=== PATIENT | female | born 1975 | race Caucasian/White ===

== ENCOUNTER 2023-06-24 10:07 | Outpatient (REF) | payer OTHER, SELFPAY ==
[2023-06-24 11:33] LABS: SARS-CoV-2 Ag POSITIVE (NEGATIVE)
== END 2023-06-24 10:08 | disposition home or self-care (01) ==
LOC: LAB 10:07
PROVIDERS: PCP Family Medicine; Visit Provider Internal Medicine
DX: Z20.822 Contact with and (suspected) exposure to COVID-19 (principal)
CPT/HCPCS: 87811

== ENCOUNTER 2024-02-26 20:00 | Outpatient (OUT) | payer OTHER, SELFPAY | END 2024-02-26 20:01 | disposition home or self-care (01) | LOC: SLEEP 02-27 07:33 | PROVIDERS: PCP Family Medicine; Visit Provider Family Medicine | DX: G47.33 Obstructive sleep apnea (adult) (pediatric) (principal) | CPT/HCPCS: 95810 ==

== ENCOUNTER 2024-03-01 09:23 | Outpatient (OUT) | payer OTHER, SELFPAY ==
--- NOTE | 2024-03-01 09:26 | MM_ITS ---
Patient Name: YOLANDA ALCARAZ MR#: [id number] : 1975 Exam Date: 03/01/2024 Ordering Doctor: DR Allison Schuler M.D. RADIOLOGY REPORT PROCEDURE: MM TOMOSYNTHESIS SCREENING BI COMPARISON: MAMMO POST BIOPSY RIGHT, 05/03/2022. MG MAMM RT DIAG FU, 04/23/2022. MG MAMM SCREEN 3D AYUSH CAD, 04/14/2022. INDICATIONS: Screening Calculator Name NCI Breast Cancer Risk Assessment Tool 5 Year Breast Cancer Risk Not Reported. Lifetime Breast Cancer Risk Not Reported. Personal Breast Cancer No Personal Ovarian Cancer No Treatments None Family Cancers None LOCATION: [facility] BREAST COMPOSITION: The breasts are heterogeneously dense,which may obscure small masses. FINDINGS: DIAGNOSTIC CATEGORY 2--BENIGN FINDING: RIGHT BREAST: No significant suspicious finding. No appreciable change of the 2.1 cm mass within the posterior upper-outer quadrant (benign on prior biopsy). No significant change has occurred. LEFT BREAST: No significant suspicious finding. No significant change has occurred. RECOMMENDATIONS: ROUTINE MAMMOGRAM AND CLINICAL EVALUATION IN 12 MONTHS. PLEASE NOTE: A NORMAL MAMMOGRAM DOES NOT EXCLUDE THE POSSIBILITY OF BREAST CANCER. A CLINICALLY SUSPICIOUS PALPABLE LUMP SHOULD BE BIOPSIED. Dictated by: West Wooten M.D. on 03/01/2024 at 15:34 Approved by: West Wooten M.D. on 03/01/2024 at 15:39
--- OUTSIDE RECORDS SUMMARY | 2024-03-01 09:29 | XMS_ITS | CCD ---
Author Organization [facility] Care Team Providers Care Security Business Analyst Name Role Phone MD Raymundo DAILEY Attending Unavailable SHARP, DR ALLISON Gaitan Primary Care Unavailable KARASIK ., DR MATSON Admitting Unavailabl e KARASIK ., DR MATSON Consulting Unavailabl e KARASIK ., DR MATSON Attending Unavailabl e AGUBOSIM, DARIA Consulting Unavailable LEONARD, TRI Consulting Unavailable SHARP, DR ALLISON Gaitan Primary Care Unavailable KARASIK ., DR MATSON Admitting Unavailabl e KARASIK ., DR MATSON Consulting Unavailabl e KARASIK ., DR MATSON Attending Unavailabl e SHARP, DR ALLISON Gaitan Primary Care Unavailable KARASIK ., DR MATSON Admitting Unavailabl e KARASIK ., DR MATSON Consulting Unavailabl e KARASIK ., DR MATSON Attending Unavailabl e REQUEST, DR ALMANZAR LISTED Consulting Unavaila ble REQUEST, DR ALMANZAR LISTED Attending Unavaila ble REQUEST, DR ALMANZAR LISTED Admitting Unavaila ble SHARP, DR ALLISON Gaitan Primary Care Unavailable SHARP, DR ALLISON Gaitan Primary Care Unavailable KARASIK ., DR MATSON Attending Unavailabl e KARASIK ., DR MATSON Admitting Unavailabl e KARASIK ., DR MATSON Consulting Unavailabl e SHARP, DR ALLISON Gaitan Primary Care Unavailable KARASIK ., DR MATSON Admitting Unavailabl e KARASIK ., DR MATSON Attending Unavailabl e SHARP, DR ALLISON Gaitan Primary Care Unavailable SHARP, DR ALLISON Gaitan Consulting Unavailable SHARP, DR ALLISON Gaitan Attending Unavailable SHARP, DR ALLISON Gaitan Admitting Unavailable SHARP, DR ALLISON Gaitan Primary Care Unavailable SHARP, DR ALLISON Gaitan Admitting Unavailable SHARP, DR ALLISON Gaitan Consulting Unavailable SHARP, DR ALLISON Gaitan Attending Unavailable SHARP, DR ALLISON Gaitan Primary Care Unavailable SHARP, DR ALLISON Gaitan Admitting Unavailable WEST, DR RANJEET Pitts Consulting Unavailable SHARP, DR ALLISON Gaitan Attending Unavailable SHARP, DR ALLISON Gaitan Consulting Unavailable SHARP, DR ALLISON Gaitan Primary Care Unavailable KARASIK ., DR MATSON Attending Unavailabl e KARASIK ., DR MATSON Admitting Unavailabl e KARASIK ., DR MATSON Consulting Unavailabl e SHARP, DR ALLISON Gaitan Primary Care Unavailable KARASIK ., DR MATSON Attending Unavailabl e KARASIK ., DR MATSON Admitting Unavailabl e KARASIK ., DR MATSON Consulting Unavailabl e ZIEBER, DR WEST Hubbard Consulting Unavailable SHARP, DR ALLISON Gaitan Primary Care Unavailable ZIEBER, DR WEST Hubbard Consulting Unavailable SHARP, DR ALLISON Gaitan Admitting Unavailable SHARP, DR ALLISON Gaitan Attending Unavailable SHARP, DR ALLISON Gaitan Consulting Unavailable SHARP, DR ALLISON Gaitan Primary Care Unavailable KARASIK ., DR MATSON Attending Unavailabl e DAILEY ., DR GRACE Consulting Unavailable KARASIK ., DR MATSON Admitting Unavailabl e KARASIK ., DR MATSON Consulting Unavailabl e KARASIK ., DR MATSON Procedure Practitioner Smiley vailable TRI LEONARD Consulting Unavailable JUNGERMANNYANELY Consulting Unavailable DAILEY ., DR GRACE Procedure Practitioner Unav ailable MORCHICHI DARIA Consulting Unavailable SHARP, DR ALLISON Gaitan Primary Care Unavailable KARASIK ., DR MATSON Attending Unavailabl e KARASIK ., DR MATSON Admitting Unavailabl e SHARP, DR ALLISON Gaitan Primary Care Unavailable KARASIK ., DR MATSON Consulting Unavailabl e KARASIK ., DR MATSON Attending Unavailabl e KARASIK ., DR MATSON Admitting Unavailabl e KARASIK ., DR MATSON Primary Care Unavailabl e ZIEBER, DR WEST Hubbard Consulting Unavailable SHARP, DR ALLISON Gaitan Admitting Unavailable SHARP, DR ALLISON Gaitan Attending Unavailable SHARP, DR ALLISON Gaitan Consulting Unavailable Sharp, Allsion Unavailable Arley Hand Unavailable Allergies Allergy Classification Reported Allergen(s) Allergy Type Date of Onset Reaction(s) Facility (1 source) almotriptan Drug Allergy [facility] (1 source) Perazine Drug Allergy [facility] (1 source) almotriptan Drug Allergy Unknown [facility] Other (1 source) Naproxen / Pseudoephedrine Drug Allergy 08-06-20 Unknown [facility] Other (2 sources) rizatriptan Drug Allergy 02-17-20 Unknown, [facility] (1 source) Allergies Reconciled Propensity to adverse reactions Unknown [facility] Other (1 source) patient allergy list reviewed by nurse or physicia Propensity to adverse reactions 04-06-20 Comment:Done [facility] Other (1 source) almotriptan Drug Allergy 02-15-20 [facility] (1 source) Sudafed Sinus 12HR Press+Pain Allergy to substance 02-15-20 [facility] Medications Current Medications Medication Drug Class(es) Dates Sig (Normalized) Sig (Original) losartan potassium 25 mg oral tablet (1 source) Angiotensin 2 Receptor Gil Start: 02-15-2024 take 1 tablet by mouth once daily Losartan Active 25 MG PO Daily February 15, 2024 12:00am [facility]: TAKE 1 TABLET DAILY; Note: Source Status: Start; Refills: 3; Qty: 90 Tablet; Provider: Ganga Cooper ( ) metFORMIN hydrochloride 500 mg oral tablet (1 source) Biguanide Start: 02-17-2024 take 500 mg by mouth once daily Metformin Active 500 MG PO Daily February 17, 2024 12:00am methylPREDNISolone 4 mg oral tablet (2 sources) Corticosteroid Start: 06-23-2020 Medrol (Josue) 4 MG half of daily dose in the morning with food and the rest at night with food Orally Jun, Active sulfamethoxazole 800 mg / trimethoprim 160 mg oral tablet (2 sources) Dihydrofolate Reductase Inhibitor Antibacterial, Sulfonamide Antimicrobial Start: 04-27-2023 take 1 tablet by mouth every twelve hours Bactrim DS 800-160 MG 1 tablet Orally Twice a day for 10 day(s) Apr, Active {20 (nirmatrelvir 150 MG Oral Tablet) / 10 (ritonavir 100 MG Oral Tablet) } Pack [Paxlovid 5-Day] (1 source) Start: 06-24-2023 take 3 tablets by mouth every twelve hours Paxlovid (300/100) 20 x 150 MG & 10 x 100MG 3 tablets Orally Twice a day for 5 days Jun, Active Completed/Discontinued Medications Medication Drug Class(es) Dates Sig (Normalized) Sig (Original) amoxicillin 500 mg oral capsule (2 sources) Penicillin-class Antibacterial Amoxicillin 500 MG (Prior Auth#:[id number] ) Oral for 10 Not-Taking Nirmatrelvir-Riton avir (Paxlovid) 300 mg (150 mg x 2)-100 mg tablets,dose pack (1 source) Start: 02-15-2024 End: 02-17-2024 take 3 tablets by mouth twice daily Nirmatrelvir-Riton avir (Paxlovid) 300 mg (150 mg x 2)-100 mg tablets,dose pack Discontinued 3 TAB PO Twice daily February 15, 2024 12:00am February 17, 2024 9:42am [facility] tablets Orally Twice a day; Note: Source Status: Start; Refills: 0; Provider: Yazan Gaitan predniSONE 20 mg oral tablet (2 sources) predniSONE 20 MG (Prior Auth#:[id number] ) Oral for 5 Not-Taking Problems Active Problems Problem Classification Problem Date Documented Date Episodic/Chronic Allergic reactions (1 source) Allergic contact dermatitis; Translations: [Allergic contact dermatitis, unspecified cause] Episodic Chronic obstructive pulmonary disease and bronchiectasis (1 source) Bronchitis, not specified as acute or chronic Episodic Deficiency and other anemia (1 source) Nutritional anemia; Translations: [Nutritional anemia, unspecified] Episodic Deficiency and other anemia (1 source) Iron deficiency anemia; Translations: [Iron deficiency anemia, unspecified] Episodic Endometriosis (1 source) Endometriosis, unspecified; Translations: [ENDOMETRIOSIS UNSPECIFIED] Onset: 08-23-2022 Chronic Esophageal disorders (2 sources) Gastro-esophageal reflux disease without esophagitis; Translations: [Gastroesophageal reflux disease without esophagitis] Onset: 08-23-2022 Chronic Essential hypertension (1 source) Essential hypertension; Translations: [Essential (primary) hypertension] Chronic Menstrual disorders (8 sources) Excessive and frequent menstruation with regular cycle; Translations: [Irregular menstruation, unspecified] Onset: 05-03-2022 Resolved: 06-22-2022 Chronic Mycoses (1 source) Tinea corporis; Translations: [Tinea corporis] Episodic Nonmalignant breast conditions (1 source) Diffuse cystic mastopathy of right breast; Translations: [DIFFUSE CYSTIC MASTOPATHY RT BREAST] Onset: 07-21-2022 Chronic Open wounds of head; neck; and trunk (1 source) Open wound of lateral abdominal wall without complication; Translations: [Unspecified open wound of abdominal wall, unspecified quadrant without penetration into peritoneal cavity, initial encounter] Episodic Other acquired deformities (1 source) 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; Translations: [Contracture, right ankle] Chronic Other aftercare (1 source) History and physical examination, follow-up; Translations: [Encounter for follow-up examination after completed treatment for conditions other than malignant neoplasm] Episodic Other circulatory disease (1 source) Elevated blood-pressure reading without diagnosis of hypertension; Translations: [Elevated blood-pressure reading, without diagnosis of hypertension] Episodic Other connective tissue disease (1 source) Plantar fascial fibromatosis; Translations: [Plantar fascial fibromatosis] Episodic Other connective tissue disease (1 source) Achilles bursitis; Translations: [Achilles tendinitis, right leg] Episodic Other connective tissue disease (1 source) Pain in right foot; Translations: [Pain in right foot] Episodic Other injuries and conditions due to external causes (1 source) History of fall; Translations: [History of falling] Episodic Other nutritional; endocrine; and metabolic disorders (1 source) Morbid (severe) obesity due to excess calories; Translations: [MORBID SEVERE OBES D/T EXCESS KELLY] Onset: 08-23-2022 Chronic Other nutritional; endocrine; and metabolic disorders (1 source) Body mass index (BMI) 40.0-44.9, adult; Translations: [BODY MASS INDEX BMI 40.0-44.9 ADULT] Onset: 08-23-2022 Chronic Other nutritional; endocrine; and metabolic disorders (1 source) Body mass index 40+ - severely obese; Translations: [Body mass index (BMI) 40.0-44.9, adult] Chronic Other nutritional; endocrine; and metabolic disorders (1 source) Morbid obesity; Translations: [Morbid (severe) obesity due to excess calories] Chronic Other screening for suspected conditions (not mental disorders or infectious disease) (2 sources) Abnormal findings on diagnostic imaging of other specified body structures; Translations: [Imaging result abnormal] Onset: 06-16-2022 Chronic Other screening for suspected conditions (not mental disorders or infectious disease) (15 sources) Encounter for screening for malignant neoplasm of cervix; Translations: [Other abnormal and inconclusive findings on diagnostic imaging of breast] Onset: 04-14-2022 Resolved: 07-26-2022 Episodic Other upper respiratory infections (2 sources) Chronic sinusitis, unspecified; Translations: [Chronic sinusitis] Onset: 10-13-2022 Chronic Pleurisy; pneumothorax; pulmonary collapse (1 source) Pleurisy; Translations: [Pleurisy] Episodic Residual codes; unclassified (1 source) Postprocedural state finding; Translations: [Other specified postprocedural states] Episodic Residual codes; unclassified (1 source) Immunization refused ; Translations: [Immunization not carried out because of patient refusal] Episodic Spondylosis; intervertebral disc disorders; other back problems (1 source) Low back pain; Translations: [Low back pain, unspecified] Episodic Unclassified (4 sources) CONTACT W/AND (SUSP) EXPOS COVID-19; Translations: [CONTACT W/AND (SUSP) EXPOS COVID-19] Onset: 07-17-2022 Urinary tract infections (1 source) Acute cystitis without hematuria Episodic Past or Other Problems Problem Classification Problem Date Documented Date Episodic/Chronic Abdominal pain (9 sources) Pelvic and perineal pain; Translations: [Left upper quadrant pain] Onset: 06-14-2013 Resolved: 06-22-2022 Episodic Benign neoplasm of uterus (3 sources) Leiomyoma of uterus, unspecified; Translations: [LEIOMYOMA OF UTERUS UNSPECIFIED] Onset: 07-19-2022 Episodic Deficiency and other anemia (4 sources) Iron deficiency anemia, unspecified; Translations: [IRON DEFICIENCY ANEMIA UNSPECIFIED] Onset: 07-14-2022 Episodic Deficiency and other anemia (1 source) Nutritional anemia, unspecified; Translations: [NUTRITIONAL ANEMIA UNSPECIFIED] Onset: 06-16-2022 Episodic Genitourinary symptoms and ill-defined conditions (1 source) Female genital organ symptoms; Translations: [Unspecified symptom associated with female genital organs] Onset: 07-16-2010 Resolved: 04-29-2022 Episodic Headache; including migraine (1 source) Migraine without aura, not refractory ; Translations: [Migraine, unspecified, not intractable, without status migrainosus] Resolved: 04-29-2022 Chronic Immunizations and screening for infectious disease (1 source) Encounter for screening for human papillomavirus (HPV); Translations: [ENC SCREENING HUMAN PAPILLOMAVIRUS] Onset: 05-03-2022 Episodic Inflammatory diseases of female pelvic organs (1 source) Female pelvic peritoneal adhesions (postinfective); Translations: [FE PELV PERITON ADHES POSTINFECTIVE] Onset: 08-23-2022 Episodic Nonmalignant breast conditions (4 sources) Unspecified lump in the right breast, upper outer quadrant; Translations: [UNS LUMP IN RT BREAST UP OUTR QUAD] Onset: 04-16-2022 Episodic Nonspecific chest pain (1 source) Chest pain; Translations: [Chest pain, Other] Onset: 12-06-2013 Resolved: 04-29-2022 Episodic Other aftercare (1 source) Other [employer] (current) drug therapy; Translations: [OTH HALF-WAY CURRENT DRUG THERAPY] Onset: 08-23-2022 Episodic Other female genital disorders (1 source) Abnormal vaginal bleeding; Translations: [Other disorder of menstruation and other abnormal bleeding from female genital tract] Onset: 07-08-2015 Resolved: 04-29-2022 Chronic Other female genital disorders (1 source) Hypertrophy of uterus; Translations: [HYPERTROPHY OF UTERUS] Onset: 07-06-2022 Episodic Other female genital disorders (1 source) Hypertrophy of uterus; Translations: [Hypertrophy of uterus] Resolved: 07-29-2022 Episodic Other nutritional; endocrine; and metabolic disorders (1 source) Obese class II; Translations: [Body mass index 39.0-39.9, adult] Onset: 01-27-2017 Resolved: 04-29-2022 Chronic Other upper respiratory infections (1 source) Acute maxillary sinusitis; Translations: [Acute recurrent maxillary sinusitis] Onset: 04-06-2019 Resolved: 04-29-2022 Episodic Ovarian cyst (2 sources) Unspecified ovarian cyst, left side; Translations: [Corpus luteum cyst] Onset: 07-16-2010 Resolved: 04-29-2022 Episodic Unclassified (1 source) CONTACT W/AND (SUSP) EXPOS COVID-19; Translations: [CONTACT W/AND (SUSP) EXPOS COVID-19] Onset: 10-05-2022 Viral infection (1 source) COVID-19 Results Test Name Value Interpretation Reference Range Facility Urinalysis - DIPSTICKon 04-16 Appearance (U) cloudy [facility] Other Bilirubin Ql (U) Negative [facility] Other Color (U) yellow [facility] Other Glucose Ql (U) Negative [facility] Other Hemoglobin Ql (U) trace [facility] Other Ketones Ql (U) Negative [facility] Other Leukocyte esterase Test strip Ql (U) moderate [facility] Other Nitrite Ql (U) Positive [facility] Other pH (U) 5 [pH] [facility] Other Protein Ql (U) 30+ [facility] Other Specific gravity (U) [Rel density] 1.005 [facility] Other Urobilinogen (U) [Mass/Vol] normal [facility] Other Urinalysis - DIPSTICK [facility] Other CBC AUTO DIFFon 02-16-2023 BASO # 0.0 103/ul Normal 0.0-0.1 [facility] Comment on above: Performed By: #### B UN, CREA #### [facility] [address] [place] [address] Dr. Luis A Solorio Basophils/100 WBC (Bld) 0.4 % Normal 0.2-2.0 [facility] Comment on above: Performed By: #### B UN, CREA #### [facility] [address] [place] [address] Dr. Luis A Solorio EO # 0.1 103/ul Normal 0.0-0.7 [facility] Comment on above: Performed By: #### B UN, CREA #### [facility] [address] [place] [address] Dr. Luis A Solorio Eosinophils/100 WBC (Bld) 1.6 % Normal 0.9-7.0 [facility] Comment on above: Performed By: #### B UN, CREA #### [facility] [address] [place] [address] Dr. Luis A Solorio Erythrocyte distribution width (RBC) [Ratio] 14.2 % Normal 11.0-15.0 [facility] Comment on above: Performed By: #### B UN, CREA #### [facility] [address] [place] [address] Dr. Luis A Solorio Hematocrit (Bld) [Volume fraction] 35.3 % Critically low 36.0-48.0 [facility] Comment on above: Performed By: #### B UN, CREA #### [facility] [address] [place] [address] Dr. Luis A Solorio Hemoglobin (Bld) [Mass/Vol] 11.2 g/dL Critically low 12.0-16.0 [facility] Comment on above: Performed By: #### B UN, CREA #### [facility] [address] [place] [address] Dr. Luis A Solorio IG # 0.01 10e3/ul Normal 0.00-0.03 [facility] Comment on above: Performed By: #### B UN, CREA #### [facility] [address] [place] [address] Dr. Luis A Solorio IG % 0.2 % Normal 0.0-0.5 [facility] Comment on above: Performed By: #### B UN, CREA #### [facility] [address] [place] [address] Dr. Luis A Solorio LYMPH # 1.8 103/ul Normal 1.2-3.8 [facility] Comment on above: Performed By: #### B UN, CREA #### [facility] [address] [place] [address] Dr. Luis A Solorio Lymphocytes/100 WBC (Bld) 37.9 % Normal 20.5-60.0 [facility] Comment on above: Performed By: #### B UN, CREA #### [facility] [address] [place] [address] Dr. Luis A Solorio MCH (RBC) [Entitic mass] 26.0 pg Critically low 26.7-34.0 [facility] Comment on above: Performed By: #### B UN, CREA #### [facility] [address] [place] [address] Dr. Luis A Solorio MCHC (RBC) [Mass/Vol] 31.7 g/dL Normal 29.9-35.2 [facility] Comment on above: Performed By: #### B UN, CREA #### [facility] [address] [place] [address] Dr. Luis A Solorio MCV (RBC) [Entitic vol] 81.9 fL Normal 81.0-99.0 [facility] Comment on above: Performed By: #### B UN, CREA #### [facility] [address] [place] [address] Dr. Luis A Solorio MONO # 0.4 103/ul Normal 0.3-0.8 [facility] Comment on above: Performed By: #### B UN, CREA #### [facility] [address] [place] [address] Dr. Luis A Solorio Monocytes/100 WBC (Bld) 8.5 % Normal 1.7-12.0 [facility] Comment on above: Performed By: #### B UN, CREA #### [facility] [address] [place] [address] Dr. Luis A Solorio NEUT # 2.5 103/ul Normal 1.4-6.5 [facility] Comment on above: Performed By: #### B UN, CREA #### [facility] [address] [place] [address] Dr. Luis A Solorio Neutrophils/100 WBC (Bld) 51.4 % Normal 43.0-75.0 [facility] Comment on above: Performed By: #### B UN, CREA #### [facility] [address] [place] [address] Dr. Luis A Solorio Platelet mean volume (Bld) [Entitic vol] 11.5 fL Normal 9.5-13.5 [facility] Comment on above: Performed By: #### B UN, CREA #### [facility] [address] [place] [address] Dr. Luis A Solorio PLT 228 103/ul Normal 150-450 [facility] Comment on above: Performed By: #### B ROLANDO, CREA #### [facility] [address] [place] [address] Dr. Luis A Solorio RBC 4.31 106/ul Normal 4.20-5.40 [facility] Comment on above: Performed By: #### B ROLANDO, CREA #### [facility] [address] [place] [address] Dr. Luis A Solorio WBC 4.9 103/ul Normal 4.0-11.0 [facility] Comment on above: Performed By: #### B ROLANDO, CREA #### [facility] [address] [place] [address] Dr. Luis A Solorio MEDHAT - TSHon 02-16-2023 TSH 1.783 uIU/mL Normal 0.358-3.740 [facility] Comment on above: Performed By: #### D ATBMP, DATTS #### [facility] [address] [place] [address] Dr. Luis A Solorio TSH RANGE SEE BELOW Normal [facility] Comment on above: Result Comment: <0.3 4 UIU/ml HYPERTHYROID 0.34-5.60 UIU/ml EUTHYROID >5.60 UIU/ml HYPOTHYROID Performed By: #### D ATBMP, DATTSH #### [facility] [address] [place] [address] Dr. Luis A Solorio MEDHAT- BMP WITH LIPIDon 2022 Anion gap [Moles/Vol] 13.5 mmol/L Normal [facility] Comment on above: Performed By: #### D ATBMP, DATTSH #### [facility] [address] [place] [address] Dr. Luis A Solorio Calcium [Mass/Vol] 8.9 mg/dL Normal 8.5-10.1 [facility] Comment on above: Performed By: #### D ATBMP, DATTSH #### [facility] [address] [place] [address] Dr. Luis A Solorio Chloride [Moles/Vol] 103 mmol/L Normal 98-107 [facility] Comment on above: Performed By: #### D ATBMP, DATTSH #### [facility] [address] [address] [address] Luis A Solorio Cholesterol [Mass/Vol] 227 mg/dL Critically high <=200 [facility] Comment on above: Performed By: #### D ATBMP, DATTSH #### [facility] [address] [address] [address] Luis A Solorio Cholesterol in HDL [Mass/Vol] 56 mg/dL Normal 40-60 [facility] Comment on above: Performed By: #### D ATP, DATTSH #### [facility] [address] [place] [address] Dr. Luis A Solorio Cholesterol in LDL [Mass/Vol] 141.2 mg/dL Normal [facility] Comment on above: Performed By: #### D ATP, DATTSH #### [facility] [address] [place] [address] Dr. Luis A Solorio CO2 [Moles/Vol] 24.5 mmol/L Normal 21.0-32.0 [facility] Comment on above: Performed By: #### D ATP, DATTSH #### [facility] [address] [place] [address] Dr. Luis A Solorio Creatinine [Mass/Vol] 0.74 mg/dL Normal 0.55-1.02 [facility] Comment on above: Performed By: #### D ATP, DATTSH #### [facility] [address] [place] [address] Dr. Luis A Solorio EGFR-AF BAHRAINI >60 Normal >=60 [facility] Comment on above: Performed By: #### D ATBMP, DATTSH #### [facility] [address] [place] [address] Dr. Luis A Solorio EGFR-NON AF BAHRAINI >60 Normal >=60 [facility] Comment on above: Performed By: #### D ATBMP, DATTSH #### [facility] [address] [address] [address] Luis A Solorio Glucose [Mass/Vol] 94 mg/dL Normal 74-106 [facility] Comment on above: Performed By: #### D ATBMP, DATTS #### [facility] [address] [address] [address] Luis A Solorio HDL NORMAL > or = 60 mg/dl - LOW CARDIOVASCULAR RISK <40 mg/dl - HIGH CARDIOVASCULAR RISK Normal [facility] Comment on above: Performed By: #### D ATP, DATTSH #### [facility] [address] [address] [address] Luis A Solorio LDL CALC NORMAL SEE BELOW Normal [facility] Comment on above: Result Comment: <100 mg/dl OPTIMAL 100 - 129 mg/dl NEAR OR ABOVE OPTIMAL 130 - 159 mg/dl BORDERLINE HIGH 160 - 189 mg/dl HIGH >190 mg/dl VERY HIGH Performed By: #### D ATBMP, DATTS #### [facility] [address] [address] [address] Luis A Solorio Potassium [Moles/Vol] 4.0 mmol/L Normal 3.5-5.1 [facility] Comment on above: Performed By: #### D ATP, DATTSH #### [facility] [address] [address] [address] Luis A Solorio Sodium [Moles/Vol] 137 mmol/L Normal 136-145 [facility] Comment on above: Performed By: #### D ATBMP, DATTS #### [facility] [address] [address] [address] Luis A Solorio Triglyceride [Mass/Vol] 149 mg/dL Normal <=150 [facility] Comment on above: Performed By: #### D ATBMP, DATTSH #### [facility] [address] [address] [address] Luis A Solorio Urea nitrogen [Mass/Vol] 13.0 mg/dL Normal 7.0-18.0 [facility] Comment on above: Performed By: #### D ATBMP, DATTSH #### [facility] [address] [address] [address] Luis A Solorio Urea nitrogen/Creatinine [Mass ratio] 17.6 mg/mg Normal [facility] Comment on above: Performed By: #### D ATBMP, DATTSH #### [facility] [address] [address] [address] Luis A Solorio VLDL CALC 29.8 mg/dL Normal [facility] Comment on above: Performed By: #### D ATBMP, DATTSH #### [facility] [address] [address] [address] Luis A Solorio GLYCOHEMOGLOBIN A1Con 2022 ADA RECOMMENDATION SEE BELOW Normal [facility] Comment on above: Result Comment: ADA RECOMMENDED LIMIT 4.0 - 6.0 ADA THERAPEUTIC TARGET < 7.0 ACTION SUGGESTED > 7.0 Performed By: #### P REGU #### [facility] [address] [address] [address] Luis A Solorio Glucose [Mass/Vol] 114 mg/dL Normal [facility] Comment on above: Performed By: #### P REGU #### [facility] [address] [address] [address] Luis A Solorio HbA1c (Bld) [Mass fraction] 5.6 % Normal 4.5-6.2 [facility] Comment on above: Performed By: #### P REGU #### [facility] [address] [address] [address] Luis A Solorio Covid-19 PCR ([facility])on 09-17 SARS-CoV-2 (COVID-19) RNA ARABELLA+probe Ql (Unsp spec) Not detected Normal NOT DETECTED [facility] Comment on above: Result Comment: When diagnostic testing is negative, the possibility of a false negative should be considered in the context of a patient's recent exposures and the presence of clinical signs and symptoms consistent with SARS-CoV-2. This test is not yet approved or cleared by the [place] FDA. When there are no FDA-approved or cleared tests available, and other criteria are met, FDA can make tests available under an emergency access mechanism called an Emergency Use Authorization (EUA). The EUA for this test is supported by the [place] of Health and Human Service's declaration that circumstances exist to justify the emergency use of in vitro diagnostics for the detection and/or diagnosis of the virus that causes COVID-19. This EUA will remain in effect for the duration of the COVID-19 declaration justifying emergency of IVDs, unless it is terminated or revoked by the FDA (after which the test may no longer be used). Performed By: #### P REGU #### [facility] [address] [place] [address] Dr. Luis A Solorio Operative Reporton 2 Operative Report [id number] #1.00CD:127 Normal [facility] BUNon 07-20-2022 Urea nitrogen [Mass/Vol] 14.0 mg/dL Normal 7.0-18.0 [facility] Comment on above: Performed By: #### B ROHIT MARSHALL #### [facility] [address] [place] [address] Dr. Luis A Solorio CBC AUTO DIFFon 07-20-2022 BASO # 0.0 103/ul Normal 0.0-0.1 [facility] Comment on above: Performed By: #### P REGU #### [facility] [address] [place] [address] Dr. Luis A Solorio Basophils/100 WBC (Bld) 0.1 % Critically low 0.2-2.0 [facility] Comment on above: Performed By: #### P REGU #### [facility] [address] [place] [address] Dr. Luis A Solorio EO # 0.0 103/ul Normal 0.0-0.7 [facility] Comment on above: Performed By: #### P REGU #### [facility] [address] [place] [address] Dr. Luis A Solorio Eosinophils/100 WBC (Bld) 0.0 % Critically low 0.9-7.0 [facility] Comment on above: Performed By: #### P REGU #### [facility] [address] [place] [address] Dr. Luis A Solorio Erythrocyte distribution width (RBC) [Ratio] 17.0 % Critically high 11.0-15.0 [facility] Comment on above: Performed By: #### P REGU #### [facility] [address] [place] [address] Dr. Luis A Solorio Hematocrit (Bld) [Volume fraction] 32.6 % Critically low 36.0-48.0 [facility] Comment on above: Performed By: #### P REGU #### [facility] [address] [place] [address] Dr. Luis A Solorio Hemoglobin (Bld) [Mass/Vol] 10.1 g/dL Critically low 12.0-16.0 [facility] Comment on above: Performed By: #### P REGU #### [facility] [address] [place] [address] Dr. Luis A Solorio IG # 0.05 10e3/ul Critically high 0.00-0.03 [facility] Comment on above: Performed By: #### P REGU #### [facility] [address] [place] [address] Dr. Luis A Solorio IG % 0.5 % Normal 0.0-0.5 [facility] Comment on above: Performed By: #### P REGU #### [facility] [address] [place] [address] Dr. Luis A Solorio LYMPH # 1.3 103/ul Normal 1.2-3.8 [facility] Comment on above: Performed By: #### P REGU #### [facility] [address] [place] [address] Dr. Luis A Solorio Lymphocytes/100 WBC (Bld) 12.4 % Critically low 20.5-60.0 [facility] Comment on above: Performed By: #### P REGU #### [facility] [address] [place] [address] Dr. Luis A Solorio MANUAL DIFF REQ NO Normal [facility] Comment on above: Performed By: #### P REGU #### [facility] [address] [place] [address] Dr. Luis A Solorio MCH (RBC) [Entitic mass] 25.1 pg Critically low 26.7-34.0 [facility] Comment on above: Performed By: #### P REGU #### [facility] [address] [place] [address] Dr. Luis A Solorio MCHC (RBC) [Mass/Vol] 31.0 g/dL Normal 29.9-35.2 [facility] Comment on above: Performed By: #### P REGU #### [facility] [address] [place] [address] Dr. Luis A Solorio MCV (RBC) [Entitic vol] 80.9 fL Critically low 81.0-99.0 [facility] Comment on above: Performed By: #### P REGU #### [facility] [address] [place] [address] Dr. Luis A Solorio MONO # 0.8 103/ul Normal 0.3-0.8 [facility] Comment on above: Performed By: #### P REGU #### [facility] [address] [place] [address] Dr. Luis A Solorio Monocytes/100 WBC (Bld) 7.6 % Normal 1.7-12.0 [facility] Comment on above: Performed By: #### P REGU #### [facility] [address] [place] [address] Dr. Luis A Solorio NEUT # 8.5 103/ul Critically high 1.4-6.5 [facility] Comment on above: Performed By: #### P REGU #### [facility] [address] [place] [address] Dr. Luis A Solorio Neutrophils/100 WBC (Bld) 79.4 % Critically high 43.0-75.0 [facility] Comment on above: Performed By: #### P REGU #### [facility] [address] [place] [address] Dr. Luis A Solorio Platelet mean volume (Bld) [Entitic vol] 10.7 fL Normal 9.5-13.5 [facility] Comment on above: Performed By: #### P REGU #### [facility] [address] [address] [address] Luis A Solorio PLT 237 103/ul Normal 150-450 [facility] Comment on above: Performed By: #### P REGU #### [facility] [address] [place] [address] Dr. Luis A Solorio RBC 4.03 106/ul Critically low 4.20-5.40 [facility] Comment on above: Performed By: #### P REGU #### [facility] [address] [place] [address] Dr. Luis A Solorio WBC 10.7 103/ul Normal 4.0-11.0 [facility] Comment on above: Performed By: #### P REGU #### [facility] [address] [place] [address] Dr. Luis A Solorio CREATININEon 07-20-2022 Creatinine [Mass/Vol] 0.99 mg/dL Normal 0.55-1.02 [facility] Comment on above: Performed By: #### B UN, CREA #### [facility] [address] [place] [address] Dr. Luis A Solorio EGFR-AF BAHRAINI >60 Normal >=60 [facility] Comment on above: Performed By: #### B UN, CREA #### [facility] [address] [place] [address] Dr. Luis A Solorio EGFR-NON AF BAHRAINI >60 Normal >=60 [facility] Comment on above: Performed By: #### B UN, CREA #### [facility] [address] [place] [address] Dr. Luis A Solorio CBC AUTO DIFFon 07-19-2022 BASO # 0.0 103/ul Normal 0.0-0.1 [facility] Comment on above: Performed By: #### C BC #### [facility] [address] [place] [address] Dr. Luis A Solorio Basophils/100 WBC (Bld) 0.4 % Normal 0.2-2.0 [facility] Comment on above: Performed By: #### C BC #### [facility] [address] [place] [address] Dr. Luis A Solorio EO # 0.1 103/ul Normal 0.0-0.7 [facility] Comment on above: Performed By: #### C BC #### [facility] [address] [place] [address] Dr. Luis A Solorio Eosinophils/100 WBC (Bld) 2.4 % Normal 0.9-7.0 [facility] Comment on above: Performed By: #### C BC #### [facility] [address] [place] [address] Dr. Luis A Solorio Erythrocyte distribution width (RBC) [Ratio] 16.4 % Critically high 11.0-15.0 [facility] Comment on above: Performed By: #### C BC #### [facility] [address] [place] [address] Dr. Luis A Solorio Hematocrit (Bld) [Volume fraction] 36.9 % Normal 36.0-48.0 [facility] Comment on above: Performed By: #### C BC #### [facility] [address] [place] [address] Dr. Luis A Solorio Hemoglobin (Bld) [Mass/Vol] 11.5 g/dL Critically low 12.0-16.0 [facility] Comment on above: Performed By: #### C BC #### [facility] [address] [place] [address] Dr. Luis A Solorio IG # 0.01 10e3/ul Normal 0.00-0.03 [facility] Comment on above: Performed By: #### C BC #### [facility] [address] [place] [address] Dr. Luis A Solorio IG % 0.2 % Normal 0.0-0.5 [facility] Comment on above: Performed By: #### C BC #### [facility] [address] [place] [address] Dr. Luis A Solorio LYMPH # 2.3 103/ul Normal 1.2-3.8 [facility] Comment on above: Performed By: #### C BC #### [facility] [address] [place] [address] Dr. Luis A Solorio Lymphocytes/100 WBC (Bld) 46.0 % Normal 20.5-60.0 [facility] Comment on above: Performed By: #### C BC #### [facility] [address] [place] [address] Dr. Lius A Solorio MANUAL DIFF REQ NO Normal [facility] Comment on above: Performed By: #### C BC #### [facility] [address] [place] [address] Dr. Luis A Solorio MCH (RBC) [Entitic mass] 25.3 pg Critically low 26.7-34.0 [facility] Comment on above: Performed By: #### C BC #### [facility] [address] [place] [address] Dr. Luis A Solorio MCHC (RBC) [Mass/Vol] 31.2 g/dL Normal 29.9-35.2 [facility] Comment on above: Performed By: #### C BC #### [facility] [address] [place] [address] Dr. Luis A Solorio MCV (RBC) [Entitic vol] 81.1 fL Normal 81.0-99.0 [facility] Comment on above: Performed By: #### C BC #### [facility] [address] [place] [address] Dr. Luis A Solorio MONO # 0.5 103/ul Normal 0.3-0.8 [facility] Comment on above: Performed By: #### C BC #### [facility] [address] [place] [address] Dr. Luis A Solorio Monocytes/100 WBC (Bld) 10.5 % Normal 1.7-12.0 [facility] Comment on above: Performed By: #### C BC #### [facility] [address] [place] [address] Dr. Luis A Solorio NEUT # 2.0 103/ul Normal 1.4-6.5 [facility] Comment on above: Performed By: #### C BC #### [facility] [address] [place] [address] Dr. Luis A Solorio Neutrophils/100 WBC (Bld) 40.5 % Critically low 43.0-75.0 [facility] Comment on above: Performed By: #### C BC #### [facility] [address] [place] [address] Dr. Luis A Solorio Platelet mean volume (Bld) [Entitic vol] 10.4 fL Normal 9.5-13.5 [facility] Comment on above: Performed By: #### C BC #### [facility] [address] [place] [address] Dr. Luis A Solorio PLT 236 103/ul Normal 150-450 [facility] Comment on above: Performed By: #### C BC #### [facility] [address] [place] [address] Dr. Luis A Solorio RBC 4.55 106/ul Normal 4.20-5.40 [facility] Comment on above: Performed By: #### C BC #### [facility] [address] [place] [address] Dr. Luis A Solorio WBC 4.9 103/ul Normal 4.0-11.0 [facility] Comment on above: Performed By: #### C BC #### [facility] [address] [place] [address] Dr. Luis A Solorio PREG HCG QUALon 07-19-2022 , QUAL Negative Normal NEGATIVE [facility] Comment on above: Performed By: #### P REG #### [facility] [address] [place] [address] Dr. Luis A Solorio Covid-19 PCR (CVDTB)on 06-18 SARS-CoV-2 (COVID-19) RNA ARABELLA+probe Ql (Unsp spec) Not detected Normal NOT DETECTED [facility] Comment on above: Result Comment: This test is not yet approved or cleared by the [place] FDA. When there are no FDA-approved or cleared tests available, and other criteria are met, FDA can make tests available under an emergency access mechanism called an Emergency Use Authorization (EUA). The EUA for this test is supported by the [place] of Health and Human Service's (HHS's) declaration that circumstances exist to justify the emergency use of in vitro diagnostics for the detection and/or diagnosis of the virus that causes COVID-19. This EUA will remain in effect (meaning this test can be used) for the duration of the COVID-19 declaration justifying emergency of IVDs, unless it is terminated or revoked by FDA (after which the test may no longer be used). When diagnostic testing is negative, the possibility of a false negative should be considered in the context of a patient's recent exposures and the presence of clinical signs and symptoms consistent with SARS-CoV-2. Performed By: #### P REGU #### [facility] [address] [place] [address] Dr. Luis A Solorio Pre-Certification Formon Pre-Certification Form [id number] 7#1.00CD:127 Normal [facility] TYPE AND SCREENon 07-15-2022 TYPE AND SCREEN Negative Normal [facility] Comment on above: Performed By: #### P REGU #### [facility] [address] [place] [address] Dr. Luis A Solorio Physician Referralon 022 Physician Referral [id number] #1.00CD:127 Normal [facility] URon 06-11-2022 , QUAL Negative Normal NEGATIVE [facility] Comment on above: Performed By: #### P REGU #### [facility] [address] [place] [address] Dr. Luis A Solorio Covid-19 PCR (CVDTB)on 05-17 SARS-CoV-2 (COVID-19) RNA ARABELLA+probe Ql (Unsp spec) Not detected Normal NOT DETECTED [facility] Comment on above: Result Comment: This test is not yet approved or cleared by the [place] FDA. When there are no FDA-approved or cleared tests available, and other criteria are met, FDA can make tests available under an emergency access mechanism called an Emergency Use Authorization (EUA). The EUA for this test is supported by the [place] of Health and Human Service's (HHS's) declaration that circumstances exist to justify the emergency use of in vitro diagnostics for the detection and/or diagnosis of the virus that causes COVID-19. This EUA will remain in effect (meaning this test can be used) for the duration of the COVID-19 declaration justifying emergency of IVDs, unless it is terminated or revoked by FDA (after which the test may no longer be used). When diagnostic testing is negative, the possibility of a false negative should be considered in the context of a patient's recent exposures and the presence of clinical signs and symptoms consistent with SARS-CoV-2. Performed By: #### P REGU #### [facility] [address] [place] [address] Dr. Luis A Solorio CBC AUTO DIFFon 05-28-2022 BASO # 0.0 103/ul Normal 0.0-0.1 [facility] Comment on above: Performed By: #### B UN, CREA #### [facility] [address] [place] [address] Dr. Luis A Solorio Basophils/100 WBC (Bld) 0.4 % Normal 0.2-2.0 [facility] Comment on above: Performed By: #### B UN, CREA #### [facility] [address] [place] [address] Dr. Luis A Solorio EO # 0.1 103/ul Normal 0.0-0.7 [facility] Comment on above: Performed By: #### B UN, CREA #### [facility] [address] [place] [address] Dr. Luis A Solorio Eosinophils/100 WBC (Bld) 2.0 % Normal 0.9-7.0 [facility] Comment on above: Performed By: #### B UN, CREA #### [facility] [address] [place] [address] Dr. Luis A Solorio Erythrocyte distribution width (RBC) [Ratio] 19.9 % Critically high 11.0-15.0 [facility] Comment on above: Performed By: #### B UN, CREA #### [facility] [address] [place] [address] Dr. Luis A Solorio Hematocrit (Bld) [Volume fraction] 35.0 % Critically low 36.0-48.0 [facility] Comment on above: Performed By: #### B UN, CREA #### [facility] [address] [place] [address] Dr. Luis A Solorio Hemoglobin (Bld) [Mass/Vol] 10.6 g/dL Critically low 12.0-16.0 [facility] Comment on above: Performed By: #### B UN, CREA #### [facility] [address] [place] [address] Dr. Luis A Solorio IG # 0.01 10e3/ul Normal 0.00-0.03 [facility] Comment on above: Performed By: #### B UN, CREA #### [facility] [address] [place] [address] Dr. Luis A Solorio IG % 0.2 % Normal 0.0-0.5 [facility] Comment on above: Performed By: #### B UN, CREA #### [facility] [address] [place] [address] Dr. Luis A Solorio LYMPH # 1.8 103/ul Normal 1.2-3.8 [facility] Comment on above: Performed By: #### B UN, CREA #### [facility] [address] [place] [address] Dr. Lius A Solorio Lymphocytes/100 WBC (Bld) 35.7 % Normal 20.5-60.0 [facility] Comment on above: Performed By: #### B UN, CREA #### [facility] [address] [place] [address] Dr. Luis A Solorio MANUAL DIFF REQ NO Normal [facility] Comment on above: Performed By: #### B UN, CREA #### [facility] [address] [place] [address] Dr. Luis A Solorio MCH (RBC) [Entitic mass] 23.5 pg Critically low 26.7-34.0 [facility] Comment on above: Performed By: #### B UN, CREA #### [facility] [address] [place] [address] Dr. Luis A Solorio MCHC (RBC) [Mass/Vol] 30.3 g/dL Normal 29.9-35.2 [facility] Comment on above: Performed By: #### B UN, CREA #### [facility] [address] [place] [address] Dr. Luis A Solorio MCV (RBC) [Entitic vol] 77.6 fL Critically low 81.0-99.0 [facility] Comment on above: Performed By: #### B UN, CREA #### [facility] [address] [place] [address] Dr. Luis A Solorio MONO # 0.5 103/ul Normal 0.3-0.8 [facility] Comment on above: Performed By: #### B UN, CREA #### [facility] [address] [place] [address] Dr. Luis A Solorio Monocytes/100 WBC (Bld) 9.7 % Normal 1.7-12.0 [facility] Comment on above: Performed By: #### B UN, CREA #### [facility] [address] [place] [address] Dr. Luis A Solorio NEUT # 2.6 103/ul Normal 1.4-6.5 [facility] Comment on above: Performed By: #### B UN, CREA #### [facility] [address] [place] [address] Dr. Luis A Solorio Neutrophils/100 WBC (Bld) 52.0 % Normal 43.0-75.0 [facility] Comment on above: Performed By: #### B UN, CREA #### [facility] [address] [place] [address] Dr. Luis A Solorio Platelet mean volume (Bld) [Entitic vol] 10.3 fL Normal 9.5-13.5 [facility] Comment on above: Performed By: #### B UN, CREA #### [facility] [address] [place] [address] Dr. Luis A Solorio PLT 236 103/ul Normal 150-450 [facility] Comment on above: Performed By: #### B UN, CREA #### [facility] [address] [place], [place] [address] Dr. Luis A Solorio RBC 4.51 106/ul Normal 4.20-5.40 [facility] Comment on above: Performed By: #### B ROLANDO, CREA #### [facility] [address] [place], [place] [address] Dr. Luis A Solorio WBC 4.9 103/ul Normal 4.0-11.0 [facility] Comment on above: Performed By: #### B ROLANDO, CREA #### [facility] [address] [place], [place] [address] Dr. Luis A Solorio US VAC ASST BX BREAST RT W C LIPon 05-07-2022 US VAC ASST BX BREAST RT W CLIP Begin Addendum #1 DATE/TIME COLLECTED: 05/03/2022, 09:17 EDT Final Diagnosis Report for [facility] [place], [place] RIGHT BREAST 11 O'CLOCK MASS; BIOPSY: - BENIGN PARENCHYMA WITH FOCAL FIBROCYSTIC CHANGES AND DENSE STROMA 05/05/[address] Kandice Sharp. Verified with Marsha that report was present in the office. Original Report EXAM: US VAC ASST BX BREAST RT W CLIP HISTORY: Lump in right breast COMPARISON: Ultrasound breast right Limited 04/23/2022 TECHNIQUE: After obtaining informed consent, a vacuum-assisted ultrasound-guided biopsy was performed in the usual sterile manner. The location of the biopsy was then marked as indicated below. FINDINGS: Specimen number, location: 5 core samples, right breast 11:00 near chest wall. Biopsy needle: 13-gauge vacuum core biopsy needle. Marker placed: A single metallic marker was placed adjacent to the target dislocation. Medication: Buffered 1% lidocaine with epinephrine administered locally. Complications: None. Pathology lab: Pending. IMPRESSION: 1. Uneventful ultrasound guided breast biopsy. 2. Pathology results are pending. An addendum to this report will be provided after pathology results are available. Normal [facility] US PELVIS AND TRANSVAGon US PELVIS AND TRANSVAG EXAMINATION: US PELVIS AND TRANSVAG HISTORY: Irregular periods COMPARISON: No relevant comparison available. TECHNIQUE: Transabdominal and transvaginal sonographic examination. FINDINGS: UTERUS: Normal size and appearance. Uterus size: 10.6 x 6.1 x 6.4 cm ENDOMETRIUM: Slightly thickened, but homogeneous. Endometrial thickness: 15 mm RIGHT OVARY: Normal size and appearance. Duplex Doppler demonstrates normal waveform and flow; resistive index 0.7. Ovary size: 4.1 x 2.1 x 2.4 cm LEFT OVARY: Contains 2 benign-appearing cysts, largest is 2.7 cm. Duplex Doppler demonstrates normal waveform and flow; resistive index 0.7. Ovary size: 5.2 x 4.0 x 3.4 cm CUL-DE-SAC: Unremarkable. No significant free fluid. BLADDER: Unremarkable. OTHER: None. IMPRESSION: 1. Slightly thickened endometrium, just exceeds upper limits of normal; correlate for patient's stage in menstrual cycle. 2. Left ovary contains 2 benign-appearing cysts of doubtful clinical significance. Electronically authenticated by: WEST WOOTEN Date: 2022-05-04 22:08 Normal [facility] PAP ACOG PANEL 2: 30 to 65on 05-04-2022 . . Normal [facility] Comment on above: Result Comment: Perf ormed at: WB Performed By: #### B UN, CREA #### [facility] [address] [address] [address] Luis A Solorio Age Gdln ACOG Testing 30-65 Normal [facility] Comment on above: Performed By: #### B UN, CREA #### [facility] [address] [address] [address] Luis A Solorio DIAGNOSIS: Comment Normal [facility] Comment on above: Result Comment: NEGA TIVE FOR INTRAEPITHELIAL LESION OR MALIGNANCY. Performed at: WB Performed By: #### B UN, CREA #### [facility] [address] [address] [address] Luis A Solorio HPV Aptima Negative Normal Negative [facility] Comment on above: Result Comment: This nucleic acid amplification test detects fourteen high-risk HPV types (16,18,31,33,35,39,45,51,52,56,58,59,66,68) without differentiation. Performed at: =G Performed By: #### B UN, CREA #### [facility] [address] [address] [address] Luis A Solorio Methodology: Comment Normal [facility] Comment on above: Result Comment: This liquid based ThinPrep(R) pap test was screened with the use of an image guided system. Performed at: WB Performed By: #### B UN, CREA #### [facility] [address] [place] [address] Dr. Luis A Solorio Note: Comment Normal [facility] Comment on above: Result Comment: The Pap smear is a screening test designed to aid in the detection of premalignant and malignant conditions of the uterine cervix. It is not a diagnostic procedure and should not be used as the sole means of detecting cervical cancer. Both false-positive and false-negative reports do occur. . Performed at: WB Performed By: #### B UN, CREA #### [facility] [address] [place] [address] Dr. Luis A Solorio Performed by: Comment Normal [facility] Comment on above: Result Comment: Lisbet Springer, Internal Audit Director (ASCP) Performed at: WB Performed By: #### B UN, CREA #### [facility] [address] [place] [address] Dr. Luis A Solorio Specimen adequacy: Comment Normal [facility] Comment on above: Result Comment: Sati sfactory for evaluation. Endocervical and/or squamous metaplastic cells (endocervical component) are present. Performed at: WB Performed By: #### B UN, CREA #### [facility] [address] [place] [address] Dr. Luis A Solorio MAMMO POST BIOPSY RIGHTon MAMMO POST BIOPSY RIGHT Patient: YOLANDA MARQUEZ Exam Date: 05/03/2022 : 1975 Gender:F Ordering : DR ALLISON SHARP M.D. Admission #: [id number] Family : Order #: [id number] CLICK HERE TO VIEW EXAM RADIOLOGY REPORT PROCEDURE: MAMMOGRAM POST BIOPSY IMAGES COMPARISON: MG MAMM RT DIAG FU, 04/23/2022. US BREAST RIGHT LIMITED, 04/23/2022. INDICATIONS: Lump in right breast BREAST COMPOSITION: FINDINGS: BIOPSY MARKER: A metallic marker has been placed in the targeted location within the upper-outer quadrant of the left breast. BREAST FINDINGS: Expected post biopsy findings. RECOMMENDATIONS: Dictated by: West Wooten M.D. on 05/03/2022 at 09:38 Approved by: West Wooten M.D. on 05/03/2022 at 09:50 Normal [facility] MG MAMM RT DIAG FUon 022 MG MAMM RT DIAG FU Patient: YOLANDA MARQUEZ Exam Date: 04/23/2022 : 1975 Gender:F Ordering : DR ALLISON SHARP M.D. Admission #: [id number] Family : Order #: [id number] CLICK HERE TO VIEW EXAM RADIOLOGY REPORT PROCEDURE: MAMMOGRAM RIGHT DIAGNOSTIC DIGITAL FOLLOW UP, 04/23/2022, 08:20 ULTRASOUND BREAST RIGHT LIMITED, 04/23/2022, 08:41 COMPARISON: MG MAMM SCREEN 3D AYUSH CAD, 04/14/2022. INDICATIONS: Abnormal findings on diagnostic imaging of breast Calculator Name NCI Breast Cancer Risk Assessment Tool 5 Year Breast Cancer Risk Not Reported. Lifetime Breast Cancer Risk Not Reported. Personal Breast Cancer No Personal Ovarian Cancer No Treatments None Family Cancers None LOCATION: [facility] BREAST COMPOSITION: Heterogeneously dense,which may obscure small masses. FINDINGS: DIAGNOSTIC CATEGORY 4--SUSPICIOUS FOR MALIGNANCY. FINDING DOES NOT EXHIBIT CLASSIC FINDINGS OF BREAST CANCER: RIGHT BREAST: Spot magnification views demonstrate persistence of a 2.0 x 1.4 x 1.5 cm mass within the posterior upper-outer quadrant. Ultrasound evaluation demonstrates a 1.3 x 1.3 x 1.0 cm hypoechoic mass at the 11 o'clock position felt to correspond to the mammographic findings. Ultrasound-guided tissue sampling is recommended. Our radiology department nurse will contact the patient to assistance with scheduling of biopsy. RECOMMENDATIONS: ULTRASOUND-GUIDED CORE BIOPSY: RIGHT BREAST PLEASE NOTE: A NORMAL MAMMOGRAM DOES NOT EXCLUDE THE POSSIBILITY OF BREAST CANCER. A CLINICALLY SUSPICIOUS PALPABLE LUMP SHOULD BE BIOPSIED. Dictated by: West Wooten M.D. on 04/23/2022 at 09:08 Approved by: West Wooten M.D. on 04/23/2022 at 09:37 Normal [facility] US BREAST RIGHT LIMITEDon US BREAST RIGHT LIMITED Patient: YOLANDA MARQUEZ Exam Date: 04/23/2022 : 1975 Gender:F Ordering : DR ALLISON SHARP M.D. Admission #: [id number] Family : Order #: [id number] CLICK HERE TO VIEW EXAM RADIOLOGY REPORT PROCEDURE: MAMMOGRAM RIGHT DIAGNOSTIC DIGITAL FOLLOW UP, 04/23/2022, 08:20 ULTRASOUND BREAST RIGHT LIMITED, 04/23/2022, 08:41 COMPARISON: MG MAMM SCREEN 3D AYUSH CAD, 04/14/2022. INDICATIONS: Abnormal findings on diagnostic imaging of breast Calculator Name NCI Breast Cancer Risk Assessment Tool 5 Year Breast Cancer Risk Not Reported. Lifetime Breast Cancer Risk Not Reported. Personal Breast Cancer No Personal Ovarian Cancer No Treatments None Family Cancers None LOCATION: [facility] BREAST COMPOSITION: Heterogeneously dense,which may obscure small masses. FINDINGS: DIAGNOSTIC CATEGORY 4--SUSPICIOUS FOR MALIGNANCY. FINDING DOES NOT EXHIBIT CLASSIC FINDINGS OF BREAST CANCER: RIGHT BREAST: Spot magnification views demonstrate persistence of a 2.0 x 1.4 x 1.5 cm mass within the posterior upper-outer quadrant. Ultrasound evaluation demonstrates a 1.3 x 1.3 x 1.0 cm hypoechoic mass at the 11 o'clock position felt to correspond to the mammographic findings. Ultrasound-guided tissue sampling is recommended. Our radiology department nurse will contact the patient to assistance with scheduling of biopsy. RECOMMENDATIONS: ULTRASOUND-GUIDED CORE BIOPSY: RIGHT BREAST PLEASE NOTE: A NORMAL MAMMOGRAM DOES NOT EXCLUDE THE POSSIBILITY OF BREAST CANCER. A CLINICALLY SUSPICIOUS PALPABLE LUMP SHOULD BE BIOPSIED. Dictated by: West Wooten M.D. on 04/23/2022 at 09:08 Approved by: West Wooten M.D. on 04/23/2022 at 09:37 Normal [facility] MG MAMM SCREEN 3D AYUSH CADon 04-14-2022 MG MAMM SCREEN 3D AYUSH CAD Patient: YOLANDA MARQUEZ. Exam Date: 04/14/2022 : 1975 Gender:F Ordering : DR ALLISON SHARP M.D. Admission #: [id number] Family : Order #: [id number] CLICK HERE TO VIEW EXAM RADIOLOGY REPORT PROCEDURE: MAMMOGRAM SCREENING 3D BILATERAL CAD COMPARISON: None. INDICATIONS: Screening mammography Calculator Name NCI Breast Cancer Risk Assessment Tool 5 Year Breast Cancer Risk Not Reported. Lifetime Breast Cancer Risk Not Reported. Personal Breast Cancer No Personal Ovarian Cancer No Treatments None Family Cancers None LOCATION: [facility] BREAST COMPOSITION: Heterogeneously dense,which may obscure small masses. FINDINGS: DIAGNOSTIC CATEGORY 0--INCOMPLETE: NEED ADDITIONAL IMAGING EVALUATION. Scattered benign-appearing calcifications are present. Scattered benign-appearing lymph nodes are present. RIGHT BREAST: 2.1 x 1.4 x 1.6 cm partially circumscribed mass 11 o'clock position, upper outer quadrant, mid to posterior breast. Spot compression and ultrasound follow-up is required. LEFT BREAST: No significant suspicious finding. RECOMMENDATIONS: ADDITIONAL MAMMOGRAPHIC VIEWS REQUIRED: RIGHT BREAST - spot compression ULTRASOUND: RIGHT BREAST PLEASE NOTE: A NORMAL MAMMOGRAM DOES NOT EXCLUDE THE POSSIBILITY OF BREAST CANCER. A CLINICALLY SUSPICIOUS PALPABLE LUMP SHOULD BE BIOPSIED. Dictated by: Ranjeet Schwab MD on 04/14/2022 at 10:00 Approved by: Ranjeet Schwab MD on 04/14/2022 at 10:03 Normal [facility] CBC AUTO DIFFon 04-02-2022 BASO # 0.0 103/ul Normal 0.0-0.1 [facility] Comment on above: Performed By: #### C BC #### [facility] [address] [address] [address] Luis A Solorio Basophils/100 WBC (Bld) 0.4 % Normal 0.2-2.0 [facility] Comment on above: Performed By: #### C BC #### [facility] [address] [address] [address] Luis A Solorio EO # 0.1 103/ul Normal 0.0-0.7 [facility] Comment on above: Performed By: #### C BC #### [facility] [address] [address] [address] Luis A Solorio Eosinophils/100 WBC (Bld) 2.6 % Normal 0.9-7.0 [facility] Comment on above: Performed By: #### C BC #### [facility] [address] [place] [address] Dr. Luis A Solorio Erythrocyte distribution width (RBC) [Ratio] 16.0 % Critically high 11.0-15.0 [facility] Comment on above: Performed By: #### C BC #### [facility] [address] [place] [address] Dr. Luis A Solorio Hematocrit (Bld) [Volume fraction] 30.2 % Critically low 36.0-48.0 [facility] Comment on above: Performed By: #### C BC #### [facility] [address] [place] [address] Dr. Luis A Solorio Hemoglobin (Bld) [Mass/Vol] 8.8 g/dL Critically low 12.0-16.0 [facility] Comment on above: Performed By: #### C BC #### [facility] [address] [place] [address] Dr. Luis A Solorio IG # 0.02 10e3/ul Normal 0.00-0.03 [facility] Comment on above: Performed By: #### C BC #### [facility] [address] [place] [address] Dr. Luis A Solorio IG % 0.4 % Normal 0.0-0.5 [facility] Comment on above: Performed By: #### C BC #### [facility] [address] [place] [address] Dr. Luis A Solorio LYMPH # 1.7 103/ul Normal 1.2-3.8 [facility] Comment on above: Performed By: #### C BC #### [facility] [address] [place] [address] Dr. Luis A Solorio Lymphocytes/100 WBC (Bld) 36.6 % Normal 20.5-60.0 [facility] Comment on above: Performed By: #### C BC #### [facility] [address] [place] [address] Dr. Luis A Solorio MANUAL DIFF REQ NO Normal [facility] Comment on above: Performed By: #### C BC #### [facility] [address] [place] [address] Dr. Luis A Solorio MCH (RBC) [Entitic mass] 21.9 pg Critically low 26.7-34.0 [facility] Comment on above: Performed By: #### C BC #### [facility] [address] [address] [address] Luis A Solorio MCHC (RBC) [Mass/Vol] 29.1 g/dL Critically low 29.9-35.2 [facility] Comment on above: Performed By: #### C BC #### [facility] [address] [address] [address] Luis A Solorio MCV (RBC) [Entitic vol] 75.1 fL Critically low 81.0-99.0 [facility] Comment on above: Performed By: #### C BC #### [facility] [address] [address] [address] Luis A Solorio MONO # 0.5 103/ul Normal 0.3-0.8 [facility] Comment on above: Performed By: #### C BC #### [facility] [address] [place] [address] Dr. Luis A Soloiro Monocytes/100 WBC (Bld) 10.8 % Normal 1.7-12.0 [facility] Comment on above: Performed By: #### C BC #### [facility] [address] [place] [address] Dr. Luis A Solorio NEUT # 2.3 103/ul Normal 1.4-6.5 [facility] Comment on above: Performed By: #### C BC #### [facility] [address] [place] [address] Dr. Luis A Solorio Neutrophils/100 WBC (Bld) 49.2 % Normal 43.0-75.0 [facility] Comment on above: Performed By: #### C BC #### [facility] [address] [place] [address] Dr. Luis A Solorio Platelet mean volume (Bld) [Entitic vol] 10.0 fL Normal 9.5-13.5 [facility] Comment on above: Performed By: #### C BC #### [facility] [address] [place] [address] Dr. Luis A Solorio PLT 280 103/ul Normal 150-450 [facility] Comment on above: Performed By: #### C BC #### [facility] [address] [place] [address] Dr. Luis A Solorio RBC 4.02 106/ul Critically low 4.20-5.40 [facility] Comment on above: Performed By: #### C BC #### [facility] [address] [place] [address] Dr. Luis A Solorio WBC 4.6 103/ul Normal 4.0-11.0 [facility] Comment on above: Performed By: #### C BC #### [facility] [address] [place] [address] Dr. Luis A Solorio GLYCOHEMOGLOBIN A1Con 2021 ADA RECOMMENDATION SEE BELOW Normal [facility] Comment on above: Result Comment: ADA RECOMMENDED LIMIT 4.0 - 6.0 ADA THERAPEUTIC TARGET < 7.0 ACTION SUGGESTED > 7.0 Performed By: #### B UN, CREA #### [facility] [address] [place] [address] Dr. Luis A Solorio Glucose [Mass/Vol] 131 mg/dL Normal [facility] Comment on above: Performed By: #### B UN, CREA #### [facility] [address] [place] [address] Dr. Luis A Solorio HbA1c (Bld) [Mass fraction] 6.2 % Normal 4.5-6.2 [facility] Comment on above: Performed By: #### B UN, CREA #### [facility] [address] [place] [address] Dr. Luis A Solorio LIPID PROFILEon 04-02-2022 CHOL-HDL RATIO NORM SEE BELOW Normal [facility] Comment on above: Result Comment: 3.3 - 4.4 LOW RISK 4.4 - 7.1 AVERAGE RISK 7.1 - 11.0 MODERATE RISK >11.0 HIGH RISK Performed By: #### T SH, LIPID, CMP #### [facility] [address] [place] [address] Dr. Luis A Solorio Cholesterol [Mass/Vol] 215 mg/dL Critically high <=200 [facility] Comment on above: Performed By: #### T SH, LIPID, CMP #### [facility] [address] [address] [address] Luis A Solorio Cholesterol in HDL [Mass/Vol] 46 mg/dL Normal 40-60 [facility] Comment on above: Performed By: #### T SH, LIPID, CMP #### [facility] [address] [address] [address] Luis A Solorio Cholesterol in LDL [Mass/Vol] 138.2 mg/dL Normal [facility] Comment on above: Performed By: #### T SH, LIPID, CMP #### [facility] [address] [address] [address] Luis A Solorio Cholesterol.total/Ch olesterol in HDL [Mass ratio] 4.7 {ratio} Normal [facility] Comment on above: Performed By: #### T SH, LIPID, CMP #### [facility] [address] [address] [address] Luis A Solorio HDL NORMAL > or = 60 mg/dl - LOW CARDIOVASCULAR RISK <40 mg/dl - HIGH CARDIOVASCULAR RISK Normal [facility] Comment on above: Performed By: #### T SH, LIPID, CMP #### [facility] [address] [address] [address] Luis A Solorio LDL CALC NORMAL SEE BELOW Normal [facility] Comment on above: Result Comment: <100 mg/dl OPTIMAL 100 - 129 mg/dl NEAR OR ABOVE OPTIMAL 130 - 159 mg/dl BORDERLINE HIGH 160 - 189 mg/dl HIGH >190 mg/dl VERY HIGH Performed By: #### T SH, LIPID, CMP #### [facility] [address] [address] [address] Luis A Solorio Triglyceride [Mass/Vol] 154 mg/dL Critically high <=150 [facility] Comment on above: Performed By: #### T SH, LIPID, CMP #### [facility] [address] [address] [address] Luis A Solorio VLDL CALC 30.8 mg/dL Normal [facility] Comment on above: Performed By: #### T SH, LIPID, CMP #### [facility] [address] [address] [address] Luis A Solorio PROF 14(COMP METB)on 022 Albumin [Mass/Vol] 3.2 g/dL Critically low 3.4-5.0 Th [facility] Comment on above: Performed By: #### P REGU #### [facility] [address] [place] [address] Dr. Luis A Solorio Albumin/Globulin [Mass ratio] 0.8 {ratio} Normal [facility] Comment on above: Performed By: #### P REGU #### [facility] [address] [place] [address] Dr. Luis A Solorio ALP [Catalytic activity/Vol] 83 U/L Normal 46-116 [facility] Comment on above: Performed By: #### P REGU #### [facility] [address] [place] [address] Dr. Luis A Solorio ALT [Catalytic activity/Vol] 34 U/L Normal 14-59 [facility] Comment on above: Performed By: #### P REGU #### [facility] [address] [place] [address] Dr. Luis A Solorio Anion gap [Moles/Vol] 13.5 mmol/L Normal [facility] Comment on above: Performed By: #### P REGU #### [facility] [address] [place] [address] Dr. Luis A Solorio AST [Catalytic activity/Vol] 24 U/L Normal 15-37 [facility] Comment on above: Performed By: #### P REGU #### [facility] [address] [place] [address] Dr. Luis A Solorio Bilirubin [Mass/Vol] 0.3 mg/dL Normal 0.2-1.0 [facility] Comment on above: Performed By: #### P REGU #### [facility] [address] [place] [address] Dr. Luis A Solorio Calcium [Mass/Vol] 8.5 mg/dL Normal 8.5-10.1 [facility] Comment on above: Performed By: #### P REGU #### [facility] [address] [place] [address] Dr. Luis A Solorio Chloride [Moles/Vol] 105 mmol/L Normal 98-107 [facility] Comment on above: Performed By: #### P REGU #### [facility] [address] [address] [address] Luis A Solorio CO2 [Moles/Vol] 23.7 mmol/L Normal 21.0-32.0 [facility] Comment on above: Performed By: #### P REGU #### [facility] [address] [address] [address] Luis A Solorio Creatinine [Mass/Vol] 0.74 mg/dL Normal 0.55-1.02 [facility] Comment on above: Performed By: #### P REGU #### [facility] [address] [place] [address] Dr. Luis A Solorio EGFR-AF BAHRAINI >60 Normal >=60 [facility] Comment on above: Performed By: #### P REGU #### [facility] [address] [place] [address] Dr. Luis A Solorio EGFR-NON AF BAHRAINI >60 Normal >=60 [facility] Comment on above: Performed By: #### P REGU #### [facility] [address] [place] [address] Dr. Luis A Solorio Globulin (S) [Mass/Vol] 3.8 g/dL Normal [facility] Comment on above: Performed By: #### P REGU #### [facility] [address] [place] [address] Dr. Luis A Solorio Glucose [Mass/Vol] 122 mg/dL Critically high 74-106 [facility] Comment on above: Performed By: #### P REGU #### [facility] [address] [place] [address] Dr. Luis A Solorio Potassium [Moles/Vol] 4.2 mmol/L Normal 3.5-5.1 [facility] Comment on above: Performed By: #### P REGU #### [facility] [address] [place] [address] Dr. Luis A Solorio Protein [Mass/Vol] 7.0 g/dL Normal 6.4-8.2 [facility] Comment on above: Performed By: #### P REGU #### [facility] [address] [place] [address] Dr. Luis A Solorio Sodium [Moles/Vol] 138 mmol/L Normal 136-145 [facility] Comment on above: Performed By: #### P REGU #### [facility] [address] [place] [address] Dr. Luis A Solorio Urea nitrogen [Mass/Vol] 15.0 mg/dL Normal 7.0-18.0 [facility] Comment on above: Performed By: #### P REGU #### [facility] [address] [place] [address] Dr. Luis A Solorio Urea nitrogen/Creatinine [Mass ratio] 20.3 mg/mg Normal [facility] Comment on above: Performed By: #### P REGU #### [facility] [address] [place] [address] Dr. Luis A Solorio TSHon 04-02-2022 TSH 1.449 uIU/mL Normal 0.358-3.740 [facility] Comment on above: Performed By: #### T SH, LIPID, CMP #### [facility] [address] [place] [address] Dr. Luis A Solorio Vital Signs Date Time Vital Sign Value Performing Clinician Faci lity 02-17-2024 09:36-0400 Body height 170.18 cm [facility] 02-17-2024 09:36-0400 Body mass index (BMI) [Ratio] 43.4 kg/m2 [facility] 02-17-2024 09:36-0400 Body weight 125.64 kg [facility] 02-17-2024 09:36-0400 Diastolic blood pressure 86 mm[Hg] [facility] 02-17-2024 09:36-0400 Heart rate 61 /min [facility] 02-17-2024 09:36-0400 Systolic blood pressure 149 mm[Hg] [facility] Encounters Encounter Date Encounter Type Care Provider Facility Start: 02-17-2024 Patient encounter status [facility] Start: 02-17-2024 End: 02-17-2024 ambulatory [facility] Work Phone: Start: 02-17-2024 End: 02-17-2024 Encounter for general adult medical examination without abnormal findings [facility] Start: 02-17-2024 End: 02-17-2024 Patient encounter procedure [facility] Work Phone: Start: 06-24-2023 End: 06-24-2023 ambulatory Arley Hand Other [employer] Other Start: 06-24-2023 Office outpatient vi sit 15 minutes Arley Hand [facility] Start: 04-27-2023 End: 04-27-2023 ambulatory Allison Sharp Other [employer] Other Start: 04-27-2023 Nursing evaluation o f patient and report Allison Sharp [facility] Start: 02-16-2023 End: 02-17-2023 ambulatory NONE LISTED REQUEST Facility:[facility] Start: 10-06-2022 Adult health examination Ronak dustin Hand Other [employer] Other Start: 10-06-2022 Gynecological examin ation normal Arley Hand Other [employer] Other Start: 10-06-2022 Pre-procedure evalua tion check Arley Hand Other [employer] Other Start: 10-05-2022 End: 10-05-[address] ALLISON SHARP Facility:[facility] Start: 07-19-2022 End: 07-20-2022 ambulatory MD Raymundo DAILEY Facility:CD:[id number] Start: 07-19-2022 End: 07-21-2022 Evaluation and management of inpatient DR ALLISON SHARP Facility:[facility] Start: 07-17-2022 Encounter for preprocedural laboratory examination DR HUYEN GILL . [facility] Start: 07-17-[address] ALLISON SHARP Facil ity:[facility] Start: 07-15-2022 End: 07-16-[address] ALLISON SHARP Facility:[facility] Start: 07-15-2022 End: 07-16-2022 Encounter for preprocedural laboratory examination DR ALLISON SHARP Facility:[facility] Start: 07-14-2022 End: 07-14-[address] ALLISON SHARP Facility:[facility] Start: 07-06-2022 Encounter for other preprocedural examination DR HUYEN GILL . [facility] Start: 07-05-2022 End: 07-06-[address] ALLISON SHARP Facility:[facility] Start: 07-05-2022 End: 07-06-2022 Encounter for other preprocedural examination DR ALLISON SHARP Facility:[facility] Start: 06-25-2022 ambulatory MD Raymundo DAILEY Facil ity:[facility] Start: 06-11-2022 End: 06-11-[address] ALLISON SHARP Facility:[facility] Start: 06-04-2022 End: 06-05-[address] ALLISON SHARP Facility:[facility] Start: 05-31-2022 Encounter for preprocedural cardiovascular examination DR HUYEN GILL . [facility] Start: 05-28-2022 End: 05-29-[address] ALLISON SHARP Facility:[facility] Start: 05-03-2022 End: 05-04-[address] ALLISON SHARP Facility:[facility] Start: 04-30-2022 End: 04-30-[address] ALLISON SHARP Facility:[facility] Start: 04-23-2022 End: 04-24-[address] ALLISON SHARP Facility:[facility] Start: 04-14-2022 End: 04-15-[address] ALLISON SHARP Facility:[facility] Start: 04-06-2022 Encounter for genera l adult medical examination without abnormal findings DR ALLISON SHARP [facility] Start: 04-02-2022 End: 04-03-[address] ALLISON SHARP Facility:[facility] Start: 04-02-2022 End: 04-03-2022 Encounter for general adult medical examination without abnormal findings DR ALLISON SHARP Facility:[facility] Procedures Date Procedure Procedure Detail Performing Clinician Start: 07-19-2022 Resection of Bilater al Fallopian Tubes, Open Approach DR ALLISON SHARP Start: 07-19-2022 Resection of Left Ov krystal, Open Approach DR ALLISON SHARP Start: 07-19-2022 Resection of Uterus, Open Approach DR ALLISON SHARP Start: 07-19-2022 Insertion of Other D evice into Genitourinary Tract, Via Natural or Artificial Opening Endoscopic DR ALLISON SHARP Hysterectomy Arley Hand Other Ligation of fallopian tube B travon Hand Other End: 05-10-2022 Screening for malignant neoplasm of breast Arley Hand Other Plan of Treatment Date Care Activity Detail Author MG Breast - bilateral Screening [facility] Payers Date Payer Category Payer Private Health Insurance [id number] 1975 Unknown [id number] 2.16.8 [id number] 1977 Unknown [id number] 2.16.84 0.1.348939.3.579.2.593 1977 Unknown [id number] 2.16.84 0.1.738998.3.579.2.593 1977 Unknown [id number] 2.16.84 0.1.374830.3.579.2.593 1977 Unknown [id number] 2.16.84 0.1.630959.3.579.2.593 1977 Unknown [id number] 2.16.84 0.1.789507.3.579.2.593 1977 Unknown [id number] 2.16.84 0.1.947983.3.579.2.593 1977 Unknown [id number] 2.16.84 0.1.522568.3.579.2.593 1977 Unknown [id number] 2.16.84 0.1.073721.3.579.2.593 1977 Unknown [id number] 2.16.84 0.1.690394.3.579.2.593 1977 Unknown [id number] 2.16.84 0.1.998705.3.579.2.593 1977 Unknown [id number] 2.16.84 0.1.415440.3.579.2.593 1977 Unknown [id number] 2.16.84 0.1.501844.3.579.2.593 1977 Unknown [id number] 2.16.84 0.1.257105.3.579.2.593 1977 Unknown [id number] 2.16.84 0.1.699474.3.579.2.593 1977 Unknown [id number] 2.16.84 0.1.142711.3.579.2.593 1959 Private Health Insurance [id number] 1959 Private Health Insurance [id number] 1957 Self-pay Unknown [id number] 2.16.84 0.1.506579.3.579.2.593 Social History Date Type Detail Facility Unknown if ever smoked [employer] Other Sex Assigned At Sex Assigned At Bir th [employer] Other Start: 1975 Sex Assigned At Female F [facility] Evaluation note 06-24-2023 Note Date & Type Note Facility 06-24-2023 Evaluation note Encounter Date Diagnosis Assessment Notes Jun, COVID-19 (ICD-10 - U07.1) Begin Paxlovid. Self isolate at home. - Cannot work - avoid contact with others - avoid pets - wipe counters, door knobs if touched - if can't avoid leaving home, must wear mask to protect others - need to stay isolated for 10 days from onset of symptoms - to discontinue isolation must be 5 days AND must be without fever for 24 hours AND symptoms must be improving. Always wear a mask in public places for complete 10 days Jun, Bronchitis, not specified as acute or chronic (ICD-10 - J40) Instructed to use Robitussin or Mucinex for cough, saline or Flonase NS for congestion, Tylenol for pain and fever. [employer] Other Evaluation note 04-27-2023 Note Date & Type Note Facility 04-27-2023 Evaluation note Encounter Date Diagnosis Assessment Notes Apr, Acute cystitis without hematuria (ICD-10 - N30.00) [employer] Other Evaluation note Note Date & Type Note Facility Evaluation note Diagnosis Onset Date Screening mammogram for breast cancer acute Wellness examination [facility] Work Phone: History general Narrative - Reported Note Date & Type Note Facility History general Narrative - Reported Type Surgical History TUBAL Surgical History colonoscopy Surgical History laparoscopy Surgical History cholecystectomy Hospitalization History See Above [employer] Other History general Narrative - Reported Note Date & Type Note Facility History general Narrative - Reported Type Medical History Problem Title : Acut e bronchitis due to other specified organisms, Problem Description : Acute bronchitis due to other specified organisms, Problem Comment : Acute bronchitis due to other specified organisms, Problem Status : Inactive,, Medical History Problem Title : Acut e bronchitis due to other specified organisms [], Problem Description : Acute bronchitis due to other specified organisms [], Problem Comment : Acute bronchitis due to other specified organisms, Problem Status : Resolved,, Medical History Problem Title : Adul t BMI between 22 kg/m2 and 30 kg/m2, Problem Description : Adult BMI between 22 kg/m2 and 30 kg/m2, Problem Comment : 0~0~0, Problem Status : Active,, Medical History Problem Title : Adul t BMI greater than or equal to 30 kg/m2, Problem Description : Adult BMI greater than or equal to 30 kg/m2, Problem Comment : 0~1~0, Problem Status : Active,, Medical History Problem Title : Adul t BMI less than 22 kg/m2, Problem Description : Adult BMI less than 22 kg/m2, Problem Comment : 0~0~0, Problem Status : Active,, Medical History Problem Title : ches t wall assessment, physical exam, Problem Description : chest wall assessment, physical exam, Problem Comment : unilateral L sided swelling , Problem Status : Active,, Medical History Problem Title : Chil d BMI less than 18.5 kg/m2, Problem Description : Child BMI less than 18.5 kg/m2, Problem Comment : 0~1~0, Problem Status : Active,, Medical History Problem Title : comp liance with medical treatment, Problem Description : compliance with medical treatment, Problem Comment : Done, Problem Status : Active,, Medical History Problem Title : MEDI KELLY: Headaches, Problem Status : Resolved,, Medical History Problem Title : MEDI KELLY: Migraine headaches, Problem Status : Resolved,, Medical History Problem Title : Migr shirley, Problem Comment : [employer] 08/21/2021, Problem Status : Active,, Medical History Problem Title : no k nown problems, Problem Description : no known problems, Problem Comment : F, Problem Status : Active,, Medical History Problem Title : Non- Contributory Other Past History History, Problem Status : Active,, Medical History Problem Title : past medical history E&M, Problem Description : past medical history E&M, Problem Comment : Ovarian Cysts Migraine Headaches, Problem Status : Active,, Medical History Problem Title : past medical history reviewed, Problem Description : past medical history reviewed, Problem Comment : reviewed - no changes required, Problem Status : Resolved,, Medical History Problem Title : Prob lems Reconciled, Problem Status : Active,, Medical History Problem Title : CRAMER SFUSION HISTORY: No history of receiving blood or blood product transfusion(s), Problem Status : Active,, Medical History Problem Title : very low density lipoproteins, Problem Description : very low density lipoproteins, 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, Problem Status : Active,, Surgical History TUBAL Surgical History colonoscopy Surgical History laparoscopy Surgical History cholecystectomy Hospitalization History See Above [employer] Other Summary Purpose Family History Relationship Condition Age at Onset Recorded Date/T tomi father Family history of lung cancer Unknown Malignant neoplasm Unknown Unknown Not Specified Hypertension Unknown Advance Directives Advance Directive Response Recorded Date/ Time Advance Directives No February 17, 2024 9:30am Chief Complaint and Reason for Visit Chief Complaint Wellness Reason for Visit Screening mammogram for breast cancer Wellness examination Additional Source Comments INFORMATION SOURCE (unrecogn ized section and content) DATE CREATED AUTHOR 07/28/2022 [facility] DATE CREATED AUTHOR AUTHOR'S ORGANIZ ATION 02/17/2023 [facility] REASON FOR VISIT (unrecogniz ed section and content) Fever, Frequency, Tingling, CloudyCOVID Positive- [phone] Care Teams (unrecognized sec tion and content) Team Status: Active Member Role Status Dates Allison Sharp MD Primary Care Provider Active Team Status: Inactive Member Role Status Dates Allison Sharp MD Primary Care Provide r, Attending Provider Active Start: February 17, 2024 End: February 17, 2024 Goals (unrecognized section and content) Goals may be documented in a n alternate section FOR RECORDS PERTAINING TO PATIENTS WHO ARE OR HAVE BEEN ENROLLED IN A CHEMICAL DEPENDENCY/SUBSTANCEABUSE PROGRAM, SOME INFORMATION MAY BE OMITTED. This clinical summary was aggregated from multiple sources. Caution should be exercised in using it in the provision of clinical care. This summary normalizes information from multiple sources, and as a consequence, information in this document may materially change the coding, format and clinical context of patient data. In addition, data may be omitted in some cases. CLINICAL DECISIONS SHOULD BE BASED ON THE PRIMARY CLINICAL RECORDS. [facility] [employer] provides no warranty or guarantee of the accuracy or completeness of information in this document.
== END 2024-03-01 09:24 | disposition home or self-care (01) ==
LOC: MAMMO 09:23
PROVIDERS: PCP Family Medicine; Visit Provider Family Medicine
DX: Z12.31 Encounter for screening mammogram for malignant neoplasm of breast (principal)
CPT/HCPCS: 77063; 77067

== ENCOUNTER 2024-03-27 20:52 | Outpatient (OUT) | payer OTHER, SELFPAY ==
--- OUTSIDE RECORDS SUMMARY | 2024-03-27 20:56 | XMS_ITS | CCD ---
Author Organization [facility] Care Team Providers Care Electronic Page Makeup System Operator Name Role Phone MD Raymundo DAILEY Attending Unavailable SHARP, DR ALLISON Gaitan Primary Care Unavailable KARASIK ., DR MATSON Admitting Unavailabl e KARASIK ., DR MATSON Consulting Unavailabl e KARASIK ., DR MATSON Attending Unavailabl e AGUBOSIDARIA Sweeney Consulting Unavailable LEONARDTRI Consulting Unavailable SHARP, DR ALLISON Gaitan Primary Care Unavailable KARASIK ., DR MATSON Admitting Unavailabl e KARASIK ., DR MATSON Consulting Unavailabl e KARASIK ., DR MATSON Attending Unavailabl e SHARP, DR LALISON Gaitan Primary Care Unavailable KARASIK ., DR [...] Practitioner Smiley vailable TRI LEONARD Consulting Unavailable JUNGYANELY DEAN Consulting Unavailable DAILEY ., DR GRACE Procedure [...] Unavailable SHARP, DR ALLISON Gaitan Consulting Unavailable Ganga, Allison Unavailable Arley Hand Unavailable Allergies Allergy Classification Reported Allergen(s) Allergy Type Date of Onset Reaction(s) Facility (1 source) almotriptan Drug Allergy [facility] (1 source) Perazine Drug Allergy [facility] (1 source) almotriptan Drug Allergy Unknown [facility] Other (1 source) Naproxen / Pseudoephedrine Drug Allergy 08-06-20 Unknown [facility] Other (2 sources) rizatriptan Drug Allergy 02-17-20 24 Unknown, [facility] (1 source) Allergies Reconciled Propensity to adverse reactions Unknown [facility] Other (1 source) patient allergy list reviewed by nurse or physicia Propensity to adverse reactions 04-06-20 Comment:Done [facility] Other (1 source) almotriptan Drug Allergy 02-15-20 [facility] (1 source) Sudafed Sinus 12HR Press+Pain Allergy to substance 02-15-20 [facility] Medications Current Medications Medication Drug Class(es) [...] sources) Penicillin-class Antibacterial Amoxicillin 500 MG (Prior Auth#:[id number] ) Oral for 10 Not-Taking Nirmatrelvir-Riton avir [...] tablet (2 sources) predniSONE 20 MG (Prior Auth#:[id number] ) Oral for 5 Not-Taking Problems Active [...] 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 Other Bilirubin Ql (U) Negative [employer] Other Color (U) yellow [facility] Other Glucose Ql (U) Negative [employer] Other Hemoglobin Ql (U) trace [employer] Other Ketones Ql (U) Negative [employer] Other Leukocyte esterase Test strip Ql (U) moderate [facility] Other Nitrite Ql (U) Positive [employer] Other pH (U) 5 [pH] [facility] Other Protein Ql (U) 30+ [employer] Other Specific gravity (U) [Rel density] 1.005 [employer] Other Urobilinogen (U) [Mass/Vol] normal [facility] Other Urinalysis - DIPSTICK [facility] Other CBC AUTO DIFFon 02-16-2023 BASO # 0.0 103/ul Normal 0.0-0.1 [facility] Comment on above: Performed By: #### B UN, CREA #### [facility] [address] [place] [address] Dr. Luis A Solorio Basophils/100 WBC (Bld) 0.4 % Normal 0.2-2.0 [facility] Comment on above: Performed By: #### B UN, CREA #### [facility] [address] [place] [address] Dr. Luis A Solorio EO # 0.1 103/ul Normal 0.0-0.7 [facility] Comment on above: Performed By: #### B UN, CREA #### [facility] [address] [place] [address] Dr. Luis A Solorio Eosinophils/100 WBC (Bld) 1.6 % Normal 0.9-7.0 [facility] Comment on above: Performed By: #### B UN, CREA #### [facility] [address] [place] [address] Dr. Luis A Solorio Erythrocyte distribution width (RBC) [Ratio] 14.2 % Normal 11.0-15.0 [facility] Comment on above: Performed By: #### B UN, CREA #### [facility] [address] [place] [address] Dr. Luis A Solorio Hematocrit (Bld) [Volume fraction] 35.3 % Critically low 36.0-48.0 [facility] Comment on above: Performed By: #### B UN, CREA #### [facility] [address] [place] [address] Dr. Luis A Solorio Hemoglobin (Bld) [Mass/Vol] 11.2 g/dL Critically low 12.0-16.0 [facility] Comment on above: Performed By: #### B UN, CREA #### [facility] [address] [place] [address] Dr. Luis A Solorio IG # 0.01 10e3/ul Normal 0.00-0.03 [facility] Comment on above: Performed By: #### B UN, CREA #### [facility] [address] [place] [address] Dr. Luis A Solorio IG % 0.2 % Normal 0.0-0.5 [facility] Comment on above: Performed By: #### B UN, CREA #### [facility] [address] [place] [address] Dr. Luis A Solorio LYMPH # 1.8 103/ul Normal 1.2-3.8 [facility] Comment on above: Performed By: #### B UN, CREA #### [facility] [address] [place] [address] Dr. Luis A Solorio Lymphocytes/100 WBC (Bld) 37.9 % Normal 20.5-60.0 [facility] Comment on above: Performed By: #### B UN, CREA #### [facility] [address] [place] [address] Dr. Luis A Solorio MCH (RBC) [Entitic mass] 26.0 pg Critically low 26.7-34.0 [facility] Comment on above: Performed By: #### B UN, CREA #### [facility] [address] [place] [address] Dr. Luis A Solorio MCHC (RBC) [Mass/Vol] 31.7 g/dL Normal 29.9-35.2 [facility] Comment on above: Performed By: #### B UN, CREA #### [facility] [address] [place] [address] Dr. Luis A Solorio MCV (RBC) [Entitic vol] 81.9 fL Normal 81.0-99.0 [facility] Comment on above: Performed By: #### B UN, CREA #### [facility] [address] [place] [address] Dr. Luis A Solorio MONO # 0.4 103/ul Normal 0.3-0.8 [facility] Comment on above: Performed By: #### B UN, CREA #### [facility] [address] [place] [address] Dr. Luis A Solorio Monocytes/100 WBC (Bld) 8.5 % Normal 1.7-12.0 [facility] Comment on above: Performed By: #### B UN, CREA #### [facility] [address] [place] [address] Dr. Luis A Solorio NEUT # 2.5 103/ul Normal 1.4-6.5 [facility] Comment on above: Performed By: #### B UN, CREA #### [facility] [address] [place] [address] Dr. Luis A Solorio Neutrophils/100 WBC (Bld) 51.4 % Normal 43.0-75.0 [facility] Comment on above: Performed By: #### B UN, CREA #### [facility] [address] [place] [address] Dr. Luis A Solorio Platelet mean volume (Bld) [Entitic vol] 11.5 fL Normal 9.5-13.5 [facility] Comment on above: Performed By: #### B UN, CREA #### [facility] [address] [place] [address] Dr. Luis A Solorio PLT 228 103/ul Normal 150-450 [facility] Comment on above: Performed By: #### B ROLANDO, CREA #### [facility] [address] [place] [address] Dr. Luis A Solorio RBC 4.31 106/ul Normal 4.20-5.40 [facility] Comment on above: Performed By: #### B ROLANDO, CREA #### [facility] [address] [place] [address] Dr. Luis A Solorio WBC 4.9 103/ul Normal 4.0-11.0 [facility] Comment on above: Performed By: #### B ROLANDO, CREA #### [facility] [address] [place] [address] Dr. Luis A Solorio MEDHAT - TSHon 02-16-2023 TSH 1.783 uIU/mL Normal 0.358-3.740 [facility] Comment on above: Performed By: #### D ATBMP, DATTS #### [facility] [address] [place] [address] Dr. Luis A Solorio TSH RANGE SEE BELOW Normal [facility] Comment on above: Result Comment: <0.3 4 UIU/ml HYPERTHYROID 0.34-5.60 UIU/ml EUTHYROID >5.60 UIU/ml HYPOTHYROID Performed By: #### D ATBMP, DATTSH #### [facility] [address] [place] [address] Dr. Luis A Solorio MEDHAT- BMP WITH LIPIDon 2022 Anion gap [Moles/Vol] 13.5 mmol/L Normal [facility] Comment on above: Performed By: #### D ATBMP, DATTSH #### [facility] [address] [place] [address] Dr. Luis A Solorio Calcium [Mass/Vol] 8.9 mg/dL Normal 8.5-10.1 [facility] Comment on above: Performed By: #### D ATBMP, DATTSH #### [facility] [address] [place] [address] Dr. Luis A Solorio Chloride [Moles/Vol] 103 mmol/L Normal 98-107 [facility] Comment on above: Performed By: #### D ATBMP, DATTSH #### [facility] [address] [address] [address] Luis A Solorio Cholesterol [Mass/Vol] 227 mg/dL Critically high <=200 [facility] Comment on above: Performed By: #### D ATBMP, DATTSH #### [facility] [address] [address] [address] Luis A Solorio Cholesterol in HDL [Mass/Vol] 56 mg/dL Normal 40-60 [facility] Comment on above: Performed By: #### D ATP, DATTSH #### [facility] [address] [place] [address] Dr. Luis A Solorio Cholesterol in LDL [Mass/Vol] 141.2 mg/dL Normal [facility] Comment on above: Performed By: #### D ATP, DATTSH #### [facility] [address] [address] [address] Luis A Solorio CO2 [Moles/Vol] 24.5 mmol/L Normal 21.0-32.0 [facility] Comment on above: Performed By: #### D ATP, DATTSH #### [facility] [address] [address] [address] LuisA Solorio Creatinine [Mass/Vol] 0.74 mg/dL Normal 0.55-1.02 [facility] Comment on above: Performed By: #### D ATP, DATTSH #### [facility] [address] [address] [address] Luis A Solorio EGFR-AF TAIWANESE >60 Normal >=60 [facility] Comment on above: Performed By: #### D ATBMP, DATTSH #### [facility] [address] [address] [address] Luis A Solorio EGFR-NON AF TAIWANESE >60 Normal >=60 [facility] Comment on above: Performed By: #### D ATBMP, DATTSH #### [facility] [address] [address] [address] Luis A Solorio Glucose [Mass/Vol] 94 mg/dL Normal 74-106 [facility] Comment on above: Performed By: #### D ATP, DATTSH #### [facility] [address] [address] [address] Luis A Solorio HDL NORMAL > or = 60 mg/dl - LOW CARDIOVASCULAR RISK <40 mg/dl - HIGH CARDIOVASCULAR RISK Normal [facility] Comment on above: Performed By: #### [facility] #### [facility] [address] [address] [address] Luis A Solorio LDL CALC NORMAL SEE BELOW Normal [facility] Comment on above: Result Comment: <100 mg/dl OPTIMAL 100 - 129 mg/dl NEAR OR ABOVE OPTIMAL 130 - 159 mg/dl BORDERLINE HIGH 160 - 189 mg/dl HIGH >190 mg/dl VERY HIGH Performed By: #### D ATP, DATTS #### [facility] [address] [address] [address] Luis A Solorio Potassium [Moles/Vol] 4.0 mmol/L Normal 3.5-5.1 [facility] Comment on above: Performed By: #### [facility] DATTS #### [facility] [address] [address] [address] Luis A Solorio Sodium [Moles/Vol] 137 mmol/L Normal 136-145 [facility] Comment on above: Performed By: #### D ATP, DATTS #### [facility] [address] [address] [address] Luis A Solorio Triglyceride [Mass/Vol] 149 mg/dL Normal <=150 [facility] Comment on above: Performed By: #### D ATP, DATTSH #### [facility] [address] [address] [address] Luis A Solorio Urea nitrogen [Mass/Vol] 13.0 mg/dL Normal 7.0-18.0 [facility] Comment on above: Performed By: #### D ATBMP, DATTSH #### [facility] [address] [address] [address] Luis A Solorio Urea nitrogen/Creatinine [Mass ratio] 17.6 mg/mg Normal [facility] Comment on above: Performed By: #### D ATBMP, DATTSH #### [facility] [address] [address] [address] Luis A Solorio VLDL CALC 29.8 mg/dL Normal [facility] Comment on above: Performed By: #### D ATBMP, DATTSH #### [facility] [address] [address] [address] Luis A Solorio GLYCOHEMOGLOBIN A1Con 2022 ADA RECOMMENDATION SEE BELOW Normal [facility] Comment on above: Result Comment: ADA RECOMMENDED LIMIT 4.0 - 6.0 ADA THERAPEUTIC TARGET < 7.0 ACTION SUGGESTED > 7.0 Performed By: #### P REGU #### [facility] [address] [place] [address] Dr. Luis A Solorio Glucose [Mass/Vol] 114 mg/dL Normal [facility] Comment on above: Performed By: #### P REGU #### [facility] [address] [place] [address] Dr. Luis A Solorio HbA1c (Bld) [Mass fraction] 5.6 % Normal 4.5-6.2 [facility] Comment on above: Performed By: #### P REGU #### [facility] [address] [place] [address] Dr. Luis A Solorio Covid-19 PCR ([facility])on 09-17 SARS-CoV-2 (COVID-19) RNA ARABELLA+probe Ql (Unsp spec) Not detected Normal NOT DETECTED [facility] Comment on above: Result Comment: When [...] for this test is supported by the [employer] Operator of Health and Human Service's declaration that [...] used). Performed By: #### P REGU #### [facility] [address] [place] [address] Dr. Luis A Solorio Operative Reporton 2 Operative Report [id number] #[id number]:[id number] Normal [facility] BUNon 07-20-2022 Urea nitrogen [Mass/Vol] 14.0 mg/dL Normal 7.0-18.0 [facility] Comment on above: Performed By: #### B ROLANDO, CREA #### [facility] [address] [place] [address] Dr. Luis A Solorio CBC AUTO DIFFon 07-20-2022 BASO # 0.0 103/ul Normal 0.0-0.1 [facility] Comment on above: Performed By: #### P REGU #### [facility] [address] [place] [address] Dr. Luis A Solorio Basophils/100 WBC (Bld) 0.1 % Critically low 0.2-2.0 [facility] Comment on above: Performed By: #### P REGU #### [facility] [address] [place] [address] Dr. Luis A Solorio EO # 0.0 103/ul Normal 0.0-0.7 [facility] Comment on above: Performed By: #### P REGU #### [facility] [address] [place] [address] Dr. Luis A Solorio Eosinophils/100 WBC (Bld) 0.0 % Critically low 0.9-7.0 [facility] Comment on above: Performed By: #### P REGU #### [facility] [address] [place] [address] Dr. Luis A Solorio Erythrocyte distribution width (RBC) [Ratio] 17.0 % Critically high 11.0-15.0 [facility] Comment on above: Performed By: #### P REGU #### [facility] [address] [place] [address] Dr. Luis A Solorio Hematocrit (Bld) [Volume fraction] 32.6 % Critically low 36.0-48.0 [facility] Comment on above: Performed By: #### P REGU #### [facility] [address] [place] [address] Dr. Luis A Solorio Hemoglobin (Bld) [Mass/Vol] 10.1 g/dL Critically low 12.0-16.0 [facility] Comment on above: Performed By: #### P REGU #### [facility] [address] [place] [address] Dr. Luis A Solorio IG # 0.05 10e3/ul Critically high 0.00-0.03 [facility] Comment on above: Performed By: #### P REGU #### [facility] [address] [place] [address] Dr. Luis A Solorio IG % 0.5 % Normal 0.0-0.5 [facility] Comment on above: Performed By: #### P REGU #### [facility] [address] [place] [address] Dr. Luis A Solorio LYMPH # 1.3 103/ul Normal 1.2-3.8 [facility] Comment on above: Performed By: #### P REGU #### [facility] [address] [place] [address] Dr. Luis A Solorio Lymphocytes/100 WBC (Bld) 12.4 % Critically low 20.5-60.0 [facility] Comment on above: Performed By: #### P REGU #### [facility] [address] [place] [address] Dr. Luis A Solorio MANUAL DIFF REQ NO Normal [facility] Comment on above: Performed By: #### P REGU #### [facility] [address] [address] [address] Luis A Solorio MCH (RBC) [Entitic mass] 25.1 pg Critically low 26.7-34.0 [facility] Comment on above: Performed By: #### P REGU #### [facility] [address] [place] [address] Dr. Luis A Solorio MCHC (RBC) [Mass/Vol] 31.0 g/dL Normal 29.9-35.2 [facility] Comment on above: Performed By: #### P REGU #### [facility] [address] [place] [address] Dr. Luis A Solorio MCV (RBC) [Entitic vol] 80.9 fL Critically low 81.0-99.0 [facility] Comment on above: Performed By: #### P REGU #### [facility] [address] [place] [address] Dr. Luis A Solorio MONO # 0.8 103/ul Normal 0.3-0.8 [facility] Comment on above: Performed By: #### P REGU #### [facility] [address] [place] [address] Dr. Luis A Solorio Monocytes/100 WBC (Bld) 7.6 % Normal 1.7-12.0 [facility] Comment on above: Performed By: #### P REGU #### [facility] [address] [place] [address] Dr. Luis A Solorio NEUT # 8.5 103/ul Critically high 1.4-6.5 [facility] Comment on above: Performed By: #### P REGU #### [facility] [address] [place] [address] Dr. Luis A Solorio Neutrophils/100 WBC (Bld) 79.4 % Critically high 43.0-75.0 [facility] Comment on above: Performed By: #### P REGU #### [facility] [address] [place] [address] Dr. Luis A Solorio Platelet mean volume (Bld) [Entitic vol] 10.7 fL Normal 9.5-13.5 [facility] Comment on above: Performed By: #### P REGU #### [facility] [address] [place] [address] Dr. Luis A Solorio PLT 237 103/ul Normal 150-450 [facility] Comment on above: Performed By: #### P REGU #### [facility] [address] [place] [address] Dr. Luis A Solorio RBC 4.03 106/ul Critically low 4.20-5.40 [facility] Comment on above: Performed By: #### P REGU #### [facility] [address] [place] [address] Dr. Luis A Solorio WBC 10.7 103/ul Normal 4.0-11.0 [facility] Comment on above: Performed By: #### P REGU #### [facility] [address] [place] [address] Dr. Luis A Solorio CREATININEon 07-20-2022 Creatinine [Mass/Vol] 0.99 mg/dL Normal 0.55-1.02 [facility] Comment on above: Performed By: #### B UN, CREA #### [facility] [address] [place] [address] Dr. Luis A Solorio EGFR-AF TAIWANESE >60 Normal >=60 [facility] Comment on above: Performed By: #### B UN, CREA #### [facility] [address] [place] [address] Dr. Luis A Solorio EGFR-NON AF TAIWANESE >60 Normal >=60 [facility] Comment on above: Performed By: #### B UN, CREA #### [facility] [address] [place] [address] Dr. Luis A Solorio CBC AUTO DIFFon 07-19-2022 BASO # 0.0 103/ul Normal 0.0-0.1 [facility] Comment on above: Performed By: #### C BC #### [facility] [address] [place] [address] Dr. Luis A Solorio Basophils/100 WBC (Bld) 0.4 % Normal 0.2-2.0 [facility] Comment on above: Performed By: #### C BC #### [facility] [address] [place] [address] Dr. Luis A Solorio EO # 0.1 103/ul Normal 0.0-0.7 [facility] Comment on above: Performed By: #### C BC #### [facility] [address] [place] [address] Dr. Luis A Solorio Eosinophils/100 WBC (Bld) 2.4 % Normal 0.9-7.0 [facility] Comment on above: Performed By: #### C BC #### [facility] [address] [place] [address] Dr. Luis A Solorio Erythrocyte distribution width (RBC) [Ratio] 16.4 % Critically high 11.0-15.0 [facility] Comment on above: Performed By: #### C BC #### [facility] [address] [place] [address] Dr. Luis A Solorio Hematocrit (Bld) [Volume fraction] 36.9 % Normal 36.0-48.0 [facility] Comment on above: Performed By: #### C BC #### [facility] [address] [place] [address] Dr. Luis A Solorio Hemoglobin (Bld) [Mass/Vol] 11.5 g/dL Critically low 12.0-16.0 [facility] Comment on above: Performed By: #### C BC #### [facility] [address] [place] [address] Dr. Luis A Solorio IG # 0.01 10e3/ul Normal 0.00-0.03 [facility] Comment on above: Performed By: #### C BC #### [facility] [address] [place] [address] Dr. Luis A Solorio IG % 0.2 % Normal 0.0-0.5 [facility] Comment on above: Performed By: #### C BC #### [facility] [address] [place] [address] Dr. Luis A Solorio LYMPH # 2.3 103/ul Normal 1.2-3.8 [facility] Comment on above: Performed By: #### C BC #### [facility] [address] [address] [address] Luis A Solorio Lymphocytes/100 WBC (Bld) 46.0 % Normal 20.5-60.0 [facility] Comment on above: Performed By: #### C BC #### [facility] [address] [place] [address] Dr. Luis A Solorio MANUAL DIFF REQ NO Normal [facility] Comment on above: Performed By: #### C BC #### [facility] [address] [place] [address] Dr. Luis A Solorio MCH (RBC) [Entitic mass] 25.3 pg Critically low 26.7-34.0 [facility] Comment on above: Performed By: #### C BC #### [facility] [address] [place] [address] Dr. Luis A Solorio MCHC (RBC) [Mass/Vol] 31.2 g/dL Normal 29.9-35.2 [facility] Comment on above: Performed By: #### C BC #### [facility] [address] [place] [address] Dr. Luis A Solorio MCV (RBC) [Entitic vol] 81.1 fL Normal 81.0-99.0 [facility] Comment on above: Performed By: #### C BC #### [facility] [address] [place] [address] Dr. Luis A Solorio MONO # 0.5 103/ul Normal 0.3-0.8 [facility] Comment on above: Performed By: #### C BC #### [facility] [address] [place] [address] Dr. Luis A Solorio Monocytes/100 WBC (Bld) 10.5 % Normal 1.7-12.0 [facility] Comment on above: Performed By: #### C BC #### [facility] [address] [place] [address] Dr. Luis A Solorio NEUT # 2.0 103/ul Normal 1.4-6.5 [facility] Comment on above: Performed By: #### C BC #### [facility] [address] [place] [address] Dr. Luis A Solorio Neutrophils/100 WBC (Bld) 40.5 % Critically low 43.0-75.0 [facility] Comment on above: Performed By: #### C BC #### [facility] [address] [place] [address] Dr. Luis A Solorio Platelet mean volume (Bld) [Entitic vol] 10.4 fL Normal 9.5-13.5 [facility] Comment on above: Performed By: #### C BC #### [facility] [address] [place] [address] Dr. Luis A Solorio PLT 236 103/ul Normal 150-450 [facility] Comment on above: Performed By: #### C BC #### [facility] [address] [place] [address] Dr. Luis A Solorio RBC 4.55 106/ul Normal 4.20-5.40 [facility] Comment on above: Performed By: #### C BC #### [facility] [address] [place] [address] Dr. Luis A Solorio WBC 4.9 103/ul Normal 4.0-11.0 [facility] Comment on above: Performed By: #### C BC #### [facility] [address] [place] [address] Dr. Luis A Solorio PREG HCG QUALon 07-19-2022 , QUAL Negative Normal NEGATIVE [facility] Comment on above: Performed By: #### P REG #### [facility] [address] [place] [address] Dr. Luis A Solorio Covid-19 PCR (CVDTB)on 06-18 SARS-CoV-2 (COVID-19) RNA ARABELLA+probe Ql (Unsp spec) Not detected Normal NOT DETECTED [facility] Comment on above: Result Comment: This test is not yet approved or cleared by the [place] FDA. When there are no FDA-approved or cleared tests available, and other criteria are met, FDA can make tests available under an emergency access mechanism called an Emergency Use Authorization (EUA). The EUA for this test is supported by the [employer] P[employer] Operator of Health and Human Service's (HHS's) declaration [...] SARS-CoV-2. Performed By: #### P REGU #### [facility] [address] [place] [address] Dr. Luis A Solorio Pre-Certification Formon Pre-Certification Form [id number] 7#1.00CD:127 Normal [facility] TYPE AND SCREENon 07-15-2022 TYPE AND SCREEN Negative Normal [facility] Comment on above: Performed By: #### P REGU #### [facility] [address] [place] [address] Dr. Luis A Solorio Physician Referralon 022 Physician Referral [id number] #1.00CD:127 Normal [facility] URon 06-11-2022 , QUAL Negative Normal NEGATIVE [facility] Comment on above: Performed By: #### P REGU #### [facility] [address] [place] [address] Dr. Luis A Soloiro Covid-19 PCR (CVDTB)on 05-17 SARS-CoV-2 (COVID-19) RNA ARABELLA+probe Ql (Unsp spec) Not detected Normal NOT DETECTED [facility] Comment on above: Result Comment: This test is not yet approved or cleared by the [place] FDA. When there are no FDA-approved or cleared tests available, and other criteria are met, FDA can make tests available under an emergency access mechanism called an Emergency Use Authorization (EUA). The EUA for this test is supported by the [employer] P[employer] Hammer Operator of Health and Human Service's (HHS's) declaration [...] SARS-CoV-2. Performed By: #### P REGU #### [facility] [address] [place] [address] Dr. Luis A Solorio CBC AUTO DIFFon 05-28-2022 BASO # 0.0 103/ul Normal 0.0-0.1 [facility] Comment on above: Performed By: #### B UN, CREA #### [facility] [address] [place] [address] Dr. Luis A Solorio Basophils/100 WBC (Bld) 0.4 % Normal 0.2-2.0 [facility] Comment on above: Performed By: #### B UN, CREA #### [facility] [address] [place] [address] Dr. LuisA Solorio EO # 0.1 103/ul Normal 0.0-0.7 [facility] Comment on above: Performed By: #### B UN, CREA #### [facility] [address] [place] [address] Dr. Luis A Solorio Eosinophils/100 WBC (Bld) 2.0 % Normal 0.9-7.0 [facility] Comment on above: Performed By: #### B UN, CREA #### [facility] [address] [place] [address] Dr. Luis A Solorio Erythrocyte distribution width (RBC) [Ratio] 19.9 % Critically high 11.0-15.0 [facility] Comment on above: Performed By: #### B UN, CREA #### [facility] [address] [place] [address] Dr. Luis A Solorio Hematocrit (Bld) [Volume fraction] 35.0 % Critically low 36.0-48.0 [facility] Comment on above: Performed By: #### B UN, CREA #### [facility] [address] [place] [address] Dr. Luis A Solorio Hemoglobin (Bld) [Mass/Vol] 10.6 g/dL Critically low 12.0-16.0 [facility] Comment on above: Performed By: #### B UN, CREA #### [facility] [address] [place] [address] Dr. Luis A Solorio IG # 0.01 10e3/ul Normal 0.00-0.03 [facility] Comment on above: Performed By: #### B UN, CREA #### [facility] [address] [place] [address] Dr. Luis A Solorio IG % 0.2 % Normal 0.0-0.5 [facility] Comment on above: Performed By: #### B UN, CREA #### [facility] [address] [place] [address] Dr. Luis A Solorio LYMPH # 1.8 103/ul Normal 1.2-3.8 [facility] Comment on above: Performed By: #### B UN, CREA #### [facility] [address] [place] [address] Dr. Luis A Solorio Lymphocytes/100 WBC (Bld) 35.7 % Normal 20.5-60.0 [facility] Comment on above: Performed By: #### B UN, CREA #### [facility] [address] [place] [address] Dr. Luis A Solorio MANUAL DIFF REQ NO Normal [facility] Comment on above: Performed By: #### B UN, CREA #### [facility] [address] [place] [address] Dr. Luis A Solorio MCH (RBC) [Entitic mass] 23.5 pg Critically low 26.7-34.0 [facility] Comment on above: Performed By: #### B UN, CREA #### [facility] [address] [place] [address] Dr. Luis A Solorio MCHC (RBC) [Mass/Vol] 30.3 g/dL Normal 29.9-35.2 [facility] Comment on above: Performed By: #### B UN, CREA #### [facility] [address] [place] [address] Dr. Luis A Solorio MCV (RBC) [Entitic vol] 77.6 fL Critically low 81.0-99.0 [facility] Comment on above: Performed By: #### B UN, CREA #### [facility] [address] [place] [address] Dr. Luis A Solorio MONO # 0.5 103/ul Normal 0.3-0.8 [facility] Comment on above: Performed By: #### B UN, CREA #### [facility] [address] [place] [address] Dr. Luis A Solorio Monocytes/100 WBC (Bld) 9.7 % Normal 1.7-12.0 [facility] Comment on above: Performed By: #### B UN, CREA #### [facility] [address] [place] [address] Dr. Luis A Solorio NEUT # 2.6 103/ul Normal 1.4-6.5 [facility] Comment on above: Performed By: #### B UN, CREA #### [facility] [address] [place] [address] Dr. Luis A Solorio Neutrophils/100 WBC (Bld) 52.0 % Normal 43.0-75.0 [facility] Comment on above: Performed By: #### B UN, CREA #### [facility] [address] [place] [address] Dr. Luis A Solorio Platelet mean volume (Bld) [Entitic vol] 10.3 fL Normal 9.5-13.5 [facility] Comment on above: Performed By: #### B UN, CREA #### [facility] [address] [place] [address] Dr. Luis A Solorio PLT 236 103/ul Normal 150-450 [facility] Comment on above: Performed By: #### B UN, CREA #### [facility] [address] [place], [place] [address] Dr. Luis A Solorio RBC 4.51 106/ul Normal 4.20-5.40 [facility] Comment on above: Performed By: #### B UN, CREA #### [facility] [address] [place], [place] [address] Dr. Luis A Solorio WBC 4.9 103/ul Normal 4.0-11.0 [facility] Comment on above: Performed By: #### B UN, CREA #### [facility] [address] [place], [place] [address] Dr. Luis A Solorio US VAC ASST BX BREAST RT W C LIPon 05-07-2022 US VAC ASST BX BREAST RT W CLIP Begin Addendum #1 DATE/TIME COLLECTED: 05/03/2022, 09:17 EDT Final Diagnosis Report for [facility] [place] RIGHT BREAST 11 O'CLOCK MASS; BIOPSY: [...] after pathology results are available. Normal [facility] US PELVIS AND TRANSVAGon US PELVIS AND [...] by: [place] Date: 2022-05-04 22:08 Normal [facility] PAP ACOG PANEL 2: 30 to 65on 05-04-2022 . . Normal [facility] Comment on above: Result Comment: Perf ormed at: WB Performed By: #### B UN, CREA #### [facility] [address] [place] [address] [address] Luis A Solorio Age Gdln ACOG Testing 30-65 Normal [facility] Comment on above: Performed By: #### B UN, CREA #### [facility] [address] [place] [address] [address] Luis A Solorio DIAGNOSIS: Comment Normal [facility] Comment on above: Result Comment: NEGA TIVE FOR INTRAEPITHELIAL LESION OR MALIGNANCY. Performed at: WB Performed By: #### B UN, CREA #### [facility] [address] [place] [address] [address] Luis A Solorio HPV Aptima Negative Normal Negative [facility] Comment on above: Result Comment: This nucleic acid amplification test detects fourteen high-risk HPV types (16,18,31,33,35,39,45,51,52,56,58,59,66,68) without differentiation. Performed at: =G Performed By: #### B UN, CREA #### [facility] [address] [place] [address] Dr. Luis A Solorio Methodology: Comment Normal [facility] Comment on above: Result Comment: This liquid based ThinPrep(R) pap test was screened with the use of an image guided system. Performed at: WB Performed By: #### B UN, CREA #### [facility] [address] [place] [address] Dr. Luis A Solorio Note: Comment Normal [facility] Comment on above: Result Comment: The [...] Performed By: #### B UN, CREA #### [facility] [address] [place] [address] Dr. Luis A Solorio Performed by: Comment Normal [facility] Comment on above: Result Comment: Lisbet Springer, Gravity Meter Operator (ASCP) Performed at: WB Performed By: #### B UN, CREA #### [facility] [address] [place] [address] Dr. Luis A Solorio Specimen adequacy: Comment Normal [facility] Comment on above: Result Comment: Sati sfactory for evaluation. Endocervical and/or squamous metaplastic cells (endocervical component) are present. Performed at: WB Performed By: #### B UN, CREA #### [facility] [address] [place] [address] Dr. Luis A Solorio MAMMO POST BIOPSY RIGHTon MAMMO POST BIOPSY RIGHT Patient: YOLANDA MARQUEZ Exam Date: 05/03/2022 : 1975 Gender:F Ordering : DR ALLISON SHARP M.D. Admission #: [id number] Family : Order #: [id number] CLICK HERE TO VIEW EXAM RADIOLOGY REPORT [...] Wooten M.D. on 05/03/2022 at 09:50 Normal [facility] MG MAMM RT DIAG FUon 022 MG MAMM RT DIAG FU Patient: YOLANDA MARQUEZ Exam Date: 04/23/2022 : 1975 Gender:F Ordering : DR ALLISON SHARP M.D. Admission #: [id number] Family : Order #: [id number] CLICK HERE TO VIEW EXAM RADIOLOGY REPORT [...] Treatments None Family Cancers None LOCATION: [facility] BREAST COMPOSITION: Heterogeneously dense,which may obscure small [...] M.D. on 04/23/2022 at 09:37 Normal [facility] US BREAST RIGHT LIMITEDon US BREAST RIGHT LIMITED Patient: YOLANDA MARQUEZ. Exam Date: 04/23/2022 : 1975 Gender:F Ordering : DR ALLISON SHARP M.D. Admission #: [id number] Family : Order #: [id number] CLICK HERE TO VIEW EXAM RADIOLOGY REPORT [...] Treatments None Family Cancers None LOCATION: [facility] BREAST COMPOSITION: Heterogeneously dense,which may obscure small [...] M.D. on 04/23/2022 at 09:37 Normal [facility] MG MAMM SCREEN 3D AYUSH CADon 04-14-2022 MG MAMM SCREEN 3D AYUSH CAD Patient: YOLANDA MARQUEZ. Exam Date: 04/14/2022 : 1975 Gender:F Ordering : DR ALLISON SHARP M.D. Admission #: [id number] Family : Order #: [id number] CLICK HERE TO VIEW EXAM RADIOLOGY REPORT PROCEDURE: MAMMOGRAM SCREENING 3D BILATERAL CAD COMPARISON: None. INDICATIONS: Screening mammography Calculator Name NCI Breast Cancer Risk Assessment Tool 5 Year Breast Cancer Risk Not Reported. Lifetime Breast Cancer Risk Not Reported. Personal Breast Cancer No Personal Ovarian Cancer No Treatments None Family Cancers None LOCATION: [facility] BREAST COMPOSITION: Heterogeneously dense,which may obscure small [...] Schwab MD on 04/14/2022 at 10:03 Normal [facility] CBC AUTO DIFFon 04-02-2022 BASO # 0.0 103/ul Normal 0.0-0.1 [facility] Comment on above: Performed By: #### C BC #### [facility] [address] [place] [address] Dr. Luis A Solorio Basophils/100 WBC (Bld) 0.4 % Normal 0.2-2.0 [facility] Comment on above: Performed By: #### C BC #### [facility] [address] [place] [address] Dr. Luis A Solorio EO # 0.1 103/ul Normal 0.0-0.7 [facility] Comment on above: Performed By: #### C BC #### [facility] [address] [place] [address] Dr. Luis A Solorio Eosinophils/100 WBC (Bld) 2.6 % Normal 0.9-7.0 [facility] Comment on above: Performed By: #### C BC #### [facility] [address] [place] [address] Dr. Luis A Solorio Erythrocyte distribution width (RBC) [Ratio] 16.0 % Critically high 11.0-15.0 [facility] Comment on above: Performed By: #### C BC #### [facility] [address] [place] [address] Dr. Luis A Solorio Hematocrit (Bld) [Volume fraction] 30.2 % Critically low 36.0-48.0 [facility] Comment on above: Performed By: #### C BC #### [facility] [address] [place] [address] Dr. Luis A Solorio Hemoglobin (Bld) [Mass/Vol] 8.8 g/dL Critically low 12.0-16.0 [facility] Comment on above: Performed By: #### C BC #### [facility] [address] [place] [address] Dr. Luis A Solorio IG # 0.02 10e3/ul Normal 0.00-0.03 [facility] Comment on above: Performed By: #### C BC #### [facility] [address] [place] [address] Dr. Luis A Solorio IG % 0.4 % Normal 0.0-0.5 [facility] Comment on above: Performed By: #### C BC #### [facility] [address] [place] [address] Dr. Luis A Solorio LYMPH # 1.7 103/ul Normal 1.2-3.8 [facility] Comment on above: Performed By: #### C BC #### [facility] [address] [place] [address] Dr. Luis A Solorio Lymphocytes/100 WBC (Bld) 36.6 % Normal 20.5-60.0 [facility] Comment on above: Performed By: #### C BC #### [facility] [address] [place] [address] Dr. Luis A Solorio MANUAL DIFF REQ NO Normal [facility] Comment on above: Performed By: #### C BC #### [facility] [address] [place] [address] Dr. Luis A Solorio MCH (RBC) [Entitic mass] 21.9 pg Critically low 26.7-34.0 [facility] Comment on above: Performed By: #### C BC #### [facility] [address] [place] [address] [address] Luis A Solorio MCHC (RBC) [Mass/Vol] 29.1 g/dL Critically low 29.9-35.2 [facility] Comment on above: Performed By: #### C BC #### [facility] [address] [place] [address] [address] Luis A Solorio MCV (RBC) [Entitic vol] 75.1 fL Critically low 81.0-99.0 [facility] Comment on above: Performed By: #### C BC #### [facility] [address] [place] [address] Dr. Luis A Solorio MONO # 0.5 103/ul Normal 0.3-0.8 [facility] Comment on above: Performed By: #### C BC #### [facility] [address] [place] [address] Dr. Luis A Solorio Monocytes/100 WBC (Bld) 10.8 % Normal 1.7-12.0 [facility] Comment on above: Performed By: #### C BC #### [facility] [address] [place] [address] Dr. Luis A Solorio NEUT # 2.3 103/ul Normal 1.4-6.5 [facility] Comment on above: Performed By: #### C BC #### [facility] [address] [place] [address] Dr. Luis A Solorio Neutrophils/100 WBC (Bld) 49.2 % Normal 43.0-75.0 [facility] Comment on above: Performed By: #### C BC #### [facility] [address] [place] [address] Dr. Luis A Solorio Platelet mean volume (Bld) [Entitic vol] 10.0 fL Normal 9.5-13.5 [facility] Comment on above: Performed By: #### C BC #### [facility] [address] [place] [address] Dr. Luis A Solorio PLT 280 103/ul Normal 150-450 [facility] Comment on above: Performed By: #### C BC #### [facility] [address] [place] [address] [address] Luis A Solorio RBC 4.02 106/ul Critically low 4.20-5.40 [facility] Comment on above: Performed By: #### C BC #### [facility] [address] [place] [address] [address] Luis A Solorio WBC 4.6 103/ul Normal 4.0-11.0 [facility] Comment on above: Performed By: #### C BC #### [facility] [address] [place] [address] Dr. Luis A Solorio GLYCOHEMOGLOBIN A1Con 2021 ADA RECOMMENDATION SEE BELOW Normal [facility] Comment on above: Result Comment: ADA RECOMMENDED LIMIT 4.0 - 6.0 ADA THERAPEUTIC TARGET < 7.0 ACTION SUGGESTED > 7.0 Performed By: #### B UN, CREA #### [facility] [address] [place] [address] Dr. Luis A Solorio Glucose [Mass/Vol] 131 mg/dL Normal [facility] Comment on above: Performed By: #### B UN, CREA #### [facility] [address] [place] [address] Dr. Luis A Solorio HbA1c (Bld) [Mass fraction] 6.2 % Normal 4.5-6.2 [facility] Comment on above: Performed By: #### B UN, CREA #### [facility] [address] [place] [address] Dr. Luis A Solorio LIPID PROFILEon 04-02-2022 CHOL-HDL RATIO NORM SEE BELOW Normal [facility] Comment on above: Result Comment: 3.3 - 4.4 LOW RISK 4.4 - 7.1 AVERAGE RISK 7.1 - 11.0 MODERATE RISK >11.0 HIGH RISK Performed By: #### T SH, LIPID, CMP #### [facility] [address] [place] [address] Dr. Luis A Solorio Cholesterol [Mass/Vol] 215 mg/dL Critically high <=200 [facility] Comment on above: Performed By: #### T SH, LIPID, CMP #### [facility] [address] [place] [address] [address] Luis A Solorio Cholesterol in HDL [Mass/Vol] 46 mg/dL Normal 40-60 [facility] Comment on above: Performed By: #### T SH, LIPID, CMP #### [facility] [address] [place] [address] [address] Luis A Solorio Cholesterol in LDL [Mass/Vol] 138.2 mg/dL Normal [facility] Comment on above: Performed By: #### T SH, LIPID, CMP #### [facility] [address] [place] [address] [address] Luis A Solorio Cholesterol.total/Ch olesterol in HDL [Mass ratio] 4.7 {ratio} Normal [facility] Comment on above: Performed By: #### T SH, LIPID, CMP #### [facility] [address] [place] [address] [address] Luis A Solorio HDL NORMAL > or = 60 mg/dl - LOW CARDIOVASCULAR RISK <40 mg/dl - HIGH CARDIOVASCULAR RISK Normal [facility] Comment on above: Performed By: #### T SH, LIPID, CMP #### [facility] [address] [place] [address] Dr. Luis A Solorio LDL CALC NORMAL SEE BELOW Normal [facility] Comment on above: Result Comment: <100 mg/dl OPTIMAL 100 - 129 mg/dl NEAR OR ABOVE OPTIMAL 130 - 159 mg/dl BORDERLINE HIGH 160 - 189 mg/dl HIGH >190 mg/dl VERY HIGH Performed By: #### T SH, LIPID, CMP #### [facility] [address] [place] [address] Dr. Luis A Solorio Triglyceride [Mass/Vol] 154 mg/dL Critically high <=150 [facility] Comment on above: Performed By: #### T SH, LIPID, CMP #### [facility] [address] [place] [address] Dr. Luis A Solorio VLDL CALC 30.8 mg/dL Normal [facility] Comment on above: Performed By: #### T SH, LIPID, CMP #### [facility] [address] [place] [address] [address] Luis A Solorio PROF 14(COMP METB)on 022 Albumin [Mass/Vol] 3.2 g/dL Critically low 3.4-5.0 [facility] Comment on above: Performed By: #### P REGU #### [facility] [address] [place] [address] Dr. Luis A Solorio Albumin/Globulin [Mass ratio] 0.8 {ratio} Normal [facility] Comment on above: Performed By: #### P REGU #### [facility] [address] [place] [address] Dr. Luis A Solorio ALP [Catalytic activity/Vol] 83 U/L Normal 46-116 [facility] Comment on above: Performed By: #### P REGU #### [facility] [address] [place] [address] Dr. Luis A Solorio ALT [Catalytic activity/Vol] 34 U/L Normal 14-59 [facility] Comment on above: Performed By: #### P REGU #### [facility] [address] [place] [address] Dr. Luis A Solorio Anion gap [Moles/Vol] 13.5 mmol/L Normal [facility] Comment on above: Performed By: #### P REGU #### [facility] [address] [place] [address] Dr. Luis A Solorio AST [Catalytic activity/Vol] 24 U/L Normal 15-37 [facility] Comment on above: Performed By: #### P REGU #### [facility] [address] [place] [address] Dr. Luis A Solorio Bilirubin [Mass/Vol] 0.3 mg/dL Normal 0.2-1.0 [facility] Comment on above: Performed By: #### P REGU #### [facility] [address] [place] [address] Dr. Luis A Solorio Calcium [Mass/Vol] 8.5 mg/dL Normal 8.5-10.1 [facility] Comment on above: Performed By: #### P REGU #### [facility] [address] [place] [address] [address] Luis A Solorio Chloride [Moles/Vol] 105 mmol/L Normal 98-107 [facility] Comment on above: Performed By: #### P REGU #### [facility] [address] [place] [address] Dr. Luis A Solorio CO2 [Moles/Vol] 23.7 mmol/L Normal 21.0-32.0 [facility] Comment on above: Performed By: #### P REGU #### [facility] [address] [place] [address] Dr. Luis A Solorio Creatinine [Mass/Vol] 0.74 mg/dL Normal 0.55-1.02 [facility] Comment on above: Performed By: #### P REGU #### [facility] [address] [place] [address] Dr. Luis A Solorio EGFR-AF TAIWANESE >60 Normal >=60 [facility] Comment on above: Performed By: #### P REGU #### [facility] [address] [place] [address] Dr. Luis A Solorio EGFR-NON AF TAIWANESE >60 Normal >=60 [facility] Comment on above: Performed By: #### P REGU #### [facility] [address] [place] [address] Dr. Luis A Solorio Globulin (S) [Mass/Vol] 3.8 g/dL Normal [facility] Comment on above: Performed By: #### P REGU #### [facility] [address] [place] [address] Dr. Luis A oSlorio Glucose [Mass/Vol] 122 mg/dL Critically high 74-106 [facility] Comment on above: Performed By: #### P REGU #### [facility] [address] [place] [address] Dr. Luis A Solorio Potassium [Moles/Vol] 4.2 mmol/L Normal 3.5-5.1 [facility] Comment on above: Performed By: #### P REGU #### [facility] [address] [place] [address] Dr. Luis A Solorio Protein [Mass/Vol] 7.0 g/dL Normal 6.4-8.2 [facility] Comment on above: Performed By: #### P REGU #### [facility] [address] [place] [address] [address] Luis A Solorio Sodium [Moles/Vol] 138 mmol/L Normal 136-145 [facility] Comment on above: Performed By: #### P REGU #### [facility] [address] [place] [address] [address] Luis A Solorio Urea nitrogen [Mass/Vol] 15.0 mg/dL Normal 7.0-18.0 [facility] Comment on above: Performed By: #### P REGU #### [facility] [address] [place] [address] Dr. Luis A Solorio Urea nitrogen/Creatinine [Mass ratio] 20.3 mg/mg Normal [facility] Comment on above: Performed By: #### P REGU #### [facility] [address] [address] [address] Luis A Solorio TSHon 04-02-2022 TSH 1.449 uIU/mL Normal 0.358-3.740 [facility] Comment on above: Performed By: #### T SH, LIPID, CMP #### [facility] [address] [place] [address] Dr. Luis A Solorio Vital Signs Date Time Vital Sign Value Performing Clinician Faci lity 02-17-2024 09:36-0400 Body height 170.18 cm [facility] 02-17-2024 09:36-0400 Body mass index (BMI) [Ratio] 43.4 kg/m2 [facility] 02-17-2024 [id number] Body weight 125.64 kg [facility] 02-17-2024 09:36-0400 Diastolic blood pressure 86 mm[Hg] [facility] 02-17-2024 09:36-0400 Heart rate 61 /min [facility] 02-17-2024 09:36-0400 Systolic blood pressure 149 mm[Hg] [facility] Encounters Encounter Date Encounter Type Care Provider Facility Start: 02-17-2024 Patient encounter status [facility] Start: 02-17-2024 End: 02-17-[address] [facility] Work Phone: Start: 02-17-2024 End: 02-17-2024 Encounter for general adult medical examination without abnormal findings [facility] Start: 02-17-2024 End: 02-17-2024 Patient encounter procedure [facility] Work Phone: Start: 06-24-2023 End: 06-24-2023 ambulatory Arley Hand Other [facility] Other Start: 06-24-2023 Office outpatient vi sit 15 minutes Arley Hand [facility] Start: 04-27-2023 End: 04-27-2023 ambulatory Allison Sharp Other [facility] Other Start: 04-27-2023 Nursing evaluation o f patient and report Allison Sharp [facility] Start: 02-16-2023 End: 02-17-2023 ambulatory NONE LISTED REQUEST Facility:[facility] Start: 10-06-2022 Adult health examination Ronak dustin Hand Other [facility] Other Start: 10-06-2022 Gynecological examin ation normal Arley Hand Other [facility] Other Start: 10-06-2022 Pre-procedure evalua tion check Arley Hand Other [facility] Other Start: 10-05-2022 End: 10-05-[address] ALLISON SHARP Facility:[facility] Start: 07-19-2022 End: 07-20-2022 ambulatory MD Raymundo DAILEY Facility:CD:[id number] Start: 07-19-2022 End: 07-21-2022 Evaluation and management of inpatient DR ALLISON SHARP Facility:[facility] Start: 07-17-2022 Encounter for preprocedural laboratory examination DR HUYEN GILL . [facility] Start: 07-17-[address] ALLISON SHARP Facil ity:[facility]1 Start: 07-15-2022 End: 07-16-[address] ALLISON SHARP Facility:[facility] Start: 07-15-2022 End: 07-16-2022 Encounter for preprocedural laboratory examination DR ALLISON SHARP Facility:[facility] Start: 07-14-2022 End: 07-14-[address] ALLISON SHARP Facility:[facility] Start: 07-06-2022 Encounter for other preprocedural examination DR HUYEN IGLL . [facility] Start: 07-05-2022 End: 07-06-[address] ALLISON SHARP Facility:[facility] Start: 07-05-2022 End: 07-06-2022 Encounter for other preprocedural examination DR ALLISON SHARP Facility:[facility] Start: 06-25-2022 ambulatory MD Raymundo Grace ity:[facility] Start: 06-11-2022 End: 06-11-[address] ALLISON SHARP Facility:[facility] Start: 06-04-2022 End: 06-05-[address] ALLISON SHARP Facility:[facility] Start: 05-31-2022 Encounter for preprocedural cardiovascular examination DR HUYEN GILL . [facility] Start: 05-28-2022 End: 05-29-[address] ALLISON SHARP Facility:[facility] Start: 05-03-2022 End: 05-04-[address] ALLISON SHARP Facility:[facility] Start: 04-30-2022 End: 04-30-[address] ALLISON SHARP Facility:[facility] Start: 04-23-2022 End: 04-24-[address] ALLISON SHARP Facility:[facility] Start: 04-14-2022 End: 04-15-[address] ALLISON SHARP Facility:[facility] Start: 04-06-2022 Encounter for genera l adult medical examination without abnormal findings DR ALLISON SHARP [facility] Start: 04-02-2022 End: 04-03-[address] ALLISON [...] Detail Author MG Breast - bilateral Screening [facility] Payers Date Payer Category Payer Private Health Insurance [id number] 1975 Unknown [id number] 2.16.8 [id number] 1975 Unknown [id number] 2.16.84 [id number] 1975 Unknown [id number] 2.16.84 0.1.259961.3.579.2.593 1975 Unknown [id number] 2.16.84 0.1.266703.3.579.2.593 1977 Unknown [id number] 2.16.84 0.1.597575.3.579.2.593 1977 Unknown [id number] 2.16.84 0.1.084740.3.579.2.593 1977 Unknown [id number] 2.16.84 0.1.560462.3.579.2.593 1977 Unknown [id number] 2.16.84 0.1.293278.3.579.2.593 1977 Unknown [id number] 2.16.84 0.1.899811.3.579.2.593 1977 Unknown [id number] 2.16.84 0.1.777967.3.579.2.593 1977 Unknown [id number] 2.16.84 0.1.399860.3.579.2.593 1977 Unknown [id number] 2.16.84 0.1.302236.3.579.2.593 1977 Unknown [id number] 2.16.84 0.1.221227.3.579.2.593 1977 Unknown [id number] 2.16.84 0.1.872650.3.579.2.593 1977 Unknown [id number] 2.16.84 0.1.008271.3.579.2.593 1977 Unknown [id number] 2.16.84 0.1.199936.3.579.2.593 1957 Private Health Insurance [id number] Private Health Insurance [id number] 1957 Self-pay Unknown [id number] 2.16.84 0.1.534463.3.579.2.593 Social History Date Type Detail Facility Unknown if ever smoked [facility] Other Sex Assigned At Sex Assigned At Bir th [facility] Other Start: 1975 Sex Assigned At Female [facility] Evaluation note 06-24-2023 Note Date & Type [...] for congestion, Tylenol for pain and fever. [facility] Other Evaluation note 04-27-2023 Note Date & Type Note Facility 04-27-2023 Evaluation note Encounter Date Diagnosis Assessment Notes Apr, Acute cystitis without hematuria (ICD-10 - N30.00) [facility] Other Evaluation note Note Date & Type Note Facility Evaluation note Diagnosis Onset Date Screening mammogram for breast cancer acute Wellness examination [facility] Work Phone: History general Narrative - Reported Note Date & Type Note Facility History general Narrative - Reported Type Surgical History TUBAL Surgical History colonoscopy Surgical History laparoscopy Surgical History cholecystectomy Hospitalization History See Above [facility] Other History general Narrative - Reported Note [...] Surgical History cholecystectomy Hospitalization History See Above [facility] Other Summary Purpose Family History Relationship Condition [...] and content) DATE CREATED AUTHOR 07/28/2022 [facility] DATE CREATED AUTHOR AUTHOR'S ORGANIZ ATION 02/17/2023 [facility] REASON FOR VISIT (unrecogniz ed section and content) Fever, Frequency, Tingling, CloudyCOVID Positive- [phone] Care Teams (unrecognized sec tion and content) [...] BE BASED ON THE PRIMARY CLINICAL RECORDS. [employer] [facility]. provides no warranty or guarantee of the accuracy or completeness of information in this document.
== END 2024-03-27 20:53 | disposition home or self-care (01) ==
LOC: SLEEP 20:52
PROVIDERS: PCP Family Medicine; Visit Provider Family Medicine
DX: G47.33 Obstructive sleep apnea (adult) (pediatric) (principal)
CPT/HCPCS: 95811

== ENCOUNTER 2024-06-25 11:18 | Emergency (ER) | payer OTHER, SELFPAY ==
[2024-06-25 11:22] VITALS: BP 177/100; PULSE 89; TEMP 37.1; O2SAT 96; BMI 42.3
--- NOTE | 2024-06-25 11:28 | ED_ITS ---
HPI - Extremity Problem General Chief complaint: Extremity Problem, Nontraumatic Stated complaint: SHOULDER PAIN Time Seen by Provider: 06/25/24 11:22 History of Present Illness HPI Narrative: 49-year-old female presents for right shoulder pain. She has had it for a few days and there is no specific injury. She has had problems with this right shoulder in the past and she is right-handed. It goes down towards her elbow. She does not complain of numbness in her hand and she does not complain to me of any neck pain. She thinks she may have slept on it wrong. Related Data Home Medications ?Medication ?Instructions ?Recorded ?Confirmed losartan 25 mg tablet 25 mg PO DAILY 06/25/24 06/25/24 Previous Rx's ?Medication ?Instructions ?Recorded cyclobenzaprine 10 mg tablet 10 mg PO TID PRN muscle spasm #20 06/25/24 tabs etodolac 400 mg tablet 400 mg PO Q8H PRN pain #20 tabs 06/25/24 Allergies Allergy/AdvReac Type Severity Reaction Status Date / Time No Known Drug Allergies Allergy Verified 06/25/24 11:21 Review of Systems ROS Narrative A ten point review of systems is negative except as noted above. PFSH PFSH Social History Little interest or pleasure in doing things: not at all Feeling down, depressed, or hopeless: not at all Exam Narrative Exam Narrative: Nurses note and vital signs reviewed and patient is not hypoxic. General: The patient appears uncomfortable and is tearful. Skin: Warm, dry, no pallor noted. There is no rash noted. Head: Normocephalic, atraumatic Eye: Normal conjunctiva, no drainage Ears, Nose, Mouth, and Throat: oral mucosa is moist. Nares patent. Cardiovascular: Regular Rate and Rhythm Respiratory: Patient is in no distress, no accessory muscle use, lungs are clear to auscultation, no wheezing, rales or rhonchi Back: non-tender GI: Soft and nontender Musculoskeletal: The right shoulder has no rash or bruises and she is reluctant to have full range of motion. No obvious deformity. Radial pulse 2+. Neurological: Awake and alert. Fingers have full range of motion. Psychiatric: Cooperative Constitutional Vital Signs, click to edit/add: Last Vital Signs Temp 98.7 F 06/25/24 11:22 Pulse 70 06/25/24 12:44 Resp 16 06/25/24 12:44 BP 134/72 06/25/24 12:44 Pulse Ox 95 06/25/24 12:44 O2 Del Method Room Air 06/25/24 12:44 Course Vital Signs Vital signs: Vital Signs Temperature 98.7 F 06/25/24 11:22 Pulse Rate 89 06/25/24 11:22 Respiratory Rate 20 06/25/24 11:22 Blood Pressure 177/100 H 06/25/24 11:22 Pulse Oximetry 96 06/25/24 11:22 Oxygen Delivery Method Room Air 06/25/24 11:22 Temperature 98.7 F 06/25/24 11:22 Pulse Rate 70 06/25/24 12:44 Respiratory Rate 16 06/25/24 12:44 Blood Pressure 134/72 06/25/24 12:44 Pulse Oximetry 95 06/25/24 12:44 Oxygen Delivery Method Room Air 06/25/24 12:44 MDM - Extremity (Nontraumatic) MDM Narrative Medical decision making narrative: X-ray per radiologist shows no acute findings. She is referred to Dr. Abraham and appointment made for her a week from today at 12 noon. Treatment diagnosis and follow-up were discussed with the patient. Differential Diagnosis Differential diagnosis: Likely other (Shoulder pain, shoulder arthritis, shoulder strain) Imaging Data Shoulder x-ray: Radiologist's impression: Procedure: XR shoulder RT min 2V EXAM: XR shoulder RT min 2V HISTORY: Atraumatic pain COMPARISON: None. FINDINGS/IMPRESSION: 1. No acute fracture or dislocation. 2. Mild degeneration of the acromioclavicular joint. 3. Normal alignment of the right shoulder joint. 4. No focal lung consolidation of the right lung. Electronically authenticated by: KAMRON BLANKENSHIP Date: 06/25/2024 13:16 Discharge Plan Discharge Chief Complaint: Extremity Problem, Nontraumatic Clinical Impression: Acute pain of right shoulder Patient Disposition: Home, Self-Care Time of Disposition Decision: 13:24 Condition: Good Mode of Transportation: Private Vehicle Prescriptions / Home Meds: New etodolac 400 mg tablet 400 mg PO Q8H PRN (Reason: pain) Qty: 20 0RF cyclobenzaprine 10 mg tablet 10 mg PO TID PRN (Reason: muscle spasm) Qty: 20 0RF No Action losartan 25 mg tablet 25 mg PO DAILY Print Language: [place] Timorese Instructions: Shoulder Pain (ED) Referrals: Allison Schuler MD [Primary Care Provider] - 1 week [place] Abraham MD [Physician] - 07/02/24 12:00 pm
[2024-06-25] MEDS: KETOROLAC TROMETHAMINE 60 MG/2 ML VIAL IM (11:36)
--- NOTE | 2024-06-25 12:18 | XR_ITS ---
[address] [address] Patient Name: YOLANDA ALCARAZ MRN: [id number] date: 1975 Sex: F Assigned Patient Location: ER Current Patient Location: ER Accession/Order Number: [id number] Exam Date: 06/25/2024 12:10 Report Date: 06/25/2024 13:16 At the request of: ILENE PENG Procedure: XR shoulder RT min 2V EXAM: XR shoulder RT min 2V HISTORY: Atraumatic pain COMPARISON: None. FINDINGS/IMPRESSION: 1. No acute fracture or dislocation. 2. Mild degeneration of the acromioclavicular joint. 3. Normal alignment of the right shoulder joint. 4. No focal lung consolidation of the right lung. Electronically authenticated by: KAMRON BLANKENSHIP Date: 06/25/2024 13:16
[2024-06-25 12:44] VITALS: BP 134/72; PULSE 70; O2SAT 95
[2024-06-25 13:31] VITALS: BP 142/68; PULSE 79; O2SAT 98
== END 2024-06-25 13:33 | disposition home or self-care (01) ==
PROVIDERS: Emergency Provider Emergency Medicine; PCP Family Medicine
DX: M25.511 Pain in right shoulder (principal)
CPT/HCPCS: 73030; 96372; 99284; J1885

== ENCOUNTER 2024-07-02 13:07 | Outpatient (OUT) | payer OTHER, SELFPAY ==
--- NOTE | 2024-07-02 | XR_ITS ---
The [address] [address] Patient Name: YOLANDA ALCARAZ MRN: [id number] date: 1975 Sex: F Assigned Patient Location: Current Patient Location: MRI Accession/Order Number: [id number] Exam Date: 07/02/2024 13:10 Report Date: 07/04/2024 07:36 At the request of: LEAH GARCÍA Procedure: XR cervical spine w flex/ext EXAMINATION: XR cervical spine w flex/ext HISTORY: CERVICAL SPINE PAIN COMPARISON: No relevant comparison available. FINDINGS: BONES: Reversal of normal cervical lordosis. No acute fracture or spondylolisthesis. Mild to moderate spondylosis and facet osteoarthropathy C5-C6 DISC SPACES: Moderate narrowing C5-C6 PARASPINOUS: Negative. No paraspinous abnormality is seen. OTHER: No transient spondylolisthesis with flexion extension XR/XR cervical spine w flex/ext IMPRESSION: Mild to moderate degenerative changes C5-C6 with no dynamic instability Electronically authenticated by: RANJEET BAIG Date: 07/04/2024 07:36
== END 2024-07-02 13:08 | disposition home or self-care (01) ==
LOC: EC 13:08
PROVIDERS: PCP Family Medicine; Visit Provider Orthopaedic Surgery
DX: M54.2 Cervicalgia (principal)
CPT/HCPCS: 72052

== ENCOUNTER 2024-07-06 05:47 | Outpatient (OUT) | payer OTHER, SELFPAY ==
--- NOTE | 2024-07-06 | MR_ITS ---
[address] [address] Patient Name: YOLANDA ALCARAZ MRN: [id number] date: 1975 Sex: F Assigned Patient Location: MRI Current Patient Location: Accession/Order Number: [id number] Exam Date: 07/06/2024 06:00 Report Date: 07/06/2024 14:11 At the request of: DANYA FUNEZ Procedure: MR cervical spine wo con EXAMINATION: MR cervical spine wo con HISTORY: M54.12 Cervical Radiculopathy COMPARISON: No relevant comparison available. TECHNIQUE: A variety of imaging planes and parameters were utilized for visualization of suspected pathology. FINDINGS: CRANIOCERVICAL AREA: Normal foramen magnum with no Chiari malformation. PARASPINAL AREA: Normal with no visible mass. BONES: Normal alignment with no acute fracture or spondylolisthesis. No bone edema. CORD: Normal caliber, contour, and signal intensity. CERVICAL DISC LEVELS: C2-C3: No significant disc/facet abnormality, spinal stenosis, or foraminal stenosis. C3-C4: Early degenerative disc disease is present without focal protrusion or neural impingement. C4-C5: Early degenerative disc disease is present without focal protrusion or neural impingement. C5-C6: Moderate disc space narrowing and disc desiccation. Disc/osteophyte complex with right foraminal stenosis. No central canal or left foraminal stenosis C6-C7: Moderate disc space narrowing and disc desiccation. Posterior disc/osteophyte complex. Moderate narrowing of the right neural foramen. No central canal or left foraminal stenosis C7-T1:. No significant disc/facet abnormality, spinal stenosis, or foraminal stenosis. MR/MR cervical spine wo con IMPRESSION: Degenerative changes resulting in moderate right C5-C6 and C6-C7 foraminal stenosis Electronically authenticated by: RANJEET BAIG Date: 07/06/2024 14:11
--- OUTSIDE RECORDS SUMMARY | 2024-07-06 05:50 | XMS_ITS | CCD ---
Author Organization [facility] Care Team Providers Care Inspector [employer] Name Role Phone MD Raymundo DAILEY Attending Unavailable SHARP, DR ALLISON Gaitan Primary Care Unavailable KARASIK ., DR MATSON Admitting Unavailabl e KARASIK ., DR MATSON Consulting Unavailabl e KARASIK ., DR MATSON Attending Unavailabl e AGUBOSIMDARIA Consulting Unavailable LEONARD, TRI Consulting Unavailable SHARP, [...] Unavailable SHARP, DR ALLISON Gaitan Admitting Unavailable SAUSALITO, DR RANJEET Pitts Consulting Unavailable SHARP, DR [...] Unavailable SHARP, DR ALLISON Gaitan Consulting Unavailable Allison Sharp Unavailable Arley Hand Unavailable JOHNY OSUNA Attending Unavailable Allergies Allergy Classification Reported Allergen(s) Allergy Type Date of Onset Reaction(s) Facility (1 source) almotriptan Drug Allergy [facility] (1 source) Perazine Drug Allergy [facility] (1 source) almotriptan Drug Allergy Unknown [facility] Other (1 source) Naproxen / Pseudoephedrine Drug Allergy 08-06-20 Unknown [facility] Other (2 sources) rizatriptan Drug Allergy 02-17-20 24 Unknown, [facility] (1 source) Allergies Reconciled Propensity to adverse reactions Unknown [facility] [employer] Other (1 source) patient allergy list reviewed by nurse or physicia Propensity to adverse reactions 04-06-20 19 Comment:Done [employer] Other (1 source) almotriptan Drug Allergy 02-15-20 24 [facility] (1 source) Sudafed Sinus 12HR Press+Pain Allergy to substance 02-15-20 [facility] Medications Current Medications Medication Drug Class(es) Dates [...] sources) Penicillin-class Antibacterial Amoxicillin 500 MG (Prior Auth#:[id number] ) Oral for 10 Not-Taking Nirmatrelvir-Riton avir [...] tablet (2 sources) predniSONE 20 MG (Prior Auth#:[id number] ) Oral for 5 Not-Taking Problems Active [...] 04-29-2022 [facility] Other aftercare (1 source) [facility] [place] (current[facility] drug therapy; Translations: [OTH [employer] CURRENT DRUG THERAPY] Onset: 08-23-2022 Episodic Other [...] Urinalysis - DIPSTICKon 04-16 Appearance (U) cloudy [employer] Other Bilirubin Ql (U) Negative [employer] Other Color (U) yellow [employer] Other Glucose Ql (U) Negative [employer] Other Hemoglobin Ql (U) trace [employer] Other Ketones Ql (U) Negative [employer] Other Leukocyte esterase Test strip Ql (U) moderate [employer] Other Nitrite Ql (U) Positive [employer] Other pH (U) 5 [pH] [employer] Other Protein Ql (U) 30+ [employer] Other Specific gravity (U) [Rel density] 1.005 [employer] Other Urobilinogen (U) [Mass/Vol] normal [facility] [employer] Other Urinalysis - DIPSTICK [employer] Other CBC AUTO DIFFon 02-16-2023 BASO # 0.0 103/ul Normal 0.0-0.1 [facility] Comment on above: Performed By: #### B UN, CREA #### [facility] [address] [place] [address] Dr. Luis A Solorio Basophils/100 WBC (Bld) 0.4 % Normal 0.2-2.[address] [facility] Comment on above: Performed By: #### B UN, CREA #### [facility] [address] [address] [address] Luis A Solorio EO # 0.1 103/ul Normal 0.0-0.7 [facility] Comment on above: Performed By: #### B UN, CREA #### [facility] [address] [address] [address] Luis A Solorio Eosinophils/100 WBC (Bld) 1.6 % Normal 0.9-7.[address] [facility] Comment on above: Performed By: #### B UN, CREA #### [facility] [address] [place] [address] Dr. Luis A Solorio Erythrocyte distribution width (RBC) [Ratio] 14.2 % Normal 11.0-15.0 [facility] Comment on above: Performed By: #### B UN, CREA #### [facility] [address] [place] [address] Dr. Luis A Solorio Hematocrit (Bld) [Volume fraction] 35.3 % Critically low 36.0-48.0 [facility] Comment on above: Performed By: #### B UN, CREA #### [facility] [address] [place] [address] Dr. Luis A Solorio Hemoglobin (Bld) [Mass/Vol] 11.2 g/dL Critically low 12.0-16.0 [facility] Comment on above: Performed By: #### B UN, CREA #### [facility] [address] [place] [address] Dr. Luis A Solorio IG # 0.01 10e3/ul Normal 0.00-0.03 [facility] Comment on above: Performed By: #### B UN, CREA #### [facility] [address] [place] [address] Dr. Luis A Solorio IG % 0.2 % Normal 0.0-0.5 [facility] Comment on above: Performed By: #### B UN, CREA #### [facility] [address] [place] [address] Dr. Luis A Solorio LYMPH # 1.8 103/ul Normal 1.2-3.[address] [facility] Comment on above: Performed By: #### B UN, CREA #### [facility] [address] [place] [address] Dr. Luis A Solorio Lymphocytes/100 WBC (Bld) 37.9 % Normal 20.5-60.[address] [facility] Comment on above: Performed By: #### B UN, CREA #### [facility] [address] [place] [address] Dr. Luis A Solorio MCH (RBC) [Entitic mass] 26.0 pg Critically low 26.7-34.[address] [facility] Comment on above: Performed By: #### B UN, CREA #### [facility] [address] [place] [address] Dr. Luis A Solorio MCHC (RBC) [Mass/Vol] 31.7 g/dL Normal 29.9-35.[address] [facility] Comment on above: Performed By: #### B UN, CREA #### [facility] [address] [place] [address] Dr. Luis A Solorio MCV (RBC) [Entitic vol] 81.9 fL Normal 81.0-99.[address] [facility] Comment on above: Performed By: #### B UN, CREA #### [facility] [address] [place] [address] Dr. Luis A Solorio MONO # 0.4 103/ul Normal 0.3-0.[address] [facility] Comment on above: Performed By: #### B UN, CREA #### [facility] [address] [place] [address] Dr. Luis A Solorio Monocytes/100 WBC (Bld) 8.5 % Normal 1.7-12.[address] [facility] Comment on above: Performed By: #### B UN, CREA #### [facility] [address] [place] [address] Dr. Luis A Solorio NEUT # 2.5 103/ul Normal 1.4-6.[address] [facility] Comment on above: Performed By: #### B UN, CREA #### [facility] [address] [place] [address] Dr. Luis A Solorio Neutrophils/100 WBC (Bld) 51.4 % Normal 43.0-75.[address] [facility] Comment on above: Performed By: #### B UN, CREA #### [facility] [address] [place] [address] Dr. Luis A Solorio Platelet mean volume (Bld) [Entitic vol] 11.5 fL Normal 9.5-13.[address] [facility] Comment on above: Performed By: #### B UN, CREA #### [facility] [address] [place] [address] Dr. Luis A Solorio PLT 228 103/ul Normal 150-450 [facility] Comment on above: Performed By: #### B UN, CREA #### [facility] [address] [place] [address] Dr. Luis A Solorio RBC 4.31 106/ul Normal 4.20-5.[address] [facility] Comment on above: Performed By: #### B UN, CREA #### [facility] [address] [place] [address] Dr. Luis A Solorio WBC 4.9 103/ul Normal 4.0-11.0 [facility] Comment on above: Performed By: #### B ROLANDO, CREA #### [facility] [address] [place] [address] Dr. Luis A Solorio MEDHAT - TSHon 02-16-2023 TSH 1.783 uIU/mL Normal 0.358-3.740 [facility] Comment on above: Performed By: #### D ATBMP, DATTSH #### [facility] [address] [place] [address] Dr. Luis A Solorio TSH RANGE SEE BELOW Normal [facility] Comment on above: Result Comment: <0.3 4 UIU/ml HYPERTHYROID 0.34-5.60 UIU/ml EUTHYROID >5.60 UIU/ml HYPOTHYROID Performed By: #### D ATBMP, DATTSH #### [facility] [address] [place] [address] Dr. Luis A Solorio MEDHAT- BMP WITH LIPIDon 2022 Anion gap [Moles/Vol] 13.5 mmol/L Normal [facility] Comment on above: Performed By: #### D ATBMP, DATTSH #### [facility] [address] [place] [address] Dr. Luis A Solorio Calcium [Mass/Vol] 8.9 mg/dL Normal 8.5-10.1 [facility] Comment on above: Performed By: #### D ATBMP, DATTSH #### [facility] [address] [address] [address] Luis A Solorio Chloride [Moles/Vol] 103 mmol/L Normal 98-[address] [facility] Comment on above: Performed By: #### D ATBMP, DATTSH #### [facility] [address] [address] [address] Luis A Solorio Cholesterol [Mass/Vol] 227 mg/dL Critically high <=[address] [facility] Comment on above: Performed By: #### D ATBMP, DATTSH #### [facility] [address] [address] [address] Luis A Solorio Cholesterol in HDL [Mass/Vol] 56 mg/dL Normal 40-60 [facility] Comment on above: Performed By: #### D ATBMP, DATTSH #### [facility] [address] [place] [address] Dr. Luis A Solorio Cholesterol in LDL [Mass/Vol] 141.2 mg/dL Normal [facility] Comment on above: Performed By: #### D ATP, DATTSH #### [facility] [address] [address] [address] Luis A Solorio CO2 [Moles/Vol] 24.5 mmol/L Normal 21.0-32.0 [facility] Comment on above: Performed By: #### D ATBMP, DATTSH #### [facility] [address] [address] [address] Luis A Solorio Creatinine [Mass/Vol] 0.74 mg/dL Normal 0.55-1.[address] [facility] Comment on above: Performed By: #### D ATBMP, DATTSH #### [facility] [address] [address] [address] Luis A Solorio EGFR-AF ARGENTINE >60 Normal >=60 [facility] Comment on above: Performed By: #### D ATBMP, DATTSH #### [facility] [address] [address] [address] Luis A Solorio EGFR-NON AF ARGENTINE >60 Normal >=60 [facility] Comment on above: Performed By: #### D ATP, DATTSH #### [facility] [address] [address] [address] Luis A Solorio Glucose [Mass/Vol] 94 mg/dL Normal 74-106 [facility] Comment on above: Performed By: #### D ATBMP, DATTSH #### [facility] [address] [address] [address] Luis A Solorio HDL NORMAL > or = 60 mg/dl - LOW CARDIOVASCULAR RISK <40 mg/dl - HIGH CARDIOVASCULAR RISK Normal [facility] Comment on above: Performed By: #### [facility] #### [facility] [address] [address] [address] Luis A Solorio LDL CALC NORMAL SEE BELOW Normal [facility] Comment on above: Result Comment: <100 mg/dl OPTIMAL 100 - 129 mg/dl NEAR OR ABOVE OPTIMAL 130 - 159 mg/dl BORDERLINE HIGH 160 - 189 mg/dl HIGH >190 mg/dl VERY HIGH Performed By: #### [facility] #### [facility] [address] [address] [address] Luis A Solorio Potassium [Moles/Vol] 4.0 mmol/L Normal 3.5-5.1 [facility] Comment on above: Performed By: #### [facility] #### [facility] [address] [address] [address] Luis A Solorio Sodium [Moles/Vol] 137 mmol/L Normal 136-145 [facility] Comment on above: Performed By: #### [facility] #### [facility] [address] [address] [address] Luis A Solorio Triglyceride [Mass/Vol] 149 mg/dL Normal <=150 [facility] Comment on above: Performed By: #### D ATBMP, DATTSH #### [facility] [address] [address] [address] Luis A Solorio Urea nitrogen [Mass/Vol] 13.0 mg/dL Normal 7.0-18.0 [facility] Comment on above: Performed By: #### D ATBMP, DATTSH #### [facility] [address] [address] [address] Luis A Solorio Urea nitrogen/Creatinine [Mass ratio] 17.6 mg/mg Normal [facility] Comment on above: Performed By: #### D ATBMP, DATTSH #### [facility] [address] [address] [address] Luis A Solorio VLDL CALC 29.8 mg/dL Normal [facility] Comment on above: Performed By: #### D ATBMP, DATTSH #### [facility] [address] [address] [address] Luis A Solorio GLYCOHEMOGLOBIN A1Con 2022 ADA RECOMMENDATION SEE BELOW Normal [facility] Comment on above: Result Comment: ADA RECOMMENDED LIMIT 4.0 - 6.0 ADA THERAPEUTIC TARGET < 7.0 ACTION SUGGESTED > 7.0 Performed By: #### P REGU #### [facility] [address] [place] [address] Dr. Luis A Solorio Glucose [Mass/Vol] 114 mg/dL Normal [facility] Comment on above: Performed By: #### P REGU #### [facility] [address] [place] [address] Dr. Luis A Solorio HbA1c (Bld) [Mass fraction] 5.6 % Normal 4.5-6.2 [facility] Comment on above: Performed By: #### P REGU #### [facility] [address] [place] [address] Dr. Luis A Solorio Covid-19 PCR ([facility])on 09-17 SARS-CoV-2 (COVID-19) RNA ARABELLA+probe Ql (Unsp spec) Not detected Normal NOT DETECTED [facility] Comment on above: Result Comment: When [...] for this test is supported by the [place] of Health and Human Service's declaration that [...] used). Performed By: #### P REGU #### [facility] [address] [place] [address] Dr. Luis A Solorio Operative Reporton 2 Operative Report [id number] #[id number]:127 Normal [facility] BUNon 07-20-2022 Urea nitrogen [Mass/Vol] 14.0 mg/dL Normal 7.0-18.0 [facility] Comment on above: Performed By: #### B UN, CREA #### [facility] [address] [place] [address] Dr. Luis A Solorio CBC AUTO DIFFon 07-20-2022 BASO # 0.0 103/ul Normal 0.0-0.1 [facility] Comment on above: Performed By: #### P REGU #### [facility] [address] [place] [address] Dr. Luis A Solorio Basophils/100 WBC (Bld) 0.1 % Critically low 0.2-2.[address] [facility] Comment on above: Performed By: #### P REGU #### [facility] [address] [place] [address] Dr. Luis A Solorio EO # 0.0 103/ul Normal 0.0-0.[address] [facility] Comment on above: Performed By: #### P REGU #### [facility] [address] [place] [address] Dr. Luis A Solorio Eosinophils/100 WBC (Bld) 0.0 % Critically low 0.9-7.0 [facility] Comment on above: Performed By: #### P REGU #### [facility] [address] [place] [address] Dr. Luis A Solorio Erythrocyte distribution width (RBC) [Ratio] 17.0 % Critically high 11.0-15.0 [facility] Comment on above: Performed By: #### P REGU #### [facility] [address] [place] [address] Dr. Luis A Solorio Hematocrit (Bld) [Volume fraction] 32.6 % Critically low 36.0-48.0 [facility] Comment on above: Performed By: #### P REGU #### [facility] [address] [place] [address] Dr. Luis A Solorio Hemoglobin (Bld) [Mass/Vol] 10.1 g/dL Critically low 12.0-16.0 [facility] Comment on above: Performed By: #### P REGU #### [facility] [address] [place] [address] Dr. Luis A Solorio IG # 0.05 10e3/ul Critically high 0.00-0.03 [facility] Comment on above: Performed By: #### P REGU #### [facility] [address] [place] [address] Dr. Luis A Solorio IG % 0.5 % Normal 0.0-0.5 [facility] Comment on above: Performed By: #### P REGU #### [facility] [address] [place] [address] Dr. Luis A Solorio LYMPH # 1.3 103/ul Normal 1.2-3.8 [facility] Comment on above: Performed By: #### P REGU #### [facility] [address] [place] [address] Dr. Luis A Solorio Lymphocytes/100 WBC (Bld) 12.4 % Critically low 20.5-60.0 [facility] Comment on above: Performed By: #### P REGU #### [facility] [address] [place] [address] Dr. Luis A Solorio MANUAL DIFF REQ NO Normal [facility] Comment on above: Performed By: #### P REGU #### [facility] [address] [address] [address] Luis A Solorio MCH (RBC) [Entitic mass] 25.1 pg Critically low 26.7-34.0 [facility] Comment on above: Performed By: #### P REGU #### [facility] [address] [address] [address] Luis A Solorio MCHC (RBC) [Mass/Vol] 31.0 g/dL Normal 29.9-35.2 [facility] Comment on above: Performed By: #### P REGU #### [facility] [address] [address] [address] Luis A Solorio MCV (RBC) [Entitic vol] 80.9 fL Critically low 81.0-99.0 [facility] Comment on above: Performed By: #### P REGU #### [facility] [address] [place] [address] Dr. Luis A Solorio MONO # 0.8 103/ul Normal 0.3-0.8 [facility] Comment on above: Performed By: #### P REGU #### [facility] [address] [address] [address] Luis A Solorio Monocytes/100 WBC (Bld) 7.6 % Normal 1.7-12.0 [facility] Comment on above: Performed By: #### P REGU #### [facility] [address] [address] [address] Luis A Solorio NEUT # 8.5 103/ul Critically high 1.4-6.5 [facility] Comment on above: Performed By: #### P REGU #### [facility] [address] [address] [address] Luis A Solorio Neutrophils/100 WBC (Bld) 79.4 % Critically high 43.0-75.0 [facility] Comment on above: Performed By: #### P REGU #### [facility] [address] [address] [address] Luis A Solorio Platelet mean volume (Bld) [Entitic vol] 10.7 fL Normal 9.5-13.5 [facility] Comment on above: Performed By: #### P REGU #### [facility] [address] [place] [address] Dr. Luis A Solorio PLT 237 103/ul Normal 150-[address] [facility] Comment on above: Performed By: #### P REGU #### [facility] [address] [place] [address] Dr. Luis A Solorio RBC 4.03 106/ul Critically low 4.20-5.40 [facility] Comment on above: Performed By: #### P REGU #### [facility] [address] [place] [address] Dr. Luis A Solorio WBC 10.7 103/ul Normal 4.0-11.0 [facility] Comment on above: Performed By: #### P REGU #### [facility] [address] [place] [address] Dr. Luis A Solorio CREATININEon 07-20-2022 Creatinine [Mass/Vol] 0.99 mg/dL Normal 0.55-1.02 [facility] Comment on above: Performed By: #### B UN, CREA #### [facility] [address] [place] [address] Dr. Luis A Solorio EGFR-AF ARGENTINE >60 Normal >=60 [facility] Comment on above: Performed By: #### B UN, CREA #### [facility] [address] [place] [address] Dr. Luis A Solorio EGFR-NON AF ARGENTINE >60 Normal >=[address] [facility] Comment on above: Performed By: #### B UN, CREA #### [facility] [address] [place] [address] Dr. Luis A Solorio CBC AUTO DIFFon 07-19-2022 BASO # 0.0 103/ul Normal 0.0-0.1 [facility] Comment on above: Performed By: #### C BC #### [facility] [address] [place] [address] Dr. Luis A Solorio Basophils/100 WBC (Bld) 0.4 % Normal 0.2-2.0 [facility] Comment on above: Performed By: #### C BC #### [facility] [address] [place] [address] Dr. Luis A Solorio EO # 0.1 103/ul Normal 0.0-0.7 [facility] Comment on above: Performed By: #### C BC #### [facility] [address] [place] [address] Dr. Luis A Solorio Eosinophils/100 WBC (Bld) 2.4 % Normal 0.9-7.0 [facility] Comment on above: Performed By: #### C BC #### [facility] [address] [place] [address] Dr. Luis A Solorio Erythrocyte distribution width (RBC) [Ratio] 16.4 % Critically high 11.0-15.0 [facility] Comment on above: Performed By: #### C BC #### [facility] [address] [place] [address] Dr. Luis A Solorio Hematocrit (Bld) [Volume fraction] 36.9 % Normal 36.0-48.0 [facility] Comment on above: Performed By: #### C BC #### [facility] [address] [place] [address] Dr. Luis A Solorio Hemoglobin (Bld) [Mass/Vol] 11.5 g/dL Critically low 12.0-16.0 [facility] Comment on above: Performed By: #### C BC #### [facility] [address] [place] [address] Dr. Luis A Solorio IG # 0.01 10e3/ul Normal 0.00-0.03 [facility] Comment on above: Performed By: #### C BC #### [facility] [address] [place] [address] Dr. Luis A Solorio IG % 0.2 % Normal 0.0-0.5 [facility] Comment on above: Performed By: #### C BC #### [facility] [address] [place] [address] Dr. Luis A Solorio LYMPH # 2.3 103/ul Normal 1.2-3.8 [facility] Comment on above: Performed By: #### C BC #### [facility] [address] [place] [address] Dr. Luis A Solorio Lymphocytes/100 WBC (Bld) 46.0 % Normal 20.5-60.0 [facility] Comment on above: Performed By: #### C BC #### [facility] [address] [place] [address] Dr. Luis A Solorio MANUAL DIFF REQ NO Normal [facility] Comment on above: Performed By: #### C BC #### [facility] [address] [place] [address] Dr. Luis A Solorio MCH (RBC) [Entitic mass] 25.3 pg Critically low 26.7-34.0 [facility] Comment on above: Performed By: #### C BC #### [facility] [address] [place] [address] Dr. Luis A Solorio MCHC (RBC) [Mass/Vol] 31.2 g/dL Normal 29.9-35.2 [facility] Comment on above: Performed By: #### C BC #### [facility] [address] [place] [address] Dr. Luis A Solorio MCV (RBC) [Entitic vol] 81.1 fL Normal 81.0-99.0 [facility] Comment on above: Performed By: #### C BC #### [facility] [address] [place] [address] Dr. Luis A Solorio MONO # 0.5 103/ul Normal 0.3-0.8 [facility] Comment on above: Performed By: #### C BC #### [facility] [address] [place] [address] Dr. Luis A Solorio Monocytes/100 WBC (Bld) 10.5 % Normal 1.7-12.[address] [facility] Comment on above: Performed By: #### C BC #### [facility] [address] [place] [address] Dr. Luis A Solorio NEUT # 2.0 103/ul Normal 1.4-6.[address] [facility] Comment on above: Performed By: #### C BC #### [facility] [address] [place] [address] Dr. Luis A Solorio Neutrophils/100 WBC (Bld) 40.5 % Critically low 43.0-75.0 [facility] Comment on above: Performed By: #### C BC #### [facility] [address] [place] [address] Dr. Luis A Solorio Platelet mean volume (Bld) [Entitic vol] 10.4 fL Normal 9.5-13.5 [facility] Comment on above: Performed By: #### C BC #### [facility] [address] [place] [address] Dr. Luis A Solorio PLT 236 103/ul Normal 150-[address] [facility] Comment on above: Performed By: #### C BC #### [facility] [address] [place] [address] Dr. Luis A Solorio RBC 4.55 106/ul Normal 4.20-5.[address] [facility] Comment on above: Performed By: #### C BC #### [facility] [address] [place] [address] Dr. Luis A Solorio WBC 4.9 103/ul Normal 4.0-11.[address] [facility] Comment on above: Performed By: #### C BC #### [facility] [address] [place] [address] Dr. Luis A Solorio PREG HCG QUALon 07-19-2022 , QUAL Negative Normal NEGATIVE [facility] Comment on above: Performed By: #### P REG #### [facility] [address] [place] [address] Dr. Luis A Solorio Covid-19 PCR (CVDTB)on 06-18 SARS-CoV-2 (COVID-19) RNA ARABELLA+probe Ql (Unsp spec) Not detected Normal NOT DETECTED [facility] Comment on above: Result Comment: This test is not yet approved or cleared by the [place] FDA. When there are no FDA-approved or cleared tests available, and other criteria are met, FDA can make tests available under an emergency access mechanism called an Emergency Use Authorization (EUA). The EUA for this test is supported by the [place] of Health and Human Service's (HHS's) declaration [...] SARS-CoV-2. Performed By: #### P REGU #### [facility] [address] [place] [address] Dr. Luis A Solorio Pre-Certification Formon Pre-Certification Form [id number] 7#1.00CD:127 Normal [facility] TYPE AND SCREENon 07-15-2022 TYPE AND SCREEN Negative Normal [facility] Comment on above: Performed By: #### P REGU #### [facility] [address] [place] [address] Dr. Luis A Solorio Physician Referralon 022 Physician Referral [id number] #1.00CD:127 Normal [facility] URon 06-11-2022 , QUAL Negative Normal NEGATIVE [facility] Comment on above: Performed By: #### P REGU #### [facility] [address] [place] [address] Dr. Luis A Solorio Covid-19 PCR (CVDTB)on 05-17 SARS-CoV-2 (COVID-19) RNA ARABELLA+probe Ql (Unsp spec) Not detected Normal NOT DETECTED [facility] Comment on above: Result Comment: This test is not yet approved or cleared by the [place] FDA. When there are no FDA-approved or cleared tests available, and other criteria are met, FDA can make tests available under an emergency access mechanism called an Emergency Use Authorization (EUA). The EUA for this test is supported by the [place] of Health and Human Service's (HHS's) declaration [...] SARS-CoV-2. Performed By: #### P REGU #### [facility] [address] [place] [address] Dr. Luis A Solorio CBC AUTO DIFFon 05-28-2022 BASO # 0.0 103/ul Normal 0.0-0.1 [facility] Comment on above: Performed By: #### B UN, CREA #### [facility] [address] [place] [address] Dr. Luis A Solorio Basophils/100 WBC (Bld) 0.4 % Normal 0.2-2.[address] [facility] Comment on above: Performed By: #### B UN, CREA #### [facility] [address] [place] [address] Dr. Luis A Solorio EO # 0.1 103/ul Normal 0.0-0.[address] [facility] Comment on above: Performed By: #### B UN, CREA #### [facility] [address] [place] [address] Dr. Luis A Solorio Eosinophils/100 WBC (Bld) 2.0 % Normal 0.9-7.[address] [facility] Comment on above: Performed By: #### B UN, CREA #### [facility] [address] [place] [address] Dr. Luis A Solorio Erythrocyte distribution width (RBC) [Ratio] 19.9 % Critically high 11.0-15.0 [facility] Comment on above: Performed By: #### B UN, CREA #### [facility] [address] [place] [address] Dr. Luis A Solorio Hematocrit (Bld) [Volume fraction] 35.0 % Critically low 36.0-48.0 [facility] Comment on above: Performed By: #### B UN, CREA #### [facility] [address] [place] [address] Dr. Luis A Solorio Hemoglobin (Bld) [Mass/Vol] 10.6 g/dL Critically low 12.0-16.[address] [facility] Comment on above: Performed By: #### B UN, CREA #### [facility] [address] [place] [address] Dr. Luis A Solorio IG # 0.01 10e3/ul Normal 0.00-0.03 [facility] Comment on above: Performed By: #### B UN, CREA #### [facility] [address] [place] [address] Dr. Luis A Solorio IG % 0.2 % Normal 0.0-0.5 [facility] Comment on above: Performed By: #### B UN, CREA #### [facility] [address] [place] [address] Dr. Luis A Solorio LYMPH # 1.8 103/ul Normal 1.2-3.[address] [facility] Comment on above: Performed By: #### B UN, CREA #### [facility] [address] [place] [address] Dr. Luis A Solorio Lymphocytes/100 WBC (Bld) 35.7 % Normal 20.5-60.[address] [facility] Comment on above: Performed By: #### B UN, CREA #### [facility] [address] [place] [address] Dr. Luis A Solorio MANUAL DIFF REQ NO Normal [facility] Comment on above: Performed By: #### B UN, CREA #### [facility] [address] [place] [address] Dr. Luis A Solorio MCH (RBC) [Entitic mass] 23.5 pg Critically low 26.7-34.0 [facility] Comment on above: Performed By: #### B UN, CREA #### [facility] [address] [place] [address] Dr. Luis A Solorio MCHC (RBC) [Mass/Vol] 30.3 g/dL Normal 29.9-35.[address] [facility] Comment on above: Performed By: #### B UN, CREA #### [facility] [address] [place] [address] Dr. Luis A Solorio MCV (RBC) [Entitic vol] 77.6 fL Critically low 81.0-99.[address] [facility] Comment on above: Performed By: #### B UN, CREA #### [facility] [address] [place] [address] Dr. Luis A Solorio MONO # 0.5 103/ul Normal 0.3-0.[address] [facility] Comment on above: Performed By: #### B UN, CREA #### [facility] [address] [place] [address] Dr. Luis A Solorio Monocytes/100 WBC (Bld) 9.7 % Normal 1.7-12.0 [facility] Comment on above: Performed By: #### B UN, CREA #### [facility] [address] [place] [address] Dr. Luis A Solorio NEUT # 2.6 103/ul Normal 1.4-6.[address] [facility] Comment on above: Performed By: #### B UN, CREA #### [facility] [address] [place] [address] Dr. Luis A Solorio Neutrophils/100 WBC (Bld) 52.0 % Normal 43.0-75.[address] [facility] Comment on above: Performed By: #### B UN, CREA #### [facility] [address] [place] [address] Dr. Luis A Solorio Platelet mean volume (Bld) [Entitic vol] 10.3 fL Normal 9.5-13.[address] [facility] Comment on above: Performed By: #### B UN, CREA #### [facility] [address] [place] [address] Dr. Luis A Solorio PLT 236 103/ul Normal 150-[address] [facility] Comment on above: Performed By: #### B UN, CREA #### [facility] [address] [place], [place] [address] Dr. Luis A Solorio RBC 4.51 106/ul Normal 4.20-5.40 [facility] Comment on above: Performed By: #### B UN, CREA #### [facility] [address] [place], [place] [address] Dr. Luis A Solorio WBC 4.9 103/ul Normal 4.0-11.0 [facility] Comment on above: Performed By: #### B UN, CREA #### [facility] [address] [place], [place] [address] Dr. Luis A Solorio US VAC ASST BX BREAST RT W C LIPon 05-07-2022 US VAC ASST BX BREAST RT W CLIP Begin Addendum #1 DATE/TIME COLLECTED: 05/03/2022, 09:17 EDT Final Diagnosis Report for [facility] [place], [place] RIGHT BREAST 11 O'CLOCK MASS; BIOPSY: [...] after pathology results are available. Normal [facility] US PELVIS AND TRANSVAGon US PELVIS [...] 30 to 65on 05-04-2022 . . Normal [facility] Comment on above: Result Comment: Perf ormed at: WB Performed By: #### B UN, CREA #### [facility] [address] [place] [address] Dr. Luis A Solorio Age Gdln ACOG Testing 30-65 Normal [facility] Comment on above: Performed By: #### B UN, CREA #### [facility] [address] [place] [address] [address] Luis A Solorio DIAGNOSIS: Comment Normal [facility] Comment on above: Result Comment: NEGA TIVE FOR INTRAEPITHELIAL LESION OR MALIGNANCY. Performed at: WB Performed By: #### B UN, CREA #### [facility] [address] [place] [address] [address] Luis A Solorio HPV Aptima Negative Normal Negative [facility] Comment on above: Result Comment: This nucleic acid amplification test detects fourteen high-risk HPV types (16,18,31,33,35,39,45,51,52,56,58,59,66,68) without differentiation. Performed at: =G Performed By: #### B UN, CREA #### [facility] [address] [place] [address] Dr. Luis A Solorio Methodology: Comment Normal [facility] Comment on above: Result Comment: This liquid based ThinPrep(R) pap test was screened with the use of an image guided system. Performed at: WB Performed By: #### B UN, CREA #### [facility] [address] [place] [address] Dr. Luis A Solorio Note: Comment Normal [...] Performed By: #### B UN, CREA #### [facility] [address] [place] [address] Dr. Luis A Solorio Performed by: Comment Normal [facility] Comment on above: Result Comment: Lisbet Springer, Extension Service Specialist In Charge (ASCP) Performed at: WB Performed By: #### B UN, CREA #### [facility] [address] [place] [address] Dr. Luis A Solorio Specimen adequacy: Comment Normal [facility] Comment on above: Result Comment: Sati sfactory for evaluation. Endocervical and/or squamous metaplastic cells (endocervical component) are present. Performed at: WB Performed By: #### B UN, CREA #### [facility] [address] [place] [address] Dr. Luis A Solorio MAMMO POST BIOPSY RIGHTon MAMMO POST BIOPSY RIGHT Patient: YOLANDA ALCARAZ Exam Date: 05/03/2022 : 1975 Gender:F Ordering : DR ALLISON SHARP M.D. Admission #: [id number] Family : Order #: [id number] CLICK HERE TO VIEW EXAM RADIOLOGY REPORT PROCEDURE: MAMMOGRAM POST BIOPSY IMAGES COMPARISON: MG MAMM RT DIAG FU, 04/23/2022. US BREAST RIGHT LIMITED, 04/23/2022. INDICATIONS: Lump in right breast BREAST COMPOSITION: FINDINGS: BIOPSY MARKER: A metallic marker has been placed in the targeted location within the upper-outer quadrant of the left breast. BREAST FINDINGS: Expected post biopsy findings. RECOMMENDATIONS: Dictated by: Wets Wooten M.D. on 05/03/2022 at 09:38 Approved by: West Wooten M.D. on 05/03/2022 at 09:[address] [facility] MG MAMM RT DIAG FUon 022 MG MAMM RT DIAG FU Patient: YOLANDA ALCARAZ Exam Date: 04/23/2022 : 1975 Gender:F Ordering : DR ALLISON SHARP M.D. Admission #: [id number] Family : Order #: [id number] CLICK HERE TO VIEW EXAM RADIOLOGY REPORT [...] Treatments None Family Cancers None LOCATION: [facility] BREAST COMPOSITION: Heterogeneously dense,which may obscure [...] M.D. on 04/23/2022 at 09:[address] [facility] US BREAST RIGHT LIMITEDon US BREAST RIGHT LIMITED Patient: YOLANDA ALCARAZ Exam Date: 04/23/2022 : 1975 Gender:F Ordering : DR ALLISON SHARP M.D. Admission #: [id number] Family : Order #: [id number] CLICK HERE TO VIEW EXAM RADIOLOGY REPORT [...] Treatments None Family Cancers None LOCATION: [facility] BREAST COMPOSITION: Heterogeneously dense,which may obscure [...] M.D. on 04/23/2022 at 09:[address] [facility] MG MAMM SCREEN 3D AYUSH CADon 04-14-2022 MG MAMM SCREEN 3D AYUSH CAD Patient: YOLANDA ALCARAZ Exam Date: 04/14/2022 : 1975 Gender:F Ordering : DR ALLISON SHARP M.D. Admission #: [id number] Family : Order #: [id number] CLICK HERE TO VIEW EXAM RADIOLOGY REPORT PROCEDURE: MAMMOGRAM SCREENING 3D BILATERAL CAD COMPARISON: None. INDICATIONS: Screening mammography Calculator Name NCI Breast Cancer Risk Assessment Tool 5 Year Breast Cancer Risk Not Reported. Lifetime Breast Cancer Risk Not Reported. Personal Breast Cancer No Personal Ovarian Cancer No Treatments None Family Cancers None LOCATION: [facility] BREAST COMPOSITION: Heterogeneously dense,which may obscure [...] above: Performed By: #### C BC #### [facility] [address] [place] [address] Dr. Luis A Solorio Basophils/100 WBC (Bld) 0.4 % Normal 0.2-2.0 [facility] Comment on above: Performed By: #### C BC #### [facility] [address] [place] [address] Dr. Luis A Solorio EO # 0.1 103/ul Normal 0.0-0.7 [facility] Comment on above: Performed By: #### C BC #### [facility] [address] [place] [address] Dr. Luis A Solorio Eosinophils/100 WBC (Bld) 2.6 % Normal 0.9-7.0 [facility] Comment on above: Performed By: #### C BC #### [facility] [address] [place] [address] Dr. Luis A Solorio Erythrocyte distribution width (RBC) [Ratio] 16.0 % Critically high 11.0-15.0 [facility] Comment on above: Performed By: #### C BC #### [facility] [address] [place] [address] Dr. Luis A Solorio Hematocrit (Bld) [Volume fraction] 30.2 % Critically low 36.0-48.0 [facility] Comment on above: Performed By: #### C BC #### [facility] [address] [place] [address] Dr. Luis A Solorio Hemoglobin (Bld) [Mass/Vol] 8.8 g/dL Critically low 12.0-16.0 [facility] Comment on above: Performed By: #### C BC #### [facility] [address] [place] [address] Dr. Luis A Solorio IG # 0.02 10e3/ul Normal 0.00-0.03 [facility] Comment on above: Performed By: #### C BC #### [facility] [address] [place] [address] Dr. Luis A Solorio IG % 0.4 % Normal 0.0-0.5 [facility] Comment on above: Performed By: #### C BC #### [facility] [address] [place] [address] Dr. Luis A Solorio LYMPH # 1.7 103/ul Normal 1.2-3.8 [facility] Comment on above: Performed By: #### C BC #### [facility] [address] [place] [address] Dr. Luis A Solorio Lymphocytes/100 WBC (Bld) 36.6 % Normal 20.5-60.0 [facility] Comment on above: Performed By: #### C BC #### [facility] [address] [place] [address] Dr. Luis A Solorio MANUAL DIFF REQ NO Normal [facility] Comment on above: Performed By: #### C BC #### [facility] [address] [place] [address] Dr. Luis A Solorio MCH (RBC) [Entitic mass] 21.9 pg Critically low 26.7-34.0 [facility] Comment on above: Performed By: #### C BC #### [facility] [address] [place] [address] Dr. Luis A Solorio MCHC (RBC) [Mass/Vol] 29.1 g/dL Critically low 29.9-35.2 [facility] Comment on above: Performed By: #### C BC #### [facility] [address] [place] [address] Dr. Luis A Solorio MCV (RBC) [Entitic vol] 75.1 fL Critically low 81.0-99.0 [facility] Comment on above: Performed By: #### C BC #### [facility] [address] [place] [address] Dr. Luis A Solorio MONO # 0.5 103/ul Normal 0.3-0.8 [facility] Comment on above: Performed By: #### C BC #### [facility] [address] [place] [address] Dr. Luis A Solorio Monocytes/100 WBC (Bld) 10.8 % Normal 1.7-12.0 [facility] Comment on above: Performed By: #### C BC #### [facility] [address] [place] [address] Dr. Luis A Solorio NEUT # 2.3 103/ul Normal 1.4-6.5 [facility] Comment on above: Performed By: #### C BC #### [facility] [address] [place] [address] Dr. Luis A Solorio Neutrophils/100 WBC (Bld) 49.2 % Normal 43.0-75.0 [facility] Comment on above: Performed By: #### C BC #### [facility] [address] [place] [address] Dr. Luis A Solorio Platelet mean volume (Bld) [Entitic vol] 10.0 fL Normal 9.5-13.5 [facility] Comment on above: Performed By: #### C BC #### [facility] [address] [place] [address] Dr. Luis A Solorio PLT 280 103/ul Normal 150-[address] [facility] Comment on above: Performed By: #### C BC #### [facility] [address] [place] [address] Dr. Luis A Solorio RBC 4.02 106/ul Critically low 4.20-5.40 [facility] Comment on above: Performed By: #### C BC #### [facility] [address] [place] [address] [address] Luis A Solorio WBC 4.6 103/ul Normal 4.0-11.0 [facility] Comment on above: Performed By: #### C BC #### [facility] [address] [place] [address] Dr. Luis A Solorio GLYCOHEMOGLOBIN A1Con 2021 ADA RECOMMENDATION SEE BELOW Normal [facility] Comment on above: Result Comment: ADA RECOMMENDED LIMIT 4.0 - 6.0 ADA THERAPEUTIC TARGET < 7.0 ACTION SUGGESTED > 7.0 Performed By: #### B UN, CREA #### [facility] [address] [place] [address] Dr. Luis A Solorio Glucose [Mass/Vol] 131 mg/dL Normal [facility] Comment on above: Performed By: #### B UN, CREA #### [facility] [address] [place] [address] Dr. Luis A Solorio HbA1c (Bld) [Mass fraction] 6.2 % Normal 4.5-6.2 [facility] Comment on above: Performed By: #### B UN, CREA #### [facility] [address] [place] [address] Dr. Luis A Solorio LIPID PROFILEon 04-02-2022 CHOL-HDL RATIO NORM SEE BELOW Normal [facility] Comment on above: Result Comment: 3.3 - 4.4 LOW RISK 4.4 - 7.1 AVERAGE RISK 7.1 - 11.0 MODERATE RISK >11.0 HIGH RISK Performed By: #### T SH, LIPID, CMP #### [facility] [address] [place] [address] Dr. Luis A Solorio Cholesterol [Mass/Vol] 215 mg/dL Critically high <=200 [facility] Comment on above: Performed By: #### T SH, LIPID, CMP #### [facility] [address] [place] [address] [address] Luis A Solorio Cholesterol in HDL [Mass/Vol] 46 mg/dL Normal 40-60 [facility] Comment on above: Performed By: #### T SH, LIPID, CMP #### [facility] [address] [place] [address] [address] Luis A Solorio Cholesterol in LDL [Mass/Vol] 138.2 mg/dL Normal [facility] Comment on above: Performed By: #### T SH, LIPID, CMP #### [facility] [address] [place] [address] [address] Luis A Solorio Cholesterol.total/Ch olesterol in HDL [Mass ratio] 4.7 {ratio} Normal [facility] Comment on above: Performed By: #### T SH, LIPID, CMP #### [facility] [address] [place] [address] [address] Luis A Solorio HDL NORMAL > or = 60 mg/dl - LOW CARDIOVASCULAR RISK <40 mg/dl - HIGH CARDIOVASCULAR RISK Normal [facility] Comment on above: Performed By: #### T SH, LIPID, CMP #### [facility] [address] [place] [address] [address] Luis A Solorio LDL CALC NORMAL SEE BELOW Normal [facility] Comment on above: Result Comment: <100 mg/dl OPTIMAL 100 - 129 mg/dl NEAR OR ABOVE OPTIMAL 130 - 159 mg/dl BORDERLINE HIGH 160 - 189 mg/dl HIGH >190 mg/dl VERY HIGH Performed By: #### T SH, LIPID, CMP #### [facility] [address] [place] [address] [address] Luis A Solorio Triglyceride [Mass/Vol] 154 mg/dL Critically high <=[address] [facility] Comment on above: Performed By: #### T SH, LIPID, CMP #### [facility] [address] [place] [address] [address] Luis A Solorio VLDL CALC 30.8 mg/dL Normal [facility] Comment on above: Performed By: #### T SH, LIPID, CMP #### [facility] [address] [place] [address] [address] Luis A Solorio PROF 14(COMP METB)on 022 Albumin [Mass/Vol] 3.2 g/dL Critically low 3.4-5.[address] [facility] Comment on above: Performed By: #### P REGU #### [facility] [address] [place] [address] [address] Luis A Solorio Albumin/Globulin [Mass ratio] 0.8 {ratio} Normal [facility] Comment on above: Performed By: #### P REGU #### [facility] [address] [place] [address] [address] Luis A Solorio ALP [Catalytic activity/Vol] 83 U/L Normal 46-116 [facility] Comment on above: Performed By: #### P REGU #### [facility] [address] [place] [address] Dr. Luis A Solorio ALT [Catalytic activity/Vol] 34 U/L Normal 14-59 [facility] Comment on above: Performed By: #### P REGU #### [facility] [address] [place] [address] Dr. Luis A Solorio Anion gap [Moles/Vol] 13.5 mmol/L Normal [facility] Comment on above: Performed By: #### P REGU #### [facility] [address] [place] [address] Dr. Luis A Solorio AST [Catalytic activity/Vol] 24 U/L Normal 15-37 [facility] Comment on above: Performed By: #### P REGU #### [facility] [address] [place] [address] [address] Luis A Solorio Bilirubin [Mass/Vol] 0.3 mg/dL Normal 0.2-1.0 [facility] Comment on above: Performed By: #### P REGU #### [facility] [address] [place] [address] [address] Luis A Solorio Calcium [Mass/Vol] 8.5 mg/dL Normal 8.5-10.1 [facility] Comment on above: Performed By: #### P REGU #### [facility] [address] [place] [address] [address] Luis A Solorio Chloride [Moles/Vol] 105 mmol/L Normal 98-107 [facility] Comment on above: Performed By: #### P REGU #### [facility] [address] [place] [address] [address] Luis A Solorio CO2 [Moles/Vol] 23.7 mmol/L Normal 21.0-32.0 [facility] Comment on above: Performed By: #### P REGU #### [facility] [address] [place] [address] [address] Luis A Solorio Creatinine [Mass/Vol] 0.74 mg/dL Normal 0.55-1.02 [facility] Comment on above: Performed By: #### P REGU #### [facility] [address] [place] [address] Dr. Luis A Solorio EGFR-AF ARGENTINE >60 Normal >=60 [facility] Comment on above: Performed By: #### P REGU #### [facility] [address] [place] [address] [address] Luis A Solorio EGFR-NON AF ARGENTINE >60 Normal >=60 [facility] Comment on above: Performed By: #### P REGU #### [facility] [address] [place] [address] Dr. Luis A Solorio Globulin (S) [Mass/Vol] 3.8 g/dL Normal [facility] Comment on above: Performed By: #### P REGU #### [facility] [address] [place] [address] [address] Luis A Solorio Glucose [Mass/Vol] 122 mg/dL Critically high 74-106 [facility] Comment on above: Performed By: #### P REGU #### [facility] [address] [place] [address] [address] Luis A Solorio Potassium [Moles/Vol] 4.2 mmol/L Normal 3.5-5.1 [facility] Comment on above: Performed By: #### P REGU #### [facility] [address] [place] [address] [address] Luis A Solorio Protein [Mass/Vol] 7.0 g/dL Normal 6.4-8.2 [facility] Comment on above: Performed By: #### P REGU #### [facility] [address] [place] [address] [address] Luis A Solorio Sodium [Moles/Vol] 138 mmol/L Normal 136-145 [facility] Comment on above: Performed By: #### P REGU #### [facility] [address] [place] [address] [address] Luis A Solorio Urea nitrogen [Mass/Vol] 15.0 mg/dL Normal 7.0-18.0 [facility] Comment on above: Performed By: #### P REGU #### [facility] [address] [place] [address] Dr. Luis A Solorio Urea nitrogen/Creatinine [Mass ratio] 20.3 mg/mg Normal [facility] Comment on above: Performed By: #### P REGU #### [facility] [address] [place] [address] Dr. Luis A Solorio TSHon 04-02-2022 TSH 1.449 uIU/mL Normal 0.358-3.740 [facility] Comment on above: Performed By: #### T SH, LIPID, CMP #### [facility] [address] [place] [address] Dr. Luis A Solorio Vital Signs Date Time Vital Sign Value Performing Clinician Andreeai lity 02-17-2024 09:36-0400 Body height 170.18 cm [facility] 02-17-2024 09:36-0400 Body mass index (BMI) [Ratio] 43.4 kg/m2 [facility] 02-17-2024 09:36040 Body weight 125.64 kg [facility] 02-17-2024 09:36-0400 Diastolic blood pressure 86 mm[Hg] [facility] 02-17-2024 09:36-0400 Heart rate 61 /min [facility] 02-17-2024 09:36-0400 Systolic blood pressure 149 mm[Hg] [facility] Encounters Encounter Date Encounter Type Care Provider Facility Start: 06-20-2024 End: 06-20-2024 ambulatory JOHNY OSUNA Not Available Start: 02-17-2024 Patient encounter status [facility] Start: 02-17-2024 End: 02-17-2024 ambulatory [facility] Work Phone: Start: 02-17-2024 End: 02-17-2024 Encounter for general adult medical examination without abnormal findings [facility] Start: 02-17-2024 End: 02-17-2024 Patient encounter procedure [facility] Work Phone: Start: 06-24-2023 End: 06-24-2023 ambulatory Arley Hand [facility] Start: 06-24-2023 Office outpatient vi sit 15 minutes Arley Hand [facility] Start: 04-27-2023 End: 04-27-2023 ambulatory Allison Sharp [facility] [employer] Other Start: 04-27-2023 Nursing evaluation o f patient and report Allison Sharp [facility] Start: 02-16-2023 End: 02-17-[address] ALMANZAR LISTED REQUEST Facility:[facility] Start: 10-06-2022 Adult health examination Ronak Hand [facility] Other Start: 10-06-2022 Gynecological examin ation normal Arley Hand [facility] [employer] Other Start: 10-06-2022 Pre-procedure evalua tion check Arley Hand [facility] [employer] Other Start: 10-05-2022 End: 10-05-[address] ALLISON SHARP Facility: Start: 07-19-2022 End: 07-20-2022 ambulatory MD Raymundo DAILEY Facility:CD:[id number] Start: 07-19-2022 End: 07-21-2022 Evaluation and management of inpatient DR ALLISON SHARP Facility:[facility] Start: 07-17-2022 Encounter for preprocedural laboratory examination DR HUYEN GILL . [facility] Start: 07-17-[address] ALLISON SHARP Facil ity:[facility] Start: 07-15-2022 End: 07-16-[address] ALLISON SHARP Facility:[facility] Start: 07-15-2022 End: 07-16-2022 Encounter for preprocedural laboratory examination DR ALLISON SHARP Facility:[facility] Start: 07-14-2022 End: 07-14-[address] ALLISON SHARP Facility:[facility] Start: 07-06-2022 Encounter for other preprocedural examination DR HUYEN GILL . [facility] Start: 07-05-2022 End: 07-06-[address] ALLISON SHARP Facility:[facility] Start: 07-05-2022 End: 07-06-2022 Encounter for other preprocedural examination DR ALLISON SHARP Facility:[facility] Start: 06-25-2022 ambulatory MD Raymundo DAILEY Facil ity:[facility] Start: 06-11-2022 End: 06-11-[address] ALLISON SHARP Facility:[facility] Start: 06-04-2022 End: 06-05-[address] ALLISON SHARP Facility:[facility] Start: 05-31-2022 Encounter for preprocedural cardiovascular examination DR HUYEN GILL . [facility] Start: 05-28-2022 End: 05-29-[address] ALLISON SHARP Facility:[facility] Start: 05-03-2022 End: 05-04-[address] ALLISON SHARP Facility:[facility] Start: 04-30-2022 End: 04-30-[address] ALLISON SHARP Facility:[facility] Start: 04-23-2022 End: 04-24-[address] ALLISON SHARP Facility:[facility] Start: 04-14-2022 End: 04-15-[address] ALLISON SHARP Facility:[facility] Start: 04-06-2022 Encounter for genera l adult medical examination without abnormal findings DR ALLISON SHARP [facility] Start: 04-02-2022 End: 04-03-[address] [...] Detail Author MG Breast - bilateral Screening [facility] Payers Date Payer Category Payer Private Health Insurance [id number] 1975 Unknown [id number] 2.16.8 [id number] 1975 Unknown [id number] 2.16.84 0.1.962478.3.579.2.593 1975 Unknown [id number] 2.16.84 0.1.492447.3.579.2.593 1975 Unknown [id number] 2.16.84 0.1.077062.3.579.2.593 1975 Unknown [id number] 2.16.84 0.1.285006.3.579.2.593 1975 Unknown [id number] 2.16.84 0.1.553021.3.579.2.593 1977 Unknown [id number] 2.16.84 0.1.570901.3.579.2.593 1977 Unknown [id number] 2.16.84 0.1.411271.3.579.2.593 1977 Unknown [id number] 2.16.84 0.1.398327.3.579.2.593 1977 Unknown [id number] 2.16.84 0.1.206289.3.579.2.593 1977 Unknown [id number] 2.16.84 0.1.475154.3.579.2.593 1977 Unknown [id number] 2.16.84 0.1.140502.3.579.2.593 1977 Unknown [id number] 2.16.84 0.1.620436.3.579.2.593 1977 Unknown [id number] 2.16.84 0.1.370935.3.579.2.593 1977 Unknown [id number] 2.16.84 0.1.302852.3.579.2.593 1977 Unknown [id number] 2.16.84 0.1.497566.3.579.2.593 1977 Unknown [id number] 2.16.84 0.1.945670.3.579.2.1259 1957 Private Health Insurance [id number] 1957 Private Health Insurance [id number] 1957 Self-pay Unknown [id number] 2.16.84 0.1.512616.3.579.2.593 Social History Date Type Detail Facility Unknown if ever smoked [employer] Other Sex Assigned At Sex Assigned At Bir th [employer] Other Start: 1975 Sex Assigned At Female F [facility] Evaluation note 06-24-2023 Note Date & Type [...] for congestion, Tylenol for pain and fever. [employer] [employer] Other Evaluation note 04-27-2023 Note Date & Type Note Facility 04-27-2023 Evaluation note Encounter Date Diagnosis Assessment Notes Apr, Acute cystitis without hematuria (ICD-10 - N30.00) [facility] [employer] Other Evaluation note Note Date & Type Note Facility Evaluation note Diagnosis Onset Date Screening mammogram for breast cancer acute Wellness examination [facility] Work Phone: History general Narrative - Reported Note Date & Type Note Facility History general Narrative - Reported Type Surgical History TUBAL Surgical History colonoscopy Surgical History laparoscopy Surgical History cholecystectomy Hospitalization History See Above [facility] [employer] Other History general Narrative - Reported Note [...] Surgical History cholecystectomy Hospitalization History See Above [employer] Other Summary Purpose Family History No Family History Records Found Relationship Condition Age at Onset Recorded Date/T tomi father Family history of lung cancer Unknown Malignant neoplasm Unknown Unknown Not Specified Hypertension Unknown Advance Directives No Advanced Directives Records Found Advance Directive Response Recorded Date/ Time Advance Directives No February 17, 2024 9:30am Chief Complaint and Reason for Visit Chief Complaint Wellness Reason for Visit Screening mammogram for breast cancer Wellness examination Additional Source Comments INFORMATION SOURCE (unrecogn ized section and content) DATE CREATED AUTHOR 07/28/2022 Fernandez Thorpe [facility] DATE CREATED AUTHOR AUTHOR'S ORGANIZ ATION 02/17/2023 [facility] DATE CREATED AUTHOR AUTHOR'S ORGANIZ ATION 06/22/2024 [facility] EPIC REASON FOR VISIT (unrecogniz ed section and content) Fever, Frequency, Tingling, CloudyCOVID Positive- [phone] Care Teams (unrecognized sec tion and content) [...] BE BASED ON THE PRIMARY CLINICAL RECORDS. [employer] provides no warranty or guarantee of the accuracy or completeness of information in this document.
== END 2024-07-06 05:48 | disposition home or self-care (01) ==
LOC: MRI 05:48
PROVIDERS: PCP Family Medicine; Visit Provider Physician Assistant
DX: M54.12 Radiculopathy, cervical region (principal); M48.02 Spinal stenosis, cervical region
CPT/HCPCS: 72141

== ENCOUNTER 2024-07-17 14:00 | Outpatient (RCR) | payer OTHER, SELFPAY | END 2024-08-17 13:00 | disposition home or self-care (01) | LOC: PT 14:00 | PROVIDERS: PCP Family Medicine; Visit Provider Orthopaedic Surgery | DX: M54.12 Radiculopathy, cervical region (principal) | CPT/HCPCS: 97012; 97110; 97140; 97161 ==

== ENCOUNTER 2024-09-21 08:48 | Outpatient (OUT) | payer OTHER, SELFPAY ==
--- NOTE | 2024-09-21 | XR_ITS ---
The [address] [address] Patient Name: YOLANDA ALCARAZ MRN: [id number] date: 1975 Sex: F Assigned Patient Location: Current Patient Location: Accession/Order Number: [id number] Exam Date: 09/21/2024 08:49 Report Date: 09/22/2024 06:55 At the request of: KATE RUBIO Procedure: XR lumbar spine min 4V EXAMINATION: XR lumbar spine min 4V HISTORY: LUMBAR SPINE PAIN COMPARISON: No relevant comparison available. FINDINGS: BONES: No significant spondylosis, scoliosis, fracture, or visible bony lesion. No change in alignment during flexion and extension. DISC SPACES: Moderate narrowing L4-L5, L5-S1. PARASPINOUS: Negative. No paraspinous abnormality is seen. OTHER: Negative. XR/XR lumbar spine min 4V IMPRESSION: 1. Moderate degenerative disc disease L4-L5 and L5-S1. Consider MRI for further evaluation. Electronically authenticated by: LEAH ORELLANA Date: 09/22/2024 06:55
== END 2024-09-21 08:49 | disposition home or self-care (01) ==
LOC: EC 08:49
PROVIDERS: PCP Family Medicine; Visit Provider Orthopaedic Surgery Orthopaedic Surgery of the Spine
DX: M54.50 Low back pain, unspecified (principal); M51.369 Other intervertebral disc degeneration, lumbar region without mention of lumbar back pain or lower extremity pain
CPT/HCPCS: 72110

== ENCOUNTER 2024-10-15 08:52 | Outpatient (OUT) | payer OTHER, SELFPAY ==
--- NOTE | 2024-10-15 08:54 | ECG_ITS ---
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
--- OUTSIDE RECORDS SUMMARY | 2024-10-15 09:15 | XMS_ITS | CCD ---
Author Organization [facility] CliniSyct Care Team Providers Care Cutter Machine Tender Name Role Phone MD Raymundo DAILEY Attending Unavailable SHARP, DR ALLISON Gaitan Primary Care Unavailable KARASIK ., DR MATSON Admitting Unavailabl e KARASIK ., DR MATSON Consulting Unavailabl e KARASIK ., DR MATSON Attending Unavailabl e AGUBOSIMDARIA Consulting Unavailable LEONARDTRI Consulting Unavailable SHARP, DR [...] ., DR GRACE Procedure Practitioner Unav ailable MORGOKen DARIA Consulting Unavailable SHARP, DR ALLISON Gaitan [...] Arley Hand Unavailable JOHNY OSUNA Attending Unavailable Allison Sharp MD Primary Care Provider Allergies Allergy Classification Reported Allergen(s) Allergy Type Date of Onset Reaction(s) Facility (1 source) almotriptan Drug Allergy [facility] Repository (1 source) Perazine Drug Allergy [facility] Rep[facility] (1 source) almotriptan Drug Allergy Unknown [facility] Other (1 source) Naproxen / Pseudoephedrine Drug Allergy 08-06-20 21 Unknown [facility] Other (2 sources) rizatriptan Drug Allergy 02-17-20 24 Unknown, [facility] (1 source) Allergies Reconciled Propensity to adverse reactions Unknown [facility] Other (1 source) patient allergy list reviewed by nurse or physicia Propensity to adverse reactions 04-06-20 Comment:Done [facility] Other (1 source) almotriptan Drug Allergy 02-15-20 24 [facility] (1 source) Sudafed Sinus 12HR Press+Pain Allergy to substance 02-15-20 [facility] Medications Current Medications Medication Drug Class(es) Dates Sig (Normalized) Sig (Original) losartan potassium 25 mg oral tablet (3 sources) Angiotensin 2 Receptor Gil Start: 02-15-2024 losartan (Cozaar) 25 MG tablet Daily 02/15/2024 Active metFORMIN hydrochloride 500 mg oral tablet (1 [...] sources) Penicillin-class Antibacterial Amoxicillin 500 MG (Prior Auth#:[id number] ) Oral for 10 Not-Taking Nirmatrelvir-Riton avir [...] tablet (2 sources) predniSONE 20 MG (Prior Auth#:[id number] ) Oral for 5 Not-Taking Problems Active [...] Pleurisy; Translations: [Pleurisy] Episodic Residual codes; unclassified (2 sources) Obstructive sleep apnea syndrome; Translations: [Obstructive sleep apnea (adult) (pediatric)] 06-20-2024 Chronic Residual codes; unclassified (2 sources) Hypersomnia; Translations: [Hypersomnia, unspecified] 06-20-2024 Chronic Residual codes; unclassified (1 source) Postprocedural state [...] 04-29-2022 Episodic Other aftercare (1 source) Other detention (current) drug therapy; Translations: [OTH GROUP HOME CURRENT DRUG THERAPY] Onset: 08-23-2022 Episodic Other [...] [Hypertrophy of uterus] Resolved: 07-29-2022 Episodic Other lower respiratory disease (2 sources) Hypoxia; Translations: [Hypoxemia] 06-20-2024 Episodic Other nutritional; endocrine; and metabolic disorders (1 source) Obese class II; Translations: [Body mass index 39.0-39.9, adult] Onset: 01-27-2017 Resolved: 04-29-2022 Chronic Other upper respiratory infections (1 source) Acute maxillary sinusitis; Translations: [Acute recurrent maxillary sinusitis] Onset: 04-06-2019 Resolved: 04-29-2022 Episodic Ovarian cyst (2 sources) Unspecified ovarian cyst, left side; Translations: [Corpus luteum cyst] Onset: 07-16-2010 Resolved: 04-29-2022 Episodic Residual codes; unclassified (2 sources) Sleep deprivation; Translations: [Sleep deprivation] 06-20-2024 Episodic Residual codes; unclassified (2 sources) Inadequate sleep hygiene; Translations: [Inadequate sleep hygiene] 06-20-2024 Episodic Unclassified (1 source) CONTACT W/AND (SUSP) EXPOS COVID-19; Translations: [CONTACT W/AND (SUSP) EXPOS COVID-19] Onset: 10-05-2022 Viral infection (1 source) COVID-19 Results Test Name Value Interpretation Reference Range Facility Urinalysis - DIPSTICKon 04-16 Appearance (U) cloudy [facility] Other Bilirubin Ql (U) Negative [facility] Other Color (U) yellow [facility] Other Glucose Ql (U) Negative [facility] Other Hemoglobin Ql (U) trace [employer] [facility] Other Ketones Ql (U) Negative [facility] Other Leukocyte esterase Test strip Ql (U) moderate [facility] Other Nitrite Ql (U) Positive [facility] Other pH (U) 5 [pH] [facility] Other Protein Ql (U) 30+ [facility] Other Specific gravity (U) [Rel density] 1.005 [facility] Other Urobilinogen (U) [Mass/Vol] normal [facility] Other Urinalysis - DIPSTICK [facility] Other CBC AUTO DIFFon 02-16-2023 BASO # 0.0 103/ul Normal 0.0-0.1 [facility] Comment on above: Performed By: #### B ROLANDO CREA #### [facility] [address] [address] [address] Luis A Solorio Basophils/100 WBC (Bld) 0.4 % Normal 0.2-2.0 [facility] Comment on above: Performed By: #### B ROLANDO, CREA #### [facility] [address] [place] [address] Dr. Luis A Solorio EO # 0.1 103/ul Normal 0.0-0.7 [facility] Comment on above: Performed By: #### B UN, CREA #### [facility] [address] [place] [address] Dr. Luis A Solorio Eosinophils/100 WBC (Bld) 1.6 % Normal 0.9-7.0 [facility] Comment on above: Performed By: #### B UN, CREA #### [facility] [address] [place] [address] Dr. Luis A Solorio Erythrocyte distribution width (RBC) [Ratio] 14.2 % Normal 11.0-15.0 [facility] Comment on above: Performed By: #### B UN, CREA #### [facility] [address] [place] [address] Dr. Luis A Solorio Hematocrit (Bld) [Volume fraction] 35.3 % Critically low 36.0-48.0 [facility] Comment on above: Performed By: #### B UN, CREA #### [facility] [address] [place] [address] Dr. Luis A Solorio Hemoglobin (Bld) [Mass/Vol] 11.2 g/dL Critically low 12.0-16.0 [facility] Comment on above: Performed By: #### B UN, CREA #### [facility] [address] [place] [address] Dr. LuisA Solorio IG # 0.01 10e3/ul Normal 0.00-0.03 [facility] Comment on above: Performed By: #### B UN, CREA #### [facility] [address] [place] [address] Dr. Luis A Solorio IG % 0.2 % Normal 0.0-0.5 [facility] Comment on above: Performed By: #### B UN, CREA #### [facility] [address] [place] [address] Dr. Luis A Solorio LYMPH # 1.8 103/ul Normal 1.2-3.8 [facility] Comment on above: Performed By: #### B UN, CREA #### [facility] [address] [place] [address] Dr. Luis A Solorio Lymphocytes/100 WBC (Bld) 37.9 % Normal 20.5-60.0 [facility] Comment on above: Performed By: #### B UN, CREA #### [facility] [address] [place] [address] Dr. Luis A Solorio MCH (RBC) [Entitic mass] 26.0 pg Critically low 26.7-34.0 [facility] Comment on above: Performed By: #### B UN, CREA #### [facility] [address] [place] [address] Dr. Luis A Solorio MCHC (RBC) [Mass/Vol] 31.7 g/dL Normal 29.9-35.2 [facility] Comment on above: Performed By: #### B UN, CREA #### [facility] [address] [place] [address] Dr. Luis A Solorio MCV (RBC) [Entitic vol] 81.9 fL Normal 81.0-99.0 [facility] Comment on above: Performed By: #### B UN, CREA #### [facility] [address] [place] [address] Dr. Luis A Solorio MONO # 0.4 103/ul Normal 0.3-0.8 [facility] Comment on above: Performed By: #### B UN, CREA #### [facility] [address] [place] [address] Dr. Luis A Solorio Monocytes/100 WBC (Bld) 8.5 % Normal 1.7-12.0 [facility] Comment on above: Performed By: #### B UN, CREA #### [facility] [address] [place] [address] Dr. Luis A Solorio NEUT # 2.5 103/ul Normal 1.4-6.5 [facility] Comment on above: Performed By: #### B UN, CREA #### [facility] [address] [place] [address] Dr. Luis A Solorio Neutrophils/100 WBC (Bld) 51.4 % Normal 43.0-75.0 [facility] Comment on above: Performed By: #### B ROLANOD, CREA #### [facility] [address] [place] [address] Dr. Luis A Solorio Platelet mean volume (Bld) [Entitic vol] 11.5 fL Normal 9.5-13.5 [facility] Comment on above: Performed By: #### B ROLANDO, CREA #### [facility] [address] [place] [address] Dr. Luis A Solorio PLT 228 103/ul Normal 150-450 [facility] Comment on above: Performed By: #### B ROLANDO, CREA #### [facility] [address] [place] [address] Dr. Luis A Solorio RBC 4.31 106/ul Normal 4.20-5.40 [facility] Comment on above: Performed By: #### B ROALNDO, CREA #### [facility] [address] [place] [address] Dr. Luis A Solorio WBC 4.9 103/ul Normal 4.0-11.0 [facility] Comment on above: Performed By: #### B ROLANDO, CREA #### [facility] [address] [place] [address] Dr. Luis A Solorio MEDHAT - TSHon 02-16-2023 TSH 1.783 uIU/mL Normal 0.358-3.740 [facility] Comment on above: Performed By: #### D ATBMLeslie, DATTS #### [facility] [address] [place] [address] Dr. Luis A Solorio TSH RANGE SEE BELOW Normal [facility] Comment on above: Result Comment: <0.3 4 UIU/ml HYPERTHYROID 0.34-5.60 UIU/ml EUTHYROID >5.60 UIU/ml HYPOTHYROID Performed By: #### D ATBMP, DATTSH #### [facility] [address] [place] [address] Dr. Luis A Solorio MEDHAT- BMP WITH LIPIDon 2022 Anion gap [Moles/Vol] 13.5 mmol/L Normal [facility] Comment on above: Performed By: #### D ATBMP, DATTSH #### [facility] [address] [place] [address] Dr. Luis A Solorio Calcium [Mass/Vol] 8.9 mg/dL Normal 8.5-10.1 [facility] Comment on above: Performed By: #### D ATBMP, DATTSH #### [facility] [address] [address] [address] Luis A Solorio Chloride [Moles/Vol] 103 mmol/L Normal 98-107 [facility] Comment on above: Performed By: #### D ATBMP, DATTSH #### [facility] [address] [place] [address] Dr. Luis A Solorio Cholesterol [Mass/Vol] 227 mg/dL Critically high <=200 [facility] Comment on above: Performed By: #### D ATBMP, DATTSH #### [facility] [address] [place] [address] Dr. Luis A Solorio Cholesterol in HDL [Mass/Vol] 56 mg/dL Normal 40-60 [facility] Comment on above: Performed By: #### D ATBMP, DATTSH #### [facility] [address] [place] [address] Dr. Luis A Solorio Cholesterol in LDL [Mass/Vol] 141.2 mg/dL Normal [facility] Comment on above: Performed By: #### D ATBMP, DATTSH #### [facility] [address] [place] [address] Dr. Luis A Solorio CO2 [Moles/Vol] 24.5 mmol/L Normal 21.0-32.0 [facility] Comment on above: Performed By: #### D ATBMP, DATTSH #### [facility] [address] [place] [address] Dr. Luis A Solorio Creatinine [Mass/Vol] 0.74 mg/dL Normal 0.55-1.02 [facility] Comment on above: Performed By: #### D ATBMP, DATTSH #### [facility] [address] [address] [address] Luis A Solorio EGFR-AF BHUTANESE >60 Normal >=60 [facility] Comment on above: Performed By: #### [facility], DATT[facility] #### [facility] [address] [address] [address] Luis A Solorio EGFR-NON AF BHUTANESE >60 Normal >=60 [facility] Comment on above: Performed By: #### [facility], [facility] #### [facility] [address] [address] [address] Luis A Solorio Glucose [Mass/Vol] 94 mg/dL Normal 74-106 [facility] Comment on above: Performed By: #### [facility], [facility] #### [facility] [address] [address] [address] Luis A Solorio HDL NORMAL > or = 60 mg/dl - LOW CARDIOVASCULAR RISK <40 mg/dl - HIGH CARDIOVASCULAR RISK Normal [facility] Comment on above: Performed By: #### D [facility], DATTSH #### [facility] [address] [address] [address] Luis A Solorio LDL CALC NORMAL SEE BELOW Normal [facility] Comment on above: Result Comment: <100 mg/dl OPTIMAL 100 - 129 mg/dl NEAR OR ABOVE OPTIMAL 130 - 159 mg/dl BORDERLINE HIGH 160 - 189 mg/dl HIGH >190 mg/dl VERY HIGH Performed By: #### [facility], DATTS #### [facility] [address] [address] [address] Luis A Solorio Potassium [Moles/Vol] 4.0 mmol/L Normal 3.5-5.1 [facility] Comment on above: Performed By: #### [facility], DATT[facility] #### [facility] [address] [address] [address] Luis A Solorio Sodium [Moles/Vol] 137 mmol/L Normal 136-145 [facility] Comment on above: Performed By: #### [facility], DATT[facility] #### [facility] [address] [address] [address] Luis A Solorio Triglyceride [Mass/Vol] 149 mg/dL Normal <=150 [facility] Comment on above: Performed By: #### D [facility], DATTS #### [facility] [address] [place] [address] Dr. Luis A Solorio Urea nitrogen [Mass/Vol] 13.0 mg/dL Normal 7.0-18.0 [facility] Comment on above: Performed By: #### D [facility], DATTSH #### [facility] [address] [place] [address] Dr. Luis A Solorio Urea nitrogen/Creatinine [Mass ratio] 17.6 mg/mg Normal [facility] Comment on above: Performed By: #### D [facility], DATTSH #### [facility] [address] [place] [address] Dr. Luis A Solorio VLDL CALC 29.8 mg/dL Normal [facility] Comment on above: Performed By: #### D [facility], DATTS #### [facility] [address] [place] [address] Dr. Luis A Solorio GLYCOHEMOGLOBIN A1Con 2022 ADA RECOMMENDATION SEE BELOW Normal [facility] Comment on above: Result Comment: ADA RECOMMENDED LIMIT 4.0 - 6.0 ADA THERAPEUTIC TARGET < 7.0 ACTION SUGGESTED > 7.0 Performed By: #### P REGU #### [facility] [address] [place] [address] Dr. Luis A Solorio Glucose [Mass/Vol] 114 mg/dL Normal [facility] Comment on above: Performed By: #### P REGU #### [facility] [address] [place] [address] Dr. Luis A Solorio HbA1c (Bld) [Mass fraction] 5.6 % Normal 4.5-6.2 [facility] Comment on above: Performed By: #### P REGU #### [facility] [address] [place] [address] Dr. Luis A Solorio [facility]on 12-2 0-2022 SARS-CoV-2 (COVID-19) RNA ARABELLA+probe Ql (Unsp spec) Not detected Normal NOT DETECTED [facility] Comment on above: Result Comment: When diagnostic [...] for this test is supported by the Cloth Designer of Health and Human Service's declaration that [...] used). Performed By: #### P REGU #### [facility] [address] [place] [address] Dr. Luis A Solorio Operative Reporton 2 Operative Report [id number] #[id number] Normal [facility] BUNon 07-20-2022 Urea nitrogen [Mass/Vol] 14.0 mg/dL Normal 7.0-18.0 [facility] Comment on above: Performed By: #### B UN, CREA #### [facility] [address] [place] [address] Dr. Luis A Solorio CBC AUTO DIFFon 07-20-2022 BASO # 0.0 103/ul Normal 0.0-0.1 [facility] Comment on above: Performed By: #### P REGU #### [facility] [address] [place] [address] Dr. Luis A Solorio Basophils/100 WBC (Bld) 0.1 % Critically low 0.2-2.0 [facility] Comment on above: Performed By: #### P REGU #### [facility] [address] [place] [address] Dr. Luis A Solorio EO # 0.0 103/ul Normal 0.0-0.7 [facility] Comment on above: Performed By: #### P REGU #### [facility] [address] [place] [address] Dr. Luis A Solorio Eosinophils/100 WBC (Bld) 0.0 % Critically low 0.9-7.0 [facility] Comment on above: Performed By: #### P REGU #### [facility] [address] [place] [address] Dr. Luis A Solorio Erythrocyte distribution width (RBC) [Ratio] 17.0 % Critically high 11.0-15.0 [facility] Comment on above: Performed By: #### P REGU #### [facility] [address] [place] [address] Dr. Luis A Solorio Hematocrit (Bld) [Volume fraction] 32.6 % Critically low 36.0-48.0 [facility] Comment on above: Performed By: #### P REGU #### [facility] [address] [place] [address] Dr. Luis A Solorio Hemoglobin (Bld) [Mass/Vol] 10.1 g/dL Critically low 12.0-16.0 [facility] Comment on above: Performed By: #### P REGU #### [facility] [address] [place] [address] Dr. Luis A Solorio IG # 0.05 10e3/ul Critically high 0.00-0.03 [facility] Comment on above: Performed By: #### P REGU #### [facility] [address] [place] [address] Dr. Luis A Solorio IG % 0.5 % Normal 0.0-0.5 [facility] Comment on above: Performed By: #### P REGU #### [facility] [address] [place] [address] Dr. Luis A Solorio LYMPH # 1.3 103/ul Normal 1.2-3.8 [facility] Comment on above: Performed By: #### P REGU #### [facility] [address] [address] [address] Luis A Solorio Lymphocytes/100 WBC (Bld) 12.4 % Critically low 20.5-60.0 [facility] Comment on above: Performed By: #### P REGU #### [facility] [address] [place] [address] Dr. Luis A Solorio MANUAL DIFF REQ NO Normal [facility] Comment on above: Performed By: #### P REGU #### [facility] [address] [place] [address] Dr. Luis A Solorio MCH (RBC) [Entitic mass] 25.1 pg Critically low 26.7-34.0 [facility] Comment on above: Performed By: #### P REGU #### [facility] [address] [place] [address] Dr. Luis A Solorio MCHC (RBC) [Mass/Vol] 31.0 g/dL Normal 29.9-35.2 [facility] Comment on above: Performed By: #### P REGU #### [facility] [address] [place] [address] Dr. Luis A Solorio MCV (RBC) [Entitic vol] 80.9 fL Critically low 81.0-99.0 [facility] Comment on above: Performed By: #### P REGU #### [facility] [address] [place] [address] Dr. Luis A Solorio MONO # 0.8 103/ul Normal 0.3-0.8 [facility] Comment on above: Performed By: #### P REGU #### [facility] [address] [place] [address] Dr. Luis A Solorio Monocytes/100 WBC (Bld) 7.6 % Normal 1.7-12.0 [facility] Comment on above: Performed By: #### P REGU #### [facility] [address] [place] [address] Dr. Luis A Solorio NEUT # 8.5 103/ul Critically high 1.4-6.5 [facility] Comment on above: Performed By: #### P REGU #### [facility] [address] [address] [address] Luis A Solorio Neutrophils/100 WBC (Bld) 79.4 % Critically high 43.0-75.0 [facility] Comment on above: Performed By: #### P REGU #### [facility] [address] [address] [address] Luis A Solorio Platelet mean volume (Bld) [Entitic vol] 10.7 fL Normal 9.5-13.5 [facility] Comment on above: Performed By: #### P REGU #### [facility] [address] [address] [address] Luis A Solorio PLT 237 103/ul Normal 150-450 [facility] Comment on above: Performed By: #### P REGU #### [facility] [address] [place] [address] Dr. Luis A Solorio RBC 4.03 106/ul Critically low 4.20-5.40 [facility] Comment on above: Performed By: #### P REGU #### [facility] [address] [place] [address] Dr. Luis A Solorio WBC 10.7 103/ul Normal 4.0-11.0 [facility] Comment on above: Performed By: #### P REGU #### [facility] [address] [place] [address] Dr. Luis A Solorio CREATININEon 07-20-2022 Creatinine [Mass/Vol] 0.99 mg/dL Normal 0.55-1.02 [facility] Comment on above: Performed By: #### B UN, CREA #### [facility] [address] [place] [address] Dr. Luis A Solorio EGFR-AF BHUTANESE >60 Normal >=60 [facility] Comment on above: Performed By: #### B UN, CREA #### [facility] [address] [place] [address] Dr. Luis A Solorio EGFR-NON AF BHUTANESE >60 Normal >=60 [facility] Comment on above: Performed By: #### B UN, CREA #### [facility] [address] [place] [address] Dr. Luis A Solorio CBC AUTO DIFFon 07-19-2022 BASO # 0.0 103/ul Normal 0.0-0.1 [facility] Comment on above: Performed By: #### C BC #### [facility] [address] [place] [address] Dr. Luis A Solorio Basophils/100 WBC (Bld) 0.4 % Normal 0.2-2.0 [facility] Comment on above: Performed By: #### C BC #### [facility] [address] [place] [address] Dr. Luis A Solorio EO # 0.1 103/ul Normal 0.0-0.7 [facility] Comment on above: Performed By: #### C BC #### [facility] [address] [place] [address] Dr. Luis A Solorio Eosinophils/100 WBC (Bld) 2.4 % Normal 0.9-7.0 [facility] Comment on above: Performed By: #### C BC #### [facility] [address] [place] [address] Dr. Luis A Solorio Erythrocyte distribution width (RBC) [Ratio] 16.4 % Critically high 11.0-15.0 [facility] [facility] Comment on above: Performed By: #### C BC #### [facility] [address] [place] [address] Dr. Luis A Solorio Hematocrit (Bld) [Volume fraction] 36.9 % Normal 36.0-48.0 [facility] Comment on above: Performed By: #### C BC #### [facility] [address] [place] [address] Dr. Luis A Solorio Hemoglobin (Bld) [Mass/Vol] 11.5 g/dL Critically low 12.0-16.0 [facility] Comment on above: Performed By: #### C BC #### [facility] [address] [place] [address] Dr. Luis A Solorio IG # 0.01 10e3/ul Normal 0.00-0.03 [facility] Comment on above: Performed By: #### C BC #### [facility] [address] [place] [address] Dr. Luis A Solorio IG % 0.2 % Normal 0.0-0.5 [facility] Comment on above: Performed By: #### C BC #### [facility] [address] [place] [address] Dr. Luis A Solorio LYMPH # 2.3 103/ul Normal 1.2-3.8 [facility] Comment on above: Performed By: #### C BC #### [facility] [address] [place] [address] Dr. Luis A Solorio Lymphocytes/100 WBC (Bld) 46.0 % Normal 20.5-60.0 [facility] Comment on above: Performed By: #### C BC #### [facility] [address] [place] [address] Dr. Luis A Solorio MANUAL DIFF REQ NO Normal [facility] Comment on above: Performed By: #### C BC #### [facility] [address] [place] [address] Dr. Luis A Solorio MCH (RBC) [Entitic mass] 25.3 pg Critically low 26.7-34.0 [facility] Comment on above: Performed By: #### C BC #### [facility] [address] [place] [address] Dr. Luis A Solorio MCHC (RBC) [Mass/Vol] 31.2 g/dL Normal 29.9-35.2 [facility] Comment on above: Performed By: #### C BC #### [facility] [address] [place] [address] Dr. Luis A Solorio MCV (RBC) [Entitic vol] 81.1 fL Normal 81.0-99.0 [facility] Comment on above: Performed By: #### C BC #### [facility] [address] [place] [address] Dr. Luis A Solorio MONO # 0.5 103/ul Normal 0.3-0.8 [facility] Comment on above: Performed By: #### C BC #### [facility] [address] [place] [address] Dr. Luis A Solorio Monocytes/100 WBC (Bld) 10.5 % Normal 1.7-12.0 [facility] Comment on above: Performed By: #### C BC #### [facility] [address] [place] [address] Dr. Luis A Solorio NEUT # 2.0 103/ul Normal 1.4-6.5 [facility] Comment on above: Performed By: #### C BC #### [facility] [address] [place] [address] Dr. Luis A Solorio Neutrophils/100 WBC (Bld) 40.5 % Critically low 43.0-75.0 [facility] Comment on above: Performed By: #### C BC #### [facility] [address] [place] [address] Dr. Luis A Solorio Platelet mean volume (Bld) [Entitic vol] 10.4 fL Normal 9.5-13.5 [facility] Comment on above: Performed By: #### C BC #### [facility] [address] [place] [address] Dr. Luis A Solorio PLT 236 103/ul Normal 150-450 [facility] Comment on above: Performed By: #### C BC #### [facility] [address] [place] [address] Dr. Luis A Solorio RBC 4.55 106/ul Normal 4.20-5.40 [facility] Comment on above: Performed By: #### C BC #### [facility] [address] [place] [address] Dr. Luis A Solorio WBC 4.9 103/ul Normal 4.0-11.0 [facility] Comment on above: Performed By: #### C BC #### [facility] [address] [place] [address] Dr. Luis A Solorio PREG HCG QUALon 07-19-2022 , QUAL Negative Normal NEGATIVE [facility] Comment on above: Performed By: #### P REG #### [facility] [address] [place] [address] Dr. Luis A Solorio Covid-19 PCR (CVD[facility])on 06-18 SARS-CoV-2 (COVID-19) RNA ARABELLA+probe Ql (Unsp spec) Not detected Normal NOT DETECTED [facility] Comment on above: Result Comment: This test is not yet approved or cleared by the [place] FDA. When there are no FDA-approved or cleared tests available, and other criteria are met, FDA can make tests available under an emergency access mechanism called an Emergency Use Authorization (EUA). The EUA for this test is supported by the Cloth Designer of Health and Human Service's (HHS's) declaration [...] SARS-CoV-2. Performed By: #### P REGU #### [facility] [address] [place] [address] Dr. Luis A Solorio Pre-Certification Formon Pre-Certification Form [id number] 7#1.00CD:127 Normal [facility] TYPE AND SCREENon 07-15-2022 TYPE AND SCREEN Negative Normal [facility] Comment on above: Performed By: #### P REGU #### [facility] [address] [place] [address] Dr. Luis A Solorio Physician Referralon 022 Physician Referral [id number] #1.00CD:127 Normal [facility] URon 06-11-2022 , QUAL Negative Normal NEGATIVE [facility] Comment on above: Performed By: #### P REGU #### [facility] [address] [place] [address] Dr. Luis A Solorio [facility] 05-17 SARS-CoV-2 (COVID-19) RNA ARABELLA+probe Ql (Unsp spec) Not detected Normal NOT DETECTED [facility] Comment on above: Result Comment: This test is not yet approved or cleared by the [place] FDA. When there are no FDA-approved or cleared tests available, and other criteria are met, FDA can make tests available under an emergency access mechanism called an Emergency Use Authorization (EUA). The EUA for this test is supported by the Cloth Designer of Health and Human Service's (HHS's) declaration [...] SARS-CoV-2. Performed By: #### P REGU #### [facility] [address] [place] [address] Dr. Luis A Solorio CBC AUTO DIFFon 05-28-2022 BASO # 0.0 103/ul Normal 0.0-0.1 [facility] Comment on above: Performed By: #### B UN, CREA #### [facility] [address] [place] [address] Dr. Luis A Solorio Basophils/100 WBC (Bld) 0.4 % Normal 0.2-2.0 [facility] Comment on above: Performed By: #### B UN, CREA #### [facility] [address] [place] [address] Dr. Luis A Solorio EO # 0.1 103/ul Normal 0.0-0.7 [facility] Comment on above: Performed By: #### B UN, CREA #### [facility] [address] [place] [address] Dr. Luis A Solorio Eosinophils/100 WBC (Bld) 2.0 % Normal 0.9-7.0 [facility] Comment on above: Performed By: #### B UN, CREA #### [facility] [address] [place] [address] Dr. Luis A Solorio Erythrocyte distribution width (RBC) [Ratio] 19.9 % Critically high 11.0-15.0 [facility] Comment on above: Performed By: #### B UN, CREA #### [facility] [address] [place] [address] Dr. Luis A Solorio Hematocrit (Bld) [Volume fraction] 35.0 % Critically low 36.0-48.0 [facility] Comment on above: Performed By: #### B UN, CREA #### [facility] [address] [place] [address] Dr. Luis A Solorio Hemoglobin (Bld) [Mass/Vol] 10.6 g/dL Critically low 12.0-16.0 [facility] Comment on above: Performed By: #### B UN, CREA #### [facility] [address] [place] [address] Dr. Luis A Solorio IG # 0.01 10e3/ul Normal 0.00-0.03 [facility] Comment on above: Performed By: #### B UN, CREA #### [facility] [address] [place] [address] Dr. Luis A Solorio IG % 0.2 % Normal 0.0-0.5 [facility] Comment on above: Performed By: #### B UN, CREA #### [facility] [address] [place] [address] Dr. Luis A Solorio LYMPH # 1.8 103/ul Normal 1.2-3.8 [facility] Comment on above: Performed By: #### B UN, CREA #### [facility] [address] [place] [address] Dr. Luis A Solorio Lymphocytes/100 WBC (Bld) 35.7 % Normal 20.5-60.0 [facility] Comment on above: Performed By: #### B UN, CREA #### [facility] [address] [place] [address] Dr. Luis A Solorio MANUAL DIFF REQ NO Normal [facility] Comment on above: Performed By: #### B UN, CREA #### [facility] [address] [place] [address] Dr. Luis A Solorio MCH (RBC) [Entitic mass] 23.5 pg Critically low 26.7-34.0 [facility] Comment on above: Performed By: #### B UN, CREA #### [facility] [address] [place] [address] Dr. Luis A Solorio MCHC (RBC) [Mass/Vol] 30.3 g/dL Normal 29.9-35.2 [facility] Comment on above: Performed By: #### B UN, CREA #### [facility] [address] [place] [address] Dr. Luis A Solorio MCV (RBC) [Entitic vol] 77.6 fL Critically low 81.0-99.0 [facility] Comment on above: Performed By: #### B UN, CREA #### [facility] [address] [place] [address] Dr. Luis A Solorio MONO # 0.5 103/ul Normal 0.3-0.8 [facility] Comment on above: Performed By: #### B UN, CREA #### [facility] [address] [place] [address] Dr. Luis A Solorio Monocytes/100 WBC (Bld) 9.7 % Normal 1.7-12.0 [facility] Comment on above: Performed By: #### B UN, CREA #### [facility] [address] [place] [address] Dr. Luis A Solorio NEUT # 2.6 103/ul Normal 1.4-6.5 [facility] Comment on above: Performed By: #### B UN, CREA #### [facility] [address] [place] [address] Dr. Luis A Solorio Neutrophils/100 WBC (Bld) 52.0 % Normal 43.0-75.0 [facility] Comment on above: Performed By: #### B UN, CREA #### [facility] [address] [place], [place] [address] Dr. Luis A Solorio Platelet mean volume (Bld) [Entitic vol] 10.3 fL Normal 9.5-13.5 [facility] Comment on above: Performed By: #### B UN, CREA #### [facility] [address] [place], [place] [address] Dr. Luis A Solorio PLT 236 103/ul Normal 150-450 [facility] Comment on above: Performed By: #### B UN, CREA #### [facility] [address] [place], [place] [address] Dr. Luis A Solorio RBC 4.51 106/ul Normal 4.20-5.40 [facility] Comment on above: Performed By: #### B UN, CREA #### [facility] [address] [place], [place] [address] Dr. Luis A Solorio WBC 4.9 103/ul Normal 4.0-11.0 [facility] Comment on above: Performed By: #### B UN, CREA #### [facility] [address] [place], [place] [address] Dr. Luis A Solorio US VAC ASST BX BREAST RT W C LIPon 05-07-2022 US VAC ASST BX BREAST RT W CLIP Begin Addendum #1 DATE/TIME COLLECTED: 05/03/2022, 09:17 EDT Final Diagnosis Report for [facility], [place] RIGHT BREAST 11 O'CLOCK MASS; BIOPSY: [...] provided after pathology results are available. Normal [facility] US PELVIS AND TRANSVAGon US PELVIS [...] authenticated by: [place] Date: 2022-05-04 22:[address] [facility] PAP ACOG PANEL 2: 30 to 65on 05-04-2022 . . Normal [facility] Comment on above: Result Comment: Perf ormed at: WB Performed By: #### B UN, CREA #### [facility] [address] [place] [address] [address] Luis A Solorio Age Gdln ACOG Testing 30-[address] [facility] Comment on above: Performed By: #### B UN, CREA #### [facility] [address] [place], [place] [address] Dr. Luis A Solorio DIAGNOSIS: Comment [facility] Comment on above: Result Comment: NEGA TIVE FOR INTRAEPITHELIAL LESION OR MALIGNANCY. Performed at: WB Performed By: #### B UN, CREA #### [facility] [address] [place] [address] [address] Luis A Solorio HPV Aptima Negative Normal Negative [facility] Comment on above: Result Comment: This nucleic acid amplification test detects fourteen high-risk HPV types (16,18,31,33,35,39,45,51,52,56,58,59,66,68) without differentiation. Performed at: =G Performed By: #### B UN, CREA #### [facility] [address] [place] [address] Dr. Luis A Solorio Methodology: Comment Normal [facility] Comment on above: Result Comment: This liquid based ThinPrep(R) pap test was screened with the use of an image guided system. Performed at: WB Performed By: #### B UN, CREA #### [facility] [address] [place] [address] Dr. Luis A Solorio Note: Comment Normal [facility] Comment on above: Result Comment: The [...] Performed By: #### B UN, CREA #### [facility] [address] [place] [address] Dr. Luis A Solorio Performed by: Comment Normal [facility] Comment on above: Result Comment: Lisbet Springer Corrugator Supervisor (ASCP) Performed at: WB Performed By: #### B UN, CREA #### [facility] [address] [place] [address] Dr. Luis A Solorio Specimen adequacy: Comment Normal [facility] Comment on above: Result Comment: Sati sfactory for evaluation. Endocervical and/or squamous metaplastic cells (endocervical component) are present. Performed at: WB Performed By: #### B UN, CREA #### [facility] [address] [place] [address] Dr. Luis A Solorio MAMMO POST BIOPSY RIGHTon MAMMO POST BIOPSY RIGHT Patient: YOLANDA MARQUEZ Exam Date: 05/03/2022 : 1975 Gender:F Ordering : DR ALLISON SHARP M.D. Admission #: [id number] Family : Order #: [id number] CLICK HERE TO VIEW EXAM RADIOLOGY REPORT [...] M.D. on 05/03/2022 at 09:50 Normal [facility] MG MAMM RT DIAG FUon 022 MG MAMM RT DIAG FU Patient: YOLANDA MARQUEZ Exam Date: 04/23/2022 : 1975 Gender:F Ordering : DR ALLISON SHARP M.D. Admission #: [id number] Family : Order #: [id number] CLICK HERE TO VIEW EXAM RADIOLOGY REPORT [...] Treatments None Family Cancers None LOCATION: [facility] BREAST COMPOSITION: Heterogeneously dense,which may obscure small [...] M.D. on 04/23/2022 at 09:37 Normal [facility] US BREAST RIGHT LIMITEDon US BREAST RIGHT LIMITED Patient: YOLANDA MARQUEZ Exam Date: 04/23/2022 : 1975 Gender:F Ordering : DR ALLISON SHARP M.D. Admission #: [id number] Family : Order #: [id number] CLICK HERE TO VIEW EXAM RADIOLOGY REPORT [...] Treatments None Family Cancers None LOCATION: [facility] BREAST COMPOSITION: Heterogeneously dense,which may obscure small [...] M.D. on 04/23/2022 at 09:37 Normal [facility] MG MAMM SCREEN 3D AYUSH CADon 04-14-2022 MG MAMM SCREEN 3D AYUSH CAD Patient: YOLANDA MARQUEZ Exam Date: 04/14/2022 : 1975 Gender:F Ordering : DR ALLISON SHARP M.D. Admission #: [id number] Family : Order #: [id number] CLICK HERE TO VIEW EXAM RADIOLOGY REPORT PROCEDURE: MAMMOGRAM SCREENING 3D BILATERAL CAD COMPARISON: None. INDICATIONS: Screening mammography Calculator Name NCI Breast Cancer Risk Assessment Tool 5 Year Breast Cancer Risk Not Reported. Lifetime Breast Cancer Risk Not Reported. Personal Breast Cancer No Personal Ovarian Cancer No Treatments None Family Cancers None LOCATION: [facility] BREAST COMPOSITION: Heterogeneously dense,which may obscure small [...] Schwab MD on 04/14/2022 at 10:03 Normal [facility] CBC AUTO DIFFon 04-02-2022 BASO # 0.0 103/ul Normal 0.0-0.1 [facility] Comment on above: Performed By: #### C BC #### [facility] [address] [place] [address] [address] Luis A Solorio Basophils/100 WBC (Bld) 0.4 % Normal 0.2-2.0 [facility] Comment on above: Performed By: #### C BC #### [facility] [address] [place] [address] [address] Luis A Solorio EO # 0.1 103/ul Normal 0.0-0.7 [facility] Comment on above: Performed By: #### C BC #### [facility] [address] [place] [address] Dr. Luis A Solorio Eosinophils/100 WBC (Bld) 2.6 % Normal 0.9-7.0 [facility] Comment on above: Performed By: #### C BC #### [facility] [address] [place] [address] Dr. Luis A Solorio Erythrocyte distribution width (RBC) [Ratio] 16.0 % Critically high 11.0-15.0 [facility] Comment on above: Performed By: #### C BC #### [facility] [address] [place] [address] Dr. Luis A Solorio Hematocrit (Bld) [Volume fraction] 30.2 % Critically low 36.0-48.0 [facility] Comment on above: Performed By: #### C BC #### [facility] [address] [place] [address] Dr. Luis A Solorio Hemoglobin (Bld) [Mass/Vol] 8.8 g/dL Critically low 12.0-16.0 [facility] Comment on above: Performed By: #### C BC #### [facility] [address] [place] [address] Dr. Luis A Solorio IG # 0.02 10e3/ul Normal 0.00-0.03 [facility] Comment on above: Performed By: #### C BC #### [facility] [address] [place] [address] Dr. Luis A Solorio IG % 0.4 % Normal 0.0-0.5 [facility] Comment on above: Performed By: #### C BC #### [facility] [address] [place] [address] Dr. Luis A Solorio LYMPH # 1.7 103/ul Normal 1.2-3.8 [facility] Comment on above: Performed By: #### C BC #### [facility] [address] [place] [address] Dr. Luis A Solorio Lymphocytes/100 WBC (Bld) 36.6 % Normal 20.5-60.0 [facility] Comment on above: Performed By: #### C BC #### [facility] [address] [place] [address] Dr. Luis A Solorio MANUAL DIFF REQ NO Normal [facility] Comment on above: Performed By: #### C BC #### [facility] [address] [place] [address] Dr. Luis A Solorio MCH (RBC) [Entitic mass] 21.9 pg Critically low 26.7-34.0 [facility] Comment on above: Performed By: #### C BC #### [facility] [address] [place] [address] Dr. Luis A Solorio MCHC (RBC) [Mass/Vol] 29.1 g/dL Critically low 29.9-35.2 [facility] Comment on above: Performed By: #### C BC #### [facility] [address] [place] [address] Dr. Luis A Solorio MCV (RBC) [Entitic vol] 75.1 fL Critically low 81.0-99.0 [facility] Comment on above: Performed By: #### C BC #### [facility] [address] [place] [address] Dr. Luis A Solorio MONO # 0.5 103/ul Normal 0.3-0.8 [facility] Comment on above: Performed By: #### C BC #### [facility] [address] [place] [address] Dr. Luis A Solorio Monocytes/100 WBC (Bld) 10.8 % Normal 1.7-12.0 [facility] Comment on above: Performed By: #### C BC #### [facility] [address] [place] [address] Dr. Luis A Solorio NEUT # 2.3 103/ul Normal 1.4-6.5 [facility] Comment on above: Performed By: #### C BC #### [facility] [address] [place] [address] Dr. Luis A Solorio Neutrophils/100 WBC (Bld) 49.2 % Normal 43.0-75.0 [facility] Comment on above: Performed By: #### C BC #### [facility] [address] [place] [address] [address] Luis A Solorio Platelet mean volume (Bld) [Entitic vol] 10.0 fL Normal 9.5-13.5 [facility] Comment on above: Performed By: #### C BC #### [facility] [address] [place] [address] [address] Luis A Solorio PLT 280 103/ul Normal 150-450 [facility] Comment on above: Performed By: #### C BC #### [facility] [address] [place] [address] [address] Luis A Solorio RBC 4.02 106/ul Critically low 4.20-5.40 [facility] Comment on above: Performed By: #### C BC #### [facility] [address] [place] [address] Dr. Luis A Solorio WBC 4.6 103/ul Normal 4.0-11.0 [facility] Comment on above: Performed By: #### C BC #### [facility] [address] [place] [address] Dr. Luis A Solorio GLYCOHEMOGLOBIN A1Con 2021 ADA RECOMMENDATION SEE BELOW Normal [facility] Comment on above: Result Comment: ADA RECOMMENDED LIMIT 4.0 - 6.0 ADA THERAPEUTIC TARGET < 7.0 ACTION SUGGESTED > 7.0 Performed By: #### B UN, CREA #### [facility] [address] [place] [address] Dr. Luis A Solorio Glucose [Mass/Vol] 131 mg/dL Normal [facility] Comment on above: Performed By: #### B UN, CREA #### [facility] [address] [place] [address] [address] Luis A Solorio HbA1c (Bld) [Mass fraction] 6.2 % Normal 4.5-6.2 [facility] Comment on above: Performed By: #### B UN, CREA #### [facility] [address] [place] [address] Dr. Luis A Solorio LIPID PROFILEon 04-02-2022 CHOL-HDL RATIO NORM SEE BELOW Normal [facility] Comment on above: Result Comment: 3.3 - 4.4 LOW RISK 4.4 - 7.1 AVERAGE RISK 7.1 - 11.0 MODERATE RISK >11.0 HIGH RISK Performed By: #### T SH, LIPID, CMP #### [facility] [address] [place] [address] [address] Luis A Solorio Cholesterol [Mass/Vol] 215 mg/dL Critically high <=200 [facility] Comment on above: Performed By: #### T SH, LIPID, CMP #### [facility] [address] [place] [address] [address] Luis A Solorio Cholesterol in HDL [Mass/Vol] 46 mg/dL Normal 40-60 [facility] Comment on above: Performed By: #### T SH, LIPID, CMP #### [facility] [address] [place] [address] [address] Luis A Solorio Cholesterol in LDL [Mass/Vol] 138.2 mg/dL Normal [facility] Comment on above: Performed By: #### T SH, LIPID, CMP #### [facility] [address] [address] [address] Luis A Solorio Cholesterol.total/Ch olesterol in HDL [Mass ratio] 4.7 {ratio} Normal [facility] Comment on above: Performed By: #### T SH, LIPID, CMP #### [facility] [address] [address] [address] Luis A Solorio HDL NORMAL > or = 60 mg/dl - LOW CARDIOVASCULAR RISK <40 mg/dl - HIGH CARDIOVASCULAR RISK Normal [facility] Comment on above: Performed By: #### T SH, LIPID, CMP #### [facility] [address] [address] [address] Luis A Solorio LDL CALC NORMAL SEE BELOW Normal [facility] Comment on above: Result Comment: <100 mg/dl OPTIMAL 100 - 129 mg/dl NEAR OR ABOVE OPTIMAL 130 - 159 mg/dl BORDERLINE HIGH 160 - 189 mg/dl HIGH >190 mg/dl VERY HIGH Performed By: #### T SH, LIPID, CMP #### [facility] [address] [place] [address] Dr. Luis A Solorio Triglyceride [Mass/Vol] 154 mg/dL Critically high <=150 [facility] Comment on above: Performed By: #### T ROCAEL, LIPID, CMP #### [facility] [address] [place] [address] Dr. Luis A Solorio VLDL CALC 30.8 mg/dL Normal [facility] Comment on above: Performed By: #### T ROCAEL, LIPID, CMP #### [facility] [address] [place] [address] Dr. Luis A Solorio PROF 14(COMP METB)on 022 Albumin [Mass/Vol] 3.2 g/dL Critically low 3.4-5.0 Th e [facility] Comment on above: Performed By: #### P REGU #### [facility] [address] [place] [address] Dr. Luis A Solorio Albumin/Globulin [Mass ratio] 0.8 {ratio} Normal [facility] Comment on above: Performed By: #### P REGU #### [facility] [address] [place] [address] Dr. Luis A Solorio ALP [Catalytic activity/Vol] 83 U/L Normal 46-116 [facility] Comment on above: Performed By: #### P REGU #### [facility] [address] [place] [address] Dr. Luis A Solorio ALT [Catalytic activity/Vol] 34 U/L Normal 14-59 [facility] Comment on above: Performed By: #### P REGU #### [facility] [address] [place] [address] Dr. Luis A Solorio Anion gap [Moles/Vol] 13.5 mmol/L Normal [facility] Comment on above: Performed By: #### P REGU #### [facility] [address] [place] [address] Dr. Luis A Solorio AST [Catalytic activity/Vol] 24 U/L Normal 15-37 [facility] Comment on above: Performed By: #### P REGU #### [facility] [address] [place] [address] Dr. Luis A Solorio Bilirubin [Mass/Vol] 0.3 mg/dL Normal 0.2-1.0 [facility] Comment on above: Performed By: #### P REGU #### [facility] [address] [place] [address] Dr. Luis A Solorio Calcium [Mass/Vol] 8.5 mg/dL Normal 8.5-10.1 [facility] Comment on above: Performed By: #### P REGU #### [facility] [address] [address] [address] Luis A Solorio Chloride [Moles/Vol] 105 mmol/L Normal 98-107 [facility] Comment on above: Performed By: #### P REGU #### [facility] [address] [place] [address] Dr. Luis A Solorio CO2 [Moles/Vol] 23.7 mmol/L Normal 21.0-32.0 [facility] Comment on above: Performed By: #### P REGU #### [facility] [address] [place] [address] Dr. Luis A Solorio Creatinine [Mass/Vol] 0.74 mg/dL Normal 0.55-1.02 [facility] Comment on above: Performed By: #### P REGU #### [facility] [address] [place] [address] Dr. Luis A Solorio EGFR-AF BHUTANESE >60 Normal >=60 [facility] Comment on above: Performed By: #### P REGU #### [facility] [address] [place] [address] Dr. Luis A Solorio EGFR-NON AF BHUTANESE >60 Normal >=60 [facility] Comment on above: Performed By: #### P REGU #### [facility] [address] [place] [address] Dr. Luis A Solorio Globulin (S) [Mass/Vol] 3.8 g/dL Normal [facility] Comment on above: Performed By: #### P REGU #### [facility] [address] [place] [address] Dr. Luis A Solorio Glucose [Mass/Vol] 122 mg/dL Critically high 74-106 T [facility] Comment on above: Performed By: #### P REGU #### [facility] [address] [place] [address] Dr. Luis A Solorio Potassium [Moles/Vol] 4.2 mmol/L Normal 3.5-5.1 [facility] Comment on above: Performed By: #### P REGU #### [facility] [address] [place] [address] Dr. Luis A Solorio Protein [Mass/Vol] 7.0 g/dL Normal 6.4-8.2 [facility] Comment on above: Performed By: #### P REGU #### [facility] [address] [place] [address] Dr. Luis A Solorio Sodium [Moles/Vol] 138 mmol/L Normal 136-145 [facility] Comment on above: Performed By: #### P REGU #### [facility] [address] [place] [address] Dr. Luis A Solorio Urea nitrogen [Mass/Vol] 15.0 mg/dL Normal 7.0-18.0 [facility] Comment on above: Performed By: #### P REGU #### [facility] [address] [place] [address] Dr. Luis A Solorio Urea nitrogen/Creatinine [Mass ratio] 20.3 mg/mg Normal [facility] Comment on above: Performed By: #### P REGU #### [facility] [address] [place] [address] Dr. Luis A Solorio TSHon 04-02-2022 TSH 1.449 uIU/mL Normal 0.358-3.740 [facility] Comment on above: Performed By: #### T SH, LIPID, CMP #### [facility] [address] [place], [place] [id number] Dr. Luis A Solorio Vital Signs Date Time Vital Sign Value Performing Clinician Faci lity 06-20-2024 14:02-0400 Body height 170.2 cm Johny Lucas Weele Work Phone: [facility] 06-20-2024 14:02-0400 Body mass index (BMI) [Ratio] 42.29 kg/m2 Johny Lucas DO Work Phone: [facility] 06-20-2024 14:02-0400 Body weight 122.47 kg Johny Lucas DO Work Phone: [facility] 06-20-2024 14:02-0400 Diastolic blood pressure 92 mm[Hg] Johny Lucas DO Work Phone: [facility] 06-20-2024 14:02-0400 Heart rate 76 /min Johny Lucas DO Work Phone: [facility] 06-20-2024 14:02-0400 SaO2% (BldA) [Mass fraction] 97 % Johny Lucas DO Work Phone: [facility] 06-20-2024 14:02-0400 Systolic blood pressure 144 mm[Hg] Johny Lucas DO Work Phone: [facility] 02-17-2024 09:36-0400 Body height 170.[address] [facility] 02-17-2024 09:36-0400 Body mass index (BMI) [Ratio] 43.4 kg/m2 [facility] 02-17-2024 09:36-0400 Body weight 125.[address] [facility] 02-17-2024 09:36-0400 Diastolic blood pressure 86 mm[Hg] [facility] 02-17-2024 09:36-0400 Heart rate 61 /min [facility] 02-17-2024 09:36-0400 Systolic blood pressure 149 mm[Hg] [facility] Encounters Encounter Date Encounter Type Care Provider Facility Start: 09-17-2024 ambulatory [place] Start: 06-20-2024 End: 06-20-2024 Bamboo flowsheet Johny Lucas DO Work Phone: [facility] Start: 06-20-2024 End: 06-20-2024 Bamboo flowsheet Johny Lucas DO Work Phone: [facility] Start: 06-20-2024 End: 06-20-2024 Office consultation new/estab patient 60 min Johny Osuna DO Work Phone: [facility] Comment on above: NILTON (obstructive sle ep apnea); Hypersomnia; Sleep deprivation; Hypoxia; Inadequate sleep hygiene Start: 06-20-2024 End: 06-20-2024 ambulatory JOHNY OSUNA Not Available Start: 02-17-2024 Patient encounter status [facility] Start: 02-17-2024 End: 02-17-2024 ambulatory [facility] Work Phone: Start: 02-17-2024 End: 02-17-2024 Encounter for general adult medical examination without abnormal findings [facility] Start: 02-17-2024 End: 02-17-2024 Patient encounter procedure [facility] Work Phone: Start: 06-24-2023 End: 06-24-2023 ambulatory Arley Hand Other [facility] Other Start: 06-24-2023 Office outpatient vi sit 15 minutes Arley Hand [facility] Start: 04-27-2023 End: 04-27-2023 ambulatory Allison Sharp Other [facility] Other Start: 04-27-2023 Nursing evaluation o f patient and report Allison Sharp [facility] Start: 02-16-2023 End: 02-17-[address] ALMANZAR LISTED REQUEST Facility:[facility] Start: 10-06-2022 Adult health examination Ronak dustin Yazan Other [facility] Other Start: 10-06-2022 Gynecological examin ation normal Arley Hand Other [facility] Other Start: 10-06-2022 Pre-procedure evalua tion check Arley Hand Other [facility] Other Start: 10-05-2022 End: 10-05-[address] ALLISON SHARP Facility:[facility] Start: 07-19-2022 End: 07-20-2022 ambulatory MD Raymundo DAILEY Facility:CD:[id number] Start: 07-19-2022 End: 07-21-2022 Evaluation and management of inpatient DR ALLISON SHARP Facility:[facility] Start: 07-17-2022 Encounter for preprocedural laboratory examination DR HUYEN GILL . [facility] Start: 07-17-[address] ALLISON SHARP Facil ity:[facility] Start: 07-15-2022 End: 07-16-[address] ALLISON SHARP Facility:[facility] Start: 07-15-2022 End: 07-16-2022 Encounter for preprocedural laboratory examination DR ALLISON SHARP Facility:[facility] Start: 07-14-2022 End: 07-14-[address] ALLISON SHARP Facility:[facility] Start: 07-06-2022 Encounter for other preprocedural examination DR HUYEN GILL . [facility] Start: 07-05-2022 End: 07-06-[address] ALLISON SHARP Facility:[facility] Start: 07-05-2022 End: 07-06-2022 Encounter for other preprocedural examination DR ALLISON SHARP Facility:[facility] Start: 06-25-2022 ambulatory MD Raymundo DAILEY [facility] ity:[facility] Start: 06-11-2022 End: 06-11-[address] ALLISON SHARP Facility:[facility] Start: 06-04-2022 End: 06-05-[address] ALLISON SHARP Facility:[facility] Start: 05-31-2022 Encounter for preprocedural cardiovascular examination DR HUYEN GILL . [facility] Start: 05-28-2022 End: 05-29-[address] ALLISON SHARP Facility:[facility] Start: 05-03-2022 End: 05-04-[address] ALLISON SHARP Facility:[facility] Start: 04-30-2022 End: 04-30-[address] ALLISON SHARP Facility:[facility] Start: 04-23-2022 End: 04-24-[address] ALLISON SHARP Facility:[facility] Start: 04-14-2022 End: 04-15-[address] ALLISON SHARP Facility:[facility] Start: 04-06-2022 Encounter for genera l adult medical examination without abnormal findings DR ALLISON SHARP [facility] Start: 04-02-2022 End: 04-03-[address] ALLISON [...] Hand Other Ligation of fallopian tube B enjamin Yazan Other End: 05-10-2022 Screening for malignant neoplasm of breast Arley Hand Other Plan of Treatment Date Care Activity Detail Author Start: 06-20-2024 End: 06-20-2024 Patient encounter procedure 06/20/2024 2:00 PM EDT [facility] [address] [place] [phone] Johny Osuna DO [address] [place] [address] [facility] Comment on above: Arrived MG Breast - bilatera l Screening [facility] Payers Date Payer Category Payer Private Health Insurance [id number] 2009 Managed Care HMO (unspecified) ENID ROSSI [id number] 2009-Present [address] [place] [address] HMO [id number] 1977 Unknown [id number] 2.16.840.1.751465.3.579.2 .727 1977 Unknown [id number] 2.16.840.1.892063.3.579.2 .593 1977 Unknown [id number] 2.16.840.1.505655.3.579.2 .593 1977 Unknown [id number] 2.16.840.1.191455.3.579.2 .59 1977 Unknown [id number] 2.16.840.1.163025.3.579.2 .59 1977 Unknown [id number] 2.16.840.1.246440.3.579.2 .59 1977 Unknown [id number] 2.16.840.1.475283.3.579.2 .59 1977 Unknown [id number] 2.16840.1.430253.3.579.2 .59 1977 Unknown [id number] 2.16.840.1.982455.3.579.2 .59 1977 Unknown [id number] 2.16.840.1.217735.3.579.2 .59 1977 Unknown [id number] 2.16.840.1.326292.3.579.2 .59 1977 Unknown [id number] 2.16840.1.432173.3.579.2 .59 1977 Unknown [id number] 2.16.840.1.696011.3.579.2 .59 1977 Unknown [id number] 2.16.840.1.703262.3.579.2 .59 1977 Unknown [id number] 2.16.840.1.688231.3.579.2 .59 1977 Unknown [id number] 2.16.840.1.472897.3.579.2 .59 1977 Unknown [id number] 2.16.840.1.271445.3.579.2 .1259 1959 Private Health Insurance [id number] 1959 Private Health Insurance [id number] Self-pay Unknown [id number] 2.16.840.1.428373.3.579.2 .593 Social History Date Type Detail Facility Unknown if ever smoked [facility] [employer] Other Start: 06-20-2024 Sex Assigned At N [facility] [employer] Other Start: 1975 Sex Assigned At Female F [facility] Tobacco smoking status [facility] Tobacco smoking consumption unknown [facility] Start: 1975 Sex assigned at Not on file [facility] Start: 06-20-2024 Tobacco smoking status [facility] Never smoked tobacco [facility] Start: 06-20-2024 Tobacco use and exposure Smokeless tobacco non-user [facility] Start: 06-20-2024 History of Social function [facility] History of Present illness Narrative 06-20-2024 Johny Osuna DO - 06/20/2024 2:00 PM EDT Note Date & Type Note Facility 06-20-2024 History of Presen t illness Narrative Images from the original note were not included. No chief complaint on file. Subjective Yolanda Marquez, 49 y.o., female being seen in Sleep Consultation at the request of Dr. Stinson. HPI Sleep [place] She had been seeing her dentist and they noticed that her front teeth had some cracks etc in her teeth and she was grinding her teeth. She has a bite plate now. She was told she should be tested for sleep apnea. The patient states that she has been wearing her machine nightly. She had to change to a full face mask due to air leaking. She is no longer having issues. She is going to bed at 930p and wakes up at 4a. She is waking up once or twice a night to go to the bathroom and is able to go back to sleep. Patient states that she is waking up with headaches. She is feeling better and more rested. She is not needing the naps she was having and is getting a benefit. She is waking up with some headaches. She at times feels like she has to check it and make sure its on like she is not getting enough pressure. Patient Symptoms Snores: Yes Wakes gasping for breath: Yes Dozes off if inactive: at times Dozes off with activity: No Wakes a lot through the night: Yes Witnessed episodes of apnea: No Is sleep restful or restorative: Yes Bedtime: 930p Is it hard or easy to fall asleep: varies Wakes: 4-4:30 am Takes naps: Yes- twice a week for 30-60 minutes Feels better after napping: Yes Sleepwalk: No Sleeptalk: No Vivid Dreams: Yes Acts out dreams: No Sleep related hallucinations: No Sleep paralysis: No Cataplexy: No Restless Leg: Yes Kicking/Jerking at night: No TV on while sleeping: No Smoke before bed: No Caffeine within 3 hours before bed: No 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 Past Medical History: Diagnosis Date Hypertension (CMS/HCC) Past Surgical History: Procedure Laterality Date CHOLECYSTECTOMY HYSTERECTOMY WISDOM TOOTH EXTRACTION Family History Problem Relation Name Age of Onset Heart disease Mother Diabetes Mother Hypertension Mother Hyperlipidemia Mother Lung cancer Father Seizures Other son Social History Tobacco Use Smoking status: Never Smokeless tobacco: Never Substance Use Topics Alcohol use: Not on file Allergies: Patient has no known allergies. General: No fever or chills HEENT: No nasal congestion or runny nose Pulmonary: No shortness of breath or cough Cardiovascular: No chest pain or palpitations GI: No nausea or vomiting : No dysuria or hematuria Musculoskeletal: No new aches or pains or muscle weakness Infectious: no recurrent fevers or infections Dermatologic: No rashes or skin lesions Neurologic: No new headaches or dizziness Vitals: 06/20/24 1402 BP: (!) 144/92 Pulse: 76 SpO2: 97% Body mass index is 42.29 kg/m . weight: 270 lb Neurologic exam: General: Normal body habitus, cooperative, pleasant Mental status: Awake, alert to person, place and time. Recent and remote memory are intact. Attention and concentration are normal. Fund of knowledge is appropriate for level of education. HEENT: NC/AT Cranial nerves: CN II: Visual hodge full to confrontation. No loss of vision CN III, IV, : pupils equal round and reactive to light. Extraocular movements intact. No ptosis present. CN V: Facial sensation is normal. CN VII: Full and symmetric facial movement. CN VIII: Hearing is normal CN IX and X: Palate elevates symmetrically. CN XI: Shoulder shrug is normal bilaterally. CN XII: Tongue is midline without atrophy or fasciculation. Speech: Clear and fluent no aphasia or dysarthria Pronator drift: Negative bilateral upper extremity Coordination: Intact, no signs of dysmetria Good finger to nose and rapid alternating movements Sensory: Sensation is intact to light, temperature and vibratory touch throughout four extremities. Motor: LUE 5/5 RUE 5/5 LLE 5/5 RLE 5/5 Tone: Physiologic, no tremor, bradykinesia or rigidity DTR: Bilateral Biceps 2/4 Bilateral BR 2/4 Bilateral Patellar 1/4 No spasticity Gait: Normal to casual gait Romberg's Negative Review and summary of old records: Assessment/Plan Diagnoses and all orders for this visit: NILTON (obstructive sleep apnea) - CPAP ORDERS Lifetime Hypersomnia Sleep deprivation Hypoxia Inadequate sleep hygiene 9-year-old female with a mild obstructive sleep apnea with an AHI of 14 but a mild hypoxia down to 82 percent. This is leading to some daytime hypersomnolence and snoring. She does also have some mild sleep deprivation from inadequate sleep hygiene with not allowing enough hours for sleep. She now has a CPAP machine and she is definitely feeling of benefit and feeling more rested. She is compliant with it using it 93 percent of the time greater than 4 hours with an average nightly usage of 6 hours and 4 minutes and residual AHI of 1. She does at times feel like she is not getting enough air. She did switch to a full facemask. We are going to go ahead and switch her to auto PAP at 8-14 cm of water and see if that will help. However overall she is getting a benefit and doing better. Her [place] Sleepiness scale is 6 Plan Patient's polysomnogram was reviewed with her Patient's CPAP titration was reviewed with her Compliance was reviewed and is as above and she is compliant We will change her to auto PAP at 8-14 cm of water and see if that affords her more comfort Continue with a full facemask 40 minutes or more of cardiovascular exercise at least 3 days a week. The patient was counseled on proper sleep hygiene and adequate hours of sleep. She needs allow for a little more sleep time The patient was counseled on the risks of stroke, WI, and sudden with NILTON, along with the need for compliance with the CPAP/BiPAP treatment. The diagnosis was all discussed with the patient. All questions were answered and they agreed with the treatment plan. Patient will call if there are any new issues or questions. Pt has been fully educated on their diagnosis, treatment options, follow up plan, and return instructions Return to clinic: 1 year documented in this encounter [facility] Evaluation note 06-24-2023 Note Date & Type [...] for congestion, Tylenol for pain and fever. [facility] Other Evaluation note 04-27-2023 Note Date & Type Note Facility 04-27-2023 Evaluation note Encounter Date Diagnosis Assessment Notes Apr, Acute cystitis without hematuria (ICD-10 - N30.00) [facility] Other Evaluation note Note Date & Type Note Facility Evaluation note Diagnosis Onset Date Screening mammogram for breast cancer acute Wellness examination [facility] Work Phone: Evaluation note Note Date & Type Note Facility Evaluation note Diagnosis NILTON (obstructive sleep apnea) Obstructive sleep apnea (adult) (pediatric) Hypersomnia Hypersomnia, unspecified Sleep deprivation Problems related to lack of adequate sleep Hypoxia Hypoxemia Inadequate sleep hygiene 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 documented in this encounter [facility] History general Narrative - Reported Note Date & Type Note Facility History general Narrative - Reported Type Surgical History TUBAL Surgical History colonoscopy Surgical History laparoscopy Surgical History cholecystectomy Hospitalization History See Above [facility] Other History general Narrative - Reported Note [...] Surgical History cholecystectomy Hospitalization History See Above [facility] Other Summary Purpose Family History Relationship Condition [...] section and content) DATE CREATED AUTHOR 07/28/2022 [facility] DATE CREATED AUTHOR AUTHOR'S ORGANIZ ATION 02/17/2023 [facility] DATE CREATED AUTHOR AUTHOR'S ORGANIZ ATION 06/22/2024 [facility] DATE CREATED AUTHOR AUTHOR'S ORGANIZ ATION 09/19/2024 [place] REASON FOR VISIT (unrecogniz ed section and content) Fever, Frequency, Tingling, CloudyCOVID Positive- [phone] Care Teams (unrecognized sec tion and content) Team Status: Active Member Role Status Dates Allison Sharp MD Primary Care Provider Active Team Status: Inactive Member Role Status Dates Allison Sharp MD Primary Care Provide r, Attending Provider Active Start: February 17, 2024 End: February 17, 2024 [employer] Relationship Specialty Start Date End Date Allison Sharp MD [facility] [place] [id number] PCP - General Family Medicine 06/20/24 [employer] Tender Relationship Specialty Start Date End Date Allison Sharp MD [address] [place] [phone] PCP - General Family Medicine 06/20/24 Goals (unrecognized section and content) Goals may [...] BE BASED ON THE PRIMARY CLINICAL RECORDS. [employer] provides no warranty or guarantee of the accuracy or completeness of information in this document.
[2024-10-15 09:53] LABS: Basophils Percent Auto 0.2 % (0.2-2.0); Eosinophils Absolute Auto 0.1 10^3/uL (0.0-0.7); Eosinophils Percent Auto 2.4 % (0.9-7.0); Hematocrit 38.6 % (36.0-48.0); Hemoglobin 12.9 g/dL (12.0-16.0); Immature Granulocytes Abs Auto 0.01 10^3/uL (0.00-0.03); Immature Granulocytes Pct Auto 0.2 % (0.0-0.5); Lymphocytes Absolute Auto 1.8 10^3/uL (1.2-3.8); Lymphocytes Percent Auto 38.1 % (20.5-60.0); Mean Corpuscular HGB Conc 33.4 g/dL (29.9-35.2); Mean Corpuscular Hemoglobin 30.1 pg (26.7-34.0); Mean Platelet Volume 10.9 fL (9.5-13.5); Monocytes Absolute Auto 0.4 10^3/uL (0.3-0.8); Monocytes Percent Auto 7.7 % (1.7-12.0); Neutrophils Absolute Auto 2.4 10^3/uL (1.4-6.5); Neutrophils Percent Auto 51.4 % (43.0-75.0); Platelet Count 189 10^3/uL (150-450); Red Blood Count 4.29 10^6/uL (4.20-5.40); White Blood Count 4.7 10^3/uL (4.0-11.0)
[2024-10-15 10:10] LABS: INR 1.02; Partial Thromboplastin Time 25.1 sec (22.3-36.2); Prothrombin Time 10.8 sec (9.0-11.6)
[2024-10-15 10:14] LABS: Alanine Aminotransferase 26 U/L (14-59); Albumin Globulin Ratio 0.8; Albumin Level 3.2 g/dL (3.4-5.0); Alkaline Phosphatase 86 U/L (46-116); Anion Gap 14.3; Aspartate Amino Transferase 20 U/L (15-37); BUN Creatinine Ratio 14.5; Bilirubin Direct 0.1 mg/dL (0.0-0.2); Bilirubin Total 0.4 mg/dL (0.2-1.0); Calcium 8.9 mg/dL (8.5-10.1); Carbon Dioxide 25.7 mmol/L (21.0-32.0); Chloride 104 mmol/L (98-107); Estimated GFR (African America >60 (>=60 mL/min/1.73m^2); Estimated GFR (Non-African Ame >60 (>=60 mL/min/1.73m^2); Globulin 3.8 g/dL; Glucose 123 mg/dL (74-106); Sodium 140 mmol/L (136-145)
--- NOTE | 2024-10-15 10:15 | XR_ITS ---
[address] [address] Patient Name: YOLANDA ALCARAZ MRN: [id number] date: 1975 Sex: F Assigned Patient Location: [facility] Current Patient Location: [facility] Accession/Order Number: [id number] Exam Date: 10/15/2024 10:10 Report Date: 10/15/2024 11:08 At the request of: KATE RUBIO Procedure: XR chest 2V EXAM: CHEST 2 VIEWS HISTORY: Preop exam TECHNIQUE: PA and lateral views chest. COMPARISON: None. FINDINGS: Low lung volumes. There is no focal lung consolidation, pleural effusion or pneumothorax. Pulmonary vasculature is within normal limits. The cardiomediastinal silhouette is borderline enlarged. XR/XR chest 2V IMPRESSION: 1. Expiratory chest without acute cardiopulmonary disease. Electronically authenticated by: ALESHIA MCKEON Date: 10/15/2024 11:08
== END 2024-10-15 08:53 | disposition home or self-care (01) ==
LOC: PST 08:53
PROVIDERS: PCP Family Medicine; Visit Provider Orthopaedic Surgery Orthopaedic Surgery of the Spine
DX: Z01.810 Encounter for preprocedural cardiovascular examination (principal); Z01.812 Encounter for preprocedural laboratory examination; M50.30 Other cervical disc degeneration, unspecified cervical region; M54.50 Low back pain, unspecified
CPT/HCPCS: 71046; 80048; 80076; 85025; 85610; 85730; 87081; 93005

== ENCOUNTER 2024-10-31 08:04 | Outpatient (OUT) | payer OTHER, SELFPAY ==
--- OUTSIDE RECORDS SUMMARY | 2024-10-31 08:22 | XMS_ITS | CCD ---
Author Organization [facility] Care Team Providers Care Ccie Name Role Phone MD Raymundo DAILEY Attending [...] ALMANZAR LISTED Attending Unavaila ble REQUEST, DR ALMANZRA LISTED Admitting Unavaila ble SHARP, DR ALLISON [...] ., DR GRACE Procedure Practitioner Unav ailable RONAN DARIA Consulting Unavailable SHARP, DR ALLISON Gaitan [...] Facility (1 source) almotriptan Drug Allergy [facility] Repository (1 source) Perazine Drug Allergy [facility] Repository (1 source) almotriptan Drug Allergy Unknown [facility] Other (1 source) Naproxen / Pseudoephedrine Drug Allergy 08-06-[address] [facility] Other (3 sources) rizatriptan Drug Allergy 02-17-20 24 Unknown, [facility] (1 source) Allergies Reconciled Propensity to adverse reactions Unknown [facility] Other (1 source) patient allergy list reviewed by nurse or physicia Propensity to adverse reactions 04-06-20 Comment:Done [facility] Other (2 sources) almotriptan Drug Allergy 02-15-20 24 [facility] (2 sources) Sudafed Sinus 12HR Press+Pain Allergy to substance 02-15-20 [facility] Comment on above: Onset Date: 08/06/20 21 Medications Current Medications Medication Drug Class(es) Dates Sig (Normalized) Sig (Original) Losartan (5 sources) Angiotensin 2 Receptor Gil Start: 07-30-2024 Losartan 25 mg tablet Active 0 .ROUTE .COMPLEX 90 July 30, 2024 7:21am TAKE 1 TABLET DAILY Start: 02-15-2024 End: 07-30-2024 take 1 tablet by mouth once daily Losartan 25 mg tablet Discontinued 25 MG PO Daily February 14, 2024 11:00pm July 30, 2024 7:21am FreeText[employer]: TAKE 1 TABLET DAILY; Note: Source Status: Start; Refills: 3; Qty: 90 Tablet; Provider: Ganga Cooper ( ) methylPREDNISolone 4 mg oral tablet (2 sources) [...] sources) Penicillin-class Antibacterial Amoxicillin 500 MG (Prior Auth#:[id number] ) Oral for 10 Not-Taking metFORMIN hydrochloride 500 mg oral tablet (4 sources) Biguanide Start: 03-20-2024 End: 10-19-2024 take 1 tablet by mouth once daily Metformin 500 mg tablet Discontinued 0 .ROUTE .COMPLEX April 30, 2024 9:00am October 19, 2024 11:38am TAKE 1 TABLET BY MOUTH DAILY Start: 02-17-2024 End: 03-20-2024 take 1 tablet by mouth once daily Metformin 500 mg tablet Discontinued 500 MG PO Daily February 16, 2024 11:00pm March 20, 2024 2:43pm Nirmatrelvir-Ritonavir (Paxlovid) 300 mg (150 mg x 2)-100 mg tablets,dose pack (2 sources) Start: 02-15-2024 End: 02-17-2024 take 3 tablets by mouth twice daily Nirmatrelvir-Ritonavir (Paxlovid) 300 mg (150 mg x 2)-100 mg tablets,dose pack Discontinued 3 TAB PO Twice daily February 14, 2024 11:00pm February 17, 2024 8:42am [employer] tablets Orally Twice a day; Note: Source Status: Start; Refills: 0; Provider: Yazan Gaitan Start: 02-15-2024 End: 02-17-2024 take 3 tablets by mouth twice daily Nirmatrelvir-Ritonavir (Paxlovid) 300 mg (150 mg x 2)-100 mg tablets,dose pack Discontinued 3 TAB PO Twice daily February 15, 2024 12:00am February 17, 2024 9:42am [employer] tablets Orally Twice a day; Note: Source Status: Start; Refills: 0; Provider: Yazan Gaitan predniSONE 20 mg oral tablet (2 sources) predniSONE 20 MG (Prior Auth#:[id number]) Oral for 5 Not-Taking Problems Active Problems [...] conditions other than malignant neoplasm] Episodic Other and unspecified benign neoplasm (1 source) History of polyp of colon; Translations: [History of colonic polyps] 02-17-2024 Episodic Other circulatory disease (1 source) Elevated [...] fall; Translations: [History of falling] Episodic Other lower respiratory disease (1 source) Snoring; Translations: [Snoring] 02-17-2024 Episodic Other nutritional; endocrine; and metabolic disorders [...] obesity due to excess calories] Chronic Other nutritional; endocrine; and metabolic disorders (1 source) Severe obesity; Translations: [Class 3 severe obesity with body mass index (BMI) of 40.0 to 44.9 in adult] 02-17-2024 Chronic Other screening for suspected conditions (not mental disorders or infectious disease) (2 sources) Abnormal findings on diagnostic imaging of other specified body structures; Translations: [Imaging result abnormal] Onset: 06-16-2022 Chronic Other screening for suspected conditions (not mental disorders or infectious disease) (16 sources) Encounter for screening for malignant neoplasm [...] carried out because of patient refusal] Episodic Residual codes; unclassified (1 source) Family history of cancer of colon; Translations: [Family history of malignant neoplasm of digestive organs] 02-17-2024 Episodic Spondylosis; intervertebral disc disorders; other back [...] 04-29-2022 Episodic Other aftercare (1 source) 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; Translations: [OTH COURT MONITOR CURRENT DRUG THERAPY] Onset: 08-23-2022 Episodic Other [...] Test Name Value Interpretation Reference Range Facility Activated partial thrombopla stin time (aPTT) in platelet poor plasma by coagulation aon 10-15-2024 aPTT Coag (PPP) [Time] Activated partial thromboplastin time (aPTT) in platelet poor plasma by coagulation a 22.3-36.2 [facility] Basophils Auto (Bld) [#/Vol] on 10-15-2024 Basophils (Bld) [#/Vol] Automated basophil count 0.0-0.1 [facility] Basophils/100 WBC Auto (Bld) on 10-15-2024 Basophils/100 WBC (Bld) Automated basophil % 0.2-2.0 [facility] Eosinophils/100 WBC Auto (Bl d)on 10-15-2024 Eosinophils/100 WBC (Bld) Automated eosinophil % 0.9-7.0 [facility] Erythrocyte distribution wid th Auto (RBC) [Ratio]on 10-15-2024 Erythrocyte distribution width (RBC) [Ratio] Erythrocyte distribution width [Ratio] by Automated count 11.0-15.0 [facility] Estimated glomerular filtrat ion rate (GFR) non- Americanon 10-15-2024 GFR/1.73 sq M.predicted among non-blacks MDRD (S/P/Bld) [Vol rate/Area] Estimated glomerular filtration rate (GFR) non- >=60 mL/min/1.73m 2 [facility] Globulin Calc (S) [Mass/Vol] on 10-15-2024 Globulin (S) [Mass/Vol] Serum globulin measurement by calculation (mass/volume) [facility] Hematocrit Auto (Bld) [Volum e fraction]on 10-15-2024 Hematocrit (Bld) [Volume fraction] Hematocrit [Volume Fraction] of Blood by Automated count 36.0-48.0 [facility] Hemoglobin [Mass/volume] in Bloodon 10-15-2024 Hemoglobin (Bld) [Mass/Vol] Hemoglobin [Mass/volume] in Blood 12.0-16.0 [facility] INR in Platelet poor plasma by Coagulation assayon 10-15-2024 INR Coag (PPP) [Relative time] INR in Platelet poor plasma by Coagulation assay [facility] Comment on above: DESIRED INR:2.0-3.0 CONDITIONS NOT LISTED BELOW2.5-3.5 FOR PROSTHETIC HEART VALVE REPLACEMENT2.5-3.5 RECURRENT THROMBOSIS Laboratory - Chemistry and C hemistry - challengeon 10-15-2024 Albumin [Mass/Vol] 3.2 g/dL Low 3.4-5.0 [facility] ALP [Catalytic activity/Vol] 86 U/L 46-116 [facility] ALT [Catalytic activity/Vol] 26 U/L 14-59 [facility] AST [Catalytic activity/Vol] 20 U/L 15-37 [facility] Bilirubin [Mass/Vol] 0.4 mg/dL 0.2-1.0 [facility] Bilirubin.direct [Mass/Vol] 0.1 mg/dL 0.0-0.2 [facility] Calcium [Mass/Vol] 8.9 mg/dL 8.5-10.1 [facility] Chloride [Moles/Vol] 104 mmol/L 98-107 [facility] CO2 [Moles/Vol] 25.7 mmol/L 21.0-32.0 [facility] Creatinine [Mass/Vol] 0.76 mg/dL 0.55-1.02 [facility] GFR/1.73 sq M.predicted MDRD (S/P/Bld) [Vol rate/Area] mL/min/{1.73_m2} >=60 mL/min/1.73m 2 [facility] Glucose [Mass/Vol] 123 mg/dL High 74-106 [facility] Potassium [Moles/Vol] 4.0 mmol/L 3.5-5.1 [facility] Protein [Mass/Vol] 7.0 g/dL 6.4-8.2 [facility] Sodium [Moles/Vol] 140 mmol/L 136-145 [facility] Urea nitrogen [Mass/Vol] 11.0 mg/dL 7.0-18.0 [facility] Urea nitrogen/Creatinine [Mass ratio] 14.5 mg/mg [facility] Laboratory - Hematology and Cell countson 10-15-2024 Immature granulocytes/100 WBC (Bld) 0.2 % 0.0-0.5 [facility] Leukocytes [#/volume] correc pam for nucleated erythrocytes in Blood by Automated counon 10-15-2024 WBC corrected for nucl RBC Auto (Bld) [#/Vol] Leukocytes [#/volume] corrected for nucleated erythrocytes in Blood by Automated coun 4.0-11.0 [facility] Lymphocytes Auto (Bld) [#/Vo l]on 10-15-2024 Lymphocytes (Bld) [#/Vol] Lymphocytes [#/volume] in Blood by Automated count 1.2-3.8 [facility] Lymphocytes/100 WBC Auto (Bl d)on 10-15-2024 Lymphocytes/100 WBC (Bld) Lymphocytes/100 leukocytes in Blood by Automated count 20.5-60.0 [facility] MCH Auto (RBC) [Entitic mass ]on 10-15-2024 MCH (RBC) [Entitic mass] MCH [Entitic mass] by Automated count 26.7-34.0 [facility] MCHC Auto (RBC) [Mass/Vol]on 10-15-2024 MCHC (RBC) [Mass/Vol] MCHC [Mass/volume] by Automated count 29.9-35.2 [facility] MCV Auto (RBC) [Entitic vol] on 10-15-2024 MCV (RBC) [Entitic vol] MCV [Entitic volume] by Automated count 81.0-99.0 [facility] Monocytes Auto (Bld) [#/Vol] on 10-15-2024 Monocytes (Bld) [#/Vol] Automated blood monocyte count 0.3-0.8 [facility] Monocytes/100 WBC Auto (Bld) on 10-15-2024 Monocytes/100 WBC (Bld) Automated monocyte % 1.7-12.0 [facility] Neutrophils Auto (Bld) [#/Vo l]on 10-15-2024 Neutrophils (Bld) [#/Vol] Neutrophils [#/volume] in Blood by Automated count 1.4-6.5 [facility] Neutrophils/100 WBC Auto (Bl d)on 10-15-2024 Neutrophils/100 WBC (Bld) Automated neutrophil % 43.0-75.0 [facility] No Panel Informationon 10-15 Eosinophils # (Auto) 0.1 10 3/uL 0.0-0.7 [facility] Immature Granulocyte # (Auto) 0.01 10 3/uL 0.00-0.03 [facility] Platelet mean volume Auto (B ld) [Entitic vol]on 10-15-2024 Platelet mean volume (Bld) [Entitic vol] Platelet mean volume [Entitic volume] in Blood by Automated count 9.5-13.5 [facility] Platelets Auto (Bld) [#/Vol] on 10-15-2024 Platelets (Bld) [#/Vol] Platelets [#/volume] in Blood by Automated count 150-450 [facility] Prothrombin time (PT)on 09-18 PT Coag (PPP) [Time] Prothrombin time (PT) 9.0-11.6 [facility] RBC Auto (Bld) [#/Vol]on RBC (Bld) [#/Vol] Erythrocytes [#/volume] in Blood by Automated count 4.20-5.40 [facility] Serum or plasma albumin/glob ulin mass ratioon 10-15-2024 Albumin/Globulin [Mass ratio] Serum or plasma albumin/globulin mass ratio [facility] Serum or plasma anion gap de terminationon 10-15-2024 Anion gap [Moles/Vol] Serum or plasma anion gap determination [facility] Urinalysis - DIPSTICKon 04-16 Appearance (U) cloudy [email or web address] Other Bilirubin Ql (U) Negative [employer] Other Color (U) yellow [facility] Other Glucose Ql (U) Negative [email or web address] Other Hemoglobin Ql (U) trace [employer] Other Ketones Ql (U) Negative [email or web address] Other Leukocyte esterase Test strip Ql (U) moderate [facility] Other Nitrite Ql (U) Positive [email or web address] Other pH (U) 5 [pH] [facility] Other Protein Ql (U) 30+ [email or web address] Other Specific gravity (U) [Rel density] 1.005 [facility] Other Urobilinogen (U) [Mass/Vol] normal [facility] Other Urinalysis - DIPSTICK [facility] Other CBC AUTO DIFFon 02-16-2023 BASO # 0.0 103/ul Normal 0.0-0.1 [facility] Comment on above: Performed By: #### B UN, CREA #### [facility] [address] [place] [address] Dr. Luis A Solorio Basophils/100 WBC (Bld) 0.4 % Normal 0.2-2.0 [facility] Comment on above: Performed By: #### B UN, CREA #### [facility] [address] [place] [address] Dr. Luis A Solorio EO # 0.1 103/ul Normal 0.0-0.7 [facility] Comment on above: Performed By: #### B UN, CREA #### [facility] [address] [place] [address] Dr. Luis A Solorio Eosinophils/100 WBC (Bld) 1.6 % Normal 0.9-7.0 [facility] Comment on above: Performed By: #### B UN, CREA #### [facility] [address] [place] [address] Dr. Luis A Solorio Erythrocyte distribution width (RBC) [Ratio] 14.2 % Normal 11.0-15.0 [facility] Comment on above: Performed By: #### B UN, CREA #### [facility] [address] [place] [address] Dr. Luis A Solorio Hematocrit (Bld) [Volume fraction] 35.3 % Critically low 36.0-48.0 [facility] Comment on above: Performed By: #### B UN, CREA #### [facility] [address] [place] [address] Dr. Luis A Solorio Hemoglobin (Bld) [Mass/Vol] 11.2 g/dL Critically low 12.0-16.0 [facility] Comment on above: Performed By: #### B UN, CREA #### [facility] [address] [place] [address] Dr. Luis A Solorio IG # 0.01 10e3/ul Normal 0.00-0.03 [facility] Comment on above: Performed By: #### B UN, CREA #### [facility] [address] [place] [address] Dr. Luis A Solorio IG % 0.2 % Normal 0.0-0.5 [facility] Comment on above: Performed By: #### B UN, CREA #### [facility] [address] [place] [address] Dr. Luis A Solorio LYMPH # 1.8 103/ul Normal 1.2-3.8 [facility] Comment on above: Performed By: #### B UN, CREA #### [facility] [address] [place] [address] Dr. Luis A Solorio Lymphocytes/100 WBC (Bld) 37.9 % Normal 20.5-60.0 [facility] Comment on above: Performed By: #### B UN, CREA #### [facility] [address] [place] [address] Dr. Luis A Solorio MCH (RBC) [Entitic mass] 26.0 pg Critically low 26.7-34.0 [facility] Comment on above: Performed By: #### B UN, CREA #### [facility] [address] [place] [address] Dr. Luis A Solorio MCHC (RBC) [Mass/Vol] 31.7 g/dL Normal 29.9-35.2 [facility] Comment on above: Performed By: #### B UN, CREA #### [facility] [address] [place] [address] Dr. Luis A Solorio MCV (RBC) [Entitic vol] 81.9 fL Normal 81.0-99.0 [facility] Comment on above: Performed By: #### B UN, CREA #### [facility] [address] [place] [address] Dr. Luis A Solorio MONO # 0.4 103/ul Normal 0.3-0.8 [facility] Comment on above: Performed By: #### B UN, CREA #### [facility] [address] [place] [address] Dr. Luis A Solorio Monocytes/100 WBC (Bld) 8.5 % Normal 1.7-12.0 [facility] Comment on above: Performed By: #### B UN, CREA #### [facility] [address] [place] [address] Dr. Luis A Solorio NEUT # 2.5 103/ul Normal 1.4-6.5 [facility] Comment on above: Performed By: #### B UN, CREA #### [facility] [address] [place] [address] Dr. Luis A Solorio Neutrophils/100 WBC (Bld) 51.4 % Normal 43.0-75.0 [facility] Comment on above: Performed By: #### B UN, CREA #### [facility] [address] [place] [address] Dr. Luis A Solorio Platelet mean volume (Bld) [Entitic vol] 11.5 fL Normal 9.5-13.5 [facility] Comment on above: Performed By: #### B UN, CREA #### [facility] [address] [place] [address] Dr. Luis A Solorio PLT 228 103/ul Normal 150-450 [facility] Comment on above: Performed By: #### B UN, CREA #### [facility] [address] [place] [address] Dr. Luis A Solorio RBC 4.31 106/ul Normal 4.20-5.40 [facility] Comment on above: Performed By: #### B UN, CREA #### [facility] [address] [place] [address] Dr. Luis A Solorio WBC 4.9 103/ul Normal 4.0-11.0 [facility] Comment on above: Performed By: #### B UN, CREA #### [facility] [address] [place] [address] Dr. Luis A Solorio MEDHAT - TSHon 02-16-2023 TSH 1.783 uIU/mL Normal 0.358-3.740 [facility] Comment on above: Performed By: #### D ATBMP, DATTSH #### [facility] [address] [place] [address] Dr. Luis A Solorio TSH RANGE SEE BELOW Normal [facility] Comment on above: Result Comment: <0.3 4 UIU/ml HYPERTHYROID 0.34-5.60 UIU/ml EUTHYROID >5.60 UIU/ml HYPOTHYROID Performed By: #### D ATBMP, DATTSH #### [facility] [address] [place] [address] Dr. Luis A Solorio MEDHAT- BMP WITH LIPIDon 2022 Anion gap [Moles/Vol] 13.5 mmol/L Normal [facility] Comment on above: Performed By: #### D ATBMP, DATTSH #### [facility] [address] [place] [address] Dr. Luis A Solorio Calcium [Mass/Vol] 8.9 mg/dL Normal 8.5-10.1 [facility] Comment on above: Performed By: #### D ATBMP, DATTSH #### [facility] [address] [place] [address] Dr. Luis A Solorio Chloride [Moles/Vol] 103 mmol/L Normal 98-107 [facility] Comment on above: Performed By: #### D ATBMP, DATTSH #### [facility] [address] [place] [address] Dr. Luis A Solorio Cholesterol [Mass/Vol] 227 mg/dL Critically high <=200 [facility] Comment on above: Performed By: #### D ATBMP, DATTSH #### [facility] [address] [place] [address] Dr. Luis A Solorio Cholesterol in HDL [Mass/Vol] 56 mg/dL Normal 40-60 [facility] Comment on above: Performed By: #### D ATBMP, DATTSH #### [facility] [address] [place] [address] Dr. Luis A Solorio Cholesterol in LDL [Mass/Vol] 141.2 mg/dL Normal [facility] Comment on above: Performed By: #### D ATBMP, DATTSH #### [facility] [address] [place] [address] Dr. Luis A Solorio CO2 [Moles/Vol] 24.5 mmol/L Normal 21.0-32.0 [facility] Comment on above: Performed By: #### D ATBMP, DATTSH #### [facility] [address] [place] [address] Dr. Luis A Solorio Creatinine [Mass/Vol] 0.74 mg/dL Normal 0.55-1.02 [facility] Comment on above: Performed By: #### D ATBMP, DATTSH #### [facility] [address] [place] [address] Dr. Luis A Solorio EGFR-AF [place] >60 Normal >=60 [facility] Comment on above: Performed By: #### D ATBMP, DATTSH #### [facility] [address] [place] [address] Dr. Luis A Solorio EGFR-NON AF [place] >60 Normal >=60 [facility] Comment on above: Performed By: #### D ATBMP, DATTSH #### [facility] [address] [place] [address] Dr. Luis A Solorio Glucose [Mass/Vol] 94 mg/dL Normal 74-106 [facility] Comment on above: Performed By: #### D ATBMP, DATTSH #### [facility] [address] [place] [address] Dr. Luis A Solorio HDL NORMAL > or = 60 mg/dl - LOW CARDIOVASCULAR RISK <40 mg/dl - HIGH CARDIOVASCULAR RISK Normal [facility] Comment on above: Performed By: #### D ATBMP, DATTSH #### [facility] [address] [place] [address] Dr. Luis A Solorio LDL CALC NORMAL SEE BELOW Normal [facility] Comment on above: Result Comment: <100 mg/dl OPTIMAL 100 - 129 mg/dl NEAR OR ABOVE OPTIMAL 130 - 159 mg/dl BORDERLINE HIGH 160 - 189 mg/dl HIGH >190 mg/dl VERY HIGH Performed By: #### D ATBMP, DATTSH #### [facility] [address] [address] [address] Luis A Solorio Potassium [Moles/Vol] 4.0 mmol/L Normal 3.5-5.1 [facility] Comment on above: Performed By: #### D ATBMP, DATTSH #### [facility] [address] [place] [address] Dr. Luis A Solorio Sodium [Moles/Vol] 137 mmol/L Normal 136-145 [facility] Comment on above: Performed By: #### D ATBMP, DATTSH #### [facility] [address] [address] [address] Luis A Solorio Triglyceride [Mass/Vol] 149 mg/dL Normal <=150 [facility] Comment on above: Performed By: #### D ATBMP, DATTSH #### [facility] [address] [place] [address] Dr. Luis A Solorio Urea nitrogen [Mass/Vol] 13.0 mg/dL Normal 7.0-18.0 [facility] Comment on above: Performed By: #### D ATBMP, DATTSH #### [facility] [address] [place] [address] Dr. Luis A Solorio Urea nitrogen/Creatinine [Mass ratio] 17.6 mg/mg Normal [facility] Comment on above: Performed By: #### D ATBMP, DATTSH #### [facility] [address] [place] [address] Dr. Luis A Solorio VLDL CALC 29.8 mg/dL Normal [facility] Comment on above: Performed By: #### D ATBMP, DATTSH #### [facility] [address] [place] [address] Dr. Luis A Solorio GLYCOHEMOGLOBIN A1Con 2022 ADA RECOMMENDATION SEE BELOW Normal [facility] Comment on above: Result Comment: ADA RECOMMENDED LIMIT 4.0 - 6.0 ADA THERAPEUTIC TARGET < 7.0 ACTION SUGGESTED > 7.0 Performed By: #### P REGU #### [facility] [address] [address] [address] Luis A Solorio Glucose [Mass/Vol] 114 mg/dL Normal [facility] Comment on above: Performed By: #### P REGU #### [facility] [address] [address] [address] Luis A Solorio HbA1c (Bld) [Mass fraction] 5.6 % Normal 4.5-6.2 [facility] Comment on above: Performed By: #### P REGU #### [facility] [address] [place] [address] Dr. Luis A Solorio Covid-19 PCR ([facility])on 09-17 SARS-CoV-2 (COVID-19) RNA ARABELLA+probe Ql (Unsp spec) Not detected Normal NOT DETECTED [facility] Comment on above: Result Comment: When [...] for this test is supported by the [place] of Health and Human Service's declaration that [...] used). Performed By: #### P REGU #### [facility] [address] [place] [address] Dr. Luis A Solorio Operative Reporton 10-10-202 2 Operative Report [id number] Normal [facility] BUNon 07-20-2022 Urea nitrogen [Mass/Vol] 14.0 mg/dL Normal 7.0-18.0 [facility] Comment on above: Performed By: #### B UN, CREA #### [facility] [address] [place] [address] Dr. Luis A Solorio CBC AUTO DIFFon 07-20-2022 BASO # 0.0 103/ul Normal 0.0-0.1 [facility] Comment on above: Performed By: #### P REGU #### [facility] [address] [place] [address] Dr. Luis A Solorio Basophils/100 WBC (Bld) 0.1 % Critically low 0.2-2.0 [facility] Comment on above: Performed By: #### P REGU #### [facility] [address] [place] [address] Dr. Luis A Solorio EO # 0.0 103/ul Normal 0.0-0.7 [facility] Comment on above: Performed By: #### P REGU #### [facility] [address] [place] [address] Dr. Luis A Solorio Eosinophils/100 WBC (Bld) 0.0 % Critically low 0.9-7.0 [facility] Comment on above: Performed By: #### P REGU #### [facility] [address] [place] [address] Dr. Luis A Solorio Erythrocyte distribution width (RBC) [Ratio] 17.0 % Critically high 11.0-15.0 [facility] Comment on above: Performed By: #### P REGU #### [facility] [address] [place] [address] Dr. Luis A Solorio Hematocrit (Bld) [Volume fraction] 32.6 % Critically low 36.0-48.0 [facility] Comment on above: Performed By: #### P REGU #### [facility] [address] [place] [address] Dr. Luis A Solorio Hemoglobin (Bld) [Mass/Vol] 10.1 g/dL Critically low 12.0-16.0 [facility] Comment on above: Performed By: #### P REGU #### [facility] [address] [place] [address] Dr. Luis A Solorio IG # 0.05 10e3/ul Critically high 0.00-0.03 [facility] Comment on above: Performed By: #### P REGU #### [facility] [address] [place] [address] Dr. Luis A Solorio IG % 0.5 % Normal 0.0-0.5 [facility] Comment on above: Performed By: #### P REGU #### [facility] [address] [place] [address] Dr. Luis A Solorio LYMPH # 1.3 103/ul Normal 1.2-3.8 [facility] Comment on above: Performed By: #### P REGU #### [facility] [address] [place] [address] Dr. Luis A Solorio Lymphocytes/100 WBC (Bld) 12.4 % Critically low 20.5-60.0 [facility] Comment on above: Performed By: #### P REGU #### [facility] [address] [place] [address] Dr. Luis A Solorio MANUAL DIFF REQ NO Normal [facility] Comment on above: Performed By: #### P REGU #### [facility] [address] [place] [address] Dr. Luis A Solorio MCH (RBC) [Entitic mass] 25.1 pg Critically low 26.7-34.0 [facility] Comment on above: Performed By: #### P REGU #### [facility] [address] [place] [address] Dr. Luis A Solorio MCHC (RBC) [Mass/Vol] 31.0 g/dL Normal 29.9-35.2 [facility] Comment on above: Performed By: #### P REGU #### [facility] [address] [place] [address] Dr. Luis A Solorio MCV (RBC) [Entitic vol] 80.9 fL Critically low 81.0-99.0 [facility] Comment on above: Performed By: #### P REGU #### [facility] [address] [place] [address] Dr. Luis A Solorio MONO # 0.8 103/ul Normal 0.3-0.8 [facility] Comment on above: Performed By: #### P REGU #### [facility] [address] [place] [address] Dr. Luis A Solorio Monocytes/100 WBC (Bld) 7.6 % Normal 1.7-12.0 [facility] Comment on above: Performed By: #### P REGU #### [facility] [address] [place] [address] Dr. Luis A Solorio NEUT # 8.5 103/ul Critically high 1.4-6.5 [facility] Comment on above: Performed By: #### P REGU #### [facility] [address] [place] [address] Dr. Luis A Solorio Neutrophils/100 WBC (Bld) 79.4 % Critically high 43.0-75.0 [facility] Comment on above: Performed By: #### P REGU #### [facility] [address] [place] [address] Dr. Luis A Solorio Platelet mean volume (Bld) [Entitic vol] 10.7 fL Normal 9.5-13.5 [facility] Comment on above: Performed By: #### P REGU #### [facility] [address] [place] [address] Dr. Luis A Solorio PLT 237 103/ul Normal 150-450 [facility] Comment on above: Performed By: #### P REGU #### [facility] [address] [place] [address] Dr. Luis A Solorio RBC 4.03 106/ul Critically low 4.20-5.40 [facility] Comment on above: Performed By: #### P REGU #### [facility] [address] [place] [address] Dr. Luis A Solorio WBC 10.7 103/ul Normal 4.0-11.0 [facility] Comment on above: Performed By: #### P REGU #### [facility] [address] [place] [address] Dr. Luis A Solorio CREATININEon 07-20-2022 Creatinine [Mass/Vol] 0.99 mg/dL Normal 0.55-1.02 [facility] Comment on above: Performed By: #### B UN, CREA #### [facility] [address] [place] [address] Dr. Luis A Solorio EGFR-AF COSTA RICAN >60 Normal >=60 [facility] Comment on above: Performed By: #### B UN, CREA #### [facility] [address] [place] [address] Dr. Luis A Solorio EGFR-NON AF [place] R[place] >60 Normal >=60 [facility] Comment on above: Performed By: #### B UN, CREA #### [facility] [address] [place] [address] Dr. Luis A Solorio CBC AUTO DIFFon 07-19-2022 BASO # 0.0 103/ul Normal 0.0-0.1 [facility] Comment on above: Performed By: #### C BC #### [facility] [address] [place] [address] Dr. Luis A Solorio Basophils/100 WBC (Bld) 0.4 % Normal 0.2-2.0 [facility] Comment on above: Performed By: #### C BC #### [facility] [address] [place] [address] Dr. Luis A Solorio EO # 0.1 103/ul Normal 0.0-0.7 [facility] Comment on above: Performed By: #### C BC #### [facility] [address] [place] [address] Dr. Luis A Solorio Eosinophils/100 WBC (Bld) 2.4 % Normal 0.9-7.0 [facility] Comment on above: Performed By: #### C BC #### [facility] [address] [place] [address] Dr. Luis A Solorio Erythrocyte distribution width (RBC) [Ratio] 16.4 % Critically high 11.0-15.0 [facility] Comment on above: Performed By: #### C BC #### [facility] [address] [place] [address] Dr. Luis A Solorio Hematocrit (Bld) [Volume fraction] 36.9 % Normal 36.0-48.0 [facility] Comment on above: Performed By: #### C BC #### [facility] [address] [place] [address] Dr. Luis A Solorio Hemoglobin (Bld) [Mass/Vol] 11.5 g/dL Critically low 12.0-16.0 [facility] Comment on above: Performed By: #### C BC #### [facility] [address] [place] [address] Dr. Luis A Solorio IG # 0.01 10e3/ul Normal 0.00-0.03 [facility] Comment on above: Performed By: #### C BC #### [facility] [address] [place] [address] Dr. Luis A Solorio IG % 0.2 % Normal 0.0-0.5 [facility] Comment on above: Performed By: #### C BC #### [facility] [address] [place] [address] Dr. Luis A Solorio LYMPH # 2.3 103/ul Normal 1.2-3.8 [facility] Comment on above: Performed By: #### C BC #### [facility] [address] [place] [address] Dr. Luis A Solorio Lymphocytes/100 WBC (Bld) 46.0 % Normal 20.5-60.0 [facility] Comment on above: Performed By: #### C BC #### [facility] [address] [place] [address] Dr. Luis A Solorio MANUAL DIFF REQ NO Normal [facility] Comment on above: Performed By: #### C BC #### [facility] [address] [place] [address] Dr. Luis A Solorio MCH (RBC) [Entitic mass] 25.3 pg Critically low 26.7-34.0 [facility] Comment on above: Performed By: #### C BC #### [facility] [address] [place] [address] Dr. Luis A Solorio MCHC (RBC) [Mass/Vol] 31.2 g/dL Normal 29.9-35.2 [facility] Comment on above: Performed By: #### C BC #### [facility] [address] [place] [address] Dr. Luis A Solorio MCV (RBC) [Entitic vol] 81.1 fL Normal 81.0-99.0 [facility] Comment on above: Performed By: #### C BC #### [facility] [address] [place] [address] Dr. Luis A Solorio MONO # 0.5 103/ul Normal 0.3-0.8 [facility] Comment on above: Performed By: #### C BC #### [facility] [address] [place] [address] Dr. Luis A Solorio Monocytes/100 WBC (Bld) 10.5 % Normal 1.7-12.0 [facility] Comment on above: Performed By: #### C BC #### [facility] [address] [place] [address] Dr. Luis A Solorio NEUT # 2.0 103/ul Normal 1.4-6.5 [facility] Comment on above: Performed By: #### C BC #### [facility] [address] [place] [address] Dr. Luis A Solorio Neutrophils/100 WBC (Bld) 40.5 % Critically low 43.0-75.0 [facility] Comment on above: Performed By: #### C BC #### [facility] [address] [place] [address] Dr. Luis A Solorio Platelet mean volume (Bld) [Entitic vol] 10.4 fL Normal 9.5-13.5 [facility] Comment on above: Performed By: #### C BC #### [facility] [address] [place] [address] Dr. Luis A Solorio PLT 236 103/ul Normal 150-450 [facility] Comment on above: Performed By: #### C BC #### [facility] [address] [place], [place] [address] Dr. Luis A Solorio RBC 4.55 106/ul Normal 4.20-5.40 [facility] Comment on above: Performed By: #### C BC #### [facility] [address] [place], [place] [address] Dr. Luis A Solorio WBC 4.9 103/ul Normal 4.0-11.0 [facility] Comment on above: Performed By: #### C BC #### [facility] [address] [place], [place] [address] Dr. Luis A Solorio PREG HCG QUALon 07-19-2022 , QUAL Negative Normal NEGATIVE [facility] Comment on above: Performed By: #### P REG #### [facility] [address] [address] [address] Luis A Solorio [facility]18 SARS-CoV-2 (COVID-19) RNA ARABELLA+probe Ql (Unsp spec) Not detected Normal NOT DETECTED [facility] Comment on above: Result Comment: This test is not yet approved or cleared by the [place] FDA. When there are no FDA-approved or cleared tests available, and other criteria are met, FDA can make tests available under an emergency access mechanism called an Emergency Use Authorization (EUA). The EUA for this test is supported by the Project Financial Analyst of Health and Human Service's (HHS's) declaration [...] SARS-CoV-2. Performed By: #### P REGU #### [facility] [address] [place], [place] [address] Dr. Luis A Solorio Pre-Certification Formon Pre-Certification Form [id number] 7#1.00CD:127 Normal [facility] TYPE AND SCREENon 07-15-2022 TYPE AND SCREEN Negative Normal [facility] Comment on above: Performed By: #### P REGU #### [facility] [address] [place] [address] [address] [address] Luis A Solorio Physician Referralon 022 Physician Referral [id number] #1.00CD:127 Normal [facility] URon 06-11-2022 , QUAL Negative Normal NEGATIVE [facility] Comment on above: Performed By: #### P REGU #### [facility] [address] [place] [address] [address] [address] Luis A Solorio Covid-19 PCR ([facility])on 05-17 SARS-CoV-2 (COVID-19) RNA ARABELLA+probe Ql (Unsp spec) Not detected Normal NOT DETECTED [facility] Comment on above: Result Comment: This test is not yet approved or cleared by the [place] FDA. When there are no FDA-approved or cleared tests available, and other criteria are met, FDA can make tests available under an emergency access mechanism called an Emergency Use Authorization (EUA). The EUA for this test is supported by the [place] of Health and Human Service's (HHS's) declaration [...] SARS-CoV-2. Performed By: #### P REGU #### [facility] [address] [place] [address] Dr. Luis A Solorio CBC AUTO DIFFon 05-28-2022 BASO # 0.0 103/ul Normal 0.0-0.1 [facility] Comment on above: Performed By: #### B UN, CREA #### [facility] [address] [place] [address] Dr. Luis A Solorio Basophils/100 WBC (Bld) 0.4 % Normal 0.2-2.0 [facility] Comment on above: Performed By: #### B UN, CREA #### [facility] [address] [place] [address] Dr. Luis A Solorio EO # 0.1 103/ul Normal 0.0-0.7 [facility] Comment on above: Performed By: #### B UN, CREA #### [facility] [address] [place] [address] Dr. Luis A Solorio Eosinophils/100 WBC (Bld) 2.0 % Normal 0.9-7.0 [facility] Comment on above: Performed By: #### B UN, CREA #### [facility] [address] [place] [address] Dr. Luis A Solorio Erythrocyte distribution width (RBC) [Ratio] 19.9 % Critically high 11.0-15.0 [facility] Comment on above: Performed By: #### B UN, CREA #### [facility] [address] [place] [address] Dr. Luis A Solorio Hematocrit (Bld) [Volume fraction] 35.0 % Critically low 36.0-48.0 [facility] Comment on above: Performed By: #### B UN, CREA #### [facility] [address] [place] [address] Dr. Luis A Solorio Hemoglobin (Bld) [Mass/Vol] 10.6 g/dL Critically low 12.0-16.0 [facility] Comment on above: Performed By: #### B UN, CREA #### [facility] [address] [place] [address] Dr. Luis A Solorio IG # 0.01 10e3/ul Normal 0.00-0.03 [facility] Comment on above: Performed By: #### B UN, CREA #### [facility] [address] [place] [address] Dr. Luis A Solorio IG % 0.2 % Normal 0.0-0.5 [facility] Comment on above: Performed By: #### B UN, CREA #### [facility] [address] [place] [address] Dr. Luis A Solorio LYMPH # 1.8 103/ul Normal 1.2-3.8 [facility] Comment on above: Performed By: #### B UN, CREA #### [facility] [address] [place] [address] Dr. Luis A Solorio Lymphocytes/100 WBC (Bld) 35.7 % Normal 20.5-60.0 [facility] Comment on above: Performed By: #### B UN, CREA #### [facility] [address] [place] [address] Dr. Luis A Solorio MANUAL DIFF REQ NO Normal [facility] Comment on above: Performed By: #### B UN, CREA #### [facility] [address] [place] [address] Dr. Luis A Solorio MCH (RBC) [Entitic mass] 23.5 pg Critically low 26.7-34.0 [facility] Comment on above: Performed By: #### B UN, CREA #### [facility] [address] [place] [address] Dr. Luis A Solorio MCHC (RBC) [Mass/Vol] 30.3 g/dL Normal 29.9-35.2 [facility] Comment on above: Performed By: #### B UN, CREA #### [facility] [address] [place] [address] Dr. Luis A Solorio MCV (RBC) [Entitic vol] 77.6 fL Critically low 81.0-99.0 [facility] Comment on above: Performed By: #### B UN, CREA #### [facility] [address] [place] [address] Dr. Luis A Solorio MONO # 0.5 103/ul Normal 0.3-0.8 [facility] Comment on above: Performed By: #### B UN, CREA #### [facility] [address] [place] [address] Dr. Luis A Solorio Monocytes/100 WBC (Bld) 9.7 % Normal 1.7-12.0 [facility] Comment on above: Performed By: #### B UN, CREA #### [facility] [address] [place] [address] Dr. Luis A Solorio NEUT # 2.6 103/ul Normal 1.4-6.5 [facility] Comment on above: Performed By: #### B UN, CREA #### [facility] [address] [place] [address] Dr. Luis A Solorio Neutrophils/100 WBC (Bld) 52.0 % Normal 43.0-75.0 [facility] Comment on above: Performed By: #### B UN, CREA #### [facility] [address] [place] [address] Dr. Luis A Solorio Platelet mean volume (Bld) [Entitic vol] 10.3 fL Normal 9.5-13.5 [facility] Comment on above: Performed By: #### B UN, CREA #### [facility] [address] [place] [address] Dr. Luis A Solorio PLT 236 103/ul Normal 150-450 [facility] Comment on above: Performed By: #### B UN, CREA #### [facility] [address] [place] [address] Dr. Luis A Solorio RBC 4.51 106/ul Normal 4.20-5.40 [facility] Comment on above: Performed By: #### B UN, CREA #### [facility] [address] [place] [address] Dr. Luis A Solorio WBC 4.9 103/ul Normal 4.0-11.0 [facility] Comment on above: Performed By: #### B UN, CREA #### [facility] [address] [place] [address] Dr. Luis A Solorio US VAC ASST BX BREAST RT W C LIPon 05-07-2022 US VAC ASST BX BREAST RT W CLIP Begin Addendum #1 DATE/TIME COLLECTED: 05/03/2022, 09:17 EDT Final Diagnosis Report for THE [facility] [place] [place] RIGHT BREAST 11 O'CLOCK MASS; BIOPSY: [...] after pathology results are available. Normal [facility] US PELVIS AND TRANSVAGon US PELVIS [...] by: [place] Date: 2022-05-04 22:08 Normal [facility] PAP ACOG PANEL 2: 30 to 65on 05-04-2022 . . Normal [facility] Comment on above: Result Comment: Perf ormed at: WB Performed By: #### B UN, CREA #### [facility] [address] [address] [address] Luis A Solorio Age Gdln ACOG Testing 30-65 Normal [facility] Comment on above: Performed By: #### B UN, CREA #### [facility] [address] [address] [address] Luis A Solorio DIAGNOSIS: Comment Normal [facility] Comment on above: Result Comment: NEGA TIVE FOR INTRAEPITHELIAL LESION OR MALIGNANCY. Performed at: WB Performed By: #### B UN, CREA #### [facility] [address] [address] [address] Luis A Solorio HPV Aptima Negative Normal Negative [facility] Comment on above: Result Comment: This nucleic acid amplification test detects fourteen high-risk HPV types (16,18,31,33,35,39,45,51,52,56,58,59,66,68) without differentiation. Performed at: =G Performed By: #### B UN, CREA #### [facility] [address] [address] [address] Luis A Solorio Methodology: Comment Normal [facility] Comment on above: Result Comment: This liquid based ThinPrep(R) pap test was screened with the use of an image guided system. Performed at: WB Performed By: #### B UN, CREA #### [facility] [address] [place] [address] Dr. Luis A Solorio Note: Comment Normal [facility] Comment on above: Result Comment: The [...] Performed By: #### B UN, CREA #### [facility] [address] [address] [address] Luis A Solorio Performed by: Comment Normal [facility] Comment on above: Result Comment: Lisbet Springer, Joint Machine Operator (ASCP) Performed at: WB Performed By: #### B UN, CREA #### [facility] [address] [address] [address] Luis A Solorio Specimen adequacy: Comment Normal [facility] Comment on above: Result Comment: Sati sfactory for evaluation. Endocervical and/or squamous metaplastic cells (endocervical component) are present. Performed at: WB Performed By: #### B UN, CREA #### [facility] [address] [place] [address] Dr. Luis A Solorio MAMMO POST BIOPSY RIGHTon MAMMO POST BIOPSY RIGHT Patient: YOLANDA MARQUEZ. Exam Date: 05/03/2022 : 1975 Gender:F Ordering : DR ALLISON SHARP M.D. Admission #: [id number] Family : Order #: [id number] CLICK HERE TO VIEW EXAM RADIOLOGY REPORT [...] Wooten M.D. on 05/03/2022 at 09:50 Normal [facility] MG MAMM RT DIAG FUon 022 MG MAMM RT DIAG FU Patient: YOLANDA MARQUEZ Exam Date: 04/23/2022 : 1975 Gender:F Ordering : DR ALLISON SHARP M.D. Admission #: [id number] Family : Order #: [id number] CLICK HERE TO VIEW EXAM RADIOLOGY REPORT [...] Treatments None Family Cancers None LOCATION: [facility] BREAST COMPOSITION: Heterogeneously dense,which may obscure [...] M.D. on 04/23/2022 at 09:37 Normal [facility] US BREAST RIGHT LIMITEDon US BREAST RIGHT LIMITED Patient: YOLANDA MARQUEZ Exam Date: 04/23/2022 : 1975 Gender:F Ordering : DR ALLISON SHARP M.D. Admission #: [id number] Family : Order #: [id number] CLICK HERE TO VIEW EXAM RADIOLOGY REPORT [...] Treatments None Family Cancers None LOCATION: [facility] BREAST COMPOSITION: Heterogeneously dense,which may obscure [...] Wooten M.D. on 04/23/2022 at 09:37 Normal [facility] MG MAMM SCREEN 3D AYUSH CADon 04-14-2022 MG MAMM SCREEN 3D AYUSH CAD Patient: YOLANDA MARQUEZ Exam Date: 04/14/2022 : 1975 Gender:F Ordering : DR ALLISON SHARP M.D. Admission #: [id number] Family : Order #: [id number] CLICK HERE TO VIEW EXAM RADIOLOGY REPORT PROCEDURE: MAMMOGRAM SCREENING 3D BILATERAL CAD COMPARISON: None. INDICATIONS: Screening mammography Calculator Name NCI Breast Cancer Risk Assessment Tool 5 Year Breast Cancer Risk Not Reported. Lifetime Breast Cancer Risk Not Reported. Personal Breast Cancer No Personal Ovarian Cancer No Treatments None Family Cancers None LOCATION: [facility] BREAST COMPOSITION: Heterogeneously dense,which may obscure [...] Schwab MD on 04/14/2022 at 10:03 Normal [facility] CBC AUTO DIFFon 04-02-2022 BASO # 0.0 103/ul Normal 0.0-0.1 [facility] Comment on above: Performed By: #### C BC #### [facility] [address] [place] [address] Dr. Luis A Solorio Basophils/100 WBC (Bld) 0.4 % Normal 0.2-2.0 [facility] Comment on above: Performed By: #### C BC #### [facility] [address] [place] [address] Dr. Luis A Solorio EO # 0.1 103/ul Normal 0.0-0.7 [facility] Comment on above: Performed By: #### C BC #### [facility] [address] [place] [address] Dr. Luis A Solorio Eosinophils/100 WBC (Bld) 2.6 % Normal 0.9-7.0 [facility] Comment on above: Performed By: #### C BC #### [facility] [address] [place] [address] Dr. Luis A Solorio Erythrocyte distribution width (RBC) [Ratio] 16.0 % Critically high 11.0-15.0 [facility] Comment on above: Performed By: #### C BC #### [facility] [address] [place] [address] Dr. Luis A Solorio Hematocrit (Bld) [Volume fraction] 30.2 % Critically low 36.0-48.0 [facility] Comment on above: Performed By: #### C BC #### [facility] [address] [place] [address] Dr. Luis A Solorio Hemoglobin (Bld) [Mass/Vol] 8.8 g/dL Critically low 12.0-16.0 [facility] Comment on above: Performed By: #### C BC #### [facility] [address] [place] [address] Dr. Luis A Solorio IG # 0.02 10e3/ul Normal 0.00-0.03 [facility] Comment on above: Performed By: #### C BC #### [facility] [address] [place] [address] Dr. Luis A Solorio IG % 0.4 % Normal 0.0-0.5 [facility] Comment on above: Performed By: #### C BC #### [facility] [address] [place] [address] Dr. Luis A Solorio LYMPH # 1.7 103/ul Normal 1.2-3.8 [facility] Comment on above: Performed By: #### C BC #### [facility] [address] [place] [address] Dr. Luis A Solorio Lymphocytes/100 WBC (Bld) 36.6 % Normal 20.5-60.0 [facility] Comment on above: Performed By: #### C BC #### [facility] [address] [place] [address] Dr. Luis A Solorio MANUAL DIFF REQ NO Normal [facility] Comment on above: Performed By: #### C BC #### [facility] [address] [place] [address] Dr. Luis A Solorio MCH (RBC) [Entitic mass] 21.9 pg Critically low 26.7-34.0 [facility] Comment on above: Performed By: #### C BC #### [facility] [address] [place] [address] Dr. Luis A Solorio MCHC (RBC) [Mass/Vol] 29.1 g/dL Critically low 29.9-35.2 [facility] Comment on above: Performed By: #### C BC #### [facility] [address] [place] [address] Dr. Luis A Solorio MCV (RBC) [Entitic vol] 75.1 fL Critically low 81.0-99.0 [facility] Comment on above: Performed By: #### C BC #### [facility] [address] [place] [address] Dr. Luis A Solorio MONO # 0.5 103/ul Normal 0.3-0.8 [facility] Comment on above: Performed By: #### C BC #### [facility] [address] [address] [address] Luis A Solorio Monocytes/100 WBC (Bld) 10.8 % Normal 1.7-12.0 [facility] Comment on above: Performed By: #### C BC #### [facility] [address] [place] [address] Dr. Luis A Solorio NEUT # 2.3 103/ul Normal 1.4-6.5 [facility] Comment on above: Performed By: #### C BC #### [facility] [address] [place] [address] Dr. Luis A Solorio Neutrophils/100 WBC (Bld) 49.2 % Normal 43.0-75.0 [facility] Comment on above: Performed By: #### C BC #### [facility] [address] [place] [address] Dr. Luis A Solorio Platelet mean volume (Bld) [Entitic vol] 10.0 fL Normal 9.5-13.5 [facility] Comment on above: Performed By: #### C BC #### [facility] [address] [place] [address] Dr. Luis A Solorio PLT 280 103/ul Normal 150-450 [facility] Comment on above: Performed By: #### C BC #### [facility] [address] [place] [address] Dr. Luis A Solorio RBC 4.02 106/ul Critically low 4.20-5.40 [facility] Comment on above: Performed By: #### C BC #### [facility] [address] [place] [address] Dr. Luis A Solorio WBC 4.6 103/ul Normal 4.0-11.0 [facility] Comment on above: Performed By: #### C BC #### [facility] [address] [address] [address] Luis A Solorio GLYCOHEMOGLOBIN A1Con 2021 ADA RECOMMENDATION SEE BELOW Normal [facility] Comment on above: Result Comment: ADA RECOMMENDED LIMIT 4.0 - 6.0 ADA THERAPEUTIC TARGET < 7.0 ACTION SUGGESTED > 7.0 Performed By: #### B UN, CREA #### [facility] [address] [place] [address] Dr. Luis A Solorio Glucose [Mass/Vol] 131 mg/dL Normal [facility] Comment on above: Performed By: #### B UN, CREA #### [facility] [address] [place] [address] Dr. Luis A Solorio HbA1c (Bld) [Mass fraction] 6.2 % Normal 4.5-6.2 [facility] Comment on above: Performed By: #### B UN, CREA #### [facility] [address] [place] [address] Dr. Luis A Solorio LIPID PROFILEon 04-02-2022 CHOL-HDL RATIO NORM SEE BELOW Normal [facility] Comment on above: Result Comment: 3.3 - 4.4 LOW RISK 4.4 - 7.1 AVERAGE RISK 7.1 - 11.0 MODERATE RISK >11.0 HIGH RISK Performed By: #### T SH, LIPID, CMP #### [facility] [address] [place] [address] Dr. Luis A Solorio Cholesterol [Mass/Vol] 215 mg/dL Critically high <=200 [facility] Comment on above: Performed By: #### T SH, LIPID, CMP #### [facility] [address] [place] [address] Dr. Luis A Solorio Cholesterol in HDL [Mass/Vol] 46 mg/dL Normal 40-60 [facility] Comment on above: Performed By: #### T SH, LIPID, CMP #### [facility] [address] [place] [address] Dr. Luis A Solorio Cholesterol in LDL [Mass/Vol] 138.2 mg/dL Normal [facility] Comment on above: Performed By: #### T SH, LIPID, CMP #### [facility] [address] [place] [address] Dr. Luis A Solorio Cholesterol.total/Ch olesterol in HDL [Mass ratio] 4.7 {ratio} Normal [facility] Comment on above: Performed By: #### T ROCAEL, LIPID, CMP #### [facility] [address] [address] [address] Luis A Solorio HDL NORMAL > or = 60 mg/dl - LOW CARDIOVASCULAR RISK <40 mg/dl - HIGH CARDIOVASCULAR RISK Normal [facility] Comment on above: Performed By: #### T ROCAEL, LIPID, CMP #### [facility] [address] [address] [address] Luis A Solorio LDL CALC NORMAL SEE BELOW Normal [facility] Comment on above: Result Comment: <100 mg/dl OPTIMAL 100 - 129 mg/dl NEAR OR ABOVE OPTIMAL 130 - 159 mg/dl BORDERLINE HIGH 160 - 189 mg/dl HIGH >190 mg/dl VERY HIGH Performed By: #### T ROCAEL, LIPID, CMP #### [facility] [address] [address] [address] Luis A Solorio Triglyceride [Mass/Vol] 154 mg/dL Critically high <=150 [facility] Comment on above: Performed By: #### T ROCAEL, LIPID, CMP #### [facility] [address] [address] [address] LuisA Solorio VLDL CALC 30.8 mg/dL Normal [facility] Comment on above: Performed By: #### T ROCAEL, LIPID, CMP #### [facility] [address] [place] [address] Dr. Luis A Solorio PROF 14(COMP METB)on 022 Albumin [Mass/Vol] 3.2 g/dL Critically low 3.4-5.0 [facility] e [facility] Comment on above: Performed By: #### P REGU #### [facility] [address] [place] [address] Dr. Luis A Solorio Albumin/Globulin [Mass ratio] 0.8 {ratio} Normal [facility] Comment on above: Performed By: #### P REGU #### [facility] [address] [place] [address] Dr. Luis A Solorio ALP [Catalytic activity/Vol] 83 U/L Normal 46-116 [facility] Comment on above: Performed By: #### P REGU #### [facility] [address] [address] [address] Luis A Solorio ALT [Catalytic activity/Vol] 34 U/L Normal 14-59 [facility] Comment on above: Performed By: #### P REGU #### [facility] [address] [address] [address] Luis A Solorio Anion gap [Moles/Vol] 13.5 mmol/L Normal [facility] Comment on above: Performed By: #### P REGU #### [facility] [address] [place] [address] Dr. Luis A Solorio AST [Catalytic activity/Vol] 24 U/L Normal 15-37 [facility] Comment on above: Performed By: #### P REGU #### [facility] [address] [place] [address] Dr. Luis A Solorio Bilirubin [Mass/Vol] 0.3 mg/dL Normal 0.2-1.0 [facility] Comment on above: Performed By: #### P REGU #### [facility] [address] [place] [address] Dr. Luis A Solorio Calcium [Mass/Vol] 8.5 mg/dL Normal 8.5-10.1 [facility] Comment on above: Performed By: #### P REGU #### [facility] [address] [place] [address] Dr. Luis A Solorio Chloride [Moles/Vol] 105 mmol/L Normal 98-107 [facility] Comment on above: Performed By: #### P REGU #### [facility] [address] [place] [address] Dr. Luis A Solorio CO2 [Moles/Vol] 23.7 mmol/L Normal 21.0-32.0 [facility] Comment on above: Performed By: #### P REGU #### [facility] [address] [place] [address] Dr. Luis A Solorio Creatinine [Mass/Vol] 0.74 mg/dL Normal 0.55-1.02 [facility] Comment on above: Performed By: #### P REGU #### [facility] [address] [address] [address] Luis A Solorio EGFR-AF [place] >60 Normal >=60 [facility] Comment on above: Performed By: #### P REGU #### [facility] [address] [address] [address] Luis A Solorio EGFR-NON AF [place] >60 Normal >=60 [facility] Comment on above: Performed By: #### P REGU #### [facility] [address] [address] [address] Luis A Solorio Globulin (S) [Mass/Vol] 3.8 g/dL Normal [facility] Comment on above: Performed By: #### P REGU #### [facility] [address] [address] [address] Luis A Solorio Glucose [Mass/Vol] 122 mg/dL Critically high 74-106 [facility] Comment on above: Performed By: #### P REGU #### [facility] [address] [address] [address] Luis A Solorio Potassium [Moles/Vol] 4.2 mmol/L Normal 3.5-5.1 [facility] Comment on above: Performed By: #### P REGU #### [facility] [address] [address] [address] Luis A Solorio Protein [Mass/Vol] 7.0 g/dL Normal 6.4-8.2 [facility] Comment on above: Performed By: #### P REGU #### [facility] [address] [address] [address] Luis A Solorio Sodium [Moles/Vol] 138 mmol/L Normal 136-145 [facility] Comment on above: Performed By: #### P REGU #### [facility] [address] [address] [address] Luis A Solorio Urea nitrogen [Mass/Vol] 15.0 mg/dL Normal 7.0-18.0 [facility] Comment on above: Performed By: #### P REGU #### [facility] [address] [address] [address] Luis A Solorio Urea nitrogen/Creatinine [Mass ratio] 20.3 mg/mg Normal [facility] Comment on above: Performed By: #### P REGU #### [facility] [address] [place], [place] [address] Dr. Luis A Solorio TSHon 04-02-2022 TSH 1.449 uIU/mL Normal 0.358-3.740 [facility] Comment on above: Performed By: #### T SH, LIPID, CMP #### [facility] [id number] Luis A Solorio Vital Signs Date Time Vital Sign Value Performing Clinician Faci lity 10-19-2024 11:32-0500 Body height 170.18 cm [facility] 10-19-2024 11:32-0500 Body mass index (BMI) [Ratio] 44.9 kg/m2 [facility] 10-19-2024 11:32-0500 Body weight 130.18 kg [facility] 10-19-2024 11:32-0500 Diastolic blood pressure 87 mm[Hg] [facility] 10-19-2024 11:32-0500 Heart rate 94 /min [facility] 10-19-2024 11:32-0500 Systolic blood pressure 133 mm[Hg] [facility] 06-20-2024 14:02-0400 Body height 170.2 cm Johny Lucas DO Work Phone: [facility] 06-20-2024 14:02-0400 Body mass index (BMI) [Ratio] 42.29 kg/m2 Johny Lucas DO Work Phone: [facility] 06-20-2024 14:02-040 Body weight 122.47 kg Johny Lucas DO Work Phone: [facility] 06-20-2024 14:02-0400 Diastolic blood pressure 92 mm[Hg] Johny Lucas DO Work Phone: [facility] 06-20-2024 14:02-0400 Heart rate 76 /min Johny Lucas DO Work Phone: [facility] 06-20-2024 14:02-0400 SaO2% (BldA) [Mass fraction] 97 % Johny Lucas DO Work Phone: [facility] 06-20-2024 14:02-0400 Systolic blood pressure 144 mm[Hg] Johny Lucas DO Work Phone: [facility] 02-17-2024 09:36-0400 Body height 170.18 cm [facility] 02-17-2024 09:36-0400 Body mass index (BMI) [Ratio] 43.4 kg/m2 [facility] 02-17-2024 09:36-0400 Body weight 125.64 kg [facility] 02-17-2024 09:36-0400 Diastolic blood pressure 86 mm[Hg] [facility] 02-17-2024 09:36-0400 Heart rate 61 /min [facility] 02-17-2024 09:36-0400 Systolic blood pressure 149 mm[Hg] [facility] Encounters Encounter Date Encounter Type Care Provider Facility Start: 10-19-2024 End: 10-19-2024 ambulatory [facility] Work Phone: Start: 10-19-2024 End: 10-19-2024 Patient encounter procedure [facility] Work Phone: Start: 10-15-2024 Non-patient / Non-visit [facility] Work Phone: Start: 09-17-2024 ambulatory [place] Start: 06-20-2024 End: 06-20-2024 Bamboo flowsheet Johny Lucas DO Work Phone: [facility] Start: 06-20-2024 End: 06-20-2024 Bamboo flowsheet Johny Lucas DO Work Phone: [facility] Start: 06-20-2024 End: 06-20-2024 Office consultation new/estab patient 60 min Johny Osuna DO Work Phone: [facility] Comment on above: NILTON (obstructive sle ep apnea); Hypersomnia; Sleep deprivation; Hypoxia; Inadequate sleep hygiene Start: 06-20-2024 End: 06-20-2024 ambulatory JOHNY OSUNA Not Available Start: 02-17-2024 Patient encounter status [facility] Start: 02-17-2024 End: 02-17-2024 ambulatory [facility] Work Phone: Start: 02-17-2024 End: 02-17-2024 Encounter for general adult medical examination without abnormal findings [facility] Start: 02-17-2024 End: 02-17-2024 Patient encounter procedure [facility] Work Phone: Start: 06-24-2023 End: 06-24-2023 ambulatory Arley Hand Other [facility] Other Start: 06-24-2023 Office outpatient vi sit 15 minutes Arley Hand [facility] Start: 04-27-2023 End: 04-27-2023 ambulatory Allison Sharp Other [facility] Other Start: 04-27-2023 Nursing evaluation o f patient and report Allison Sharp [facility] Start: 02-16-2023 End: 02-17-2023 ambulatory NONE LISTED REQUEST Facility:[facility] Start: 10-06-2022 Adult health examination Ronak dustin Yazan Other [facility] Other Start: 10-06-2022 Gynecological examin ation normal Arley Hand Other [facility] Other Start: 10-06-2022 Pre-procedure evalua tion check Arley Hand Other [facility] Other Start: 10-05-2022 End: 10-05-[address] ALLISON SHARP Facility:[facility] Start: 07-19-2022 End: 07-20-2022 ambulatory MD Raymundo DAILEY Facility:CD:[id number] Start: 07-19-2022 End: 07-21-2022 Evaluation and management of inpatient DR ALLISON SHARP Facility:[facility] Start: 07-17-2022 Encounter for preprocedural laboratory examination DR HUYEN GILL . [facility] Start: 07-17-[address] ALLISON SHARP [facility] ity:[facility] Start: 07-15-2022 End: 07-16-[address] ALLISON SHARP Facility:[facility] Start: 07-15-2022 End: 07-16-2022 Encounter for preprocedural laboratory examination DR ALLISON SHARP Facility:[facility] Start: 07-14-2022 End: 07-14-[address] ALLISON SHARP Facility:[facility] Start: 07-06-2022 Encounter for other preprocedural examination DR HUYEN GILL . [facility] Start: 07-05-2022 End: 07-06-[address] ALLISON SHARP Facility:[facility] Start: 07-05-2022 End: 07-06-2022 Encounter for other preprocedural examination DR ALLISON SHARP Facility:[facility] Start: 06-25-2022 ambulatory MD Raymundo DAILEY [facility] ity:[facility] Start: 06-11-2022 End: 06-11-[address] ALLISON SHARP Facility:[facility] Start: 06-04-2022 End: 06-05-[address] ALLISON SHARP Facility:[facility] Start: 05-31-2022 Encounter for preprocedural cardiovascular examination DR HUYEN GILL . [facility] Start: 05-28-2022 End: 05-29-[address] ALLISON SHARP Facility:[facility] Start: 05-03-2022 End: 05-04-[address] ALLISON SHARP Facility:[facility] Start: 04-30-2022 End: 04-30-[address] ALLISON SHARP Facility:[facility] Start: 04-23-2022 End: 04-24-[address] ALLISON SHARP Facility:[facility] Start: 04-14-2022 End: 04-15-[address] ALLISON SHARP Facility:[facility] Start: 04-06-2022 Encounter for genera l adult medical examination without abnormal findings DR ALLISON SHARP [facility] Start: 04-02-2022 End: 04-03-[address] [...] procedure 06/20/2024 2:00 PM EDT Office Visit [facility] [address] [address] Johny Osuna DO [address] [place] [address] Arrived [facility] Comment on above: Arrived MG Breast - bilatera l Screening [facility] Payers Date Payer Category Payer Private Health Insurance [id number] 2009 Managed Care HMO (unspecified) ENID ROSSI [id number] 2009-Present [address] [place] [address] HMO [id number] 1977 Unknown [id number] [id number] .727 1977 Unknown [id number] 2.16.840.1.978043.3.579.2 .593 1977 Unknown [id number] 2.16.840.1.050467.3.579.2 .593 1977 Unknown [id number] 2.16.840.1.886396.3.579.2 .593 1977 Unknown [id number] 2.16.840.1.325424.3.579.2 .593 1977 Unknown [id number] 2.16.840.1.390358.3.579.2 .59 1977 Unknown [id number] 2.16.840.1.496766.3.579.2 .593 1977 Unknown [id number] 2.16.840.1.486819.3.579.2 .59 1977 Unknown [id number] 2.16.840.1.080991.3.579.2 .593 1977 Unknown [id number] 2.16.840.1.188778.3.579.2 .59 1977 Unknown [id number] 2.16.840.1.761016.3.579.2 .593 1977 Unknown [id number] 2.16.840.1.545825.3.579.2 .59 1977 Unknown [id number] 2.16.840.1.534160.3.579.2 .59 1977 Unknown [id number] 2.16.840.1.011068.3.579.2 .59 1977 Unknown [id number] 2.16.840.1.520370.3.579.2 .593 1977 Unknown [id number] 2.16.840.1.811659.3.579.2 .59 1977 Unknown [id number] 2.16.840.1.437824.3.579.2 .1259 1959 Private Health Insurance [id number] 1959 Private Health Insurance [id number] 1957 Self-pay Unknown [id number] [id number] .593 Social History Date Type Detail Facility Unknown if ever smoked [facility] Other Start: 06-20-2024 Sex Assigned At N [facility] Other Start: 1975 Sex Assigned At Female [facility] Tobacco smoking status [facility] Tobacco smoking consumption unknown [facility] Start: 1975 Sex assigned at Not on file [facility] Start: 06-20-2024 Tobacco smoking status [facility] Never smoked tobacco [facility] Start: 06-20-2024 Tobacco use and exposure Smokeless tobacco non-user [facility] Start: 06-20-2024 History of Social function [facility] Start: 10-19-2024 Sex Female (finding) [facility] History of Present illness Narrative 06-20-2024 Johny Osuna, - 06/20/2024 2:00 PM EDT Note Date [...] getting a benefit and doing better. Her Saint Johns Sleepiness scale is 6 Plan Patient's polysomnogram [...] was counseled on the risks of stroke, PR, and sudden with NILTON, along with the [...] clinic: 1 year documented in this encounter [facility] Evaluation note 06-24-2023 Note Date & [...] for congestion, Tylenol for pain and fever. [facility] Other Evaluation note 04-27-2023 Note Date & Type Note Facility 04-27-2023 Evaluation note Encounter Date Diagnosis Assessment Notes Apr, Acute cystitis without hematuria (ICD-10 - N30.00) [facility] Other Evaluation note Note Date & Type Note Facility Evaluation note Diagnosis Onset Date Screening mammogram for breast cancer acute Wellness examination [facility] Work Phone: Evaluation note Note Date & Type Note Facility Evaluation note Diagnosis NILTON (obstructive sleep apnea) Obstructive sleep apnea (adult) (pediatric) Hypersomnia Hypersomnia, unspecified Sleep deprivation Problems related to lack of adequate sleep Hypoxia Hypoxemia Inadequate sleep hygiene 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 documented in this encounter [facility] Evaluation note Note Date & Type Note Facility Evaluation note No assessment information availa [facility] Work Phone: History general Narrative - Reported Note Date & Type Note Facility History general Narrative - Reported Type Surgical History TUBAL Surgical History colonoscopy Surgical History laparoscopy Surgical History cholecystectomy Hospitalization History See Above [facility] Other History general Narrative - Reported Note [...] Surgical History cholecystectomy Hospitalization History See Above [facility] Other Summary Purpose Family History Relationship Condition Age at Onset Recorded Date/T tomi father Family history of lung cancer Unknown Malignant neoplasm Unknown Unknown Not Specified Hypertension Unknown Relationship Condition Age at Onset Recorded Date/T tomi father Family history of lung cancer Unknown Malignant neoplasm Unknown Unknown mother Hypertension Unknown Advance Directives Advance Directive Response Recorded Date/ Time Advance Directives No February 17, 2024 9:30am Advance Directive Response Recorded Date/ Time Advance Directives No February 17, 2024 8:30am Chief Complaint and Reason for Visit Chief Complaint Wellness Reason for Visit Screening mammogram for breast cancer Wellness examination Chief Complaint Admit Date surgical clearance, Cervical fusion, Dr Steen October 19, 2024 11:22am Additional Source Comments INFORMATION SOURCE (unrecogn ized section and content) DATE CREATED AUTHOR 07/28/2022 [facility] DATE CREATED AUTHOR AUTHOR'S ORGANIZ ATION 02/17/2023 [facility] DATE CREATED AUTHOR AUTHOR'S ORGANIZ ATION 06/22/2024 [facility] DATE CREATED AUTHOR AUTHOR'S ORGANIZ ATION 09/19/2024 [place] REASON FOR VISIT (unrecogniz ed section and content) Fever, Frequency, Tingling, CloudyCOVID Positive- [phone] Care Teams (unrecognized sec tion and content) Team Status: Active Member Role Status Dates Allison Sharp MD Primary Care Provider Active Team Status: Active Member Role Status Dates Allison Sharp MD Primary Care Provider Active Start: October 15, 2024 Phylicia Donnelly MD Attending Provider Active Start: October 15, 2024 Team Status: Inactive Member Role Status Dates Allison Sharp MD Primary Care Provide r, Attending Provider Active Start: October 19, 2024 End: October 19, 2024 Team Status: Active Member Role Status Dates Allison Sharp MD Primary Care Provider Active Team Status: Inactive Member Role Status Dates Allison Sharp MD Primary Care Provide r, Attending Provider Active Start: February 17, 2024 End: February 17, 2024 Ccie Relationship Specialty Start Date End Date Allison Sharp MD [address] [place] [address] PCP - [facility] 06/20/24 Ccie Relationship Specialty Start Date End Date Allison Sharp MD [address] [place] [address] PCP - [facility] Medicine 06/20/24 Team Status: Active Member Role Status Dates Allison Sharp MD Primary Care Provider Active Start: October 15, 2024 Phylicia Donnelly MD Attending Provider Active Start: October 15, 2024 Team Status: Inactive Member Role Status Dates Allison Sharp MD Primary Care Provide r, Attending Provider Active Start: October 19, 2024 End: October 19, 2024 Goals (unrecognized section and content) Goals [...] BE BASED ON THE PRIMARY CLINICAL RECORDS. [facility]. provides no warranty or guarantee of the accuracy or completeness of information in this document.
== END 2024-10-31 08:05 | disposition home or self-care (01) ==
LOC: PST 08:05
PROVIDERS: PCP Family Medicine; Visit Provider Orthopaedic Surgery Orthopaedic Surgery of the Spine
DX: Z01.812 Encounter for preprocedural laboratory examination (principal); M50.30 Other cervical disc degeneration, unspecified cervical region
CPT/HCPCS: 86850; 86900; 86901

== ENCOUNTER 2024-11-02 06:24 | Day surgery (SDC) | payer OTHER, SELFPAY ==
[2024-10-15 09:41] VITALS: BP 161/89; PULSE 70; TEMP 36.3; O2SAT 98; BMI 45.6
[2024-11-02] VITALS (16 sets, daily range): BP systolic 143–184; BP diastolic 76–108; PULSE 62–93; TEMP 36.3–37; O2SAT 92–98; BMI 45.0
--- NOTE | 2024-11-02 | XR_ITS ---
The [address] [address] Patient Name: YOLANDA ALCARAZ MRN: [id number] date: 1975 Sex: F Assigned Patient Location: [facility] Current Patient Location: [facility] Accession/Order Number: [id number] Exam Date: 11/02/2024 08:00 Report Date: 11/02/2024 14:06 At the request of: KATE RUBIO Procedure: XR cervical spine 2-3V EXAMINATION: XR cervical spine 2-3V HISTORY: Intraoperative imaging, C5-C7 ACDF COMPARISON: No relevant comparison available. FINDINGS: BONES: Intraoperative lateral view of the cervical spine shows a metallic pointer directed at the C5-6 intervertebral disc space. Subsequent image shows anterior plate and screws bridging C5-6, and likely C7. XR/XR cervical spine 2-3V IMPRESSION: 1. Intraoperative localization and mechanical fusion of C5-6-7. Electronically authenticated by: LEAH ORELLANA Date: 11/02/2024 14:06
--- OUTSIDE RECORDS SUMMARY | 2024-11-02 06:27 | XMS_ITS | CCD ---
Author Organization [facility] Care Team Providers Care Information Technology Internship Name Role Phone MD Raymundo DAILEY Attending [...] Unavailable Allison Sharp MD Primary Care Provider [phone] Allergies Allergy Classification Reported Allergen(s) Allergy Type Date of Onset Reaction(s) Facility (1 source) almotriptan Drug Allergy [facility] (1 source) Perazine Drug Allergy [facility] (1 source) almotriptan Drug Allergy Unknown [facility] Other (1 source) Naproxen / Pseudoephedrine Drug Allergy 08-06-20 21 Unknown [employer] [facility] [employer] Other (3 sources) rizatriptan Drug Allergy 02-17-20 24 Unknown, [facility] (1 source) Allergies Reconciled Propensity to adverse reactions Unknown [facility] Other (1 source) patient allergy list reviewed by nurse or physicia Propensity to adverse reactions 04-06-20 Comment:Done [facility] Other (2 sources) almotriptan Drug Allergy 02-15-20 24 [facility] (2 sources) Sudafed Sinus 12HR Press+Pain Allergy to substance 02-15-20 [facility] Comment on above: Onset Date: 08/06/20 21 [...] sources) Penicillin-class Antibacterial Amoxicillin 500 MG (Prior Auth#:[id number] ) Oral for 10 Not-Taking metFORMIN hydrochloride [...] tablet (2 sources) predniSONE 20 MG (Prior Auth#:[id number]) Oral for 5 Not-Taking Problems Active Problems [...] 04-29-2022 Epis[facility] Other aftercare (1 source) 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; Translations: [OTH 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] Onset: 08-23-2022 Episodic Other [...] platelet poor plasma by coagulation a 22.3-36.2 [facility] Basophils Auto (Bld) [#/Vol] on 10-15-2024 Basophils (Bld) [#/Vol] Automated basophil count 0.0-0.1 [facility] Basophils/100 WBC Auto (Bld) on 10-15-2024 Basophils/100 WBC (Bld) Automated basophil % 0.2-2.0 [facility] Eosinophils/100 WBC Auto (Bl d)on 10-15-2024 Eosinophils/100 WBC (Bld) Automated eosinophil % 0.9-7.0 [facility] Erythrocyte distribution wid th Auto (RBC) [Ratio]on 10-15-2024 Erythrocyte distribution width (RBC) [Ratio] Erythrocyte distribution width [Ratio] by Automated count 11.0-15.0 [facility] Estimated glomerular filtrat ion rate (GFR) non- Americanon 10-15-2024 GFR/1.73 sq M.predicted among non-blacks MDRD (S/P/Bld) [Vol rate/Area] Estimated glomerular filtration rate (GFR) non- >=60 mL/min/1.73m 2 [facility] Globulin Calc (S) [Mass/Vol] on 10-15-2024 Globulin (S) [Mass/Vol] Serum globulin measurement by calculation (mass/volume) [facility] Hematocrit Auto (Bld) [Volum e fraction]on 10-15-2024 Hematocrit (Bld) [Volume fraction] Hematocrit [Volume Fraction] of Blood by Automated count 36.0-48.0 [facility] Hemoglobin [Mass/volume] in Bloodon 10-15-2024 Hemoglobin (Bld) [Mass/Vol] Hemoglobin [Mass/volume] in Blood 12.0-16.0 [facility] INR in Platelet poor plasma by Coagulation assayon 10-15-2024 INR Coag (PPP) [Relative time] INR in Platelet poor plasma by Coagulation assay [facility] Comment on above: DESIRED INR:2.0-3.0 CONDITIONS NOT LISTED BELOW2.5-3.5 FOR PROSTHETIC HEART VALVE REPLACEMENT2.5-3.5 RECURRENT THROMBOSIS Laboratory - Chemistry and C hemistry - challengeon 10-15-2024 Albumin [Mass/Vol] 3.2 g/dL Low 3.4-5.0 [facility] ALP [Catalytic activity/Vol] 86 U/L 46-116 [facility] ALT [Catalytic activity/Vol] 26 U/L 14-59 [facility] AST [Catalytic activity/Vol] 20 U/L 15-37 [facility] Bilirubin [Mass/Vol] 0.4 mg/dL 0.2-1.0 [facility] Bilirubin.direct [Mass/Vol] 0.1 mg/dL 0.0-0.2 [facility] Calcium [Mass/Vol] 8.9 mg/dL 8.5-10.1 [facility] Chloride [Moles/Vol] 104 mmol/L 98-107 [facility] CO2 [Moles/Vol] 25.7 mmol/L 21.0-32.[address] [facility] Creatinine [Mass/Vol] 0.76 mg/dL 0.55-1.02 [facility] GFR/1.73 sq M.predicted MDRD (S/P/Bld) [Vol rate/Area] mL/min/{1.73_m2} >=60 mL/min/1.73m 2 [facility] Glucose [Mass/Vol] 123 mg/dL High 74-106 [facility] Potassium [Moles/Vol] 4.0 mmol/L 3.5-5.1 [facility] Protein [Mass/Vol] 7.0 g/dL 6.4-8.2 [facility] Sodium [Moles/Vol] 140 mmol/L 136-145 [facility] Urea nitrogen [Mass/Vol] 11.0 mg/dL 7.0-18.0 [facility] Urea nitrogen/Creatinine [Mass ratio] 14.5 mg/mg [facility] Laboratory - Hematology and Cell countson 10-15-2024 Immature granulocytes/100 WBC (Bld) 0.2 % 0.0-0.5 [facility] Leukocytes [#/volume] correc pam for nucleated erythrocytes in Blood by Automated counon 10-15-2024 WBC corrected for nucl RBC Auto (Bld) [#/Vol] Leukocytes [#/volume] corrected for nucleated erythrocytes in Blood by Automated coun 4.0-11.0 [facility] Lymphocytes Auto (Bld) [#/Vo l]on 10-15-2024 Lymphocytes (Bld) [#/Vol] Lymphocytes [#/volume] in Blood by Automated count 1.2-3.8 [facility] Lymphocytes/100 WBC Auto (Bl d)on 10-15-2024 Lymphocytes/100 WBC (Bld) Lymphocytes/100 leukocytes in Blood by Automated count 20.5-60.0 [facility] MCH Auto (RBC) [Entitic mass ]on 10-15-2024 MCH (RBC) [Entitic mass] MCH [Entitic mass] by Automated count 26.7-34.0 [facility] MCHC Auto (RBC) [Mass/Vol]on 10-15-2024 MCHC (RBC) [Mass/Vol] MCHC [Mass/volume] by Automated count 29.9-35.2 [facility] MCV Auto (RBC) [Entitic vol] on 10-15-2024 MCV (RBC) [Entitic vol] MCV [Entitic volume] by Automated count 81.0-99.0 [facility] Monocytes Auto (Bld) [#/Vol] on 10-15-2024 Monocytes (Bld) [#/Vol] Automated blood monocyte count 0.3-0.8 [facility] Monocytes/100 WBC Auto (Bld) on 10-15-2024 Monocytes/100 WBC (Bld) Automated monocyte % 1.7-12.0 [facility] Neutrophils Auto (Bld) [#/Vo l]on 10-15-2024 Neutrophils (Bld) [#/Vol] Neutrophils [#/volume] in Blood by Automated count 1.4-6.5 [facility] Neutrophils/100 WBC Auto (Bl d)on 10-15-2024 Neutrophils/100 WBC (Bld) Automated neutrophil % 43.0-75.0 [facility] No Panel Informationon 10-15 Eosinophils # (Auto) 0.1 10 3/uL 0.0-0.7 [facility] Immature Granulocyte # (Auto) 0.01 10 3/uL 0.00-0.03 [facility] Platelet mean volume Auto (B ld) [Entitic vol]on 10-15-2024 Platelet mean volume (Bld) [Entitic vol] Platelet mean volume [Entitic volume] in Blood by Automated count 9.5-13.5 [facility] Platelets Auto (Bld) [#/Vol] on 10-15-2024 Platelets (Bld) [#/Vol] Platelets [#/volume] in Blood by Automated count 150-450 [facility] Prothrombin time (PT)on 09-18 PT Coag (PPP) [Time] Prothrombin time (PT) 9.0-11.6 [facility] RBC Auto (Bld) [#/Vol]on RBC (Bld) [#/Vol] Erythrocytes [#/volume] in Blood by Automated count 4.20-5.40 [facility] Serum or plasma albumin/glob ulin mass ratioon 10-15-2024 Albumin/Globulin [Mass ratio] Serum or plasma albumin/globulin mass ratio [facility] Serum or plasma anion gap de terminationon 10-15-2024 Anion gap [Moles/Vol] Serum or plasma anion gap determination [facility] Urinalysis - DIPSTICKon 04-16 Appearance (U) cloudy [employer] Other Bilirubin Ql (U) Negative [employer] Other Color (U) yellow [facility] Other Glucose Ql (U) Negative [employer] Other Hemoglobin Ql (U) trace [employer] Other Ketones Ql (U) Negative [employer] Other Leukocyte esterase Test strip Ql (U) moderate [facility] Other Nitrite Ql (U) Positive [employer] Other pH (U) 5 [pH] [employer] Other Protein Ql (U) 30+ [employer] Other Specific gravity (U) [Rel density] 1.005 [facility] Other Urobilinogen (U) [Mass/Vol] normal [facility] Other Urinalysis - DIPSTICK [facility] Other CBC AUTO DIFFon 02-16-2023 BASO # 0.0 103/ul Normal 0.0-0.1 [facility] Comment on above: Performed By: #### B UN, CREA #### [facility] [address] [place] [address] Dr. Luis A Solorio Basophils/100 WBC (Bld) 0.4 % Normal 0.2-2.0 [facility] Comment on above: Performed By: #### B UN, CREA #### [facility] [address] [place] [address] Dr. Luis A Solorio EO # 0.1 103/ul Normal 0.0-0.7 [facility] Comment on above: Performed By: #### B UN, CREA #### [facility] [address] [place] [address] Dr. Luis A Solorio Eosinophils/100 WBC (Bld) 1.6 % Normal 0.9-7.0 [facility] Comment on above: Performed By: #### B UN, CREA #### [facility] [address] [place] [address] Dr. Luis A Solorio Erythrocyte distribution width (RBC) [Ratio] 14.2 % Normal 11.0-15.0 [facility] Comment on above: Performed By: #### B UN, CREA #### [facility] [address] [place] [address] Dr. Luis A Solorio Hematocrit (Bld) [Volume fraction] 35.3 % Critically low 36.0-48.0 [facility] Comment on above: Performed By: #### B UN, CREA #### [facility] [address] [place] [address] Dr. Luis A Solorio Hemoglobin (Bld) [Mass/Vol] 11.2 g/dL Critically low 12.0-16.0 [facility] Comment on above: Performed By: #### B UN, CREA #### [facility] [address] [place] [address] Dr. Luis A Solorio IG # 0.01 10e3/ul Normal 0.00-0.03 [facility] Comment on above: Performed By: #### B UN, CREA #### [facility] [address] [place] [address] Dr. Luis A Solorio IG % 0.2 % Normal 0.0-0.5 [facility] Comment on above: Performed By: #### B UN, CREA #### [facility] [address] [place] [address] Dr. Luis A Solorio LYMPH # 1.8 103/ul Normal 1.2-3.8 [facility] Comment on above: Performed By: #### B UN, CREA #### [facility] [address] [place] [address] Dr. Luis A Solorio Lymphocytes/100 WBC (Bld) 37.9 % Normal 20.5-60.0 [facility] Comment on above: Performed By: #### B UN, CREA #### [facility] [address] [place] [address] Dr. Luis A Solorio MCH (RBC) [Entitic mass] 26.0 pg Critically low 26.7-34.0 [facility] Comment on above: Performed By: #### B UN, CREA #### [facility] [address] [place] [address] Dr. Luis A Solorio MCHC (RBC) [Mass/Vol] 31.7 g/dL Normal 29.9-35.2 [facility] Comment on above: Performed By: #### B UN, CREA #### [facility] [address] [place] [address] Dr. Luis A Solorio MCV (RBC) [Entitic vol] 81.9 fL Normal 81.0-99.0 [facility] Comment on above: Performed By: #### B UN, CREA #### [facility] [address] [place] [address] Dr. Luis A Solorio MONO # 0.4 103/ul Normal 0.3-0.8 [facility] Comment on above: Performed By: #### B UN, CREA #### [facility] [address] [place] [address] Dr. Luis A Solorio Monocytes/100 WBC (Bld) 8.5 % Normal 1.7-12.0 [facility] Comment on above: Performed By: #### B UN, CREA #### [facility] [address] [place] [address] Dr. Luis A Solorio NEUT # 2.5 103/ul Normal 1.4-6.5 [facility] Comment on above: Performed By: #### B UN, CREA #### [facility] [address] [place] [address] Dr. Luis A Solorio Neutrophils/100 WBC (Bld) 51.4 % Normal 43.0-75.0 [facility] Comment on above: Performed By: #### B UN, CREA #### [facility] [address] [place] [address] Dr. Luis A Solorio Platelet mean volume (Bld) [Entitic vol] 11.5 fL Normal 9.5-13.5 [facility] Comment on above: Performed By: #### B UN, CREA #### [facility] [address] [place] [address] Dr. Luis A Solorio PLT 228 103/ul Normal 150-450 [facility] Comment on above: Performed By: #### B UN, CREA #### [facility] [address] [place] [address] Dr. Luis A Solorio RBC 4.31 106/ul Normal 4.20-5.40 [facility] Comment on above: Performed By: #### B UN, CREA #### [facility] [address] [place] [address] Dr. Luis A Solorio WBC 4.9 103/ul Normal 4.0-11.0 [facility] Comment on above: Performed By: #### B UN, CREA #### [facility] [address] [place] [address] Dr. Luis A Solorio MEDHAT - TSHon 02-16-2023 TSH 1.783 uIU/mL Normal 0.358-3.740 [facility] Comment on above: Performed By: #### D ATBMP, DATTSH #### [facility] [address] [place] [address] Dr. Luis A Solorio TSH RANGE SEE BELOW Normal [facility] Comment on above: Result Comment: <0.3 4 UIU/ml HYPERTHYROID 0.34-5.60 UIU/ml EUTHYROID >5.60 UIU/ml HYPOTHYROID Performed By: #### D ATBMP, DATTSH #### [facility] [address] [place] [address] Dr. Luis A Solorio MEDHAT- BMP WITH LIPIDon 2022 Anion gap [Moles/Vol] 13.5 mmol/L Normal [facility] Comment on above: Performed By: #### D ATBMP, DATTSH #### [facility] [address] [place] [address] Dr. Luis A Solorio Calcium [Mass/Vol] 8.9 mg/dL Normal 8.5-10.1 [facility] Comment on above: Performed By: #### D ATBMP, DATTSH #### [facility] [address] [place] [address] Dr. Luis A Solorio Chloride [Moles/Vol] 103 mmol/L Normal 98-107 [facility] Comment on above: Performed By: #### D ATBMP, DATTSH #### [facility] [address] [place] [address] Dr. Luis A Solorio Cholesterol [Mass/Vol] 227 mg/dL Critically high <=200 [facility] Comment on above: Performed By: #### D ATBMP, DATTSH #### [facility] [address] [place] [address] Dr. Luis A Solorio Cholesterol in HDL [Mass/Vol] 56 mg/dL Normal 40-60 [facility] Comment on above: Performed By: #### D ATBMP, DATTSH #### [facility] [address] [place] [address] Dr. Luis A Solorio Cholesterol in LDL [Mass/Vol] 141.2 mg/dL Normal [facility] Comment on above: Performed By: #### D ATBMP, DATTSH #### [facility] [address] [place] [address] Dr. Luis A Solorio CO2 [Moles/Vol] 24.5 mmol/L Normal 21.0-32.0 [facility] Comment on above: Performed By: #### D ATBMP, DATTSH #### [facility] [address] [place] [address] Dr. Luis A Solorio Creatinine [Mass/Vol] 0.74 mg/dL Normal 0.55-1.02 [facility] Comment on above: Performed By: #### D ATBMP, DATTSH #### [facility] [address] [place] [address] Dr. Luis A Solorio EGFR-AF SCOTTISH >60 Normal >=60 [facility] Comment on above: Performed By: #### D ATBMP, DATTSH #### [facility] [address] [place] [address] Dr. Luis A Solorio EGFR-NON AF SCOTTISH >60 Normal >=60 [facility] Comment on above: Performed By: #### D ATBMP, DATTSH #### [facility] [address] [place] [address] Dr. Luis A Solorio Glucose [Mass/Vol] 94 mg/dL Normal 74-106 [facility] Comment on above: Performed By: #### D ATBMP, DATTSH #### [facility] [address] [place] [address] Dr. Luis A Solorio HDL NORMAL > or = 60 mg/dl - LOW CARDIOVASCULAR RISK <40 mg/dl - HIGH CARDIOVASCULAR RISK Normal [facility] Comment on above: Performed By: #### D ATBMP, DATTSH #### [facility] [address] [place] [address] Dr. Luis A Solorio LDL CALC NORMAL SEE BELOW Normal [facility] Comment on above: Result Comment: <100 mg/dl OPTIMAL 100 - 129 mg/dl NEAR OR ABOVE OPTIMAL 130 - 159 mg/dl BORDERLINE HIGH 160 - 189 mg/dl HIGH >190 mg/dl VERY HIGH Performed By: #### D ATBMP, DATTSH #### [facility] [address] [address] [address] Luis A Solorio Potassium [Moles/Vol] 4.0 mmol/L Normal 3.5-5.1 [facility] Comment on above: Performed By: #### D ATBMP, DATTSH #### [facility] [address] [place] [address] Dr. Luis A Solorio Sodium [Moles/Vol] 137 mmol/L Normal 136-145 [facility] Comment on above: Performed By: #### D ATBMP, DATTSH #### [facility] [address] [address] [address] Luis A Solorio Triglyceride [Mass/Vol] 149 mg/dL Normal <=150 [facility] Comment on above: Performed By: #### D ATBMP, DATTSH #### [facility] [address] [place] [address] Dr. Luis A Solorio Urea nitrogen [Mass/Vol] 13.0 mg/dL Normal 7.0-18.0 [facility] Comment on above: Performed By: #### D ATBMP, DATTSH #### [facility] [address] [place] [address] Dr. Luis A Solorio Urea nitrogen/Creatinine [Mass ratio] 17.6 mg/mg Normal [facility] Comment on above: Performed By: #### D ATBMP, DATTSH #### [facility] [address] [place] [address] Dr. Luis A Solorio VLDL CALC 29.8 mg/dL Normal [facility] Comment on above: Performed By: #### D ATBMP, DATTSH #### [facility] [address] [place] [address] Dr. Luis A Solorio GLYCOHEMOGLOBIN A1Con 2022 ADA RECOMMENDATION SEE BELOW Normal [facility] Comment on above: Result Comment: ADA RECOMMENDED LIMIT 4.0 - 6.0 ADA THERAPEUTIC TARGET < 7.0 ACTION SUGGESTED > 7.0 Performed By: #### P REGU #### [facility] [address] [address] [address] Luis A Solorio Glucose [Mass/Vol] 114 mg/dL Normal [facility] Comment on above: Performed By: #### P REGU #### [facility] [address] [address] [address] Luis A Solorio HbA1c (Bld) [Mass fraction] 5.6 % Normal 4.5-6.2 [facility] Comment on above: Performed By: #### P REGU #### [facility] [address] [place] [address] Dr. Lius A Solorio Covid-19 PCR ([facility])on 09-17 SARS-CoV-2 (COVID-19) RNA ARABELLA+probe Ql (Unsp spec) Not detected Normal NOT DETECTED [facility] Comment on above: Result Comment: When [...] for this test is supported by the [employer] of [employer] and Human Service's declaration that [...] used). Performed By: #### P REGU #### [facility] [address] [place] [address] Dr. Luis A Solorio Operative Reporton 10-10-202 2 Operative Report [id number] Normal [facility] BUNon 07-20-2022 Urea nitrogen [Mass/Vol] 14.0 mg/dL Normal 7.0-18.0 [facility] Comment on above: Performed By: #### B UN, CREA #### [facility] [address] [place] [address] Dr. Luis A Solorio CBC AUTO DIFFon 07-20-2022 BASO # 0.0 103/ul Normal 0.0-0.1 [facility] Comment on above: Performed By: #### P REGU #### [facility] [address] [place] [address] Dr. Luis A Solorio Basophils/100 WBC (Bld) 0.1 % Critically low 0.2-2.0 [facility] Comment on above: Performed By: #### P REGU #### [facility] [address] [place] [address] Dr. Luis A Solorio EO # 0.0 103/ul Normal 0.0-0.7 [facility] Comment on above: Performed By: #### P REGU #### [facility] [address] [place] [address] Dr. Luis A Solorio Eosinophils/100 WBC (Bld) 0.0 % Critically low 0.9-7.0 [facility] Comment on above: Performed By: #### P REGU #### [facility] [address] [place] [address] Dr. Luis A Solorio Erythrocyte distribution width (RBC) [Ratio] 17.0 % Critically high 11.0-15.0 [facility] Comment on above: Performed By: #### P REGU #### [facility] [address] [place] [address] Dr. Luis A Solorio Hematocrit (Bld) [Volume fraction] 32.6 % Critically low 36.0-48.0 [facility] Comment on above: Performed By: #### P REGU #### [facility] [address] [place] [address] Dr. Luis A Solorio Hemoglobin (Bld) [Mass/Vol] 10.1 g/dL Critically low 12.0-16.0 [facility] Comment on above: Performed By: #### P REGU #### [facility] [address] [place] [address] Dr. Luis A Solorio IG # 0.05 10e3/ul Critically high 0.00-0.03 [facility] Comment on above: Performed By: #### P REGU #### [facility] [address] [place] [address] Dr. Luis A Solorio IG % 0.5 % Normal 0.0-0.5 [facility] Comment on above: Performed By: #### P REGU #### [facility] [address] [place] [address] Dr. Luis A Solorio LYMPH # 1.3 103/ul Normal 1.2-3.8 [facility] Comment on above: Performed By: #### P REGU #### [facility] [address] [place] [address] Dr. Luis A Solorio Lymphocytes/100 WBC (Bld) 12.4 % Critically low 20.5-60.0 [facility] Comment on above: Performed By: #### P REGU #### [facility] [address] [place] [address] Dr. Luis A Solorio MANUAL DIFF REQ NO Normal [facility] Comment on above: Performed By: #### P REGU #### [facility] [address] [place] [address] Dr. Luis A Solorio MCH (RBC) [Entitic mass] 25.1 pg Critically low 26.7-34.0 [facility] Comment on above: Performed By: #### P REGU #### [facility] [address] [place] [address] Dr. Luis A Solorio MCHC (RBC) [Mass/Vol] 31.0 g/dL Normal 29.9-35.2 [facility] Comment on above: Performed By: #### P REGU #### [facility] [address] [place] [address] Dr. Luis A Solorio MCV (RBC) [Entitic vol] 80.9 fL Critically low 81.0-99.0 [facility] Comment on above: Performed By: #### P REGU #### [facility] [address] [place] [address] Dr. Luis A Solorio MONO # 0.8 103/ul Normal 0.3-0.8 [facility] Comment on above: Performed By: #### P REGU #### [facility] [address] [place] [address] Dr. Luis A Solorio Monocytes/100 WBC (Bld) 7.6 % Normal 1.7-12.0 [facility] Comment on above: Performed By: #### P REGU #### [facility] [address] [place] [address] Dr. Luis A Solorio NEUT # 8.5 103/ul Critically high 1.4-6.5 [facility] Comment on above: Performed By: #### P REGU #### [facility] [address] [place] [address] Dr. Luis A Solorio Neutrophils/100 WBC (Bld) 79.4 % Critically high 43.0-75.0 [facility] Comment on above: Performed By: #### P REGU #### [facility] [address] [place] [address] Dr. Luis A Solorio Platelet mean volume (Bld) [Entitic vol] 10.7 fL Normal 9.5-13.5 [facility] Comment on above: Performed By: #### P REGU #### [facility] [address] [place] [address] Dr. Luis A Solorio PLT 237 103/ul Normal 150-450 [facility] Comment on above: Performed By: #### P REGU #### [facility] [address] [place] [address] Dr. Luis A Solorio RBC 4.03 106/ul Critically low 4.20-5.40 [facility] Comment on above: Performed By: #### P REGU #### [facility] [address] [place] [address] Dr. Luis A Solorio WBC 10.7 103/ul Normal 4.0-11.0 [facility] Comment on above: Performed By: #### P REGU #### [facility] [address] [place] [address] Dr. Luis A Solorio CREATININEon 07-20-2022 Creatinine [Mass/Vol] 0.99 mg/dL Normal 0.55-1.02 [facility] Comment on above: Performed By: #### B UN, CREA #### [facility] [address] [place] [address] Dr. Luis A Solorio EGFR-AF SCOTTISH >60 Normal >=60 [facility] Comment on above: Performed By: #### B UN, CREA #### [facility] [address] [place] [address] Dr. Luis A Solorio EGFR-NON AF SCOTTISH >60 Normal >=60 [facility] Comment on above: Performed By: #### B UN, CREA #### [facility] [address] [place] [address] Dr. Luis A Solorio CBC AUTO DIFFon 07-19-2022 BASO # 0.0 103/ul Normal 0.0-0.1 [facility] Comment on above: Performed By: #### C BC #### [facility] [address] [place] [address] Dr. Luis A Solorio Basophils/100 WBC (Bld) 0.4 % Normal 0.2-2.0 [facility] Comment on above: Performed By: #### C BC #### [facility] [address] [place] [address] Dr. Luis A Solorio EO # 0.1 103/ul Normal 0.0-0.7 [facility] Comment on above: Performed By: #### C BC #### [facility] [address] [place] [address] Dr. Luis A Solorio Eosinophils/100 WBC (Bld) 2.4 % Normal 0.9-7.0 [facility] Comment on above: Performed By: #### C BC #### [facility] [address] [place] [address] Dr. Luis A Solorio Erythrocyte distribution width (RBC) [Ratio] 16.4 % Critically high 11.0-15.0 [facility] Comment on above: Performed By: #### C BC #### [facility] [address] [place] [address] Dr. Luis A Solorio Hematocrit (Bld) [Volume fraction] 36.9 % Normal 36.0-48.0 [facility] Comment on above: Performed By: #### C BC #### [facility] [address] [place] [address] Dr. Luis A Solorio Hemoglobin (Bld) [Mass/Vol] 11.5 g/dL Critically low 12.0-16.0 [facility] Comment on above: Performed By: #### C BC #### [facility] [address] [place] [address] Dr. Luis A Solorio IG # 0.01 10e3/ul Normal 0.00-0.03 [facility] Comment on above: Performed By: #### C BC #### [facility] [address] [place] [address] Dr. Luis A Solorio IG % 0.2 % Normal 0.0-0.5 [facility] Comment on above: Performed By: #### C BC #### [facility] [address] [place] [address] Dr. Luis A Solorio LYMPH # 2.3 103/ul Normal 1.2-3.8 [facility] Comment on above: Performed By: #### C BC #### [facility] [address] [place] [address] Dr. Luis A Solorio Lymphocytes/100 WBC (Bld) 46.0 % Normal 20.5-60.0 [facility] Comment on above: Performed By: #### C BC #### [facility] [address] [place] [address] Dr. Luis A Solorio MANUAL DIFF REQ NO Normal [facility] Comment on above: Performed By: #### C BC #### [facility] [address] [place] [address] Dr. Luis A Solorio MCH (RBC) [Entitic mass] 25.3 pg Critically low 26.7-34.0 [facility] Comment on above: Performed By: #### C BC #### [facility] [address] [place] [address] Dr. Luis A Solorio MCHC (RBC) [Mass/Vol] 31.2 g/dL Normal 29.9-35.2 [facility] Comment on above: Performed By: #### C BC #### [facility] [address] [place] [address] Dr. Luis A Solorio MCV (RBC) [Entitic vol] 81.1 fL Normal 81.0-99.0 [facility] Comment on above: Performed By: #### C BC #### [facility] [address] [place] [address] Dr. Luis A Solorio MONO # 0.5 103/ul Normal 0.3-0.8 [facility] Comment on above: Performed By: #### C BC #### [facility] [address] [place] [address] Dr. Luis A Solorio Monocytes/100 WBC (Bld) 10.5 % Normal 1.7-12.0 [facility] Comment on above: Performed By: #### C BC #### [facility] [address] [place] [address] Dr. Luis A Solorio NEUT # 2.0 103/ul Normal 1.4-6.5 [facility] Comment on above: Performed By: #### C BC #### [facility] [address] [place] [address] Dr. Luis A Solorio Neutrophils/100 WBC (Bld) 40.5 % Critically low 43.0-75.0 [facility] Comment on above: Performed By: #### C BC #### [facility] [address] [place] [address] Dr. Luis A Solorio Platelet mean volume (Bld) [Entitic vol] 10.4 fL Normal 9.5-13.5 [facility] Comment on above: Performed By: #### C BC #### [facility] [address] [place] [address] Dr. Luis A Solorio PLT 236 103/ul Normal 150-450 [facility] Comment on above: Performed By: #### C BC #### [facility] [address] [place], [place] [address] Dr. Luis A Solorio RBC 4.55 106/ul Normal 4.20-5.40 [facility] Comment on above: Performed By: #### C BC #### [facility] [address] [place], [place] [address] Dr. Luis A Solorio WBC 4.9 103/ul Normal 4.0-11.0 [facility] Comment on above: Performed By: #### C BC #### [facility] [address] [place], [place] [address] Dr. Luis A Solorio PREG HCG QUALon 07-19-2022 , QUAL Negative Normal NEGATIVE [facility] Comment on above: Performed By: #### P REG #### [facility] [address] [address] [address] Luis A Solorio [facility]18 SARS-CoV-2 (COVID-19) RNA ARABELLA+probe Ql (Unsp spec) Not detected Normal NOT DETECTED [facility] Comment on above: Result Comment: This test is not yet approved or cleared by the [place] FDA. When there are no FDA-approved or cleared tests available, and other criteria are met, FDA can make tests available under an emergency access mechanism called an Emergency Use Authorization (EUA). The EUA for this test is supported by the Nail Machine Operator of Health and Human Service's (HHS's) [...] SARS-CoV-2. Performed By: #### P REGU #### [facility] [address] [place], [place] [address] Dr. Luis A Solorio Pre-Certification Formon Pre-Certification Form [id number] 7#1.00CD:127 Normal [facility] TYPE AND SCREENon 07-15-2022 TYPE AND SCREEN Negative Normal [facility] Comment on above: Performed By: #### P REGU #### [facility] [address] [place] [address] [address] [address] Luis A Solorio Physician Referralon 022 Physician Referral [id number] #1.00CD:127 Normal [facility] URon 06-11-2022 , QUAL Negative Normal NEGATIVE [facility] Comment on above: Performed By: #### P REGU #### [facility] [address] [place] [address] [address] [address] Luis A Solorio Covid-19 PCR ([facility])on 05-17 SARS-CoV-2 (COVID-19) RNA ARABELLA+probe Ql (Unsp spec) Not detected Normal NOT DETECTED [facility] Comment on above: Result Comment: This test is not yet approved or cleared by the [place] FDA. When there are no FDA-approved or cleared tests available, and other criteria are met, FDA can make tests available under an emergency access mechanism called an Emergency Use Authorization (EUA). The EUA for this test is supported by the Brady of Health and Human Service's (HHS's) declaration [...] SARS-CoV-2. Performed By: #### P REGU #### [facility] [address] [place] [address] Dr. Luis A Solorio CBC AUTO DIFFon 05-28-2022 BASO # 0.0 103/ul Normal 0.0-0.1 [facility] Comment on above: Performed By: #### B UN, CREA #### [facility] [address] [place] [address] Dr. Luis A Solorio Basophils/100 WBC (Bld) 0.4 % Normal 0.2-2.0 [facility] Comment on above: Performed By: #### B UN, CREA #### [facility] [address] [place] [address] Dr. Luis A Solorio EO # 0.1 103/ul Normal 0.0-0.7 [facility] Comment on above: Performed By: #### B UN, CREA #### [facility] [address] [place] [address] Dr. Luis A Solorio Eosinophils/100 WBC (Bld) 2.0 % Normal 0.9-7.0 [facility] Comment on above: Performed By: #### B UN, CREA #### [facility] [address] [place] [address] Dr. Luis A Solorio Erythrocyte distribution width (RBC) [Ratio] 19.9 % Critically high 11.0-15.0 [facility] Comment on above: Performed By: #### B UN, CREA #### [facility] [address] [place] [address] Dr. Luis A Solorio Hematocrit (Bld) [Volume fraction] 35.0 % Critically low 36.0-48.0 [facility] Comment on above: Performed By: #### B UN, CREA #### [facility] [address] [place] [address] Dr. Luis A Solorio Hemoglobin (Bld) [Mass/Vol] 10.6 g/dL Critically low 12.0-16.0 [facility] Comment on above: Performed By: #### B UN, CREA #### [facility] [address] [place] [address] Dr. Luis A Solorio IG # 0.01 10e3/ul Normal 0.00-0.03 [facility] Comment on above: Performed By: #### B UN, CREA #### [facility] [address] [place] [address] Dr. Luis A Solorio IG % 0.2 % Normal 0.0-0.5 [facility] Comment on above: Performed By: #### B UN, CREA #### [facility] [address] [place] [address] Dr. Luis A Solorio LYMPH # 1.8 103/ul Normal 1.2-3.8 [facility] Comment on above: Performed By: #### B UN, CREA #### [facility] [address] [place] [address] Dr. Luis A Solorio Lymphocytes/100 WBC (Bld) 35.7 % Normal 20.5-60.0 [facility] Comment on above: Performed By: #### B UN, CREA #### [facility] [address] [place] [address] Dr. Luis A Solorio MANUAL DIFF REQ NO Normal [facility] Comment on above: Performed By: #### B UN, CREA #### [facility] [address] [place] [address] Dr. Luis A Solorio MCH (RBC) [Entitic mass] 23.5 pg Critically low 26.7-34.0 [facility] Comment on above: Performed By: #### B UN, CREA #### [facility] [address] [place] [address] Dr. Luis A Solorio MCHC (RBC) [Mass/Vol] 30.3 g/dL Normal 29.9-35.2 [facility] Comment on above: Performed By: #### B UN, CREA #### [facility] [address] [place] [address] Dr. Luis A Solorio MCV (RBC) [Entitic vol] 77.6 fL Critically low 81.0-99.0 [facility] Comment on above: Performed By: #### B UN, CREA #### [facility] [address] [place] [address] Dr. Luis A Solorio MONO # 0.5 103/ul Normal 0.3-0.8 [facility] Comment on above: Performed By: #### B UN, CREA #### [facility] [address] [place] [address] Dr. Luis A Solorio Monocytes/100 WBC (Bld) 9.7 % Normal 1.7-12.0 [facility] Comment on above: Performed By: #### B UN, CREA #### [facility] [address] [place] [address] Dr. Luis A Solorio NEUT # 2.6 103/ul Normal 1.4-6.5 [facility] Comment on above: Performed By: #### B UN, CREA #### [facility] [address] [place] [address] Dr. Luis A Solorio Neutrophils/100 WBC (Bld) 52.0 % Normal 43.0-75.0 [facility] Comment on above: Performed By: #### B UN, CREA #### [facility] [address] [place] [address] Dr. Luis A Solorio Platelet mean volume (Bld) [Entitic vol] 10.3 fL Normal 9.5-13.5 [facility] Comment on above: Performed By: #### B UN, CREA #### [facility] [address] [place] [address] Dr. Luis A Solorio PLT 236 103/ul Normal 150-450 [facility] Comment on above: Performed By: #### B UN, CREA #### [facility] [address] [place] [address] Dr. Luis A Solorio RBC 4.51 106/ul Normal 4.20-5.40 [facility] Comment on above: Performed By: #### B UN, CREA #### [facility] [address] [place] [address] Dr. Luis A Solorio WBC 4.9 103/ul Normal 4.0-11.0 [facility] Comment on above: Performed By: #### B UN, CREA #### [facility] [address] [place] [address] Dr. Luis A Solorio US VAC ASST BX BREAST RT W C LIPon 05-07-2022 US VAC ASST BX BREAST RT W CLIP Begin Addendum #1 DATE/TIME COLLECTED: 05/03/2022, 09:17 EDT Final Diagnosis Report for [facility], [place], [place] RIGHT BREAST 11 O'CLOCK MASS; BIOPSY: [...] after pathology results are available. Normal [facility] US PELVIS AND TRANSVAGon US PELVIS [...] by: [place] Date: 2022-05-04 22:08 Normal [facility] PAP ACOG PANEL 2: 30 to 65on 05-04-2022 . . Normal [facility] Comment on above: Result Comment: Perf ormed at: WB Performed By: #### B UN, CREA #### [facility] [address] [address] [address] Luis A Solorio Age Gdln ACOG Testing 30-65 Normal [facility] Comment on above: Performed By: #### B UN, CREA #### [facility] [address] [place] [address] [address] Luis A Solorio DIAGNOSIS: Comment Normal [facility] Comment on above: Result Comment: NEGA TIVE FOR INTRAEPITHELIAL LESION OR MALIGNANCY. Performed at: WB Performed By: #### B UN, CREA #### [facility] [address] [address] [address] Luis A Solorio HPV Aptima Negative Normal Negative [facility] Comment on above: Result Comment: This nucleic acid amplification test detects fourteen high-risk HPV types (16,18,31,33,35,39,45,51,52,56,58,59,66,68) without differentiation. Performed at: =G Performed By: #### B UN, CREA #### [facility] [address] [address] [address] Luis A Solorio Methodology: Comment Normal [facility] Comment on above: Result Comment: This liquid based ThinPrep(R) pap test was screened with the use of an image guided system. Performed at: WB Performed By: #### B UN, CREA #### [facility] [address] [place] [address] Dr. Luis A Solorio Note: Comment Normal [facility] Comment on above: Result Comment: The [...] Performed By: #### B UN, CREA #### [facility] [address] [address] [address] Luis A Solorio Performed by: Comment Normal [facility] Comment on above: Result Comment: Lisbet Springer, Process Manufacturing Engineer (ASCP) Performed at: WB Performed By: #### B UN, CREA #### [facility] [address] [place] [address] [address] Luis A Solorio Specimen adequacy: Comment Normal [facility] Comment on above: Result Comment: Sati sfactory for evaluation. Endocervical and/or squamous metaplastic cells (endocervical component) are present. Performed at: WB Performed By: #### B UN, CREA #### [facility] [address] [place] [address] Dr. Luis A Solorio MAMMO POST BIOPSY RIGHTon MAMMO POST BIOPSY RIGHT Patient: YOLANDA MARQUEZ. Exam Date: 05/03/2022 : 1975 Gender:F Ordering : DR ALLISON SHARP M.D. Admission #: [id number] Family : Order #: [id number] CLICK HERE TO VIEW EXAM RADIOLOGY REPORT [...] Wooten M.D. on 05/03/2022 at 09:50 Normal [facility] MG MAMM RT DIAG FUon 022 MG MAMM RT DIAG FU Patient: YOLANDA MARQUEZ Exam Date: 04/23/2022 : 1975 Gender:F Ordering : DR ALLISON SHARP M.D. Admission #: [id number] Family : Order #: [id number] CLICK HERE TO VIEW EXAM RADIOLOGY REPORT [...] Treatments None Family Cancers None LOCATION: [facility] BREAST COMPOSITION: Heterogeneously dense,which may obscure [...] M.D. on 04/23/2022 at 09:37 Normal [facility] US BREAST RIGHT LIMITEDon US BREAST RIGHT LIMITED Patient: YOLANDA MARQUEZ Exam Date: 04/23/2022 : 1975 Gender:F Ordering : DR ALLISON SHARP M.D. Admission #: [id number] Family : Order #: [id number] CLICK HERE TO VIEW EXAM RADIOLOGY REPORT [...] Treatments None Family Cancers None LOCATION: [facility] BREAST COMPOSITION: Heterogeneously dense,which may obscure [...] Wooten M.D. on 04/23/2022 at 09:37 Normal [facility] MG MAMM SCREEN 3D AYUSH CADon 04-14-2022 MG MAMM SCREEN 3D AYUSH CAD Patient: YOLANDA MARQUEZ Exam Date: 04/14/2022 : 1975 Gender:F Ordering : DR ALLISON SHARP M.D. Admission #: [id number] Family : Order #: [id number] CLICK HERE TO VIEW EXAM RADIOLOGY REPORT PROCEDURE: MAMMOGRAM SCREENING 3D BILATERAL CAD COMPARISON: None. INDICATIONS: Screening mammography Calculator Name NCI Breast Cancer Risk Assessment Tool 5 Year Breast Cancer Risk Not Reported. Lifetime Breast Cancer Risk Not Reported. Personal Breast Cancer No Personal Ovarian Cancer No Treatments None Family Cancers None LOCATION: [facility] BREAST COMPOSITION: Heterogeneously dense,which may obscure [...] MD on 04/14/2022 at 10:03 Normal [facility] CBC AUTO DIFFon 04-02-2022 BASO # 0.0 103/ul Normal 0.0-0.1 [facility] Comment on above: Performed By: #### C BC #### [facility] [address] [place] [address] Dr. Luis A Solorio Basophils/100 WBC (Bld) 0.4 % Normal 0.2-2.0 [facility] Comment on above: Performed By: #### C BC #### [facility] [address] [place] [address] Dr. Luis A Solorio EO # 0.1 103/ul Normal 0.0-0.7 [facility] Comment on above: Performed By: #### C BC #### [facility] [address] [place] [address] Dr. Luis A Solorio Eosinophils/100 WBC (Bld) 2.6 % Normal 0.9-7.0 [facility] Comment on above: Performed By: #### C BC #### [facility] [address] [place] [address] Dr. Luis A Solorio Erythrocyte distribution width (RBC) [Ratio] 16.0 % Critically high 11.0-15.0 [facility] Comment on above: Performed By: #### C BC #### [facility] [address] [place] [address] Dr. Luis A Solorio Hematocrit (Bld) [Volume fraction] 30.2 % Critically low 36.0-48.0 [facility] Comment on above: Performed By: #### C BC #### [facility] [address] [place] [address] Dr. Luis A Solorio Hemoglobin (Bld) [Mass/Vol] 8.8 g/dL Critically low 12.0-16.0 [facility] Comment on above: Performed By: #### C BC #### [facility] [address] [place] [address] Dr. Luis A Solorio IG # 0.02 10e3/ul Normal 0.00-0.03 [facility] Comment on above: Performed By: #### C BC #### [facility] [address] [place] [address] Dr. Luis A Solorio IG % 0.4 % Normal 0.0-0.5 [facility] Comment on above: Performed By: #### C BC #### [facility] [address] [place] [address] Dr. Luis A Solorio LYMPH # 1.7 103/ul Normal 1.2-3.8 [facility] Comment on above: Performed By: #### C BC #### [facility] [address] [place] [address] Dr. Luis A Solorio Lymphocytes/100 WBC (Bld) 36.6 % Normal 20.5-60.0 [facility] Comment on above: Performed By: #### C BC #### [facility] [address] [place] [address] Dr. Luis A Solorio MANUAL DIFF REQ NO Normal [facility] Comment on above: Performed By: #### C BC #### [facility] [address] [place] [address] Dr. Luis A Solorio MCH (RBC) [Entitic mass] 21.9 pg Critically low 26.7-34.0 [facility] Comment on above: Performed By: #### C BC #### [facility] [address] [place] [address] Dr. Luis A Solorio MCHC (RBC) [Mass/Vol] 29.1 g/dL Critically low 29.9-35.2 [facility] Comment on above: Performed By: #### C BC #### [facility] [address] [place] [address] Dr. Luis A Solorio MCV (RBC) [Entitic vol] 75.1 fL Critically low 81.0-99.0 [facility] Comment on above: Performed By: #### C BC #### [facility] [address] [place] [address] Dr. Luis A Solorio MONO # 0.5 103/ul Normal 0.3-0.8 [facility] Comment on above: Performed By: #### C BC #### [facility] [address] [address] [address] Luis A Solorio Monocytes/100 WBC (Bld) 10.8 % Normal 1.7-12.0 [facility] Comment on above: Performed By: #### C BC #### [facility] [address] [place] [address] Dr. Luis A Solorio NEUT # 2.3 103/ul Normal 1.4-6.5 [facility] Comment on above: Performed By: #### C BC #### [facility] [address] [place] [address] Dr. Luis A Solorio Neutrophils/100 WBC (Bld) 49.2 % Normal 43.0-75.0 [facility] Comment on above: Performed By: #### C BC #### [facility] [address] [place] [address] Dr. Luis A Solorio Platelet mean volume (Bld) [Entitic vol] 10.0 fL Normal 9.5-13.5 [facility] Comment on above: Performed By: #### C BC #### [facility] [address] [place] [address] Dr. Luis A Solorio PLT 280 103/ul Normal 150-450 [facility] Comment on above: Performed By: #### C BC #### [facility] [address] [place] [address] Dr. Luis A Solorio RBC 4.02 106/ul Critically low 4.20-5.40 [facility] Comment on above: Performed By: #### C BC #### [facility] [address] [place] [address] Dr. Luis A Solorio WBC 4.6 103/ul Normal 4.0-11.0 [facility] Comment on above: Performed By: #### C BC #### [facility] [address] [address] [address] Luis A Solorio GLYCOHEMOGLOBIN A1Con 2021 ADA RECOMMENDATION SEE BELOW Normal [facility] Comment on above: Result Comment: ADA RECOMMENDED LIMIT 4.0 - 6.0 ADA THERAPEUTIC TARGET < 7.0 ACTION SUGGESTED > 7.0 Performed By: #### B UN, CREA #### [facility] [address] [place] [address] Dr. Luis A Solorio Glucose [Mass/Vol] 131 mg/dL Normal [facility] Comment on above: Performed By: #### B UN, CREA #### [facility] [address] [place] [address] Dr. Luis A Solorio HbA1c (Bld) [Mass fraction] 6.2 % Normal 4.5-6.2 [facility] Comment on above: Performed By: #### B UN, CREA #### [facility] [address] [place] [address] Dr. Luis A Solorio LIPID PROFILEon 04-02-2022 CHOL-HDL RATIO NORM SEE BELOW Normal [facility] Comment on above: Result Comment: 3.3 - 4.4 LOW RISK 4.4 - 7.1 AVERAGE RISK 7.1 - 11.0 MODERATE RISK >11.0 HIGH RISK Performed By: #### T SH, LIPID, CMP #### [facility] [address] [place] [address] Dr. Luis A Solorio Cholesterol [Mass/Vol] 215 mg/dL Critically high <=200 [facility] Comment on above: Performed By: #### T SH, LIPID, CMP #### [facility] [address] [place] [address] Dr. Luis A Solorio Cholesterol in HDL [Mass/Vol] 46 mg/dL Normal 40-60 [facility] Comment on above: Performed By: #### T SH, LIPID, CMP #### [facility] [address] [place] [address] Dr. Luis A Solorio Cholesterol in LDL [Mass/Vol] 138.2 mg/dL Normal [facility] Comment on above: Performed By: #### T SH, LIPID, CMP #### [facility] [address] [place] [address] Dr. Luis A Solorio Cholesterol.total/Ch olesterol in HDL [Mass ratio] 4.7 {ratio} Normal [facility] Comment on above: Performed By: #### T ROCAEL, LIPID, CMP #### [facility] [address] [address] [address] Luis A Solorio HDL NORMAL > or = 60 mg/dl - LOW CARDIOVASCULAR RISK <40 mg/dl - HIGH CARDIOVASCULAR RISK Normal [facility] Comment on above: Performed By: #### T ROCAEL, LIPID, CMP #### [facility] [address] [address] [address] Luis A Solorio LDL CALC NORMAL SEE BELOW Normal [facility] Comment on above: Result Comment: <100 mg/dl OPTIMAL 100 - 129 mg/dl NEAR OR ABOVE OPTIMAL 130 - 159 mg/dl BORDERLINE HIGH 160 - 189 mg/dl HIGH >190 mg/dl VERY HIGH Performed By: #### T ROCAEL, LIPID, CMP #### [facility] [address] [address] [address] Luis A Solorio Triglyceride [Mass/Vol] 154 mg/dL Critically high <=150 [facility] Comment on above: Performed By: #### T ROCAEL, LIPID, CMP #### [facility] [address] [address] [address] Luis A Solorio VLDL CALC 30.8 mg/dL Normal [facility] Comment on above: Performed By: #### T ROCAEL, LIPID, CMP #### [facility] [address] [place] [address] Dr. Luis A Solorio PROF 14(COMP METB)on 022 Albumin [Mass/Vol] 3.2 g/dL Critically low 3.4-5.0 [facility] Comment on above: Performed By: #### P REGU #### [facility] [address] [place] [address] Dr. Luis A Solorio Albumin/Globulin [Mass ratio] 0.8 {ratio} Normal [facility] Comment on above: Performed By: #### P REGU #### [facility] [address] [place] [address] Dr. Luis A Solorio ALP [Catalytic activity/Vol] 83 U/L Normal 46-116 [facility] Comment on above: Performed By: #### P REGU #### [facility] [address] [address] [address] Luis A Solorio ALT [Catalytic activity/Vol] 34 U/L Normal 14-59 [facility] Comment on above: Performed By: #### P REGU #### [facility] [address] [address] [address] Luis A Solorio Anion gap [Moles/Vol] 13.5 mmol/L Normal [facility] Comment on above: Performed By: #### P REGU #### [facility] [address] [place] [address] Dr. Luis A Solorio AST [Catalytic activity/Vol] 24 U/L Normal 15-37 [facility] Comment on above: Performed By: #### P REGU #### [facility] [address] [place] [address] Dr. Luis A Solorio Bilirubin [Mass/Vol] 0.3 mg/dL Normal 0.2-1.0 [facility] Comment on above: Performed By: #### P REGU #### [facility] [address] [place] [address] Dr. Luis A Solorio Calcium [Mass/Vol] 8.5 mg/dL Normal 8.5-10.1 [facility] Comment on above: Performed By: #### P REGU #### [facility] [address] [place] [address] Dr. Luis A Solorio Chloride [Moles/Vol] 105 mmol/L Normal 98-107 [facility] Comment on above: Performed By: #### P REGU #### [facility] [address] [place] [address] Dr. Luis A Solorio CO2 [Moles/Vol] 23.7 mmol/L Normal 21.0-32.0 [facility] Comment on above: Performed By: #### P REGU #### [facility] [address] [place] [address] Dr. Luis A Solorio Creatinine [Mass/Vol] 0.74 mg/dL Normal 0.55-1.02 [facility] Comment on above: Performed By: #### P REGU #### [facility] [address] [address] [address] Luis A Solorio EGFR-AF SCOTTISH >60 Normal >=60 [facility] Comment on above: Performed By: #### P REGU #### [facility] [address] [address] [address] Luis A Solorio EGFR-NON AF SCOTTISH >60 Normal >=60 [facility] Comment on above: Performed By: #### P REGU #### [facility] [address] [address] [address] Luis A Solorio Globulin (S) [Mass/Vol] 3.8 g/dL Normal [facility] Comment on above: Performed By: #### P REGU #### [facility] [address] [address] [address] Luis A Solorio Glucose [Mass/Vol] 122 mg/dL Critically high 74-106 [facility] Comment on above: Performed By: #### P REGU #### [facility] [address] [address] [address] Luis A Solorio Potassium [Moles/Vol] 4.2 mmol/L Normal 3.5-5.1 [facility] Comment on above: Performed By: #### P REGU #### [facility] [address] [address] [address] Luis A Solorio Protein [Mass/Vol] 7.0 g/dL Normal 6.4-8.2 [facility] Comment on above: Performed By: #### P REGU #### [facility] [address] [address] [address] Luis A Solorio Sodium [Moles/Vol] 138 mmol/L Normal 136-145 [facility] Comment on above: Performed By: #### P REGU #### [facility] [address] [address] [address] Luis A Solorio Urea nitrogen [Mass/Vol] 15.0 mg/dL Normal 7.0-18.0 [facility] Comment on above: Performed By: #### P REGU #### [facility] [address] [address] [address] Luis A Solorio Urea nitrogen/Creatinine [Mass ratio] 20.3 mg/mg Normal [facility] Comment on above: Performed By: #### P REGU #### [facility] [address] [place], [place] [address] Dr. Luis A Solorio TSHon 04-02-2022 TSH 1.449 uIU/mL Normal 0.358-3.740 [facility] Comment on above: Performed By: #### T SH, LIPID, CMP #### [facility] [id number] Luis A Solorio Vital Signs Date Time Vital Sign Value Performing Clinician Faci lity 10-19-2024 11:32-0500 Body height 170.18 cm [facility] 10-19-2024 11:32-0500 Body mass index (BMI) [Ratio] 44.9 kg/m2 [facility] 10-19-2024 11:32-0500 Body weight 130.18 kg [facility] 10-19-2024 11:32-0500 Diastolic blood pressure 87 mm[Hg] [facility] 10-19-2024 11:32-0500 Heart rate 94 /min [facility] 10-19-2024 11:32-0500 Systolic blood pressure 133 mm[Hg] [facility] 06-20-2024 14:02-0400 Body height 170.2 cm [...] Hospital 02-17-2024 09:36-0400 Body height 170.18 cm [facility] 02-17-2024 09:36-0400 Body mass index (BMI) [Ratio] 43.4 kg/m2 [facility] 02-17-2024 09:36-0400 Body weight 125.64 kg [facility] 02-17-2024 09:36-0400 Diastolic blood pressure 86 mm[Hg] [facility] 02-17-2024 09:36-0400 Heart rate 61 /min [facility] 02-17-2024 09:36-0400 Systolic blood pressure 149 mm[Hg] [facility] Encounters Encounter Date Encounter Type Care Provider Facility Start: 10-19-2024 End: 10-19-2024 ambulatory [facility] Work Phone: Start: 10-19-2024 End: 10-19-2024 Patient encounter procedure [facility] Work Phone: Start: 10-15-2024 Non-patient / Non-visit [facility] Work Phone: Start: 09-17-2024 ambulatory [facility] Start: 06-20-2024 End: 06-20-2024 Bamboo flowsheet Johny Lucas DO Work Phone: [facility] Start: 06-20-2024 End: 06-20-2024 Bamboo flowsheet Johny Lucas DO [facility] Start: 06-20-2024 End: 06-20-2024 Office consultation new/estab patient 60 min Johny Osuna DO Work Phone: [facility] Comment on above: NILTON (obstructive sle ep apnea); Hypersomnia; Sleep deprivation; Hypoxia; Inadequate sleep hygiene Start: 06-20-2024 End: 06-20-2024 ambulatory JOHNY OSUNA Not Available Start: 02-17-2024 Patient encounter status [facility] Start: 02-17-2024 End: 02-17-2024 ambulatory [facility] Work Phone: Start: 02-17-2024 End: 02-17-2024 Encounter for general adult medical examination without abnormal findings [facility] Start: 02-17-2024 End: 02-17-2024 Patient encounter procedure [facility] Work Phone: Start: 06-24-2023 End: 06-24-2023 ambulatory Arley Hand Other [facility] Other Start: 06-24-2023 Office outpatient vi sit 15 minutes Arley Hand [facility] Start: 04-27-2023 End: 04-27-2023 ambulatory Allison Sharp Other [facility] Other Start: 04-27-2023 Nursing evaluation o f patient and report Allison Sharp [facility] Start: 02-16-2023 End: 02-17-2023 ambulatory NONE LISTED REQUEST Facility:[facility] Start: 10-06-2022 Adult health examination Ronak dustin Yazan Other [facility] Other Start: 10-06-2022 Gynecological examin ation normal Arley Hand Other [facility] Other Start: 10-06-2022 Pre-procedure evalua tion check Arley Hand Other [facility] Other Start: 10-05-2022 End: 10-05-[address] ALLISON SHARP Facility:[facility] Start: 07-19-2022 End: 07-20-2022 ambulatory MD Raymundo DAILEY Facility:CD:[id number] Start: 07-19-2022 End: 07-21-2022 Evaluation and management of inpatient DR ALLISON SHARP Facility:[facility] Start: 07-17-2022 Encounter for preprocedural laboratory examination DR HUYEN GILL . [facility] Start: 07-17-[address] ALLISON SHARP [facility] ity:[facility]1 Start: 07-15-2022 End: 07-16-[address] ALLISON SHARP Facility:[facility] Start: 07-15-2022 End: 07-16-2022 Encounter for preprocedural laboratory examination DR ALLISON SHARP Facility:[facility] Start: 07-14-2022 End: 07-14-[address] ALLISON SHARP Facility:[facility] Start: 07-06-2022 Encounter for other preprocedural examination DR HUYEN GILL . [facility] Start: 07-05-2022 End: 07-06-[address] ALLISON SHARP Facility:[facility] Start: 07-05-2022 End: 07-06-2022 Encounter for other preprocedural examination DR ALLISON SHARP Facility:[facility] Start: 06-25-2022 ambulatory MD Raymundo DAILEY [facility] ity:[facility] Start: 06-11-2022 End: 06-11-[address] ALLISON SHARP Facility:[facility] Start: 06-04-2022 End: 06-05-[address] ALLISON SHARP Facility:[facility] Start: 05-31-2022 Encounter for preprocedural cardiovascular examination DR HUYEN GILL . [facility] Start: 05-28-2022 End: 05-29-[address] ALLISON SHARP Facility:[facility] Start: 05-03-2022 End: 05-04-[address] ALLISON SHARP Facility:[facility] Start: 04-30-2022 End: 04-30-[address] ALLISON SHARP Facility:[facility] Start: 04-23-2022 End: 04-24-[address] ALLISON SHARP Facility:[facility] Start: 04-14-2022 End: 04-15-[address] ALLISON SHARP Facility:[facility] Start: 04-06-2022 Encounter for genera l adult medical examination without abnormal findings DR ALLISON SHARP [facility] Start: 04-02-2022 End: 04-03-[address] [...] procedure 06/20/2024 2:00 PM EDT [facility] [address] [address] Johny Osuna DO [address] [place] [address] [facility] Comment on above: Arrived MG Breast - bilatera l Screening [facility] Payers Date Payer Category Payer Private Health Insurance [id number] 2009 Managed Care HMO (unspecified) ENID ROSSI [id number] 2009-Present [address] [place] [address] HMO [id number] 1977 Unknown [id number] [id number] .727 1977 Unknown [id number] 2.16.840.1.445434.3.579.2 .593 1977 Unknown [id number] 2.16.840.1.344692.3.579.2 .593 1977 Unknown [id number] 2.16.840.1.109825.3.579.2 .593 1977 Unknown [id number] 2.16.840.1.890895.3.579.2 .593 1977 Unknown [id number] 2.16.840.1.092040.3.579.2 .59 1977 Unknown [id number] 2.16.840.1.187169.3.579.2 .593 1977 Unknown [id number] 2.16.840.1.739769.3.579.2 .59 1977 Unknown [id number] 2.16.840.1.440941.3.579.2 .593 1977 Unknown [id number] 2.16.840.1.700882.3.579.2 .59 1977 Unknown [id number] 2.16.840.1.498421.3.579.2 .593 1977 Unknown [id number] 2.16.840.1.183749.3.579.2 .59 1977 Unknown [id number] 2.16.840.1.862055.3.579.2 .59 1977 Unknown [id number] 2.16.840.1.015280.3.579.2 .59 1977 Unknown [id number] 2.16.840.1.310164.3.579.2 .593 1977 Unknown [id number] 2.16.840.1.774960.3.579.2 .59 1977 Unknown [id number] 2.16.840.1.273586.3.579.2 .1259 1959 Private Health Insurance [id number] 1959 Private Health Insurance [id number] 1957 Self-pay Unknown [id number] 2.16.840.1.489137.3.579.2 .593 Social History Date Type Detail Facility Unknown if ever smoked [facility] Other Start: 06-20-2024 Sex Assigned At N [facility] Other Start: 1975 Sex Assigned At Female F [facility] Tobacco smoking status [facility] Tobacco smoking consumption unknown [facility] Start: 1975 Sex assigned at Not on file N S [facility] Start: 06-20-[address] [facility] Never smoked tobacco [facility] Start: 06-20-2024 Tobacco use and exposure Smokeless tobacco non-user [facility] Start: 06-20-2024 History of Social function [facility] Start: 10-19-2024 Sex Female (finding) [facility] History of Present illness Narrative 06-20-2024 Johny [...] getting a benefit and doing better. Her [place] Sleepiness scale is 6 Plan Patient's polysomnogram [...] was counseled on the risks of stroke, VA, and sudden with NILTON, along with the [...] clinic: 1 year documented in this encounter [facility] Evaluation note 06-24-2023 Note [...] for congestion, Tylenol for pain and fever. [facility] Other Evaluation note 04-27-2023 Note Date & Type Note Facility 04-27-2023 Evaluation note Encounter Date Diagnosis Assessment Notes Apr, Acute cystitis without hematuria (ICD-10 - N30.00) [facility] Other Evaluation note Note Date & Type Note Facility Evaluation note Diagnosis Onset Date Screening mammogram for breast cancer acute Wellness examination [facility] Work Phone: Evaluation note Note Date & [...] Facility Evaluation note No assessment information availa [facility] Work Phone: History general Narrative - Reported Note Date & Type Note Facility History general Narrative - Reported Type Surgical History TUBAL Surgical History colonoscopy Surgical History laparoscopy Surgical History cholecystectomy Hospitalization History See Above [facility] Other History general Narrative - Reported Note [...] Surgical History cholecystectomy Hospitalization History See Above [facility] Other Summary Purpose Family History Relationship Condition [...] section and content) DATE CREATED AUTHOR 07/28/2022 [facility] DATE CREATED AUTHOR AUTHOR'S ORGANIZ ATION 02/17/2023 [facility] DATE CREATED AUTHOR AUTHOR'S ORGANIZ ATION 06/22/2024 [facility] DATE CREATED AUTHOR AUTHOR'S ORGANIZ ATION 09/19/2024 [facility] REASON FOR VISIT (unrecogniz ed section and content) Fever, Frequency, Tingling, CloudyCOVID Positive- [phone] Care Teams (unrecognized sec tion and content) [...] February 17, 2024 End: February 17, 2024 [employer] Technology Internship Relationship Specialty Start Date End Date Allison Sharp MD [address] [place] [address] PCP - [facility] 06/20/24 Information Technology Internship Relationship Specialty Start Date End Date Allison Sharp MD [address] [place] [address] PCP - [facility] Medicine 06/20/24 Team Status: Active Member Role Status Dates Allison Sharp MD Primary Care Provider Active Start: October 15, 2024 Phylicia Donnelyl MD Attending Provider Active Start: October 15, [...] BE BASED ON THE PRIMARY CLINICAL RECORDS. [facility]. provides no warranty or guarantee of the accuracy or completeness of information in this document.
[2024-11-02] MEDS: LACTATED RINGER'S SOLUTION 1,000 ML 50 ML IV (07:08)
--- NOTE | 2024-11-02 09:06 | P.ON_ITS ---
Brief Operative Note Date of procedure: 11/02/24 Pre-op diagnosis general: C5-7 degenerative disc disease with stenosis and rad iculopathy Post-op diagnosis: same as pre-op Procedure: C5-7 ACDF Anesthesia: AKBARA Surgeon: Phylicia Pat Senior Licensing Manager: [place] Estimated blood loss (mL): 15 Pathology: none sent Condition: stable Disposition: PACU
--- NOTE | 2024-11-02 09:06 | PM.ONB ---
Brief Operative Note Date of procedure: 11/02/24 Pre-op diagnosis general: C5-7 degenerative disc disease with stenosis and radiculopathy Post-op diagnosis: same as pre-op Procedure: C5-7 ACDF Anesthesia: MOHIT Surgeon: Phylicia Pat Cotton Ball Bagger: [place] Estimated blood loss (mL): 15 Pathology: none sent Condition: stable Disposition: PACU
[2024-11-02] MEDS: HYDROMORPHONE HCL 0.5 MG/0.5 ML SYRINGE IV ×2 (09:32→09:40)
--- NOTE | 2024-11-02 09:38 | PC.NURSE ---
Patient states she has burning. gave pain meds to help bur burnng still present.
--- NOTE | 2024-11-02 09:43 | PC.NURSE ---
Patient has feeling and sensation on all 4 limbs and trunk of body. Patient states she has burning pain rating it a 5. Pain meds given as ordered.
--- NOTE | 2024-11-02 10:26 | PC.NURSE ---
7 chinese ebenezer drain with 10 ml bloody drainage emptied at 1010
[2024-11-02] MEDS: 0.9 % SODIUM CHLORIDE 1,000 ML 125 ML IV ×2 (12:11→20:07)
[2024-11-02] MEDS: ONDANSETRON PF 4 MG/2 ML VIAL IV (12:11)
[2024-11-02] MEDS: OXYCODONE HCL 5 MG TABLET PO (12:28)
[2024-11-02] MEDS: MORPHINE SULFATE 2 MG/ML SYRINGE IV (14:10)
[2024-11-02] MEDS: CYCLOBENZAPRINE HCL 10 MG TABLET PO (14:11)
--- NOTE | 2024-11-02 15:25 | CM.NOTE ---
Education provided with pt on HERBERT drain, how to drain, how to create suction and reseal, keeping drainage recorded. Pt at this time would like to have HH nurse come out unless drain is pulled prior to discharge. Pt's mother at bedside, both are comfortable in understanding on how to drain and record HERBERT drainage. SW will get pt set-up with HH for discharge plan.
--- NOTE | 2024-11-02 15:45 | SWNOTE1 ---
SW spoke with pt about HH and her drain and attemped to explain but voiced that SW will bring case management back in to explain further. CM and SW went in room and discussed HH and the drain. Pt would like HH to come out for a short time to monitor. SW expressed that since it is later in the day, SW to send to [facility] as they have a quick call back time. referral sent to [facility].
--- NOTE | 2024-11-02 16:16 | SWNOTE1 ---
Jonathan is able to accept.
[2024-11-03 04:00] VITALS: BP 154/85; PULSE 76; TEMP 37.2; O2SAT 95
[2024-11-03] MEDS: 0.9 % SODIUM CHLORIDE 1,000 ML 125 ML IV (04:02)
[2024-11-03 08:00] VITALS: BP 161/99; PULSE 75; TEMP 36.7; O2SAT 94
[2024-11-03] MEDS: LOSARTAN POTASSIUM 25 MG TABLET PO (08:53)
--- NOTE | 2024-11-03 10:31 | PM.ORPN ---
Progress Note: A&P Assessment and Plan (1) Cervical stenosis of spine: Plan POD #1 C5-7 ACDF - Will maintain HERBERT drain at discharge, patient to wear c-collar at all times while drain is in - Continue soft diet - Maintain dressings until drain is removed, tentative plan to remove Tuesday in the [facility] office, pt aware. If her outputs are too high Tuesday she can have home health remove the drain. - Tramadol and Flexeril sent to patient's pharmacy, she has already picked up. - Patient is doing well and will discharge today. Plan discussed with my supervising physician, Dr. Madison. Subjective Subjective Interval history: Pt is POD #1 C5-7 ACDF and is doing very well and denies pain this morning. She also denies any paresthesias or weakness in her upper extremities. She had some nausea yesterday after surgery but this has resolved. She has been able to eat a soft diet with no swallowing issues. She has been out of bed also without issue. She denies any bowel or bladder incontinence/retention or saddle anesthesia. Exam Narrative Exam Narrative: On exam patient is sitting up in the hospital bed, age-appropriate, alert and oriented x 3. Wearing a c-collar. Left anterior neck dressing is clean/dry/intact. 5/5 strength bilateral upper extremities. Sensation intact with light touch to bilateral upper extremities. Constitutional Vital Signs, click to edit/add: Last Vital Signs Temp 98.1 F 11/03/24 08:00 Pulse 75 11/03/24 08:00 Resp 18 11/03/24 08:00 BP 161/99 H 11/03/24 08:00 Pulse Ox 94 L 11/03/24 08:00 O2 Del Method Room Air 11/03/24 08:00
--- NOTE | 2024-11-03 15:19 | W.PM.OPNOTE ---
Surgery Operative Note Operative Note Procedure Date: 11/02/24 Time Out Performed: yes Pre-op Diagnosis: 1. C5-C6 and C6-C7 degenerative disc disease with stenosis and radiculopathy 2. Obesity with BMI of 45 Post-op Diagnosis: same as pre-op Procedures performed: 1. C5-C6 and C6-C7 anterior cervical diskectomy and fusion with decompression and stabilization of spinal cord and nerve roots. 2. C5-C6 and C6-C7 Atrix-C Union allograft with demineralized bone matrix, 7-mm and 8-mm height respectively 3. C5 through C7 anterior cervical plate, CervAlign with 14-mm fixed angle and variable screws, Xtant instrumentation Anesthesia: GETA Primary Surgeon: Phylicia Pat Complications: None Estimated blood loss (mL): 15 Findings: stenosis Specimens: none Drains: HERBERT x 1 Indications for Procedures: INDICATIONS: ?This is a 49-year-old female with refractory neck and right arm pain from cervical stenosis primarily at C5 through C7. ?Patient had tried and failed conservative therapy including medication management, physical therapy, and chiropractic treatment. ?Due to the persistence of symptoms and reduction in ADLs, patient elected surgical treatment. Patient therefore understood the indications for the surgery as well as risks, benefits, and alternatives. ?These risks included, but are not limited to, paralysis, infection, dural tear, hematoma, nerve root injury, nonunion, permanent speech and swallowing disturbances, DVT/PE, stroke, CT, etc. All questions were answered and informed consent was obtained Detailed description of Procedure: OPERATIVE PROCEDURE: ?The patient was taken to the operating room by Anesthesiology Service and had satisfactory general anesthesia. ?A first-generation cephalosporin was given within 1 hour of surgical incision, 2 g of cefazolin was given IV. ?Venous thromboembolic prophylaxis was performed with sequential devices. ?The patient was then positioned supine on a standard OR table, occiput in a doughnut. Neck extended well within the means of what can be tolerated neurologically. The anterior neck was then prepped and draped entirely in the usual sterile fashion. Before incision, a formal time-out was taken per protocol. ?We next took a left-sided Christina-Boo approach to the anterior cervical spine. ?A vertical incision was made in line with the skin crease. The platysma was divided in line with this incision. ?Blunt dissection was then proceeded medial to the sternocleidomastoid and carotid sheath. The omohyoid was divided.?The carotid artery was palpated and retracted laterally.? The anterior cervical spine was visualized and a localization needle was placed in the disc space and intraoperative radiographic localization of level was confirmed. ?We then elevated the longus colli from C5 through C7. Satisfied with the exposure and confirmation of level, we placed the self-retaining retractor at C5-C6. We then began complete diskectomy with a variety of curettes from uncus to uncus. Bilateral endplate decortications were then performed with a high-speed usama going back to the PLL. ?The PLL was then resected, incised in the midline going to neural foramina bilaterally. ?This was done until we could see the exiting portion of the C6 nerve roots. This thereby totally decompressed the neural elements. ?Satisfied with this, we then achieved hemostasis and sized the interspace. ?A size 7-mm graft appeared appropriate. ?The graft was then packed with DBM and impacted into position with an excellent tight fit. Satisfied with this, we then repositioned the self-retaining retractor at C6-C7 and repeated the same procedure. ?Once again, complete diskectomy was performed with a variety of curettes from uncus to uncus. ?Bilateral endplate decortications were performed with a high-speed usama going back to the PLL. ?The PLL was then resected, incised in the midline going to neural foramina bilaterally. ?This was done until we could see the exiting portion of the C7 nerve roots. This thereby totally decompressed our neural elements. ?Satisfied with this, we then achieved hemostasis and sized the interspace. ?A size 8-mm graft was appeared appropriate. ?The graft was then packed with DBM and impacted into position with an excellent tight fit. Satisfied with this, we then took an CervAlign 26-mm plate from [employer]. 14 mm fixed angle and variable screws were then used to secure the plate in position towards each level. ?Excellent torque insertion was achieved. ?The locking mechanism was engaged. Final x-rays were taken demonstrating good position of the spine and all of the implants. Satisfied with this, we then achieved hemostasis. ?We then copiously irrigated the wound. ?We then inserted a HERBERT drain through a separate stab incision. ?The wound was then closed in layers with a single running 2-0 Vicryl suture. ?A 4-0 Monocryl was used for the skin. The skin edges were sealed with Dermabond. ?Steri-strips were placed over the incision. A dry sterile dressing was applied. Cervical collar secured into place. ?The patient was then returned to the hospital bed, extubated, and taken to the recovery room in stable condition. Spinal cord monitoring remained stable throughout the operation.? OPERATIONS TEAM LEADER: ?West Boyce PA-C. West Boyce PA-C, assisted throughout the procedure with positioning, draping, retraction, wound closure, and dressing application POSTOPERATIVE CARE: ?The patient will be recovered in PACU and then a regular nursing floor. ?Once the drainage is low and pain is under control, patient will be discharged home per clinical indication. Patient will follow up in the office in six weeks. ?At that time, AP and lateral x-rays of the cervical spine will be obtained to assess instrumentation and fusion. MODIFIER 22: ?Due to the patient's BMI over 30, modifier 22 applied due to the patient's case taking 50% longer due to poor visualization and orientation. Senior Environmental Engineer: West Boyce
== END 2024-11-03 12:17 | disposition home or self-care (01) ==
LOC: SURGOUT 06:25 → MS 10:23
PROVIDERS: Orthopaedic Surgery Orthopaedic Surgery of the Spine; Admitting Provider Family Medicine; PCP Family Medicine; Visit Provider Family Medicine
PROC: (CPT 670; principal; 2024-11-02 07:30)
DX: M50.122 Cervical disc disorder at C5-C6 level with radiculopathy (principal); M50.123 Cervical disc disorder at C6-C7 level with radiculopathy; M48.02 Spinal stenosis, cervical region; Z68.42 Body mass index [BMI] 45.0-49.9, adult; I10 Essential (primary) hypertension; Z90.49 Acquired absence of other specified parts of digestive tract; Z98.51 Tubal ligation status; M51.17 Intervertebral disc disorders with radiculopathy, lumbosacral region; E66.01 Morbid (severe) obesity due to excess calories; Z90.710 Acquired absence of both cervix and uterus; G47.33 Obstructive sleep apnea (adult) (pediatric); K21.9 Gastro-esophageal reflux disease without esophagitis
CPT/HCPCS: 20931; 22551; 22552; 22845; 36415; 72040; 95861; 95938; C1713; J0131; J1100; J1171; J2250; J2270; J2405; J2704; J3010

== ENCOUNTER 2024-11-23 08:18 | Outpatient (OUT) | payer OTHER, SELFPAY ==
--- NOTE | 2024-11-23 | XR_ITS ---
[address] [address] Patient Name: YOLANDA ALCARAZ MRN: [id number] date: 1975 Sex: F Assigned Patient Location: Current Patient Location: Accession/Order Number: [id number] Exam Date: 11/23/2024 08:30 Report Date: 11/26/2024 08:11 At the request of: KATE RUBIO Procedure: XR cervical spine 2-3V EXAMINATION: XR cervical spine 2-3V HISTORY: CERVICAL SPINE PAIN COMPARISON: 11/02/2024 FINDINGS: BONES: Loss of normal cervical lordosis. No acute fracture or spondylolisthesis. Anterior fusion C5-C7 with no mechanical failure DISC SPACES: Interbody spacers C5-6 and C6-C7 PARASPINOUS: Negative. No paraspinous abnormality is seen. OTHER: Negative. XR/XR cervical spine 2-3V IMPRESSION: Anterior fusion C5-C7. No acute abnormality Electronically authenticated by: RANJEET BAIG Date: 11/26/2024 08:11
== END 2024-11-23 08:19 | disposition home or self-care (01) ==
LOC: EC 08:18
PROVIDERS: PCP Family Medicine; Visit Provider Orthopaedic Surgery Orthopaedic Surgery of the Spine
DX: M54.2 Cervicalgia (principal); M43.22 Fusion of spine, cervical region
CPT/HCPCS: 72040

== ENCOUNTER 2024-11-28 15:53 | Outpatient (RCR) | payer OTHER, SELFPAY | END 2024-12-15 14:45 | disposition home or self-care (01) | LOC: PT 15:53 | PROVIDERS: PCP Family Medicine; Visit Provider Orthopaedic Surgery Orthopaedic Surgery of the Spine | DX: Z47.89 Encounter for other orthopedic aftercare (principal); M43.22 Fusion of spine, cervical region | CPT/HCPCS: 20561; 97110; 97140; 97161 ==

== ENCOUNTER 2025-01-18 08:36 | Outpatient (OUT) | payer OTHER, SELFPAY ==
--- NOTE | 2025-01-18 08:37 | XR_ITS ---
The [address] [address] Patient Name: YOLANDA ALCARAZ MRN: [id number] date: 1975 Sex: F Assigned Patient Location: Current Patient Location: Accession/Order Number: [id number] Exam Date: 01/18/2025 08:54 Report Date: 01/18/2025 08:57 At the request of: KATE RUBIO MD Procedure: XR cervical spine 2-3V CERVICAL SPINE 2 views: CLINICAL HISTORY: Neck pain M54.2. Follow-up cervical fusion COMPARISON: 11/23/2024 AP and lateral views were obtained. There is continued straightening of the normal cervical curvature. There is lower cervical anterior fusion with plate and screws and interbody grafting material extending from C5 through C7. Appearance is stable. There is no evidence of developing fracture or displacement. The unfused disc spaces are maintained. There is minor endplate spurring and facet disease. There is no prevertebral soft tissue swelling. XR/XR cervical spine 2-3V IMPRESSION: LOSS OF THE NORMAL CERVICAL LORDOSIS. STABLE LOWER CERVICAL FUSION. Impression dictated by: Mayte Lopez M.D.01/18/2025 8:57 AM Dictation Location: [place] [address] Electronically authenticated by: [id number] Y Date: 01/18/2025 08:57
== END 2025-01-18 08:37 | disposition home or self-care (01) ==
LOC: EC 08:36
PROVIDERS: PCP Family Medicine; Visit Provider Orthopaedic Surgery Orthopaedic Surgery of the Spine
DX: M54.2 Cervicalgia (principal); M43.22 Fusion of spine, cervical region
CPT/HCPCS: 72040

== ENCOUNTER 2025-03-06 08:24 | Outpatient (OUT) | payer OTHER, SELFPAY ==
--- OUTSIDE RECORDS SUMMARY | 2025-03-06 08:28 | XMS_ITS | CCD ---
Author Organization [facility] Care Team Providers Care Communications Electrician Supervisor Name Role Phone MD Raymundo DAILEY Attending [...] [employer] Unavailabl e ZIEBER, DR WEST [employer] Unavailable SHARP, DR ALLISON Gaitan Primary [...] Facility (1 source) almotriptan Drug Allergy [facility] [place] [facility] (1 source) Perazine Drug Allergy [facility] [place] [facility] (1 source) almotriptan Drug Allergy Unknown [facility] Other (1 source) Naproxen / Pseudoephedrine Drug Allergy 08-06-[address] [facility] Other (4 sources) rizatriptan Drug Allergy 02-17-20 24 Unknown, [facility] (1 source) Allergies Reconciled Propensity to adverse reactions Unknown [facility] Other (1 source) patient allergy list reviewed by nurse or physicia Propensity to adverse reactions 04-06-20 19 Comment:Done [facility] Other (3 sources) almotriptan Drug Allergy 02-15-20 24 [facility] (3 sources) Sudafed Sinus 12HR Press+Pain Allergy to substance 02-15-20 [facility] Comment on above: Onset Date: 08/06/20 21 Medications Current Medications Medication Drug Class(es) Dates Sig (Normalized) Sig (Original) Losartan (7 sources) Angiotensin 2 Receptor Gil Start: 07-30-2024 Losartan 25 mg tablet Active 0 .ROUTE .COMPLEX July 30, 2024 8:21am TAKE 1 TABLET DAILY Start: 07-30-2024 Losartan 25 mg tablet Active 0 .ROUTE .COMPLEX July 30, 2024 7:21am TAKE 1 TABLET DAILY Start: 02-15-2024 End: 07-30-2024 take 1 tablet by mouth once daily Losartan 25 mg tablet Discontinued 25 MG PO Daily February 15, 2024 12:00am July 30, 2024 8:21am [employer]: TAKE 1 TABLET DAILY; Note: Source [...] sources) Penicillin-class Antibacterial Amoxicillin 500 MG (Prior Auth#:[id number] ) Oral for 10 Not-Taking metFORMIN hydrochloride 500 mg oral tablet (7 sources) Biguanide Start: 03-20-2024 End: 10-19-2024 take 1 tablet by mouth once daily Metformin 500 mg tablet Discontinued 0 .ROUTE .COMPLEX April 30, 2024 10:00am October 19, 2024 12:38pm TAKE 1 TABLET BY MOUTH DAILY Start: 02-17-2024 End: 03-20-2024 take 1 tablet by mouth once daily Metformin 500 mg tablet Discontinued 500 MG PO Daily February 17, 2024 12:00am March 20, 2024 3:43pm Nirmatrelvir-Ritonavir (Paxlovid) 300 mg (150 mg x 2)-100 mg tablets,dose pack (3 sources) Start: 02-15-2024 End: 02-17-2024 take 3 [...] tablet (2 sources) predniSONE 20 MG (Prior Auth#:[id number]) Oral for 5 Not-Taking Problems Active Problems [...] anemia; Translations: [Iron deficiency anemia, unspecified] Episodic Diabetes mellitus without complication (1 source) Hyperglycemia; Translations: [Impaired fasting glucose] 10-19-2024 Episodic Endometriosis (1 source) Endometriosis, unspecified; Translations: [ENDOMETRIOSIS UNSPECIFIED] Onset: 08-23-2022 Chronic Esophageal disorders (2 sources) Gastro-esophageal reflux disease without esophagitis; Translations: [Gastroesophageal reflux disease without esophagitis] Onset: 08-23-2022 Chronic Essential hypertension (2 sources) Essential hypertension; Translations: [Essential (primary) hypertension] 10-19-2024 Chronic Menstrual disorders (8 sources) Excessive and [...] neoplasm] Episodic Other and unspecified benign neoplasm (2 sources) History of polyp of colon; Translations: [History [...] of falling] Episodic Other lower respiratory disease (2 sources) Snoring; Translations: [Snoring] 02-17-2024 Episodic Other non-traumatic joint disorders (2 sources) Pain in left knee; Translations: [Left medial knee pain] 2025 Episodic Other nutritional; endocrine; and metabolic disorders [...] Chronic Other nutritional; endocrine; and metabolic disorders (2 sources) Severe obesity; Translations: [Class 3 severe obesity with body mass index (BMI) of 40.0 to 44.9 in adult] 02-17-2024 Chronic Other screening for suspected conditions (not mental disorders or infectious disease) (2 sources) Abnormal findings on diagnostic imaging of other specified body structures; Translations: [Imaging result abnormal] Onset: 06-16-2022 Chronic Other screening for suspected conditions (not mental disorders or infectious disease) (17 sources) Encounter for screening for malignant neoplasm of cervix; Translations: [Other abnormal and inconclusive findings on diagnostic imaging of breast] Onset: 04-14-2022 Resolved: 07-26-2022 Episodic Other upper respiratory infections (2 sources) Chronic sinusitis, unspecified; Translations: [Chronic sinusitis] Onset: 10-13-2022 Chronic Pleurisy; pneumothorax; pulmonary collapse (1 source) Pleurisy; Translations: [Pleurisy] Episodic Residual codes; unclassified (3 sources) Obstructive sleep apnea syndrome; Translations: [Obstructive sleep apnea (adult) (pediatric)] 06-20-2024 Chronic Residual codes; unclassified (2 sources) Hypersomnia; Translations: [Hypersomnia, unspecified] 06-20-2024 Chronic Residual codes; unclassified (1 source) Postprocedural state finding; Translations: [Other specified postprocedural states] Episodic Residual codes; unclassified (1 source) Immunization refused ; Translations: [Immunization not carried out because of patient refusal] Episodic Residual codes; unclassified (2 sources) Family history of cancer of colon; Translations: [Family history of malignant neoplasm of digestive organs] 02-17-2024 Episodic Spondylosis; intervertebral disc disorders; other back problems (1 source) Disorder of cervical spine; Translations: [Spondylopathy, unspecified] 10-19-2024 Chronic Spondylosis; intervertebral disc disorders; other back problems [...] 04-29-2022 Episodic Other aftercare (1 source) Other [facility] (current) drug therapy; Translations: [OTH [facility] CURRENT DRUG THERAPY] Onset: 08-23-2022 Episodic Other [...] platelet poor plasma by coagulation a 22.3-36.2 [facility] Basophils Auto (Bld) [#/Vol] on 10-15-2024 Basophils (Bld) [#/Vol] Automated basophil count 0.0-0.1 [facility] Basophils/100 WBC Auto (Bld) on 10-15-2024 Basophils/100 WBC (Bld) Automated basophil % 0.2-2.0 [facility] Eosinophils/100 WBC Auto (Bl d)on 10-15-2024 Eosinophils/100 WBC (Bld) Automated eosinophil % 0.9-7.0 [facility] Erythrocyte distribution wid th Auto (RBC) [Ratio]on 10-15-2024 Erythrocyte distribution width (RBC) [Ratio] Erythrocyte distribution width [Ratio] by Automated count 11.0-15.0 [facility] Estimated glomerular filtrat ion rate (GFR) non- Americanon 10-15-2024 GFR/1.73 sq M.predicted among non-blacks MDRD (S/P/Bld) [Vol rate/Area] Estimated glomerular filtration rate (GFR) non- >=60 mL/min/1.73m 2 [facility] Globulin Calc (S) [Mass/Vol] on 10-15-2024 Globulin (S) [Mass/Vol] Serum globulin measurement by calculation (mass/volume) [facility] Hematocrit Auto (Bld) [Volum e fraction]on 10-15-2024 Hematocrit (Bld) [Volume fraction] Hematocrit [Volume Fraction] of Blood by Automated count 36.0-48.0 [facility] Hemoglobin [Mass/volume] in Bloodon 10-15-2024 Hemoglobin (Bld) [Mass/Vol] Hemoglobin [Mass/volume] in Blood 12.0-16.0 [facility] INR in Platelet poor plasma by Coagulation assayon 10-15-2024 INR Coag (PPP) [Relative time] INR in Platelet poor plasma by Coagulation assay [facility] Comment on above: DESIRED INR:2.0-3.0 CONDITIONS NOT LISTED BELOW2.5-3.5 FOR PROSTHETIC HEART VALVE REPLACEMENT2.5-3.5 RECURRENT THROMBOSIS Laboratory - Chemistry and C hemistry - challengeon 10-15-2024 Albumin [Mass/Vol] 3.2 g/dL Low 3.4-5.0 [facility] ALP [Catalytic activity/Vol] 86 U/L 46-116 [facility] ALT [Catalytic activity/Vol] 26 U/L 14-59 [facility] AST [Catalytic activity/Vol] 20 U/L 15-37 [facility] Bilirubin [Mass/Vol] 0.4 mg/dL 0.2-1.0 [facility] Bilirubin.direct [Mass/Vol] 0.1 mg/dL 0.0-0.2 [facility] Calcium [Mass/Vol] 8.9 mg/dL 8.5-10.1 [facility] Chloride [Moles/Vol] 104 mmol/L 98-107 [facility] CO2 [Moles/Vol] 25.7 mmol/L 21.0-32.0 [facility] Creatinine [Mass/Vol] 0.76 mg/dL 0.55-1.02 [facility] GFR/1.73 sq M.predicted MDRD (S/P/Bld) [Vol rate/Area] mL/min/{1.73_m2} >=60 mL/min/1.73m 2 [facility] Glucose [Mass/Vol] 123 mg/dL High 74-106 [facility] Potassium [Moles/Vol] 4.0 mmol/L 3.5-5.1 [facility] Protein [Mass/Vol] 7.0 g/dL 6.4-8.2 [facility] Sodium [Moles/Vol] 140 mmol/L 136-145 [facility] Urea nitrogen [Mass/Vol] 11.0 mg/dL 7.0-18.0 [facility] Urea nitrogen/Creatinine [Mass ratio] 14.5 mg/mg [facility] Laboratory - Hematology and Cell countson 10-15-2024 Immature granulocytes/100 WBC (Bld) 0.2 % 0.0-0.5 [facility] Leukocytes [#/volume] correc pam for nucleated erythrocytes in Blood by Automated counon 10-15-2024 WBC corrected for nucl RBC Auto (Bld) [#/Vol] Leukocytes [#/volume] corrected for nucleated erythrocytes in Blood by Automated coun 4.0-11.0 [facility] Lymphocytes Auto (Bld) [#/Vo l]on 10-15-2024 Lymphocytes (Bld) [#/Vol] Lymphocytes [#/volume] in Blood by Automated count 1.2-3.8 [facility] Lymphocytes/100 WBC Auto (Bl d)on 10-15-2024 Lymphocytes/100 WBC (Bld) Lymphocytes/100 leukocytes in Blood by Automated count 20.5-60.0 [facility] MCH Auto (RBC) [Entitic mass ]on 10-15-2024 MCH (RBC) [Entitic mass] MCH [Entitic mass] by Automated count 26.7-34.0 [facility] MCHC Auto (RBC) [Mass/Vol]on 10-15-2024 MCHC (RBC) [Mass/Vol] MCHC [Mass/volume] by Automated count 29.9-35.2 [facility] MCV Auto (RBC) [Entitic vol] on 10-15-2024 MCV (RBC) [Entitic vol] MCV [Entitic volume] by Automated count 81.0-99.0 [facility] Monocytes Auto (Bld) [#/Vol] on 10-15-2024 Monocytes (Bld) [#/Vol] Automated blood monocyte count 0.3-0.8 [facility] Monocytes/100 WBC Auto (Bld) on 10-15-2024 Monocytes/100 WBC (Bld) Automated monocyte % 1.7-12.0 [facility] Neutrophils Auto (Bld) [#/Vo l]on 10-15-2024 Neutrophils (Bld) [#/Vol] Neutrophils [#/volume] in Blood by Automated count 1.4-6.5 [facility] Neutrophils/100 WBC Auto (Bl d)on 10-15-2024 Neutrophils/100 WBC (Bld) Automated neutrophil % 43.0-75.0 [facility] No Panel Informationon 10-15 Eosinophils # (Auto) 0.1 10 3/uL 0.0-0.7 [facility] Immature Granulocyte # (Auto) 0.01 10 3/uL 0.00-0.03 [facility] Platelet mean volume Auto (B ld) [Entitic vol]on 10-15-2024 Platelet mean volume (Bld) [Entitic vol] Platelet mean volume [Entitic volume] in Blood by Automated count 9.5-13.5 [facility] Platelets Auto (Bld) [#/Vol] on 10-15-2024 Platelets (Bld) [#/Vol] Platelets [#/volume] in Blood by Automated count 150-450 [facility] Prothrombin time (PT)on 09-18 PT Coag (PPP) [Time] Prothrombin time (PT) 9.0-11.6 [facility] RBC Auto (Bld) [#/Vol]on RBC (Bld) [#/Vol] Erythrocytes [#/volume] in Blood by Automated count 4.20-5.40 [facility] Serum or plasma albumin/glob ulin mass ratioon 10-15-2024 Albumin/Globulin [Mass ratio] Serum or plasma albumin/globulin mass ratio [facility] Serum or plasma anion gap de terminationon 10-15-2024 Anion gap [Moles/Vol] Serum or plasma anion gap determination [facility] Urinalysis - DIPSTICKon 04-16 Appearance (U) cloudy [employer] Other Bilirubin Ql (U) Negative [facility] Other Color (U) yellow [facility] Other Glucose Ql (U) Negative [employer] Other Hemoglobin Ql (U) trace [facility] Other Ketones Ql (U) Negative [employer] Other Leukocyte esterase Test strip Ql (U) moderate [facility] Other Nitrite Ql (U) Positive [employer] Other pH (U) 5 [pH] [facility] Other Protein Ql (U) 30+ [employer] Other Specific gravity (U) [Rel density] 1.005 [facility] Other Urobilinogen (U) [Mass/Vol] normal [facility] Other Urinalysis - DIPSTICK [facility] Other CBC AUTO DIFFon 02-16-2023 BASO # 0.0 103/ul Normal 0.0-0.1 [facility] Comment on above: Performed By: #### B UN, CREA #### [facility] [address] [place] [address] Dr. Luis A Solorio Basophils/100 WBC (Bld) 0.4 % Normal 0.2-2.0 [facility] Comment on above: Performed By: #### B UN, CREA #### [facility] [address] [place] [address] Dr. Luis A Solorio EO # 0.1 103/ul Normal 0.0-0.7 [facility] Comment on above: Performed By: #### B UN, CREA #### [facility] [address] [place] [address] Dr. Luis A Solorio Eosinophils/100 WBC (Bld) 1.6 % Normal 0.9-7.0 [facility] Comment on above: Performed By: #### B UN, CREA #### [facility] [address] [place] [address] Dr. Luis A Solorio Erythrocyte distribution width (RBC) [Ratio] 14.2 % Normal 11.0-15.0 [facility] Comment on above: Performed By: #### B UN, CREA #### [facility] [address] [place] [address] Dr. Luis A Solorio Hematocrit (Bld) [Volume fraction] 35.3 % Critically low 36.0-48.0 [facility] Comment on above: Performed By: #### B UN, CREA #### [facility] [address] [place] [address] Dr. Luis A Solorio Hemoglobin (Bld) [Mass/Vol] 11.2 g/dL Critically low 12.0-16.0 [facility] Comment on above: Performed By: #### B UN, CREA #### [facility] [address] [place] [address] Dr. Luis A Solorio IG # 0.01 10e3/ul Normal 0.00-0.03 [facility] Comment on above: Performed By: #### B UN, CREA #### [facility] [address] [place] [address] Dr. Luis A Solorio IG % 0.2 % Normal 0.0-0.5 [facility] Comment on above: Performed By: #### B UN, CREA #### [facility] [address] [place] [address] Dr. Luis A Solorio LYMPH # 1.8 103/ul Normal 1.2-3.8 [facility] Comment on above: Performed By: #### B UN, CREA #### [facility] [address] [place] [address] Dr. Luis A Solorio Lymphocytes/100 WBC (Bld) 37.9 % Normal 20.5-60.0 [facility] Comment on above: Performed By: #### B UN, CREA #### [facility] [address] [place] [address] Dr. Luis A Solorio MCH (RBC) [Entitic mass] 26.0 pg Critically low 26.7-34.0 [facility] Comment on above: Performed By: #### B UN, CREA #### [facility] [address] [place] [address] Dr. Luis A Sloorio MCHC (RBC) [Mass/Vol] 31.7 g/dL Normal 29.9-35.2 [facility] Comment on above: Performed By: #### B UN, CREA #### [facility] [address] [place] [address] Dr. Luis A Solorio MCV (RBC) [Entitic vol] 81.9 fL Normal 81.0-99.0 [facility] Comment on above: Performed By: #### B UN, CREA #### [facility] [address] [place] [address] Dr. Luis A Solorio MONO # 0.4 103/ul Normal 0.3-0.8 [facility] Comment on above: Performed By: #### B UN, CREA #### [facility] [address] [place] [address] Dr. Luis A Solorio Monocytes/100 WBC (Bld) 8.5 % Normal 1.7-12.0 [facility] Comment on above: Performed By: #### B UN, CREA #### [facility] [address] [place] [address] Dr. Luis A Solorio NEUT # 2.5 103/ul Normal 1.4-6.5 [facility] Comment on above: Performed By: #### B UN, CREA #### [facility] [address] [place] [address] Dr. Luis A Solorio Neutrophils/100 WBC (Bld) 51.4 % Normal 43.0-75.0 [facility] Comment on above: Performed By: #### B UN, CREA #### [facility] [address] [place] [address] Dr. Luis A Solorio Platelet mean volume (Bld) [Entitic vol] 11.5 fL Normal 9.5-13.5 [facility] Comment on above: Performed By: #### B UN, CREA #### [facility] [address] [place] [address] Dr. Luis A Solorio PLT 228 103/ul Normal 150-450 [facility] Comment on above: Performed By: #### B UN, CREA #### [facility] [address] [place] [address] Dr. Luis A Solorio RBC 4.31 106/ul Normal 4.20-5.40 [facility] Comment on above: Performed By: #### B UN, CREA #### [facility] [address] [place] [address] Dr. Luis A Solorio WBC 4.9 103/ul Normal 4.0-11.0 [facility] Comment on above: Performed By: #### B ROLANDO, CREA #### [facility] [address] [place] [address] Dr. Luis A Solorio MEDHAT - TSHon 02-16-2023 TSH 1.783 uIU/mL Normal 0.358-3.740 [facility] Comment on above: Performed By: #### D ATBMP, DATTS #### [facility] [address] [place] [address] Dr. Luis A Solorio TSH RANGE SEE BELOW Normal [facility] Comment on above: Result Comment: <0.3 4 UIU/ml HYPERTHYROID 0.34-5.60 UIU/ml EUTHYROID >5.60 UIU/ml HYPOTHYROID Performed By: #### D ATBMP, DATTSH #### [facility] [address] [place] [address] Dr. Luis A Solorio MEDHAT- BMP WITH LIPIDon 2022 Anion gap [Moles/Vol] 13.5 mmol/L Normal [facility] Comment on above: Performed By: #### D ATBMP, DATTSH #### [facility] [address] [place] [address] Dr. Luis A Solorio Calcium [Mass/Vol] 8.9 mg/dL Normal 8.5-10.1 [facility] Comment on above: Performed By: #### D ATBMP, DATTSH #### [facility] [address] [place] [address] Dr. Luis A Solorio Chloride [Moles/Vol] 103 mmol/L Normal 98-107 [facility] Comment on above: Performed By: #### D ATBMP, DATTSH #### [facility] [address] [place] [address] Dr. Luis A Solorio Cholesterol [Mass/Vol] 227 mg/dL Critically high <=200 [facility] Comment on above: Performed By: #### D ATBMP, DATTSH #### [facility] [address] [place] [address] Dr. Luis A Solorio Cholesterol in HDL [Mass/Vol] 56 mg/dL Normal 40-60 [facility] Comment on above: Performed By: #### D ATBMP, DATTSH #### [facility] [address] [place] [address] Dr. Luis A Solorio Cholesterol in LDL [Mass/Vol] 141.2 mg/dL Normal [facility] Comment on above: Performed By: #### D ATBMP, DATTSH #### [facility] [address] [place] [address] Dr. Luis A Solorio CO2 [Moles/Vol] 24.5 mmol/L Normal 21.0-32.0 [facility] Comment on above: Performed By: #### D ATP, DATTSH #### [facility] [address] [place] [address] Dr. Luis A Solorio Creatinine [Mass/Vol] 0.74 mg/dL Normal 0.55-1.02 [facility] Comment on above: Performed By: #### D ATBMP, DATTSH #### [facility] [address] [place] [address] Dr. Luis A Solorio EGFR-AF NAMIBIAN >60 Normal >=60 [facility] Comment on above: Performed By: #### D ATBMP, DATTSH #### [facility] [address] [place] [address] Dr. Luis A Solorio EGFR-NON AF NAMIBIAN >60 Normal >=60 [facility] Comment on above: Performed By: #### D ATBMP, DATTSH #### [facility] [address] [place], [place] [id number] Dr. Luis A Solorio Glucose [Mass/Vol] 94 mg/dL Normal 74-106 [facility] Comment on above: Performed By: #### D ATBMP, DATTSH #### [facility] [address] [place] [address] Dr. Luis A Solorio HDL NORMAL > or = 60 mg/dl - LOW CARDIOVASCULAR RISK <40 mg/dl - HIGH CARDIOVASCULAR RISK Normal [facility] Comment on above: Performed By: #### D ATP, DATTSH #### [facility] [address] [address] [address] Luis A Solorio LDL CALC NORMAL SEE BELOW Normal [facility] Comment on above: Result Comment: <100 mg/dl OPTIMAL 100 - 129 mg/dl NEAR OR ABOVE OPTIMAL 130 - 159 mg/dl BORDERLINE HIGH 160 - 189 mg/dl HIGH >190 mg/dl VERY HIGH Performed By: #### D ATBMP, DATTSH #### [facility] [address] [place] [address] Dr. Luis A Solorio Potassium [Moles/Vol] 4.0 mmol/L Normal 3.5-5.1 [facility] Comment on above: Performed By: #### D ATP, DATTSH #### [facility] [address] [place] [address] Dr. Luis A Solorio Sodium [Moles/Vol] 137 mmol/L Normal 136-145 [facility] Comment on above: Performed By: #### D ATP, DATTS #### [facility] [address] [address] [address] Luis A Solorio Triglyceride [Mass/Vol] 149 mg/dL Normal <=150 [facility] Comment on above: Performed By: #### D ATP, DATTSH #### [facility] [address] [place] [address] Dr. Luis A Solorio Urea nitrogen [Mass/Vol] 13.0 mg/dL Normal 7.0-18.0 [facility] Comment on above: Performed By: #### D ATBMP, DATTSH #### [facility] [address] [address] [address] Luis A Solorio Urea nitrogen/Creatinine [Mass ratio] 17.6 mg/mg Normal [facility] Comment on above: Performed By: #### D ATBMP, DATTSH #### [facility] [address] [address] [address] Luis A Solorio VLDL CALC 29.8 mg/dL Normal [facility] Comment on above: Performed By: #### D ATBMP, DATTSH #### [facility] [address] [address] [address] Luis A Solorio GLYCOHEMOGLOBIN A1Con 2022 ADA RECOMMENDATION SEE BELOW Normal [facility] Comment on above: Result Comment: ADA RECOMMENDED LIMIT 4.0 - 6.0 ADA THERAPEUTIC TARGET < 7.0 ACTION SUGGESTED > 7.0 Performed By: #### P REGU #### [facility] [address] [place] [address] Dr. Luis A Solorio Glucose [Mass/Vol] 114 mg/dL Normal [facility] Comment on above: Performed By: #### P REGU #### [facility] [address] [place] [address] Dr. Luis A Solorio HbA1c (Bld) [Mass fraction] 5.6 % Normal 4.5-6.2 [facility] Comment on above: Performed By: #### P REGU #### [facility] [address] [place] [address] Dr. Luis A Solorio Covid-19 PCR ([facility])on 09-17 SARS-CoV-2 (COVID-19) RNA ARABELLA+probe Ql (Unsp spec) Not detected Normal NOT DETECTED [facility] Comment on above: Result Comment: When [...] for this test is supported by the [place] of Health and Human Service's declaration that [...] used). Performed By: #### P REGU #### [facility] [address] [place] [address] Dr. Luis A Solorio Operative Reporton 2 Operative Report [id number] #[id number] Normal [facility] BUNon 07-20-2022 Urea nitrogen [Mass/Vol] 14.0 mg/dL Normal 7.0-18.0 [facility] Comment on above: Performed By: #### B ROLANDO, CRETrudy #### [facility] [address] [place] [address] Dr. Luis A Solorio CBC AUTO DIFFon 07-20-2022 BASO # 0.0 103/ul Normal 0.0-0.1 [facility] Comment on above: Performed By: #### P REGU #### [facility] [address] [place] [address] Dr. Luis A Solorio Basophils/100 WBC (Bld) 0.1 % Critically low 0.2-2.0 [facility] Comment on above: Performed By: #### P REGU #### [facility] [address] [place] [address] Dr. Luis A Solorio EO # 0.0 103/ul Normal 0.0-0.7 [facility] Comment on above: Performed By: #### P REGU #### [facility] [address] [place] [address] Dr. Luis A Solorio Eosinophils/100 WBC (Bld) 0.0 % Critically low 0.9-7.0 [facility] Comment on above: Performed By: #### P REGU #### [facility] [address] [place] [address] Dr. Luis A Solorio Erythrocyte distribution width (RBC) [Ratio] 17.0 % Critically high 11.0-15.0 [facility] Comment on above: Performed By: #### P REGU #### [facility] [address] [place] [address] Dr. Luis A Solorio Hematocrit (Bld) [Volume fraction] 32.6 % Critically low 36.0-48.0 [facility] Comment on above: Performed By: #### P REGU #### [facility] [address] [place] [address] Dr. Luis A Solorio Hemoglobin (Bld) [Mass/Vol] 10.1 g/dL Critically low 12.0-16.0 [facility] Comment on above: Performed By: #### P REGU #### [facility] [address] [place] [address] Dr. Luis A Solorio IG # 0.05 10e3/ul Critically high 0.00-0.03 [facility] Comment on above: Performed By: #### P REGU #### [facility] [address] [place] [address] Dr. Luis A Solorio IG % 0.5 % Normal 0.0-0.5 [facility] Comment on above: Performed By: #### P REGU #### [facility] [address] [place] [address] Dr. Luis A Solorio LYMPH # 1.3 103/ul Normal 1.2-3.8 [facility] Comment on above: Performed By: #### P REGU #### [facility] [address] [place] [address] Dr. Luis A Solorio Lymphocytes/100 WBC (Bld) 12.4 % Critically low 20.5-60.0 [facility] Comment on above: Performed By: #### P REGU #### [facility] [address] [place] [address] Dr. Luis A Solorio MANUAL DIFF REQ NO Normal [facility] Comment on above: Performed By: #### P REGU #### [facility] [address] [place] [address] Dr. Luis A Solorio MCH (RBC) [Entitic mass] 25.1 pg Critically low 26.7-34.0 [facility] Comment on above: Performed By: #### P REGU #### [facility] [address] [address] [address] Luis A Solorio MCHC (RBC) [Mass/Vol] 31.0 g/dL Normal 29.9-35.2 [facility] Comment on above: Performed By: #### P REGU #### [facility] [address] [address] [address] Luis A Solorio MCV (RBC) [Entitic vol] 80.9 fL Critically low 81.0-99.0 [facility] Comment on above: Performed By: #### P REGU #### [facility] [address] [place] [address] Dr. Luis A Solorio MONO # 0.8 103/ul Normal 0.3-0.8 [facility] Comment on above: Performed By: #### P REGU #### [facility] [address] [place] [address] Dr. Luis A Solorio Monocytes/100 WBC (Bld) 7.6 % Normal 1.7-12.0 [facility] Comment on above: Performed By: #### P REGU #### [facility] [address] [place] [address] Dr. Luis A Solorio NEUT # 8.5 103/ul Critically high 1.4-6.5 [facility] Comment on above: Performed By: #### P REGU #### [facility] [address] [place] [address] Dr. Luis A Solorio Neutrophils/100 WBC (Bld) 79.4 % Critically high 43.0-75.0 [facility] Comment on above: Performed By: #### P REGU #### [facility] [address] [place] [address] Dr. Luis A Solorio Platelet mean volume (Bld) [Entitic vol] 10.7 fL Normal 9.5-13.5 [facility] Comment on above: Performed By: #### P REGU #### [facility] [address] [address] [address] Luis A Solorio PLT 237 103/ul Normal 150-450 [facility] Comment on above: Performed By: #### P REGU #### [facility] [address] [place] [address] Dr. Luis A Solorio RBC 4.03 106/ul Critically low 4.20-5.40 [facility] Comment on above: Performed By: #### P REGU #### [facility] [address] [place] [address] Dr. Luis A Solorio WBC 10.7 103/ul Normal 4.0-11.0 [facility] Comment on above: Performed By: #### P REGU #### [facility] [address] [place] [address] Dr. Luis A Solorio CREATININEon 07-20-2022 Creatinine [Mass/Vol] 0.99 mg/dL Normal 0.55-1.02 [facility] Comment on above: Performed By: #### B UN, CREA #### [facility] [address] [place] [address] Dr. Luis A Solorio EGFR-AF NAMIBIAN >60 Normal >=60 [facility] Comment on above: Performed By: #### B UN, CREA #### [facility] [address] [place] [address] Dr. Luis A Solorio EGFR-NON AF NAMIBIAN >60 Normal >=60 [facility] Comment on above: Performed By: #### B UN, CREA #### [facility] [address] [place] [address] Dr. Luis A Solorio CBC AUTO DIFFon 07-19-2022 BASO # 0.0 103/ul Normal 0.0-0.1 [facility] Comment on above: Performed By: #### C BC #### [facility] [address] [place] [address] Dr. Luis A Solorio Basophils/100 WBC (Bld) 0.4 % Normal 0.2-2.0 [facility] Comment on above: Performed By: #### C BC #### [facility] [address] [place] [address] Dr. Luis A Solorio EO # 0.1 103/ul Normal 0.0-0.7 [facility] Comment on above: Performed By: #### C BC #### [facility] [address] [place] [address] Dr. Luis A Solorio Eosinophils/100 WBC (Bld) 2.4 % Normal 0.9-7.0 [facility] Comment on above: Performed By: #### C BC #### [facility] [address] [place] [address] Dr. Luis A Solorio Erythrocyte distribution width (RBC) [Ratio] 16.4 % Critically high 11.0-15.0 [facility] Comment on above: Performed By: #### C BC #### [facility] [address] [place] [address] Dr. Luis A Solorio Hematocrit (Bld) [Volume fraction] 36.9 % Normal 36.0-48.0 [facility] Comment on above: Performed By: #### C BC #### [facility] [address] [place] [address] Dr. Luis A Solorio Hemoglobin (Bld) [Mass/Vol] 11.5 g/dL Critically low 12.0-16.0 [facility] Comment on above: Performed By: #### C BC #### [facility] [address] [place] [address] Dr. Luis A Solorio IG # 0.01 10e3/ul Normal 0.00-0.03 [facility] Comment on above: Performed By: #### C BC #### [facility] [address] [place] [address] Dr. Luis A Solorio IG % 0.2 % Normal 0.0-0.5 [facility] Comment on above: Performed By: #### C BC #### [facility] [address] [place] [address] Dr. Luis A Solorio LYMPH # 2.3 103/ul Normal 1.2-3.8 [facility] Comment on above: Performed By: #### C BC #### [facility] [address] [place] [address] Dr. Luis A Solorio Lymphocytes/100 WBC (Bld) 46.0 % Normal 20.5-60.0 [facility] Comment on above: Performed By: #### C BC #### [facility] [address] [place] [address] Dr. Luis A Solorio MANUAL DIFF REQ NO Normal [facility] Comment on above: Performed By: #### C BC #### [facility] [address] [place] [address] Dr. Luis A Solorio MCH (RBC) [Entitic mass] 25.3 pg Critically low 26.7-34.0 [facility] Comment on above: Performed By: #### C BC #### [facility] [address] [place] [address] Dr. Luis A Solorio MCHC (RBC) [Mass/Vol] 31.2 g/dL Normal 29.9-35.2 [facility] Comment on above: Performed By: #### C BC #### [facility] [address] [place] [address] Dr. Luis A Solorio MCV (RBC) [Entitic vol] 81.1 fL Normal 81.0-99.0 [facility] Comment on above: Performed By: #### C BC #### [facility] [address] [place] [address] Dr. Luis A Solorio MONO # 0.5 103/ul Normal 0.3-0.8 [facility] Comment on above: Performed By: #### C BC #### [facility] [address] [place] [address] Dr. Luis A Solorio Monocytes/100 WBC (Bld) 10.5 % Normal 1.7-12.0 [facility] Comment on above: Performed By: #### C BC #### [facility] [address] [place] [address] Dr. Luis A Solorio NEUT # 2.0 103/ul Normal 1.4-6.5 [facility] Comment on above: Performed By: #### C BC #### [facility] [address] [place] [address] Dr. Luis A Solorio Neutrophils/100 WBC (Bld) 40.5 % Critically low 43.0-75.0 [facility] Comment on above: Performed By: #### C BC #### [facility] [address] [place] [address] Dr. Luis A Solorio Platelet mean volume (Bld) [Entitic vol] 10.4 fL Normal 9.5-13.5 [facility] Comment on above: Performed By: #### C BC #### [facility] [address] [place] [address] Dr. Luis A Solorio PLT 236 103/ul Normal 150-450 [facility] Comment on above: Performed By: #### C BC #### [facility] [address] [place] [address] Dr. Luis A Solorio RBC 4.55 106/ul Normal 4.20-5.40 [facility] Comment on above: Performed By: #### C BC #### [facility] [address] [place] [address] Dr. Luis A Solorio WBC 4.9 103/ul Normal 4.0-11.0 [facility] Comment on above: Performed By: #### C BC #### [facility] [address] [place] [address] Dr. Luis A Solorio PREG HCG QUALon 07-19-2022 , QUAL Negative Normal NEGATIVE [facility] Comment on above: Performed By: #### P REG #### [facility] [address] [place] [address] Dr. Luis A Solorio Covid-19 PCR (CVDTB)on 06-18 SARS-CoV-2 (COVID-19) RNA ARABELLA+probe Ql (Unsp spec) Not detected Normal NOT DETECTED [facility] Comment on above: Result Comment: This test is not yet approved or cleared by the [place] FDA. When there are no FDA-approved or cleared tests available, and other criteria are met, FDA can make tests available under an emergency access mechanism called an Emergency Use Authorization (EUA). The EUA for this test is supported by the Manager Emergency of Health and Human Service's (HHS's) declaration [...] SARS-CoV-2. Performed By: #### P REGU #### [facility] [address] [place] [address] Dr. Luis A Solorio Pre-Certification Formon Pre-Certification Form [id number] 7#1.00CD:127 Normal [facility] TYPE AND SCREENon 07-15-2022 TYPE AND SCREEN Negative Normal [facility] Comment on above: Performed By: #### P REGU #### [facility] [address] [place] [address] Dr. Luis A Solorio Physician Referralon 022 Physician Referral [id number] #1.00CD:127 Normal [facility] URon 06-11-2022 , QUAL Negative Normal NEGATIVE [facility] Comment on above: Performed By: #### P REGU #### [facility] [address] [place] [address] Dr. Luis A Solorio Covid-19 PCR (CVDTBH)on 05-17 SARS-CoV-2 (COVID-19) RNA ARABELLA+probe Ql (Unsp spec) Not detected Normal NOT DETECTED [facility] Comment on above: Result Comment: This test is not yet approved or cleared by the [place] FDA. When there are no FDA-approved or cleared tests available, and other criteria are met, FDA can make tests available under an emergency access mechanism called an Emergency Use Authorization (EUA). The EUA for this test is supported by the [place] of Health and Human Service's (HHS's) declaration [...] SARS-CoV-2. Performed By: #### P REGU #### [facility] [address] [place] [address] Dr. Luis A Solorio CBC AUTO DIFFon 05-28-2022 BASO # 0.0 103/ul Normal 0.0-0.1 [facility] Comment on above: Performed By: #### B UN, CREA #### [facility] [address] [place] [address] Dr. Luis A Solorio Basophils/100 WBC (Bld) 0.4 % Normal 0.2-2.0 [facility] Comment on above: Performed By: #### B UN, CREA #### [facility] [address] [place] [address] Dr. Luis A Solorio EO # 0.1 103/ul Normal 0.0-0.7 [facility] Comment on above: Performed By: #### B UN, CREA #### [facility] [address] [place] [address] Dr. Luis A Solorio Eosinophils/100 WBC (Bld) 2.0 % Normal 0.9-7.0 [facility] Comment on above: Performed By: #### B UN, CREA #### [facility] [address] [place] [address] Dr. Luis A Solorio Erythrocyte distribution width (RBC) [Ratio] 19.9 % Critically high 11.0-15.0 [facility] Comment on above: Performed By: #### B UN, CREA #### [facility] [address] [place] [address] Dr. Luis A Solorio Hematocrit (Bld) [Volume fraction] 35.0 % Critically low 36.0-48.0 [facility] Comment on above: Performed By: #### B UN, CREA #### [facility] [address] [place] [address] Dr. Luis A Solorio Hemoglobin (Bld) [Mass/Vol] 10.6 g/dL Critically low 12.0-16.0 [facility] Comment on above: Performed By: #### B UN, CREA #### [facility] [address] [place] [address] Dr. Luis A Solorio IG # 0.01 10e3/ul Normal 0.00-0.03 [facility] Comment on above: Performed By: #### B UN, CREA #### [facility] [address] [place] [address] Dr. Luis A Solorio IG % 0.2 % Normal 0.0-0.5 [facility] Comment on above: Performed By: #### B UN, CREA #### [facility] [address] [place] [address] Dr. Luis A Solorio LYMPH # 1.8 103/ul Normal 1.2-3.8 [facility] Comment on above: Performed By: #### B UN, CREA #### [facility] [address] [place] [address] Dr. Luis A Solorio Lymphocytes/100 WBC (Bld) 35.7 % Normal 20.5-60.0 [facility] Comment on above: Performed By: #### B UN, CREA #### [facility] [address] [place] [address] Dr. Luis A Solorio MANUAL DIFF REQ NO Normal [facility] Comment on above: Performed By: #### B UN, CREA #### [facility] [address] [place] [address] Dr. Luis A Solorio MCH (RBC) [Entitic mass] 23.5 pg Critically low 26.7-34.0 [facility] Comment on above: Performed By: #### B UN, CREA #### [facility] [address] [place] [address] Dr. Luis A Solorio MCHC (RBC) [Mass/Vol] 30.3 g/dL Normal 29.9-35.2 [facility] Comment on above: Performed By: #### B UN, CREA #### [facility] [address] [place] [address] Dr. Luis A Solorio MCV (RBC) [Entitic vol] 77.6 fL Critically low 81.0-99.0 [facility] Comment on above: Performed By: #### B UN, CREA #### [facility] [address] [place] [address] Dr. Luis A Solorio MONO # 0.5 103/ul Normal 0.3-0.8 [facility] Comment on above: Performed By: #### B UN, CREA #### [facility] [address] [place] [address] Dr. Luis A Solorio Monocytes/100 WBC (Bld) 9.7 % Normal 1.7-12.0 [facility] Comment on above: Performed By: #### B UN, CREA #### [facility] [address] [place] [address] Dr. Luis A Solorio NEUT # 2.6 103/ul Normal 1.4-6.5 [facility] Comment on above: Performed By: #### B UN, CREA #### [facility] [address] [place] [address] Dr. Luis A Solorio Neutrophils/100 WBC (Bld) 52.0 % Normal 43.0-75.0 [facility] Comment on above: Performed By: #### B UN, CREA #### [facility] [address] [place] [address] Dr. Luis A Solorio Platelet mean volume (Bld) [Entitic vol] 10.3 fL Normal 9.5-13.5 [facility] Comment on above: Performed By: #### B UN, CREA #### [facility] [address] [place] [address] Dr. Luis A Solorio PLT 236 103/ul Normal 150-450 [facility] Comment on above: Performed By: #### B UN, CREA #### [facility] [address] [place], [place] [address] Dr. Luis A Solorio RBC 4.51 106/ul Normal 4.20-5.40 [facility] Comment on above: Performed By: #### B ROHIT MARSHALL #### [facility] [address] [place], [place] [address] Dr. Luis A Solorio WBC 4.9 103/ul Normal 4.0-11.0 [facility] Comment on above: Performed By: #### B ROLANDO CREA #### [facility] [address] [place], [place] [address] Dr. Luis A Solorio US VAC ASST BX BREAST RT W C LIPon 05-07-2022 US VAC ASST BX BREAST RT W CLIP Begin Addendum #1 DATE/TIME COLLECTED: 05/03/2022, 09:17 EDT Final Diagnosis Report for [facility] [place] [place] RIGHT BREAST 11 O'CLOCK MASS; BIOPSY: [...] after pathology results are available. Normal [facility] US PELVIS AND TRANSVAGon US [...] by: WE[place] Date: 2022-05-04 22:[address] [facility] PAP ACOG PANEL 2: 30 to 65on 05-04-2022 . . Normal [facility] Comment on above: Result Comment: Perf ormed at: WB Performed By: #### B UN, CREA #### [facility] [address] [place] [address] Dr. Luis A Solorio Age Gdln ACOG Testing 30-[address] [facility] Comment on above: Performed By: #### B UN, CREA #### [facility] [address] [address] [address] Luis A Solorio DIAGNOSIS: Comment Normal [facility] Comment on above: Result Comment: NEGA TIVE FOR INTRAEPITHELIAL LESION OR MALIGNANCY. Performed at: WB Performed By: #### B UN, CREA #### [facility] [address] [address] [address] Luis A Solorio HPV Aptima Negative Normal Negative [facility] Comment on above: Result Comment: This nucleic acid amplification test detects fourteen high-risk HPV types (16,18,31,33,35,39,45,51,52,56,58,59,66,68) without differentiation. Performed at: =G Performed By: #### B UN, CREA #### [facility] [address] [address] [address] Luis A Solorio Methodology: Comment Normal [facility] Comment on above: Result Comment: This liquid based ThinPrep(R) pap test was screened with the use of an image guided system. Performed at: WB Performed By: #### B UN, CREA #### [facility] [address] [address] [address] Luis A Solorio Note: Comment Normal [facility] Comment on above: Result Comment: The [...] Performed By: #### B UN, CREA #### [facility] [address] [place] [address] Dr. Luis A Solorio Performed by: Comment Normal [facility] Comment on above: Result Comment: Lisbet Springer, Tube Pusher (ASCP) Performed at: WB Performed By: #### B UN, CREA #### [facility] [address] [address] [address] Luis A Solorio Specimen adequacy: Comment Normal [facility] Comment on above: Result Comment: Sati sfactory for evaluation. Endocervical and/or squamous metaplastic cells (endocervical component) are present. Performed at: WB Performed By: #### B UN, CREA #### [facility] [address] [place] [address] Dr. Luis A Solorio MAMMO POST BIOPSY RIGHTon MAMMO POST BIOPSY RIGHT Patient: YOLANDA MARQUEZ Exam Date: 05/03/2022 : 1975 Gender:F Ordering : DR ALLISON SHARP M.D. Admission #: [id number] Family : Order #: [id number] CLICK HERE TO VIEW EXAM RADIOLOGY REPORT [...] Wooten M.D. on 05/03/2022 at 09:[address] [facility] MG MAMM RT DIAG FUon 022 MG MAMM RT DIAG FU Patient: YOLANDA MARQUEZ Exam Date: 04/23/2022 : 1975 Gender:F Ordering : DR ALLISON SHARP M.D. Admission #: [id number] Family : Order #: [id number] CLICK HERE TO VIEW EXAM RADIOLOGY REPORT [...] Treatments None Family Cancers None LOCATION: [facility] BREAST COMPOSITION: Heterogeneously dense,which may obscure [...] Wooten M.D. on 04/23/2022 at 09:[address] [facility] US BREAST RIGHT LIMITEDon US BREAST RIGHT LIMITED Patient: YOLANDA MARQUEZ Exam Date: 04/23/2022 : 1975 Gender:F Ordering : DR ALLISON SHARP M.D. Admission #: [id number] Family : Order #: [id number] CLICK HERE TO VIEW EXAM RADIOLOGY REPORT [...] Treatments None Family Cancers None LOCATION: [facility] BREAST COMPOSITION: Heterogeneously dense,which may obscure [...] M.D. on 04/23/2022 at 09:37 Normal [facility] MG MAMM SCREEN 3D AYUSH CADon 04-14-2022 MG MAMM SCREEN 3D AYUSH CAD Patient: YOLANDA MARQUEZ Exam Date: 04/14/2022 : 1975 Gender:F Ordering : DR ALLISON SHARP M.D. Admission #: [id number] Family : Order #: [id number] CLICK HERE TO VIEW EXAM RADIOLOGY REPORT PROCEDURE: MAMMOGRAM SCREENING 3D BILATERAL CAD COMPARISON: None. INDICATIONS: Screening mammography Calculator Name NCI Breast Cancer Risk Assessment Tool 5 Year Breast Cancer Risk Not Reported. Lifetime Breast Cancer Risk Not Reported. Personal Breast Cancer No Personal Ovarian Cancer No Treatments None Family Cancers None LOCATION: [facility] BREAST COMPOSITION: Heterogeneously dense,which may obscure [...] MD on 04/14/2022 at 10:03 Normal [facility] CBC AUTO DIFFon 04-02-2022 BASO # 0.0 103/ul Normal 0.0-0.1 [facility] Comment on above: Performed By: #### C BC #### [facility] [address] [address] [address] Luis A Solorio Basophils/100 WBC (Bld) 0.4 % Normal 0.2-2.0 [facility] Comment on above: Performed By: #### C BC #### [facility] [address] [address] [address] Luis A Solorio EO # 0.1 103/ul Normal 0.0-0.7 [facility] Comment on above: Performed By: #### C BC #### [facility] [address] [address] [address] Luis A Solorio Eosinophils/100 WBC (Bld) 2.6 % Normal 0.9-7.0 [facility] Comment on above: Performed By: #### C BC #### [facility] [address] [address] [address] Luis A Solorio Erythrocyte distribution width (RBC) [Ratio] 16.0 % Critically high 11.0-15.0 [facility] Comment on above: Performed By: #### C BC #### [facility] [address] [place] [address] Dr. Luis A Solorio Hematocrit (Bld) [Volume fraction] 30.2 % Critically low 36.0-48.0 [facility] Comment on above: Performed By: #### C BC #### [facility] [address] [place] [address] Dr. Luis A Solorio Hemoglobin (Bld) [Mass/Vol] 8.8 g/dL Critically low 12.0-16.0 [facility] Comment on above: Performed By: #### C BC #### [facility] [address] [place] [address] Dr. Luis A Solorio IG # 0.02 10e3/ul Normal 0.00-0.03 [facility] Comment on above: Performed By: #### C BC #### [facility] [address] [place] [address] Dr. Luis A Solorio IG % 0.4 % Normal 0.0-0.5 [facility] Comment on above: Performed By: #### C BC #### [facility] [address] [place] [address] Dr. Luis A Solorio LYMPH # 1.7 103/ul Normal 1.2-3.8 [facility] Comment on above: Performed By: #### C BC #### [facility] [address] [place] [address] Dr. Luis A Solorio Lymphocytes/100 WBC (Bld) 36.6 % Normal 20.5-60.0 [facility] Comment on above: Performed By: #### C BC #### [facility] [address] [place] [address] Dr. Luis A Solorio MANUAL DIFF REQ NO Normal [facility] Comment on above: Performed By: #### C BC #### [facility] [address] [place] [address] Dr. Luis A Solorio MCH (RBC) [Entitic mass] 21.9 pg Critically low 26.7-34.0 [facility] Comment on above: Performed By: #### C BC #### [facility] [address] [address] [address] Luis A Solorio MCHC (RBC) [Mass/Vol] 29.1 g/dL Critically low 29.9-35.2 [facility] Comment on above: Performed By: #### C BC #### [facility] [address] [address] [address] Luis A Solorio MCV (RBC) [Entitic vol] 75.1 fL Critically low 81.0-99.0 [facility] Comment on above: Performed By: #### C BC #### [facility] [address] [place] [address] Dr. Luis A Solorio MONO # 0.5 103/ul Normal 0.3-0.8 [facility] Comment on above: Performed By: #### C BC #### [facility] [address] [place] [address] Dr. Luis A Solorio Monocytes/100 WBC (Bld) 10.8 % Normal 1.7-12.0 [facility] Comment on above: Performed By: #### C BC #### [facility] [address] [place] [address] Dr. Luis A Solorio NEUT # 2.3 103/ul Normal 1.4-6.5 [facility] Comment on above: Performed By: #### C BC #### [facility] [address] [place] [address] Dr. Luis A Solorio Neutrophils/100 WBC (Bld) 49.2 % Normal 43.0-75.0 [facility] Comment on above: Performed By: #### C BC #### [facility] [address] [place] [address] Dr. Luis A Solorio Platelet mean volume (Bld) [Entitic vol] 10.0 fL Normal 9.5-13.5 [facility] Comment on above: Performed By: #### C BC #### [facility] [address] [place] [place] [address] Dr. Luis A Solorio PLT 280 103/ul Normal 150-450 [facility] Comment on above: Performed By: #### C BC #### [facility] [address] [address] [address] Luis A Solorio RBC 4.02 106/ul Critically low 4.20-5.40 [facility] Comment on above: Performed By: #### C BC #### [facility] [address] [address] [address] Luis A Solorio WBC 4.6 103/ul Normal 4.0-11.0 [facility] Comment on above: Performed By: #### C BC #### [facility] [address] [address] [address] Luis A Solorio GLYCOHEMOGLOBIN A1Con 2021 ADA RECOMMENDATION SEE BELOW Normal [facility] Comment on above: Result Comment: ADA RECOMMENDED LIMIT 4.0 - 6.0 ADA THERAPEUTIC TARGET < 7.0 ACTION SUGGESTED > 7.0 Performed By: #### B UN, CREA #### [facility] [address] [place] [address] Dr. Luis A Solorio Glucose [Mass/Vol] 131 mg/dL Normal [facility] Comment on above: Performed By: #### B UN, CREA #### [facility] [address] [place] [address] Dr. Luis A Solorio HbA1c (Bld) [Mass fraction] 6.2 % Normal 4.5-6.2 [facility] Comment on above: Performed By: #### B UN, CREA #### [facility] [address] [place] [address] Dr. Luis A Solorio LIPID PROFILEon 04-02-2022 CHOL-HDL RATIO NORM SEE BELOW Normal [facility] Comment on above: Result Comment: 3.3 - 4.4 LOW RISK 4.4 - 7.1 AVERAGE RISK 7.1 - 11.0 MODERATE RISK >11.0 HIGH RISK Performed By: #### T SH, LIPID, CMP #### [facility] [address] [place] [address] Dr. Luis A Solorio Cholesterol [Mass/Vol] 215 mg/dL Critically high <=200 [facility] Comment on above: Performed By: #### T SH, LIPID, CMP #### [facility] [address] [address] [address] Luis A Solorio Cholesterol in HDL [Mass/Vol] 46 mg/dL Normal 40-60 [facility] Comment on above: Performed By: #### T SH, LIPID, CMP #### [facility] [address] [address] [address] Luis A Solorio Cholesterol in LDL [Mass/Vol] 138.2 mg/dL Normal [facility] Comment on above: Performed By: #### T SH, LIPID, CMP #### [facility] [address] [address] [address] Luis A Solorio Cholesterol.total/Ch olesterol in HDL [Mass ratio] 4.7 {ratio} Normal [facility] Comment on above: Performed By: #### T SH, LIPID, CMP #### [facility] [address] [place] [address] Dr. Luis A Solorio HDL NORMAL > or = 60 mg/dl - LOW CARDIOVASCULAR RISK <40 mg/dl - HIGH CARDIOVASCULAR RISK Normal [facility] Comment on above: Performed By: #### T SH, LIPID, CMP #### [facility] [address] [place] [address] Dr. Luis A Solorio LDL CALC NORMAL SEE BELOW Normal [facility] Comment on above: Result Comment: <100 mg/dl OPTIMAL 100 - 129 mg/dl NEAR OR ABOVE OPTIMAL 130 - 159 mg/dl BORDERLINE HIGH 160 - 189 mg/dl HIGH >190 mg/dl VERY HIGH Performed By: #### T SH, LIPID, CMP #### [facility] [address] [address] [address] Luis A Solorio Triglyceride [Mass/Vol] 154 mg/dL Critically high <=150 [facility] Comment on above: Performed By: #### T SH, LIPID, CMP #### [facility] [address] [place] [address] Dr. Luis A Solorio VLDL CALC 30.8 mg/dL Normal [facility] Comment on above: Performed By: #### T SH, LIPID, CMP #### [facility] [address] [place] [address] Dr. Luis A Solorio PROF 14(COMP METB)on 022 Albumin [Mass/Vol] 3.2 g/dL Critically low 3.4-5.0 [facility] Comment on above: Performed By: #### P REGU #### [facility] [address] [place] [address] Dr. Luis A Solorio Albumin/Globulin [Mass ratio] 0.8 {ratio} Normal [facility] Comment on above: Performed By: #### P REGU #### [facility] [address] [place] [address] Dr. Luis A Solorio ALP [Catalytic activity/Vol] 83 U/L Normal 46-116 [facility] Comment on above: Performed By: #### P REGU #### [facility] [address] [place] [address] Dr. Luis A Solorio ALT [Catalytic activity/Vol] 34 U/L Normal 14-59 [facility] Comment on above: Performed By: #### P REGU #### [facility] [address] [place] [address] Dr. Luis A Solorio Anion gap [Moles/Vol] 13.5 mmol/L Normal [facility] Comment on above: Performed By: #### P REGU #### [facility] [address] [place] [address] Dr. Luis A Solorio AST [Catalytic activity/Vol] 24 U/L Normal 15-37 [facility] Comment on above: Performed By: #### P REGU #### [facility] [address] [place] [address] Dr. Luis A Solorio Bilirubin [Mass/Vol] 0.3 mg/dL Normal 0.2-1.0 [facility] Comment on above: Performed By: #### P REGU #### [facility] [address] [place] [address] Dr. Luis A Solorio Calcium [Mass/Vol] 8.5 mg/dL Normal 8.5-10.1 [facility] Comment on above: Performed By: #### P REGU #### [facility] [address] [place] [address] Dr. Luis A Solorio Chloride [Moles/Vol] 105 mmol/L Normal 98-107 [facility] Comment on above: Performed By: #### P REGU #### [facility] [address] [address] [address] Luis A Solorio CO2 [Moles/Vol] 23.7 mmol/L Normal 21.0-32.0 [facility] Comment on above: Performed By: #### P REGU #### [facility] [address] [address] [address] Luis A Solorio Creatinine [Mass/Vol] 0.74 mg/dL Normal 0.55-1.02 [facility] Comment on above: Performed By: #### P REGU #### [facility] [address] [place] [address] Dr. Luis A Solorio EGFR-AF NAMIBIAN >60 Normal >=60 [facility] Comment on above: Performed By: #### P REGU #### [facility] [address] [place] [address] Dr. Luis A Solorio EGFR-NON AF NAMIBIAN >60 Normal >=60 [facility] Comment on above: Performed By: #### P REGU #### [facility] [address] [place] [address] Dr. Luis A Solorio Globulin (S) [Mass/Vol] 3.8 g/dL Normal [facility] Comment on above: Performed By: #### P REGU #### [facility] [address] [place] [address] Dr. Luis A Solorio Glucose [Mass/Vol] 122 mg/dL Critically high 74-106 [facility] Comment on above: Performed By: #### P REGU #### [facility] [address] [address] [address] Luis A Solorio Potassium [Moles/Vol] 4.2 mmol/L Normal 3.5-5.1 [facility] Comment on above: Performed By: #### P REGU #### [facility] [address] [place] [address] Dr. Luis A Solorio Protein [Mass/Vol] 7.0 g/dL Normal 6.4-8.2 [facility] Comment on above: Performed By: #### P REGU #### [facility] [address] [address] [address] Luis A Solorio Sodium [Moles/Vol] 138 mmol/L Normal 136-145 [facility] Comment on above: Performed By: #### P REGU #### [facility] [address] [address] [address] Luis A Solorio Urea nitrogen [Mass/Vol] 15.0 mg/dL Normal 7.0-18.0 [facility] Comment on above: Performed By: #### P REGU #### [facility] [address] [address] [address] Luis A Solorio Urea nitrogen/Creatinine [Mass ratio] 20.3 mg/mg Normal [facility] Comment on above: Performed By: #### P REGU #### [facility] [address] [address] [address] Luis A Solorio TSHon 04-02-2022 TSH 1.449 uIU/mL Normal 0.358-3.740 [facility] Comment on above: Performed By: #### T SH, LIPID, CMP #### [facility] [address] [place] [address] Dr. Luis A Solorio Vital Signs Date Time Vital Sign Value Performing Clinician Faci lity 2025 08:54-0400 Body height 170.18 cm [facility] 2025 08:54-0400 Body mass index (BMI) [Ratio] 45.1 kg/m2 [facility] 2025 08:54-0400 Body weight 130.63 kg [facility] 2025 08:54-0400 Diastolic blood pressure 87 mm[Hg] [facility] 2025 08:54-0400 Heart rate 62 /min [facility] 2025 08:54-0400 Systolic blood pressure 143 mm[Hg] [facility] 10-19-2024 11:32-0500 Body height 170.18 cm [facility] 10-19-2024 11:32-0500 Body mass index (BMI) [Ratio] 44.9 kg/m2 [facility] 10-19-2024 11:32-0500 Body weight 130.18 kg [facility] 10-19-2024 11:32-0500 Diastolic blood pressure 87 mm[Hg] [facility] 10-19-2024 11:32-0500 Heart rate 94 /min [facility] 10-19-2024 11:32-0500 Systolic blood pressure 133 mm[Hg] [facility] 06-20-2024 14:02-0400 Body height 170.2 cm Johny Thao DO Work Phone: [facility] 06-20-2024 14:02-0400 Body mass index (BMI) [Ratio] 42.29 kg/m2 Johny Thao DO Work Phone: [facility] 06-20-2024 14:02-0400 Body weight 122.47 kg Johny Thao DO Work Phone: [facility] 06-20-2024 14:02-0400 Diastolic blood pressure 92 mm[Hg] Johny Thao DO Work Phone: [facility] 06-20-2024 14:02-0400 Heart rate 76 /min Johny Thao DO Work Phone: [facility] 06-20-2024 14:02-0400 SaO2% (BldA) [Mass fraction] 97 % Johny Thao DO Work Phone: [facility] 06-20-2024 14:02-0400 Systolic blood pressure 144 mm[Hg] Johny Thao DO Work Phone: [facility] 02-17-2024 09:36-0400 Body height 170.18 cm [facility] 02-17-2024 09:36-0400 Body mass index (BMI) [Ratio] 43.4 kg/m2 [facility] 02-17-2024 09:36-0400 Body weight 125.64 kg [facility] 02-17-2024 09:36-0400 Diastolic blood pressure 86 mm[Hg] [facility] 02-17-2024 09:36-0400 Heart rate 61 /min [facility] 02-17-2024 09:36-0400 Systolic blood pressure 149 mm[Hg] [facility] Encounters Encounter Date Encounter Type Care Provider Facility Start: 2025 End: 2025 ambulatory [facility] Work Phone: Start: 2025 End: 2025 Patient encounter procedure [facility] Work Phone: Start: 11-19-2024 ambulatory [facility] Start: 10-19-2024 Patient encounter status [facility] Start: 10-19-2024 End: 10-19-2024 ambulatory [facility] Work Phone: Start: 10-19-2024 End: 10-19-2024 Patient encounter procedure [facility] Physician [facility] Work Phone: Start: 10-15-2024 Non-patient / Non-visit [facility] Physician [facility] Work Phone: Start: 06-20-2024 End: 06-20-2024 Bamboo flowsheet Johny Thao DO Work Phone: [facility] Start: 06-20-2024 End: 06-20-2024 Bamboo flowsheet Johny Thao DO Work Phone: [facility] Start: 06-20-2024 End: 06-20-2024 Office consultation new/estab patient 60 min Johny Thao DO Work Phone: [facility] Comment on above: NILTON (obstructive sle ep apnea); Hypersomnia; Sleep deprivation; Hypoxia; Inadequate sleep hygiene Start: 06-20-2024 End: 06-20-2024 ambulatory JOHNY THAO Not Available Start: 02-17-2024 Patient encounter status [facility] Start: 02-17-2024 End: 02-17-2024 ambulatory [facility] Work Phone: Start: 02-17-2024 End: 02-17-2024 Encounter for general adult medical examination without abnormal findings [facility] Start: 02-17-2024 End: 02-17-2024 Patient encounter procedure [facility] Work Phone: Start: 06-24-2023 End: 06-24-2023 ambulatory Arley Hand Other [facility] Other Start: 06-24-2023 Office outpatient vi sit 15 minutes Arley Hand [facility] Start: 04-27-2023 End: 04-27-2023 ambulatory Allison Sharp Other [facility] Other Start: 04-27-2023 Nursing evaluation o f patient and report Allison Sharp [facility] Start: 02-16-2023 End: 02-17-2023 ambulatory NONE LISTED REQUEST Facility:[facility] Start: 10-06-2022 Adult health examination Ronak dustin Hand Other [facility] Other Start: 10-06-2022 Gynecological examin ation normal Arley Hand Other [facility] Other Start: 10-06-2022 Pre-procedure evalua tion check Arley Hand Other [facility] Other Start: 10-05-2022 End: 10-05-[address] ALLISON SHARP Facility:[facility] Start: 07-19-2022 End: 07-20-2022 ambulatory MD Raymundo DAILEY Facility:CD:[id number] Start: 07-19-2022 End: 07-21-2022 Evaluation and management of inpatient DR ALLISON SHARP Facility:[facility] Start: 07-17-2022 Encounter for preprocedural laboratory examination DR HUYEN GILL . [facility] Start: 07-17-[address] ALLISON SHARP Facil ity:[facility] Start: 07-15-2022 End: 07-16-[address] ALLISON SHARP Facility:[facility] Start: 07-15-2022 End: 07-16-2022 Encounter for preprocedural laboratory examination DR ALLISON SHARP Facility:[facility] Start: 07-14-2022 End: 07-14-[address] ALLISON SHARP Facility:[facility] Start: 07-06-2022 Encounter for other preprocedural examination DR HUYEN GILL . [facility] Start: 07-05-2022 End: 07-06-[address] ALLISON SHARP Facility:[facility] Start: 07-05-2022 End: 07-06-2022 Encounter for other preprocedural examination DR ALLISON SHARP Facility:[facility] Start: 06-25-2022 ambulatory MD Raymundo Grace ity:[facility] Start: 06-11-2022 End: 06-11-[address] ALLISON SHARP Facility:[facility] Start: 06-04-2022 End: 06-05-[address] ALLISON SHARP Facility:[facility] Start: 05-31-2022 Encounter for preprocedural cardiovascular examination DR HUYEN GILL . [facility] Start: 05-28-2022 End: 05-29-[address] ALLISON SHARP Facility:[facility] Start: 05-03-2022 End: 05-04-[address] ALLISON SHARP Facility:[facility] Start: 04-30-2022 End: 04-30-[address] ALLISON SHARP Facility:[facility] Start: 04-23-2022 End: 04-24-[address] ALLISON SHARP Facility:[facility] Start: 04-14-2022 End: 04-15-[address] ALLISON SHARP Facility:[facility] Start: 04-06-2022 Encounter for genera l adult medical examination without abnormal findings DR ALLISON SHARP [facility] Start: 04-02-2022 End: 04-03-[address] [...] Treatment Date Care Activity Detail Author Start: 2025 Patient referral [facility] Work Phone: Start: 06-20-2024 End: 06-20-2024 Patient encounter procedure 06/20/2024 2:00 PM EDT Office Visit [facility] [address] [place] [address] Johny Osuna, [address] [place] [address] [facility] Comment on above: Arrived MG Breast - bilatera l Screening [facility] Patient referral [facility] Work Phone: XR Knee - left 2 Views [facility] Payers Date Payer Category Payer Private Health Insurance [id number] 2009 Managed Care HMO (unspecified) ENID ROSSI [id number] 2009-Present [address] [place] [address] HMO [id number] 1977 Unknown [id number] [id number] .727 1977 Unknown [id number] 2.16.840.1.759210.3.579.2 .593 1977 Unknown [id number] 2.16.840.1.263164.3.579.2 .593 1977 Unknown [id number] 2.16.840.1.057572.3.579.2 .593 1977 Unknown [id number] 2.16.840.1.530584.3.579.2 .593 1977 Unknown [id number] 2.16.840.1.450872.3.579.2 .593 1977 Unknown [id number] 2.16.840.1.375160.3.579.2 .593 1977 Unknown [id number] 2.16.840.1.630085.3.579.2 .593 1977 Unknown [id number] 2.16.840.1.692178.3.579.2 .593 1977 Unknown [id number] 2.16.840.1.345866.3.579.2 .593 1977 Unknown [id number] 2.16.840.1.493662.3.579.2 .593 1977 Unknown [id number] 2.16.840.1.241356.3.579.2 .593 1977 Unknown [id number] 2.16.840.1.390998.3.579.2 .593 1977 Unknown [id number] 2.16.840.1.648672.3.579.2 .593 1977 Unknown [id number] 2.16.840.1.686932.3.579.2 .593 1977 Unknown [id number] 2.16.840.1.309794.3.579.2 .593 1977 Unknown [id number] 2.16.840.1.934325.3.579.2 .1259 1959 Private Health Insurance [id number] 1959 Private Health Insurance [id number] Self-pay Unknown [id number] 2.16.840.1.918294.3.579.2 .593 Social History Date Type Detail Facility Unknown if ever smoked [facility] Other Start: 06-20-2024 Sex Assigned At [facility] Other Start: 1975 Sex Assigned At Female F [facility] Tobacco smoking status [facility] Tobacco smoking consumption unknown [facility] Start: 1975 Sex assigned at Not on file [facility] Start: 06-20-2024 Tobacco smoking status NHIS Never smoked tobacco [facility] Start: 06-20-2024 Tobacco use and exposure Smokeless tobacco non-user [facility] Start: 06-20-2024 History of Social function [facility] Start: 10-19-2024 End: 2025 Sex Female (finding) [facility] History of Present illness Narrative 06-20-2024 Johny Osuna, - 06/20/2024 2:00 PM EDT Note Date & Type Note Facility 06-20-2024 History of Presen t illness Narrative Images from the original note were not included. No chief complaint on file. Subjective Yolanda Maruqez, 49 y.o., female being seen in Sleep [...] getting a benefit and doing better. Her [place] Sleepiness scale is 6 Plan Patient's polysomnogram [...] was counseled on the risks of stroke, [place], and sudden with NILTON, along with the [...] for congestion, Tylenol for pain and fever. [facility] Other Evaluation note 04-27-2023 Note Date & Type Note Facility 04-27-2023 Evaluation note Encounter Date Diagnosis Assessment Notes Apr, Acute cystitis without hematuria (ICD-10 - N30.00) [facility] Other Evaluation note Note Date & Type Note Facility Evaluation note Diagnosis Onset Date Screening mammogram for breast cancer acute Wellness examination [facility] Work Phone: Evaluation note Note Date & Type Note Facility Evaluation note Diagnosis NILTON (obstructive sleep apnea) Obstructive sleep apnea (adult) (pediatric) Hypersomnia Hypersomnia, unspecified Sleep deprivation Problems related to lack of adequate sleep Hypoxia Hypoxemia Inadequate sleep hygiene 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 documented in this encounter [facility] Evaluation note Note Date & Type Note Facility Evaluation note No assessment information availa [facility] Work Phone: Evaluation note Note Date & Type Note Facility Evaluation note Diagnosis Onset Date Resolution Left medial knee pain acute 2025 8:52am [facility] Work Phone: History general Narrative - Reported Note Date & Type Note Facility History general Narrative - Reported Type Surgical History TUBAL Surgical History colonoscopy Surgical History laparoscopy Surgical History cholecystectomy Hospitalization History See Above [facility] Other History general Narrative - Reported Note [...] Surgical History cholecystectomy Hospitalization History See Above [facility] Other Hospital Discharge instructions Note Date & Type Note Facility Hospital Discharge instructions Ambulatory OrdersReferral to Orthopedics Time Frame: 02/25/25, Location: [facility] Work Phone: Summary Purpose Family History Relationship Condition Age [...] fusion, Dr Steen October 19, 2024 11:22am Chief Complaint Admit Date Left knee pain 2025 8:52a m Reason for Visit Admit Date Left medial knee pain 2025 8:5 2am Additional Source Comments INFORMATION SOURCE (unrecogn ized section and content) DATE CREATED AUTHOR 07/28/2022 [facility] DATE CREATED AUTHOR AUTHOR'S ORGANIZ ATION 02/17/2023 [facility] DATE CREATED AUTHOR AUTHOR'S ORGANIZ ATION 06/22/2024 [facility] EPIC DATE CREATED AUTHOR AUTHOR'S ORGANIZ ATION 11/22/2024 [facility] REASON FOR VISIT (unrecogniz ed section and content) Fever, Frequency, Tingling, CloudyCOVID Positive- [phone] Care Teams (unrecognized sec tion and content) Team Status: Active Member Role Status Dates Allison Sharp MD Primary Care Provider Active Team Status: Inactive Member Role Status Dates Allison Sharp MD Primary Care Provide r, Attending Provider Active Start: 2025 End: 2025 Team Status: Active Member Role Status Dates [...] 2024 End: October 19, 2024 Team Status: Inactive Member Role Status Dates Allison Sharp MD Primary Care Provide r, Attending Provider Active Start: February 17, 2024 End: February 17, 2024 Communications Electrician Supervisor Relationship Specialty Start Date End Date Allison Sharp MD [address] [place] [address] PCP - General Family Medicine 06/20/24 Communications Electrician Supervisor Relationship Specialty Start Date End Date Allison Sharp MD [address] [place] [address] PCP - General Family Medicine 06/20/24 Team Status: Inactive Member Role Status Dates Allison Sharp MD Primary Care Provide r, Attending Provider Active Start: 2025 End: 2025 Goals (unrecognized section and content) Goals may [...] BE BASED ON THE PRIMARY CLINICAL RECORDS. [facility] [employer] / [employer] [facility]. provides no warranty or guarantee of the accuracy or completeness of information in this document.
--- NOTE | 2025-03-06 08:30 | MM_ITS ---
Patient Name: YOLANDA ALCARAZ MR#: [id number] : 1975 Exam Date: 03/06/2025 Ordering Doctor: DR PRIMO SHARP M.D. RADIOLOGY REPORT PROCEDURE: MM TOMOSYNTHESIS SCREENING BI COMPARISON: MM TOMOSYNTHESIS SCREENING BI, 03/01/2024. MAMMO POST BIOPSY RIGHT, 05/03/2022. MG MAMM SCREEN 3D AYUSH CAD, 04/14/2022. INDICATIONS: Screening Calculator Name NCI Breast Cancer Risk Assessment Tool 5 Year Breast Cancer Risk Not Reported. Lifetime Breast Cancer Risk Not Reported. Personal Breast Cancer No Personal Ovarian Cancer No Treatments None Family Cancers None LOCATION: [facility] BREAST COMPOSITION: There are scattered areas of fibroglandular density. FINDINGS: DIAGNOSTIC CATEGORY 2--BENIGN FINDING: RIGHT BREAST: No significant suspicious finding. Similar focal asymmetries are noted on the right. There is a biopsy clip in the upper-outer right breast similar to prior exam. LEFT BREAST: No significant suspicious finding. There are a few benign-appearing calcifications. Benign-appearing lymph nodes within along the left chest wall. RECOMMENDATIONS: ROUTINE MAMMOGRAM AND CLINICAL EVALUATION IN 12 MONTHS. PLEASE NOTE: A NORMAL MAMMOGRAM DOES NOT EXCLUDE THE POSSIBILITY OF BREAST CANCER. A CLINICALLY SUSPICIOUS PALPABLE LUMP SHOULD BE BIOPSIED. Dictated by: Wagner Rivas MD on 03/06/2025 at 16:39 Approved by: Wagner Rivas MD on 03/06/2025 at 16:42
== END 2025-03-06 08:25 | disposition home or self-care (01) ==
LOC: MAMMO 08:25
PROVIDERS: PCP Family Medicine; Visit Provider Family Medicine
DX: Z12.31 Encounter for screening mammogram for malignant neoplasm of breast (principal)
CPT/HCPCS: 77063; 77067

== ENCOUNTER 2025-03-07 17:00 | Outpatient (RCR) | payer OTHER, SELFPAY | END 2025-03-08 14:00 | disposition home or self-care (01) | LOC: PT 17:00 | PROVIDERS: PCP Family Medicine; Visit Provider Orthopaedic Surgery Orthopaedic Surgery of the Spine | DX: Z47.89 Encounter for other orthopedic aftercare (principal); M54.2 Cervicalgia | CPT/HCPCS: 20561; 97161 ==

== ENCOUNTER 2025-05-09 07:16 | Outpatient (OUT) | payer OTHER, SELFPAY ==
--- OUTSIDE RECORDS SUMMARY | 2025-05-09 07:20 | XMS_ITS | CCD ---
Author Organization [facility] Care Team Providers Care Restaurant Hourly Manager Name Role Phone MD Raymundo DAILEY Attending [...] Attending Unavailabl e KARASIK ., DR MATSON Admvelasquez Unavailabl e KARASIK ., DR MATSON Consulting [...] Attending Unavailabl e KARASIK ., DR MATSON Admvelasquez Unavailabl e KARASIK ., DR MATSON Primary Care Unavailabl e ZIEBER, DR WEST Hubbard Consulting Unavailable SHARP, DR ALLISON Gaitan Admitting Unavailable SHARP, DR ALLISON Gaitan Attending Unavailable SHARP, DR ALLISON Gaitan Consulting Unavailable Allison Sharp Unavailable Arley Hand Unavailable Allison Sharp MD Primary Care Provider JOHNY OSUNA Attending Unavailable Allison Sharp MD Primary Care Provider [phone] Allison Sharp MD Attending Provider Ashwini Bailon DNP Attending Provider [phone] Attending Provider Unavailable Allergies Allergy Classification Reported Allergen(s) Allergy Type Date of Onset Reaction(s) Facility (1 source) almotriptan Drug Allergy [facility] (1 source) Perazine Drug Allergy [facility] (1 source) almotriptan Drug Allergy Unknown Butlr Other (1 source) Naproxen / Pseudoephedrine Drug Allergy 08-06-20 21 Unknown Butlr Other (7 sources) rizatriptan Drug Allergy 02-17-20 24 Unknown, Hives, Hives, vomitting [facility] (1 source) Allergies Reconciled Propensity to adverse reactions Unknown Butlr Other (1 source) patient allergy list reviewed by nurse or physicia Propensity to adverse reactions 04-06-20 Comment:Done Butlr Other (6 sources) almotriptan Drug Allergy 02-15-20 24 [facility] (6 sources) Sudafed Sinus 12HR Press+Pain Allergy to substance 02-15-20 [facility] Comment on above: Onset Date: 08/06/20 21 Medications Current Medications Medication Drug Class(es) Dates Sig (Normalized) Sig (Original) hydroCHLOROthiazide 12.5 mg / losartan potassium 50 mg oral tablet (1 source) Thiazide Diuretic, Angiotensin 2 Receptor Gil Start: 05-08-2025 take 1 tablet by mouth once daily Losartan-Hydroc hlorothiazide 50-12.5 mg tablet Active 1 TAB PO Daily May 08, 2025 12:00am Complies with drug therapy losartan potassium 25 mg oral tablet (13 sources) Angiotensin 2 Receptor Gil Start: 07-30-2024 Losartan 25 mg tablet Active 0 .ROUTE .COMPLEX July 30, 2024 8:21am TAKE 1 TABLET DAILY Complies with drug therapy Start: 07-30-2024 Losartan 25 mg tablet Active [...] at night with food Orally Jun, Active omeprazole 20 mg delayed release oral tablet (3 sources) Proton Pump Inhibitor Start: 04-16-2025 take 1 tablet by mouth once daily as needed Omeprazole Magnesium (Prilosec Otc) 20 mg tablet,delayed release (DR/EC) Active 20 MG PO Daily as needed April 16, 2025 12:00am Complies with drug therapy sulfamethoxazole 800 mg / trimethoprim 160 mg oral tablet (2 sources) Dihydrofolate Reductase Inhibitor Antibacterial, Sulfonamide Antimicrobial Start: 04-27-2023 take 1 tablet by mouth every twelve hours Bactrim DS 800-160 MG 1 tablet Orally Twice a day for 10 day(s) Apr, Active vitamin B12 (3 sources) Vitamin B12 Start: 04-16-2025 vitamin b12 Active PO April 16, 2025 12:00am Complies with drug therapy Start: 04-16-2025 Vitamin D3-Vitamin K2 125-90 mcg capsule (3 sources) Start: 04-16-2025 Start: 04-16-2025 Vitamin D3-Vit walsh K2 125-90 mcg capsule Active CAP PO April 16, 2025 12:00am Complies with drug therapy {20 (nirmatrelvir 150 MG Oral Tablet) / [...] sources) Penicillin-class Antibacterial Amoxicillin 500 MG (Prior Auth#:[id number] ) Oral for 10 Not-Taking metFORMIN hydrochloride 500 mg oral tablet (16 sources) Biguanide Start: 03-20-2024 End: 10-19-2024 take [...] 2024 12:00am March 20, 2024 3:43pm Nirmatrelvir-Ritonavir (3 sources) Start: 02-15-2024 End: 02-17-2024 take 3 tablets by mouth twice daily Nirmatrelvir-Ritonavir (Paxlovid) 300 mg (150 mg x 2)-100 mg tablets,dose pack Discontinued 3 TAB PO Twice daily February 15, 2024 12:00am February 17, 2024 9:42am FreeTextSi tablets Orally Twice a day; Note: Source Status: Start; Refills: 0; Provider: Yazan Gaitan Nirmatrelvir-Ritonavir (Paxlovid) 300 mg (150 mg x [...] tablet (2 sources) predniSONE 20 MG (Prior Auth#:[id number]) Oral for 5 Not-Taking Problems Active Problems Problem Classification Problem Date Documented Date Episodic/Chronic Administrative/social admission (12 sources) Patient encounter status; Translations: [Exercise counseling] 04-16-2025 Episodic Allergic reactions (1 source) Allergic contact dermatitis; Translations: [Allergic contact dermatitis, unspecified cause] Episodic Chronic obstructive pulmonary disease and bronchiectasis (1 source) Bronchitis, not specified as acute or chronic Episodic Deficiency and other anemia (1 source) Nutritional anemia; Translations: [Nutritional anemia, unspecified] Episodic Deficiency and other anemia (1 source) Iron deficiency anemia; Translations: [Iron deficiency anemia, unspecified] Episodic Diabetes mellitus without complication (4 sources) Hyperglycemia; Translations: [Impaired fasting glucose] 10-19-2024 Episodic Endometriosis (1 source) Endometriosis, unspecified; Translations: [ENDOMETRIOSIS UNSPECIFIED] Onset: 08-23-2022 Chronic Esophageal disorders (8 sources) Gastro-esophageal reflux disease without esophagitis; Translations: [Gastroesophageal reflux disease without esophagitis] Onset: 08-23-2022 04-16-2025 Chronic Essential hypertension (8 sources) Essential hypertension; Translations: [Essential (primary) hypertension] 10-19-2024 Chronic Headache; including migraine (7 sources) Migraine without aura, not refractory ; Translations: [Migraine, unspecified, not intractable, without status migrainosus] Resolved: 04-29-2022 04-16-2025 Chronic Menstrual disorders (8 sources) Excessive and [...] penetration into peritoneal cavity, initial encounter] Episodic Osteoarthritis (6 sources) Arthritis; Translations: [Unspecified osteoarthritis, unspecified site] 04-16-2025 Chronic Other acquired deformities (1 source) 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; Translations: [Contracture, right ankle] Chronic Other aftercare (1 source) History and physical examination, follow-up; Translations: [Encounter for follow-up examination after completed treatment for conditions other than malignant neoplasm] Episodic Other and unspecified benign neoplasm (5 sources) History of polyp of colon; Translations: [...] of falling] Episodic Other lower respiratory disease (5 sources) Snoring; Translations: [Snoring] 02-17-2024 Episodic Other non-traumatic joint disorders (8 sources) Pain in left knee; Translations: [Left [...] Chronic Other nutritional; endocrine; and metabolic disorders (7 sources) Body mass index 40+ - severely obese; Translations: [Body mass index (BMI) 40.0-44.9, adult] 04-16-2025 Chronic Other nutritional; endocrine; and metabolic disorders (1 source) Morbid obesity; Translations: [Morbid (severe) obesity due to excess calories] Chronic Other nutritional; endocrine; and metabolic disorders (14 sources) Severe obesity; Translations: [Class 3 severe obesity with body mass index (BMI) of 40.0 to 44.9 in adult] 02-17-2024 Chronic Other nutritional; endocrine; and metabolic disorders (6 sources) Abnormal weight gain; Translations: [Abnormal weight gain] 04-16-2025 Episodic Other screening for suspected conditions (not mental disorders or infectious disease) (2 sources) Abnormal findings on diagnostic imaging of other specified body structures; Translations: [Imaging result abnormal] Onset: 06-16-2022 Chronic Other screening for suspected conditions (not mental disorders or infectious disease) (20 sources) Encounter for screening for malignant neoplasm of cervix; Translations: [Other abnormal and inconclusive findings on diagnostic imaging of breast] Onset: 04-14-2022 Resolved: 07-26-2022 Episodic Other upper respiratory infections (2 sources) Chronic sinusitis, unspecified; Translations: [Chronic sinusitis] Onset: 10-13-2022 Chronic Pleurisy; pneumothorax; pulmonary collapse (1 source) Pleurisy; Translations: [Pleurisy] Episodic Residual codes; unclassified (9 sources) Obstructive sleep apnea syndrome; Translations: [Obstructive sleep apnea (adult) (pediatric)] 06-20-2024 Chronic Residual codes; unclassified (2 sources) Hypersomnia; Translations: [Hypersomnia, unspecified] 06-20-2024 Chronic Residual codes; unclassified (1 source) Postprocedural state finding; Translations: [Other specified postprocedural states] Episodic Residual codes; unclassified (1 source) Immunization refused ; Translations: [Immunization not carried out because of patient refusal] Episodic Residual codes; unclassified (5 sources) Family history of cancer of colon; Translations: [Family history of malignant neoplasm of digestive organs] 02-17-2024 Episodic Spondylosis; intervertebral disc disorders; other back problems (4 sources) Disorder of cervical spine; Translations: [Spondylopathy, unspecified] [...] genital organs] Onset: 07-16-2010 Resolved: 04-29-2022 Episodic Immunizations and screening for infectious disease (1 [...] 04-29-2022 Episodic Other aftercare (1 source) Other skilled nursing (current) drug therapy; Translations: [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] Onset: 08-23-2022 Episodic Other [...] platelet poor plasma by coagulation a 22.3-36.2 [facility] Basophils Auto (Bld) [#/Vol] on 10-15-2024 Basophils (Bld) [#/Vol] Automated basophil count 0.0-0.1 [facility] Basophils/100 WBC Auto (Bld) on 10-15-2024 Basophils/100 WBC (Bld) Automated basophil % 0.2-2.0 [facility] Eosinophils/100 WBC Auto (Bl d)on 10-15-2024 Eosinophils/100 WBC (Bld) Automated eosinophil % 0.9-7.0 [facility] Erythrocyte distribution wid th Auto (RBC) [Ratio]on 10-15-2024 Erythrocyte distribution width (RBC) [Ratio] Erythrocyte distribution width [Ratio] by Automated count 11.0-15.0 [facility] Estimated glomerular filtrat ion rate (GFR) non- Americanon 10-15-2024 GFR/1.73 sq M.predicted among non-blacks MDRD (S/P/Bld) [Vol rate/Area] Estimated glomerular filtration rate (GFR) non- >=60 mL/min/1.73m 2 [facility] Globulin Calc (S) [Mass/Vol] on 10-15-2024 Globulin (S) [Mass/Vol] Serum globulin measurement by calculation (mass/volume) [facility] Hematocrit Auto (Bld) [Volum e fraction]on 10-15-2024 Hematocrit (Bld) [Volume fraction] Hematocrit [Volume Fraction] of Blood by Automated count 36.0-48.0 [facility] Hemoglobin [Mass/volume] in Bloodon 10-15-2024 Hemoglobin (Bld) [Mass/Vol] Hemoglobin [Mass/volume] in Blood 12.0-16.0 [facility] INR in Platelet poor plasma by Coagulation assayon 10-15-2024 INR Coag (PPP) [Relative time] INR in Platelet poor plasma by Coagulation assay [facility] Comment on above: DESIRED INR:2.0-3.0 CONDITIONS NOT LISTED BELOW2.5-3.5 FOR PROSTHETIC HEART VALVE REPLACEMENT2.5-3.5 RECURRENT THROMBOSIS Laboratory - Chemistry and C hemistry - challengeon 10-15-2024 Albumin [Mass/Vol] 3.2 g/dL Low 3.4-5.0 [facility] ALP [Catalytic activity/Vol] 86 U/L 46-116 [facility] ALT [Catalytic activity/Vol] 26 U/L 14-59 [facility] AST [Catalytic activity/Vol] 20 U/L 15-37 [facility] Bilirubin [Mass/Vol] 0.4 mg/dL 0.2-1.0 [facility] Bilirubin.direct [Mass/Vol] 0.1 mg/dL 0.0-0.2 [facility] Calcium [Mass/Vol] 8.9 mg/dL 8.5-10.1 [facility] Chloride [Moles/Vol] 104 mmol/L 98-107 [facility] CO2 [Moles/Vol] 25.7 mmol/L 21.0-32.0 [facility] Creatinine [Mass/Vol] 0.76 mg/dL 0.55-1.02 [facility] GFR/1.73 sq M.predicted MDRD (S/P/Bld) [Vol rate/Area] mL/min/{1.73_m2} >=60 mL/min/1.73m 2 [facility] Glucose [Mass/Vol] 123 mg/dL High 74-106 [facility] Potassium [Moles/Vol] 4.0 mmol/L 3.5-5.1 [facility] Protein [Mass/Vol] 7.0 g/dL 6.4-8.2 [facility] Sodium [Moles/Vol] 140 mmol/L 136-145 [facility] Urea nitrogen [Mass/Vol] 11.0 mg/dL 7.0-18.0 [facility] Urea nitrogen/Creatinine [Mass ratio] 14.5 mg/mg [facility] Laboratory - Hematology and Cell countson 10-15-2024 Immature granulocytes/100 WBC (Bld) 0.2 % 0.0-0.5 [facility] Leukocytes [#/volume] correc pam for nucleated erythrocytes in Blood by Automated counon 10-15-2024 WBC corrected for nucl RBC Auto (Bld) [#/Vol] Leukocytes [#/volume] corrected for nucleated erythrocytes in Blood by Automated coun 4.0-11.0 [facility] Lymphocytes Auto (Bld) [#/Vo l]on 10-15-2024 Lymphocytes (Bld) [#/Vol] Lymphocytes [#/volume] in Blood by Automated count 1.2-3.8 [facility] Lymphocytes/100 WBC Auto (Bl d)on 10-15-2024 Lymphocytes/100 WBC (Bld) Lymphocytes/100 leukocytes in Blood by Automated count 20.5-60.0 [facility] MCH Auto (RBC) [Entitic mass ]on 10-15-2024 MCH (RBC) [Entitic mass] MCH [Entitic mass] by Automated count 26.7-34.0 [facility] MCHC Auto (RBC) [Mass/Vol]on 10-15-2024 MCHC (RBC) [Mass/Vol] MCHC [Mass/volume] by Automated count 29.9-35.2 [facility] MCV Auto (RBC) [Entitic vol] on 10-15-2024 MCV (RBC) [Entitic vol] MCV [Entitic volume] by Automated count 81.0-99.0 [facility] Monocytes Auto (Bld) [#/Vol] on 10-15-2024 Monocytes (Bld) [#/Vol] Automated blood monocyte count 0.3-0.8 [facility] Monocytes/100 WBC Auto (Bld) on 10-15-2024 Monocytes/100 WBC (Bld) Automated monocyte % 1.7-12.0 [facility] Neutrophils Auto (Bld) [#/Vo l]on 10-15-2024 Neutrophils (Bld) [#/Vol] Neutrophils [#/volume] in Blood by Automated count 1.4-6.5 [facility] Neutrophils/100 WBC Auto (Bl d)on 10-15-2024 Neutrophils/100 WBC (Bld) Automated neutrophil % 43.0-75.0 [facility] No Panel Informationon 10-15 Eosinophils # (Auto) 0.1 10 3/uL 0.0-0.7 [facility] Immature Granulocyte # (Auto) 0.01 10 3/uL 0.00-0.03 [facility] Platelet mean volume Auto (B ld) [Entitic vol]on 10-15-2024 Platelet mean volume (Bld) [Entitic vol] Platelet mean volume [Entitic volume] in Blood by Automated count 9.5-13.5 [facility] Platelets Auto (Bld) [#/Vol] on 10-15-2024 Platelets (Bld) [#/Vol] Platelets [#/volume] in Blood by Automated count 150-450 [facility] Prothrombin time (PT)on 09-18 PT Coag (PPP) [Time] Prothrombin time (PT) 9.0-11.6 [facility] RBC Auto (Bld) [#/Vol]on RBC (Bld) [#/Vol] Erythrocytes [#/volume] in Blood by Automated count 4.20-5.40 [facility] Serum or plasma albumin/glob ulin mass ratioon 10-15-2024 Albumin/Globulin [Mass ratio] Serum or plasma albumin/globulin mass ratio [facility] Serum or plasma anion gap de terminationon 10-15-2024 Anion gap [Moles/Vol] Serum or plasma anion gap determination [facility] Urinalysis - DIPSTICKon 04-16 Appearance (U) cloudy [facility] Other Bilirubin Ql (U) Negative AppSheet Other Color (U) yellow Butlr Other Glucose Ql (U) Negative [facility] Other Hemoglobin Ql (U) trace Coinfloor Other Ketones Ql (U) Negative [facility] Other Leukocyte esterase Test strip Ql (U) moderate [facility] Other Nitrite Ql (U) Positive [employer] Other pH (U) 5 [pH] Butlr Other Protein Ql (U) 30+ [facility] Other Specific gravity (U) [Rel density] 1.005 [facility] Other Urobilinogen (U) [Mass/Vol] normal [facility] Other Urinalysis - DIPSTICK Butlr Other CBC AUTO DIFFon 02-16-2023 BASO # 0.0 103/ul Normal 0.0-0.1 [facility] Comment on above: Performed By: #### B UN, CREA #### [facility] [address] [place] [address] Dr. Luis A Solorio Basophils/100 WBC (Bld) 0.4 % Normal 0.2-2.0 [facility] Comment on above: Performed By: #### B UN, CREA #### [facility] [address] [place] [address] Dr. Luis A Solorio EO # 0.1 103/ul Normal 0.0-0.7 [facility] Comment on above: Performed By: #### B ROLANDO, CREA #### [facility] [address] [place] [address] Dr. Luis A Solorio Eosinophils/100 WBC (Bld) 1.6 % Normal 0.9-7.0 [facility] Comment on above: Performed By: #### B UN, CREA #### [facility] [address] [place] [address] Dr. Luis A Solorio Erythrocyte distribution width (RBC) [Ratio] 14.2 % Normal 11.0-15.0 [facility] Comment on above: Performed By: #### B UN, CREA #### [facility] [address] [place] [address] Dr. Luis A Solorio Hematocrit (Bld) [Volume fraction] 35.3 % Critically low 36.0-48.0 [facility] Comment on above: Performed By: #### B UN, CREA #### [facility] [address] [place] [address] Dr. Luis A Solorio Hemoglobin (Bld) [Mass/Vol] 11.2 g/dL Critically low 12.0-16.0 [facility] Comment on above: Performed By: #### B UN, CREA #### [facility] [address] [place] [address] Dr. Luis A Solorio IG # 0.01 10e3/ul Normal 0.00-0.03 [facility] Comment on above: Performed By: #### B UN, CREA #### [facility] [address] [place] [address] Dr. Luis A Solorio IG % 0.2 % Normal 0.0-0.5 [facility] Comment on above: Performed By: #### B UN, CREA #### [facility] [address] [place] [address] Dr. Luis A Solorio LYMPH # 1.8 103/ul Normal 1.2-3.8 [facility] Comment on above: Performed By: #### B UN, CREA #### [facility] [address] [place] [address] Dr. Luis A Solorio Lymphocytes/100 WBC (Bld) 37.9 % Normal 20.5-60.0 [facility] Comment on above: Performed By: #### B UN, CREA #### [facility] [address] [place] [address] Dr. Luis A Solorio MCH (RBC) [Entitic mass] 26.0 pg Critically low 26.7-34.0 [facility] Comment on above: Performed By: #### B UN, CREA #### [facility] [address] [place] [address] Dr. Luis A Solorio MCHC (RBC) [Mass/Vol] 31.7 g/dL Normal 29.9-35.2 [facility] Comment on above: Performed By: #### B UN, CREA #### [facility] [address] [place] [address] Dr. Luis A Solorio MCV (RBC) [Entitic vol] 81.9 fL Normal 81.0-99.0 [facility] Comment on above: Performed By: #### B UN, CREA #### [facility] [address] [place] [address] Dr. Luis A Solorio MONO # 0.4 103/ul Normal 0.3-0.8 [facility] Comment on above: Performed By: #### B UN, CREA #### [facility] [address] [place] [address] Dr. Luis A Solorio Monocytes/100 WBC (Bld) 8.5 % Normal 1.7-12.0 [facility] Comment on above: Performed By: #### B UN, CREA #### [facility] [address] [place] [address] Dr. Luis A Solorio NEUT # 2.5 103/ul Normal 1.4-6.5 [facility] Comment on above: Performed By: #### B UN, CREA #### [facility] [address] [place] [address] Dr. Luis A Solorio Neutrophils/100 WBC (Bld) 51.4 % Normal 43.0-75.0 [facility] Comment on above: Performed By: #### B UN, CREA #### [facility] [address] [place] [address] Dr. Luis A Solorio Platelet mean volume (Bld) [Entitic vol] 11.5 fL Normal 9.5-13.5 [facility] Comment on above: Performed By: #### B ROLANDO, CREA #### [facility] [address] [place] [address] Dr. Luis A Solorio PLT 228 103/ul Normal 150-450 [facility] Comment on above: Performed By: #### B UN, CREA #### [facility] [address] [place] [address] Dr. Luis A Solorio RBC 4.31 106/ul Normal 4.20-5.40 [facility] Comment on above: Performed By: #### B ROLANDO, CREA #### [facility] [address] [place] [address] Dr. Luis A Solorio WBC 4.9 103/ul Normal 4.0-11.0 [facility] Comment on above: Performed By: #### B ROLANDO, CREA #### [facility] [address] [place] [address] Dr. Luis A Solorio MEDHAT - TSHon 02-16-2023 TSH 1.783 uIU/mL Normal 0.358-3.[address] [facility] Comment on above: Performed By: #### D ATBMP, DATTSH #### [facility] [address] [place] [address] Dr. Luis A Solorio TSH RANGE SEE BELOW Normal [facility] Comment on above: Result Comment: <0.3 4 UIU/ml HYPERTHYROID 0.34-5.60 UIU/ml EUTHYROID >5.60 UIU/ml HYPOTHYROID Performed By: #### D ATBMP, DATTSH #### [facility] [address] [place] [address] Dr. Luis A Solorio MEDHAT- BMP WITH LIPIDon 2022 Anion gap [Moles/Vol] 13.5 mmol/L Normal [facility] Comment on above: Performed By: #### D ATBMP, DATTSH #### [facility] [address] [place] [address] Dr. Luis A Solorio Calcium [Mass/Vol] 8.9 mg/dL Normal 8.5-10.1 [facility] Comment on above: Performed By: #### D ATBMP, DATTS #### [facility] [address] [address] [address] Luis A Solorio Chloride [Moles/Vol] 103 mmol/L Normal 98-107 [facility] Comment on above: Performed By: #### D ATBMP, DATTSH #### [facility] [address] [address] [address] Luis A Solorio Cholesterol [Mass/Vol] 227 mg/dL Critically high <=200 [facility] Comment on above: Performed By: #### D ATBMP, DATTSH #### [facility] [address] [place] [address] Dr. Luis A Solorio Cholesterol in HDL [Mass/Vol] 56 mg/dL Normal 40-60 [facility] Comment on above: Performed By: #### D ATBMP, DATTSH #### [facility] [address] [place] [address] Dr. Luis A Solorio Cholesterol in LDL [Mass/Vol] 141.2 mg/dL Normal [facility] Comment on above: Performed By: #### D ATBMP, DATTSH #### [facility] [address] [place] [address] Dr. Luis A Solorio CO2 [Moles/Vol] 24.5 mmol/L Normal 21.0-32.0 [facility] Comment on above: Performed By: #### D ATBMP, DATTSH #### [facility] [address] [address] [address] Luis A Solorio Creatinine [Mass/Vol] 0.74 mg/dL Normal 0.55-1.02 [facility] Comment on above: Performed By: #### D ATBMP, DATTSH #### [facility] [address] [address] [address] Luis A Solorio EGFR-AF LEBANESE >60 Normal >=60 [facility] Comment on above: Performed By: #### D ATBMP, DATTSH #### [facility] [address] [address] [address] Luis A Solorio EGFR-NON AF LEBANESE >60 Normal >=60 [facility] Comment on above: Performed By: #### D ATP, DATTSH #### [facility] [address] [address] [address] Luis A Solorio Glucose [Mass/Vol] 94 mg/dL Normal 74-106 [facility] Comment on above: Performed By: #### [facility] #### [facility] [address] [address] [address] Luis A Solorio HDL NORMAL > or = 60 mg/dl - LOW CARDIOVASCULAR RISK <40 mg/dl - HIGH CARDIOVASCULAR RISK Normal [facility] Comment on above: Performed By: #### [facility] #### [facility] [address] [address] [address] Luis A Solorio LDL CALC NORMAL SEE BELOW Normal [facility] Comment on above: Result Comment: <100 mg/dl OPTIMAL 100 - 129 mg/dl NEAR OR ABOVE OPTIMAL 130 - 159 mg/dl BORDERLINE HIGH 160 - 189 mg/dl HIGH >190 mg/dl VERY HIGH Performed By: #### D [facility], DATTSH #### [facility] [address] [address] [address] Luis A Solorio Potassium [Moles/Vol] 4.0 mmol/L Normal 3.5-5.1 [facility] Comment on above: Performed By: #### [facility] #### [facility] [address] [address] [address] Luis A Solorio Sodium [Moles/Vol] 137 mmol/L Normal 136-145 [facility] Comment on above: Performed By: #### D ATP, DATTSH #### [facility] [address] [address] [address] Luis A Solorio Triglyceride [Mass/Vol] 149 mg/dL Normal <=150 [facility] Comment on above: Performed By: #### [facility] #### [facility] [address] [place] [address] Dr. Luis A Solorio Urea nitrogen [Mass/Vol] 13.0 mg/dL Normal 7.0-18.0 [facility] Comment on above: Performed By: #### D ATBMP, DATTSH #### [facility] [address] [place] [address] Dr. Luis A Solorio Urea nitrogen/Creatinine [Mass ratio] 17.6 mg/mg Normal [facility] Comment on above: Performed By: #### D ATBMP, DATTSH #### [facility] [address] [place] [address] Dr. Luis A Solorio VLDL CALC 29.8 mg/dL Normal [facility] Comment on above: Performed By: #### D ATBMP, DATTSH #### [facility] [address] [place] [address] Dr. Luis A Solorio GLYCOHEMOGLOBIN A1Con 2022 ADA RECOMMENDATION SEE BELOW Normal [facility] Comment on above: Result Comment: ADA RECOMMENDED LIMIT 4.0 - 6.0 ADA THERAPEUTIC TARGET < 7.0 ACTION SUGGESTED > 7.0 Performed By: #### P REGU #### [facility] [address] [place] [address] Dr. Luis A Solorio Glucose [Mass/Vol] 114 mg/dL Normal [facility] Comment on above: Performed By: #### P REGU #### [facility] [address] [place] [address] Dr. Luis A Solorio HbA1c (Bld) [Mass fraction] 5.6 % Normal 4.5-6.2 [facility] Comment on above: Performed By: #### P REGU #### [facility] [address] [place] [address] Dr. Luis A Solorio Covid-19 PCR ([facility])on 09-17 SARS-CoV-2 (COVID-19) RNA ARABELLA+probe Ql (Unsp spec) Not detected Normal NOT DETECTED [facility] Comment on above: Result Comment: [...] for this test is supported by the [place] of Health and Human Service's declaration that [...] used). Performed By: #### P REGU #### [facility] [address] [place] [address] Dr. Luis A Solorio Operative Reporton 2 Operative Report [id number] #1.00CD:127 Normal [facility] BUNon 07-20-2022 Urea nitrogen [Mass/Vol] 14.0 mg/dL Normal 7.0-18.0 [facility] Comment on above: Performed By: #### B ROHIT MARSHALL #### [facility] [address] [place] [address] Dr. Luis A Solorio CBC AUTO DIFFon 07-20-2022 BASO # 0.0 103/ul Normal 0.0-0.1 [facility] Comment on above: Performed By: #### P REGU #### [facility] [address] [place] [address] Dr. Luis A Solorio Basophils/100 WBC (Bld) 0.1 % Critically low 0.2-2.0 [facility] Comment on above: Performed By: #### P REGU #### [facility] [address] [place] [address] Dr. Luis A Solorio EO # 0.0 103/ul Normal 0.0-0.7 [facility] Comment on above: Performed By: #### P REGU #### [facility] [address] [address] [address] Luis A Solorio Eosinophils/100 WBC (Bld) 0.0 % Critically low 0.9-7.0 [facility] Comment on above: Performed By: #### P REGU #### [facility] [address] [place] [address] Dr. Luis A Solorio Erythrocyte distribution width (RBC) [Ratio] 17.0 % Critically high 11.0-15.0 [facility] Comment on above: Performed By: #### P REGU #### [facility] [address] [place] [address] Dr. Luis A Solorio Hematocrit (Bld) [Volume fraction] 32.6 % Critically low 36.0-48.0 [facility] Comment on above: Performed By: #### P REGU #### [facility] [address] [place] [address] Dr. Luis A Solorio Hemoglobin (Bld) [Mass/Vol] 10.1 g/dL Critically low 12.0-16.0 [facility] Comment on above: Performed By: #### P REGU #### [facility] [address] [place] [address] Dr. Luis A Solorio IG # 0.05 10e3/ul Critically high 0.00-0.03 [facility] Comment on above: Performed By: #### P REGU #### [facility] [address] [place] [address] Dr. Luis A Solorio IG % 0.5 % Normal 0.0-0.5 [facility] Comment on above: Performed By: #### P REGU #### [facility] [address] [place] [address] Dr. Luis A Solorio LYMPH # 1.3 103/ul Normal 1.2-3.8 [facility] Comment on above: Performed By: #### P REGU #### [facility] [address] [place] [address] Dr. Luis A Solorio Lymphocytes/100 WBC (Bld) 12.4 % Critically low 20.5-60.0 [facility] Comment on above: Performed By: #### P REGU #### [facility] [address] [place] [address] Dr. Luis A Solorio MANUAL DIFF REQ NO Normal [facility] Comment on above: Performed By: #### P REGU #### [facility] [address] [place] [address] Dr. Luis A Solorio MCH (RBC) [Entitic mass] 25.1 pg Critically low 26.7-34.0 [facility] Comment on above: Performed By: #### P REGU #### [facility] [address] [place] [address] Dr. Luis A Solorio MCHC (RBC) [Mass/Vol] 31.0 g/dL Normal 29.9-35.2 [facility] Comment on above: Performed By: #### P REGU #### [facility] [address] [place] [address] Dr. Luis A Solorio MCV (RBC) [Entitic vol] 80.9 fL Critically low 81.0-99.0 [facility] Comment on above: Performed By: #### P REGU #### [facility] [address] [place] [address] Dr. Luis A Solorio MONO # 0.8 103/ul Normal 0.3-0.8 [facility] Comment on above: Performed By: #### P REGU #### [facility] [address] [place] [address] Dr. uLis A Solorio Monocytes/100 WBC (Bld) 7.6 % Normal 1.7-12.0 [facility] Comment on above: Performed By: #### P REGU #### [facility] [address] [place] [address] Dr. Luis A Solorio NEUT # 8.5 103/ul Critically high 1.4-6.5 [facility] Comment on above: Performed By: #### P REGU #### [facility] [address] [place] [address] Dr. Luis A Solorio Neutrophils/100 WBC (Bld) 79.4 % Critically high 43.0-75.0 [facility] Comment on above: Performed By: #### P REGU #### [facility] [address] [place] [address] Dr. Luis A Solorio Platelet mean volume (Bld) [Entitic vol] 10.7 fL Normal 9.5-13.5 [facility] Comment on above: Performed By: #### P REGU #### [facility] [address] [place] [address] Dr. Luis A Solorio PLT 237 103/ul Normal 150-450 [facility] Comment on above: Performed By: #### P REGU #### [facility] [address] [place] [address] Dr. Luis A Solorio RBC 4.03 106/ul Critically low 4.20-5.40 [facility] Comment on above: Performed By: #### P REGU #### [facility] [address] [place] [address] Dr. Luis A Solorio WBC 10.7 103/ul Normal 4.0-11.0 [facility] Comment on above: Performed By: #### P REGU #### [facility] [address] [place] [address] Dr. Luis A Solorio CREATININEon 07-20-2022 Creatinine [Mass/Vol] 0.99 mg/dL Normal 0.55-1.02 [facility] Comment on above: Performed By: #### B UN, CREA #### [facility] [address] [place] [address] Dr. Luis A Solorio EGFR-AF LEBANESE >60 Normal >=60 [facility] Comment on above: Performed By: #### B UN, CREA #### [facility] [address] [place] [address] Dr. Luis A Solorio EGFR-NON AF LEBANESE >60 Normal >=60 [facility] Comment on above: Performed By: #### B UN, CREA #### [facility] [address] [place] [address] Dr. Luis A Solorio CBC AUTO DIFFon 07-19-2022 BASO # 0.0 103/ul Normal 0.0-0.1 [facility] Comment on above: Performed By: #### C BC #### [facility] [address] [place] [address] Dr. Luis A Solorio Basophils/100 WBC (Bld) 0.4 % Normal 0.2-2.0 [facility] Comment on above: Performed By: #### C BC #### [facility] [address] [place] [address] Dr. Luis A Solorio EO # 0.1 103/ul Normal 0.0-0.7 [facility] Comment on above: Performed By: #### C BC #### [facility] [address] [place] [address] Dr. Luis A Solorio Eosinophils/100 WBC (Bld) 2.4 % Normal 0.9-7.0 [facility] Comment on above: Performed By: #### C BC #### [facility] [address] [place] [address] Dr. Luis A Solorio Erythrocyte distribution width (RBC) [Ratio] 16.4 % Critically high 11.0-15.0 [facility] Comment on above: Performed By: #### C BC #### [facility] [address] [place] [address] Dr. Luis A Solorio Hematocrit (Bld) [Volume fraction] 36.9 % Normal 36.0-48.0 [facility] Comment on above: Performed By: #### C BC #### [facility] [address] [place] [address] Dr. Luis A Solorio Hemoglobin (Bld) [Mass/Vol] 11.5 g/dL Critically low 12.0-16.0 [facility] Comment on above: Performed By: #### C BC #### [facility] [address] [place] [address] Dr. Luis A Solorio IG # 0.01 10e3/ul Normal 0.00-0.03 [facility] Comment on above: Performed By: #### C BC #### [facility] [address] [place] [address] Dr. Luis A Solorio IG % 0.2 % Normal 0.0-0.5 [facility] Comment on above: Performed By: #### C BC #### [facility] [address] [address] [address] Luis A Solorio LYMPH # 2.3 103/ul Normal 1.2-3.8 [facility] Comment on above: Performed By: #### C BC #### [facility] [address] [address] [address] Luis A Solorio Lymphocytes/100 WBC (Bld) 46.0 % Normal 20.5-60.0 [facility] Comment on above: Performed By: #### C BC #### [facility] [address] [place] [address] Dr. Luis A Solorio MANUAL DIFF REQ NO Normal [facility] Comment on above: Performed By: #### C BC #### [facility] [address] [place] [address] Dr. Luis A Solorio MCH (RBC) [Entitic mass] 25.3 pg Critically low 26.7-34.0 [facility] Comment on above: Performed By: #### C BC #### [facility] [address] [place] [address] Dr. Luis A Solorio MCHC (RBC) [Mass/Vol] 31.2 g/dL Normal 29.9-35.2 [facility] Comment on above: Performed By: #### C BC #### [facility] [address] [place] [address] Dr. Luis A Solorio MCV (RBC) [Entitic vol] 81.1 fL Normal 81.0-99.0 [facility] Comment on above: Performed By: #### C BC #### [facility] [address] [place] [address] Dr. Luis A Solorio MONO # 0.5 103/ul Normal 0.3-0.8 [facility] Comment on above: Performed By: #### C BC #### [facility] [address] [place] [address] Dr. Luis A Solorio Monocytes/100 WBC (Bld) 10.5 % Normal 1.7-12.0 [facility] Comment on above: Performed By: #### C BC #### [facility] [address] [place] [address] Dr. Luis A Solorio NEUT # 2.0 103/ul Normal 1.4-6.5 [facility] Comment on above: Performed By: #### C BC #### [facility] [address] [place] [address] Dr. Luis A Solorio Neutrophils/100 WBC (Bld) 40.5 % Critically low 43.0-75.0 [facility] Comment on above: Performed By: #### C BC #### [facility] [address] [place] [address] Dr. Luis A Solorio Platelet mean volume (Bld) [Entitic vol] 10.4 fL Normal 9.5-13.5 [facility] Comment on above: Performed By: #### C BC #### [facility] [address] [place] [address] Dr. Luis A Solorio PLT 236 103/ul Normal 150-450 [facility] Comment on above: Performed By: #### C BC #### [facility] [address] [place] [address] Dr. Luis A Solorio RBC 4.55 106/ul Normal 4.20-5.40 [facility] Comment on above: Performed By: #### C BC #### [facility] [address] [place] [address] Dr. Luis A Solorio WBC 4.9 103/ul Normal 4.0-11.0 [facility] Comment on above: Performed By: #### C BC #### [facility] [address] [place] [address] Dr. Luis A Solorio PREG HCG QUALon 07-19-2022 , QUAL Negative Normal NEGATIVE [facility] Comment on above: Performed By: #### P REG #### [facility] [address] [place] [address] Dr. Luis A Solorio [facility]on [facility]-18 SARS-CoV-2 (COVID-19) RNA ARABELLA+probe Ql (Unsp spec) Not detected Normal NOT DETECTED [facility] Comment on above: Result Comment: This test is not yet approved or cleared by the [place] FDA. When there are no FDA-approved or cleared tests available, and other criteria are met, FDA can make tests available under an emergency access mechanism called an Emergency Use Authorization (EUA). The EUA for this test is supported by the [place] of Health and Human Service's (HHS's) declaration [...] SARS-CoV-2. Performed By: #### P REGU #### [facility] [address] [place] [address] Dr. Luis A Solorio Pre-Certification Formon Pre-Certification Form [id number]#1.00CD:127 Normal [facility] TYPE AND SCREENon 07-15-2022 TYPE AND SCREEN Negative Normal [facility] Comment on above: Performed By: #### P REGU #### [facility] [address] [place] [address] Dr. Luis A Solorio Physician Referralon 022 Physician Referral [id number] #1.00CD:127 Normal [facility] URon 06-11-2022 , QUAL Negative Normal NEGATIVE [facility] Comment on above: Performed By: #### P REGU #### [facility] [address] [place] [address] Dr. Luis A Solorio Covid-19 PCR ([facility])on 05-17 SARS-CoV-2 (COVID-19) RNA ARABELLA+probe Ql (Unsp spec) Not detected Normal NOT DETECTED [facility] Comment on above: Result Comment: This test is not yet approved or cleared by the [place] FDA. When there are no FDA-approved or cleared tests available, and other criteria are met, FDA can make tests available under an emergency access mechanism called an Emergency Use Authorization (EUA). The EUA for this test is supported by the [place] of Health and Human Service's (HHS's) declaration [...] SARS-CoV-2. Performed By: #### P REGU #### [facility] [address] [place] [address] Dr. Luis A Solorio CBC AUTO DIFFon 05-28-2022 BASO # 0.0 103/ul Normal 0.0-0.1 [facility] Comment on above: Performed By: #### B UN, CREA #### [facility] [address] [place] [address] Dr. Luis A Solorio Basophils/100 WBC (Bld) 0.4 % Normal 0.2-2.0 [facility] Comment on above: Performed By: #### B UN, CREA #### [facility] [address] [place] [address] Dr. Luis A Solorio EO # 0.1 103/ul Normal 0.0-0.7 [facility] Comment on above: Performed By: #### B UN, CREA #### [facility] [address] [place] [address] Dr. Luis A Solorio Eosinophils/100 WBC (Bld) 2.0 % Normal 0.9-7.0 [facility] Comment on above: Performed By: #### B UN, CREA #### [facility] [address] [place] [address] Dr. Luis A Solorio Erythrocyte distribution width (RBC) [Ratio] 19.9 % Critically high 11.0-15.0 [facility] Comment on above: Performed By: #### B UN, CREA #### [facility] [address] [place] [address] Dr. Luis A Solorio Hematocrit (Bld) [Volume fraction] 35.0 % Critically low 36.0-48.0 [facility] Comment on above: Performed By: #### B UN, CREA #### [facility] [address] [place] [address] Dr. Luis A Solorio Hemoglobin (Bld) [Mass/Vol] 10.6 g/dL Critically low 12.0-16.0 [facility] Comment on above: Performed By: #### B UN, CREA #### [facility] [address] [place] [address] Dr. Luis A Solorio IG # 0.01 10e3/ul Normal 0.00-0.03 [facility] Comment on above: Performed By: #### B UN, CREA #### [facility] [address] [place] [address] Dr. Luis A Solorio IG % 0.2 % Normal 0.0-0.5 [facility] Comment on above: Performed By: #### B UN, CREA #### [facility] [address] [place] [address] Dr. Luis A Solorio LYMPH # 1.8 103/ul Normal 1.2-3.8 [facility] Comment on above: Performed By: #### B UN, CREA #### [facility] [address] [place] [address] Dr. Luis A Solorio Lymphocytes/100 WBC (Bld) 35.7 % Normal 20.5-60.0 [facility] Comment on above: Performed By: #### B UN, CREA #### [facility] [address] [place] [address] Dr. Luis A Solorio MANUAL DIFF REQ NO Normal [facility] Comment on above: Performed By: #### B UN, CREA #### [facility] [address] [place] [address] Dr. Luis A Solorio MCH (RBC) [Entitic mass] 23.5 pg Critically low 26.7-34.0 [facility] Comment on above: Performed By: #### B UN, CREA #### [facility] [address] [place] [address] Dr. Luis A Solorio MCHC (RBC) [Mass/Vol] 30.3 g/dL Normal 29.9-35.2 [facility] Comment on above: Performed By: #### B UN, CREA #### [facility] [address] [place] [address] Dr. Luis A Solorio MCV (RBC) [Entitic vol] 77.6 fL Critically low 81.0-99.0 [facility] Comment on above: Performed By: #### B UN, CREA #### [facility] [address] [place] [address] Dr. Luis A Solorio MONO # 0.5 103/ul Normal 0.3-0.8 [facility] Comment on above: Performed By: #### B UN, CREA #### [facility] [address] [place] [address] Dr. Luis A Solorio Monocytes/100 WBC (Bld) 9.7 % Normal 1.7-12.0 [facility] Comment on above: Performed By: #### B UN, CREA #### [facility] [address] [place] [address] Dr. Luis A Solorio NEUT # 2.6 103/ul Normal 1.4-6.5 [facility] [facility] Comment on above: Performed By: #### B UN, CREA #### [facility] [address] [place] [address] Dr. Luis A Solorio Neutrophils/100 WBC (Bld) 52.0 % Normal 43.0-75.0 [facility] Comment on above: Performed By: #### B UN, CREA #### [facility] [address] [place] [address] Dr. Luis A Solorio Platelet mean volume (Bld) [Entitic vol] 10.3 fL Normal 9.5-13.5 [facility] Comment on above: Performed By: #### B UN, CREA #### [facility] [address] [place], [place] [address] Dr. Luis A Solorio PLT 236 103/ul Normal 150-450 [facility] Comment on above: Performed By: #### B UN, CREA #### [facility] [address] [place], [place] [address] Dr. Luis A Solorio RBC 4.51 106/ul Normal 4.20-5.40 [facility] Comment on above: Performed By: #### B UN, CREA #### [facility] [address] [place], [place] [address] Dr. Luis A Solorio WBC 4.9 103/ul Normal 4.0-11.0 [facility] Comment on above: Performed By: #### B UN, CREA #### [facility] [address] [place], [place] [address] Dr. Luis A Solorio US VAC ASST BX BREAST RT W C LIPon 05-07-2022 US VAC ASST BX BREAST RT W CLIP Begin Addendum #1 DATE/TIME COLLECTED: 05/03/2022, 09:17 EDT Final Diagnosis Report for [facility], [place] RIGHT BREAST 11 O'CLOCK MASS; BIOPSY: [...] after pathology results are available. Normal [facility] US PELVIS AND TRANSVAGon US PELVIS [...] by: WE[place] Date: 2022-05-04 22:08 Normal [facility] PAP ACOG PANEL 2: 30 to 65on 05-04-2022 . . Normal [facility] Comment on above: Result Comment: Perf ormed at: WB Performed By: #### B UN, CREA #### [facility] [address] [address] [address] Luis A Solorio Age Gdln ACOG Testing 30-65 Normal [facility] Comment on above: Performed By: #### B UN, CREA #### [facility] [address] [place], [place] [address] Dr. Luis A Solorio DIAGNOSIS: Comment Normal [facility] Comment on above: Result Comment: NEGA TIVE FOR INTRAEPITHELIAL LESION OR MALIGNANCY. Performed at: WB Performed By: #### B UN, CREA #### [facility] [address] [address] [address] Luis A Solorio HPV Aptima Negative Normal Negative [facility] Comment on above: Result Comment: This nucleic acid amplification test detects fourteen high-risk HPV types (16,18,31,33,35,39,45,51,52,56,58,59,66,68) without differentiation. Performed at: =G Performed By: #### B UN, CREA #### [facility] [address] [address] [address] Luis A Solorio Methodology: Comment Normal [facility] Comment on above: Result Comment: This liquid based ThinPrep(R) pap test was screened with the use of an image guided system. Performed at: WB Performed By: #### B UN, CREA #### [facility] [address] [address] [address] Luis A Solorio Note: Comment Normal [facility] Comment on above: Result Comment: The Pap [...] Performed By: #### B UN, CREA #### [facility] [address] [address] [address] Luis A Solorio Performed by: Comment Normal [facility] Comment on above: Result Comment: Lisbet Springer, Medical Support Assistant (ASCP) Performed at: WB Performed By: #### B UN, CREA #### [facility] [address] [address] [address] Luis A Solorio Specimen adequacy: Comment Normal [facility] Comment on above: Result Comment: Sati sfactory for evaluation. Endocervical and/or squamous metaplastic cells (endocervical component) are present. Performed at: WB Performed By: #### B UN, CREA #### [facility] [address] [address] [address] Luis A Solorio MAMMO POST BIOPSY RIGHTon MAMMO POST BIOPSY RIGHT Patient: YOLANDA MARQUEZ Exam Date: 05/03/2022 : 1975 Gender:F Ordering : DR ALLISON SHARP M.D. Admission #: [id number] Family : Order #: [id number] CLICK HERE TO VIEW EXAM RADIOLOGY REPORT [...] M.D. on 05/03/2022 at 09:50 Normal [facility] MG MAMM RT DIAG JOHNATHONon 022 MG MAMM RT DIAG FU Patient: YOLANDA MARQUEZ Exam Date: 04/23/2022 : 1975 Gender:F Ordering : DR ALLISON SHARP M.D. Admission #: [id number] Family : Order #: [id number] CLICK HERE TO VIEW EXAM RADIOLOGY REPORT [...] Treatments None Family Cancers None LOCATION: [facility] BREAST COMPOSITION: Heterogeneously dense,which may obscure [...] Wooten M.D. on 04/23/2022 at 09:37 Normal [facility] US BREAST RIGHT LIMITEDon US BREAST RIGHT LIMITED Patient: YOLANDA MARQUEZ Exam Date: 04/23/2022 : 1975 Gender:F Ordering : DR ALLISON SHARP M.D. Admission #: [id number] Family : Order #: [id number] CLICK HERE TO VIEW EXAM RADIOLOGY REPORT [...] Treatments None Family Cancers None LOCATION: [facility] BREAST COMPOSITION: Heterogeneously dense,which may obscure [...] Wooten M.D. on 04/23/2022 at 09:37 Normal [facility] MG MAMM SCREEN 3D AYUSH CADon 04-14-2022 MG MAMM SCREEN 3D AYUSH CAD Patient: YOLANDA MARQUEZ Exam Date: 04/14/2022 : 1975 Gender:F Ordering : DR ALLISON SHARP M.D. Admission #: [id number] Family : Order #: [id number] CLICK HERE TO VIEW EXAM RADIOLOGY REPORT PROCEDURE: MAMMOGRAM SCREENING 3D BILATERAL CAD COMPARISON: None. INDICATIONS: Screening mammography Calculator Name NCI Breast Cancer Risk Assessment Tool 5 Year Breast Cancer Risk Not Reported. Lifetime Breast Cancer Risk Not Reported. Personal Breast Cancer No Personal Ovarian Cancer No Treatments None Family Cancers None LOCATION: [facility] BREAST COMPOSITION: Heterogeneously dense,which may obscure [...] MD on 04/14/2022 at 10:03 Normal [facility] CBC AUTO DIFFon 04-02-2022 BASO # 0.0 103/ul Normal 0.0-0.1 [facility] Comment on above: Performed By: #### C BC #### [facility] [address] [place] [address] Dr. Luis A Solorio Basophils/100 WBC (Bld) 0.4 % Normal 0.2-2.0 [facility] Comment on above: Performed By: #### C BC #### [facility] [address] [place] [address] Dr. Luis A Solorio EO # 0.1 103/ul Normal 0.0-0.7 [facility] Comment on above: Performed By: #### C BC #### [facility] [address] [place] [address] Dr. Luis A Solorio Eosinophils/100 WBC (Bld) 2.6 % Normal 0.9-7.0 [facility] Comment on above: Performed By: #### C BC #### [facility] [address] [place] [address] Dr. Luis A Solorio Erythrocyte distribution width (RBC) [Ratio] 16.0 % Critically high 11.0-15.0 [facility] Comment on above: Performed By: #### C BC #### [facility] [address] [place] [address] Dr. Luis A Solorio Hematocrit (Bld) [Volume fraction] 30.2 % Critically low 36.0-48.0 [facility] Comment on above: Performed By: #### C BC #### [facility] [address] [place] [address] Dr. Luis A Soloiro Hemoglobin (Bld) [Mass/Vol] 8.8 g/dL Critically low 12.0-16.0 [facility] Comment on above: Performed By: #### C BC #### [facility] [address] [place] [address] Dr. Luis A Solorio IG # 0.02 10e3/ul Normal 0.00-0.03 [facility] Comment on above: Performed By: #### C BC #### [facility] [address] [place] [address] Dr. Luis A Solorio IG % 0.4 % Normal 0.0-0.5 [facility] Comment on above: Performed By: #### C BC #### [facility] [address] [place] [address] Dr. Luis A Solorio LYMPH # 1.7 103/ul Normal 1.2-3.8 [facility] Comment on above: Performed By: #### C BC #### [facility] [address] [place] [address] Dr. Luis A Solorio Lymphocytes/100 WBC (Bld) 36.6 % Normal 20.5-60.0 [facility] Comment on above: Performed By: #### C BC #### [facility] [address] [place] [address] Dr. Luis A Solorio MANUAL DIFF REQ NO Normal [facility] Comment on above: Performed By: #### C BC #### [facility] [address] [address] [address] Luis A Solorio MCH (RBC) [Entitic mass] 21.9 pg Critically low 26.7-34.0 [facility] Comment on above: Performed By: #### C BC #### [facility] [address] [place] [address] Dr. Luis A Solorio MCHC (RBC) [Mass/Vol] 29.1 g/dL Critically low 29.9-35.2 [facility] Comment on above: Performed By: #### C BC #### [facility] [address] [place] [address] Dr. Luis A Solorio MCV (RBC) [Entitic vol] 75.1 fL Critically low 81.0-99.0 [facility] Comment on above: Performed By: #### C BC #### [facility] [address] [place] [address] Dr. Luis A Solorio MONO # 0.5 103/ul Normal 0.3-0.8 [facility] Comment on above: Performed By: #### C BC #### [facility] [address] [place] [address] Dr. Luis A Solorio Monocytes/100 WBC (Bld) 10.8 % Normal 1.7-12.0 [facility] Comment on above: Performed By: #### C BC #### [facility] [address] [place] [address] Dr. Luis A Solorio NEUT # 2.3 103/ul Normal 1.4-6.5 [facility] Comment on above: Performed By: #### C BC #### [facility] [address] [place] [address] Dr. Luis A Solorio Neutrophils/100 WBC (Bld) 49.2 % Normal 43.0-75.0 [facility] Comment on above: Performed By: #### C BC #### [facility] [address] [place] [address] Dr. Luis A Solorio Platelet mean volume (Bld) [Entitic vol] 10.0 fL Normal 9.5-13.5 [facility] Comment on above: Performed By: #### C BC #### [facility] [address] [place] [address] Dr. Luis A Solorio PLT 280 103/ul Normal 150-450 [facility] Comment on above: Performed By: #### C BC #### [facility] [address] [address] [address] Luis A Solorio RBC 4.02 106/ul Critically low 4.20-5.40 [facility] Comment on above: Performed By: #### C BC #### [facility] [address] [place] [address] Dr. Luis A Solorio WBC 4.6 103/ul Normal 4.0-11.0 [facility] Comment on above: Performed By: #### C BC #### [facility] [address] [place] [address] Dr. Luis A Solorio GLYCOHEMOGLOBIN A1Con 2021 ADA RECOMMENDATION SEE BELOW Normal [facility] Comment on above: Result Comment: ADA RECOMMENDED LIMIT 4.0 - 6.0 ADA THERAPEUTIC TARGET < 7.0 ACTION SUGGESTED > 7.0 Performed By: #### B ROLANDO, CREA #### [facility] [address] [place] [address] Dr. Luis A Solorio Glucose [Mass/Vol] 131 mg/dL Normal [facility] Comment on above: Performed By: #### B UN, CREA #### [facility] [address] [place] [address] Dr. Luis A Solorio HbA1c (Bld) [Mass fraction] 6.2 % Normal 4.5-6.2 [facility] Comment on above: Performed By: #### B ROLANDO, CREA #### [facility] [address] [place] [address] Dr. Luis A Solorio LIPID PROFILEon 04-02-2022 CHOL-HDL RATIO NORM SEE BELOW Normal [facility] Comment on above: Result Comment: 3.3 - 4.4 LOW RISK 4.4 - 7.1 AVERAGE RISK 7.1 - 11.0 MODERATE RISK >11.0 HIGH RISK Performed By: #### T SH, LIPID, CMP #### [facility] [address] [address] [address] Luis A Solorio Cholesterol [Mass/Vol] 215 mg/dL Critically high <=200 [facility] Comment on above: Performed By: #### T SH, LIPID, CMP #### [facility] [address] [address] [address] Luis A Solorio Cholesterol in HDL [Mass/Vol] 46 mg/dL Normal 40-60 [facility] Comment on above: Performed By: #### T SH, LIPID, CMP #### [facility] [address] [address] [address] Luis A Solorio Cholesterol in LDL [Mass/Vol] 138.2 mg/dL Normal [facility] Comment on above: Performed By: #### T SH, LIPID, CMP #### [facility] [address] [address] [address] Luis A Solorio Cholesterol.total/Ch olesterol in HDL [Mass ratio] 4.7 {ratio} Normal [facility] Comment on above: Performed By: #### T SH, LIPID, CMP #### [facility] [address] [address] [address] Luis A Solorio HDL NORMAL > or = 60 mg/dl - LOW CARDIOVASCULAR RISK <40 mg/dl - HIGH CARDIOVASCULAR RISK Normal [facility] Comment on above: Performed By: #### T SH, LIPID, CMP #### [facility] [address] [address] [address] Luis A Solorio LDL CALC NORMAL SEE BELOW Normal [facility] Comment on above: Result Comment: <100 mg/dl OPTIMAL 100 - 129 mg/dl NEAR OR ABOVE OPTIMAL 130 - 159 mg/dl BORDERLINE HIGH 160 - 189 mg/dl HIGH >190 mg/dl VERY HIGH Performed By: #### T SH, LIPID, CMP #### [facility] [address] [address] [address] Luis A Solorio Triglyceride [Mass/Vol] 154 mg/dL Critically high <=150 [facility] Comment on above: Performed By: #### T SH, LIPID, CMP #### [facility] [address] [address] [address] Luis A Solorio VLDL CALC 30.8 mg/dL Normal [facility] Comment on above: Performed By: #### T SH, LIPID, CMP #### [facility] [address] [place] [address] Dr. Luis A Solorio PROF 14(COMP METB)on 022 Albumin [Mass/Vol] 3.2 g/dL Critically low 3.4-5.0 Th e [facility] Comment on above: Performed By: #### P REGU #### [facility] [address] [place] [address] Dr. Luis A Solorio Albumin/Globulin [Mass ratio] 0.8 {ratio} Normal [facility] Comment on above: Performed By: #### P REGU #### [facility] [address] [place] [address] Dr. Luis A Solorio ALP [Catalytic activity/Vol] 83 U/L Normal 46-116 [facility] Comment on above: Performed By: #### P REGU #### [facility] [address] [place] [address] Dr. Luis A Solorio ALT [Catalytic activity/Vol] 34 U/L Normal 14-59 [facility] Comment on above: Performed By: #### P REGU #### [facility] [address] [place] [address] Dr. Lusi A Solorio Anion gap [Moles/Vol] 13.5 mmol/L Normal [facility] Comment on above: Performed By: #### P REGU #### [facility] [address] [place] [address] Dr. Luis A Solorio AST [Catalytic activity/Vol] 24 U/L Normal 15-37 [facility] Comment on above: Performed By: #### P REGU #### [facility] [address] [place] [address] Dr. Luis A Solorio Bilirubin [Mass/Vol] 0.3 mg/dL Normal 0.2-1.0 [facility] Comment on above: Performed By: #### P REGU #### [facility] [address] [place] [address] Dr. Luis A Solorio Calcium [Mass/Vol] 8.5 mg/dL Normal 8.5-10.1 [facility] Comment on above: Performed By: #### P REGU #### [facility] [address] [address] [address] Luis A Solorio Chloride [Moles/Vol] 105 mmol/L Normal 98-107 [facility] Comment on above: Performed By: #### P REGU #### [facility] [address] [place] [address] Dr. Luis A Solorio CO2 [Moles/Vol] 23.7 mmol/L Normal 21.0-32.0 [facility] Comment on above: Performed By: #### P REGU #### [facility] [address] [place] [address] Dr. Luis A Solorio Creatinine [Mass/Vol] 0.74 mg/dL Normal 0.55-1.02 [facility] Comment on above: Performed By: #### P REGU #### [facility] [address] [place] [address] Dr. Luis A Solorio EGFR-AF LEBANESE >60 Normal >=60 [facility] Comment on above: Performed By: #### P REGU #### [facility] [address] [place] [address] Dr. Luis A Solorio EGFR-NON AF LEBANESE >60 Normal >=60 [facility] Comment on above: Performed By: #### P REGU #### [facility] [address] [place] [address] Dr. Luis A Solorio Globulin (S) [Mass/Vol] 3.8 g/dL Normal [facility] Comment on above: Performed By: #### P REGU #### [facility] [address] [place] [address] Dr. Luis A Solorio Glucose [Mass/Vol] 122 mg/dL Critically high 74-106 [facility] Comment on above: Performed By: #### P REGU #### [facility] [address] [place] [address] Dr. Luis A Solorio Potassium [Moles/Vol] 4.2 mmol/L Normal 3.5-5.1 [facility] Comment on above: Performed By: #### P REGU #### [facility] [address] [place] [address] Dr. Luis A Solorio Protein [Mass/Vol] 7.0 g/dL Normal 6.4-8.2 [facility] Comment on above: Performed By: #### P REGU #### [facility] [address] [address] [address] Luis A Solorio Sodium [Moles/Vol] 138 mmol/L Normal 136-145 [facility] Comment on above: Performed By: #### P REGU #### [facility] [address] [place] [address] Dr. Luis A Solorio Urea nitrogen [Mass/Vol] 15.0 mg/dL Normal 7.0-18.0 [facility] Comment on above: Performed By: #### P REGU #### [facility] [address] [address] [address] Luis A Solorio Urea nitrogen/Creatinine [Mass ratio] 20.3 mg/mg Normal [facility] Comment on above: Performed By: #### P REGU #### [facility] [address] [place] [address] Dr. Luis A Solorio TSHon 04-02-2022 TSH 1.449 uIU/mL Normal 0.358-3.740 [facility] Comment on above: Performed By: #### T SH, LIPID, CMP #### [facility] [address] [place] [address] Dr. Luis A Solorio Vital Signs Date Time Vital Sign Value Performing Clinician Facility 05-08-2025 08:30-0400 Body height 167 cm Allison Sharp MD Work Phone: [facility] 05-08-2025 08:30-040 Body mass index (BMI) [Ratio] 46.3 kg/m2 Allison Sharp MD Work Phone: [facility] 05-08-2025 08:30-0400 Body weight 129.27 kg Allison Sharp MD Work Phone: [facility] 05-08-2025 08:30-0400 Diastolic blood pressure 84 mm[Hg] Allison Sharp MD Work Phone: [facility] 05-08-2025 08:30-0400 Heart rate 68 /min Allison Sharp MD Work Phone: [facility] 05-08-2025 08:30-0400 Systolic blood pressure 139 mm[Hg] Allison Sharp MD Work Phone: [facility] 04-16-2025 13:30-0400 Diastolic blood pressure 88 mm[Hg] Allison Sharp MD Work Phone: [facility] 04-16-2025 13:30-0400 Systolic blood pressure 143 mm[Hg] Allison Sharp MD Work Phone: [facility] 04-16-2025 13:27-0400 Body height 167 cm Allison Sharp MD Work Phone: [facility] 04-16-2025 13:27-0400 Body mass index (BMI) [Ratio] 46.9 kg/m2 Allison Sharp MD Work Phone: [facility] 04-16-2025 13:27-0400 Body weight 130.85 kg Allison Sharp MD Work Phone: [facility] 04-16-2025 13:27-0400 Heart rate 69 /min Allison Sharp MD Work Phone: [facility] 04-16-2025 13:27-0400 Respiratory rate 18 /min Allison Sharp MD Work Phone: [facility] 2025 08:54-0400 Body height 170.18 cm [facility] 2025 08:54-0400 Body mass index (BMI) [Ratio] 45.1 kg/m2 [facility] 2025 08:54-0400 Body weight 130.63 kg [facility] 2025 08:54-0400 Diastolic blood pressure 87 mm[Hg] [facility] 2025 08:54-0400 Heart rate 62 /min [facility] 2025 08:54-0400 Systolic blood pressure 143 mm[Hg] [facility] 10-19-2024 11:32-0500 Body height 170.18 cm [facility] 10-19-2024 11:32-0500 Body mass index (BMI) [Ratio] 44.9 kg/m2 [facility] 10-19-2024 11:32-0500 Body weight 130.18 kg [facility] 10-19-2024 11:32-0500 Diastolic blood pressure 87 mm[Hg] [facility] 10-19-2024 11:32-0500 Heart rate 94 /min [facility] 10-19-2024 11:32-0500 Systolic blood pressure 133 mm[Hg] [facility] 06-20-2024 14:02-0400 Body height 170.2 cm Johny Thao DO Work Phone: [facility] 06-20-2024 14:02-0400 Body mass index (BMI) [Ratio] 42.29 kg/m2 Johny Thao DO Work Phone: [facility] 06-20-2024 14:02-0400 Body weight 122.47 kg Johny Thao DO Work Phone: [facility] 06-20-2024 14:02-0400 Diastolic blood pressure 92 mm[Hg] Johny Thao DO Work Phone: [facility] 06-20-2024 14:02-0400 Heart rate 76 /min Johny Thao DO Work Phone: [facility] 06-20-2024 14:02-0400 SaO2% (BldA) [Mass fraction] 97 % Johny Thao DO Work Phone: [facility] 06-20-2024 14:02-0400 Systolic blood pressure 144 mm[Hg] Johny Thao DO Work Phone: [facility] 02-17-2024 09:36-0400 Body height 170.18 cm [facility] 02-17-2024 09:36-0400 Body mass index (BMI) [Ratio] 43.4 kg/m2 [facility] 02-17-2024 09:36-0400 Body weight 125.64 kg [facility] 02-17-2024 09:36-0400 Diastolic blood pressure 86 mm[Hg] [facility] 02-17-2024 09:36-0400 Heart rate 61 /min [facility] 02-17-2024 09:36-0400 Systolic blood pressure 149 mm[Hg] [facility] Encounters Encounter Date Encounter Type Care Provider Facility Start: 05-08-2025 End: 05-08-2025 ambulatory Allison Sharp MD Work Phone: [facility] Work Phone: Start: 05-08-2025 End: 05-08-2025 Patient encounter procedure Allison Sharp MD [facility] Work Phone: Start: 05-08-2025 End: 05-08-2025 Patient encounter status Allison Sharp MD [facility] Start: 05-07-2025 End: 05-07-2025 ambulatory Allison Sharp MD Work Phone: [facility] Work Phone: Start: 05-07-2025 End: 05-07-2025 Patient encounter procedure Mariaa Su [facility] Work Phone: Start: 04-16-2025 End: 04-16-2025 ambulatory Allison Sharp MD Work Phone: [facility] Work Phone: Start: 04-16-2025 End: 04-16-2025 Patient encounter procedure Ashwini Sweeney [facility] Work Phone: Start: 2025 End: 2025 ambulatory [facility] Work Phone: Start: 2025 End: 2025 Patient encounter procedure [facility] Work Phone: Start: 11-19-2024 ambulatory [place] Start: 10-19-2024 Patient encounter status [facility] Start: 10-19-2024 Preprocedural examin ation done Allison Sharp MD Work Phone: [facility] Start: 10-19-2024 End: 10-19-2024 ambulatory [facility] Work Phone: Start: 10-19-2024 End: 10-19-2024 Patient encounter procedure [facility] Work Phone: Start: 10-15-2024 Non-patient / Non-visit [facility] Work Phone: Start: 06-20-2024 End: 06-20-2024 Bamboo flowsheet Johny Thao DO Work Phone: [facility] Start: 06-20-2024 End: 06-20-2024 Bamboo flowsheet Johny Thao DO Work Phone: [facility] Start: 06-20-2024 End: 06-20-2024 Office consultation new/estab patient 60 min Johny Thao DO Work Phone: [facility] Comment on above: NILTON (obstructive sle ep apnea); Hypersomnia; Sleep deprivation; Hypoxia; Inadequate sleep hygiene Start: 06-20-2024 End: 06-20-2024 ambulatory JOHNY THAO Not Available Start: 02-17-2024 Patient encounter status [facility] Start: 02-17-2024 End: 02-17-2024 ambulatory [facility] Work Phone: Start: 02-17-2024 End: 02-17-2024 Encounter for general adult medical examination without abnormal findings [facility] Start: 02-17-2024 End: 02-17-2024 Patient encounter procedure [facility] Work Phone: Start: 06-24-2023 End: 06-24-2023 ambulatory Arley Hand Other [facility] Other Start: 06-24-2023 Office outpatient vi sit [address] [facility] Start: 04-27-2023 End: 04-27-2023 ambulatory Allison Sharp Other [facility] Other Start: 04-27-2023 Nursing evaluation o f patient and report Allison Sharp [facility] Start: 02-16-2023 End: 02-17-[address] ALMANZAR LISTED REQUEST Facility:[facility]1 Start: 10-06-2022 Adult health examination Ronaktd Hand Other [facility] Other Start: 10-06-2022 Gynecological examin ation normal Arley Hand Other [facility] Other Start: 10-06-2022 Pre-procedure evalua tion check Arley Hand Other [facility] Other Start: 10-05-2022 End: 10-05-[address] ALLISON SHARP Facility:[facility] Start: 07-19-2022 End: 07-20-2022 ambulatory MD Raymundo DAILEY Facility:CD:[id number] Start: 07-19-2022 End: 07-21-2022 Evaluation and management of inpatient DR ALLISON SHARP Facility:[facility] Start: 07-17-2022 Encounter for preprocedural laboratory examination DR HUYEN GILL . [facility] Start: 07-17-[address] ALLISON SHARP Facil ity:H1 Start: 07-15-2022 End: 07-16-[address] ALLISON SHARP Facility:[facility] Start: 07-15-2022 End: 07-16-2022 Encounter for preprocedural laboratory examination DR ALLISON SHARP Facility:[facility] Start: 07-14-2022 End: 07-14-[address] ALLISON SHARP Facility:[facility] Start: 07-06-2022 Encounter for other preprocedural examination DR HUYEN GILL . [facility] Start: 07-05-2022 End: 07-06-[address] ALLISON SHARP Facility:[facility] Start: 07-05-2022 End: 07-06-2022 Encounter for other preprocedural examination DR ALLISON SHARP Facility:[facility] Start: 06-25-2022 ambulatory MD Raymundo Grace ity:[facility] Start: 06-11-2022 End: 06-11-[address] ALLISON SHARP Facility:[facility] Start: 06-04-2022 End: 06-05-[address] ALLISON SHARP Facility:[facility] Start: 05-31-2022 Encounter for preprocedural cardiovascular examination DR HUYEN GILL . [facility] Start: 05-28-2022 End: 05-29-[address] ALLISON SHARP Facility:[facility] Start: 05-03-2022 End: 05-04-[address] ALLISON SHARP Facility:[facility] Start: 04-30-2022 End: 04-30-[address] ALLISON SHARP Facility:[facility] Start: 04-23-2022 End: 04-24-[address] ALLISON SHARP Facility:[facility] Start: 04-14-2022 End: 04-15-[address] ALLISON SHARP Facility:[facility] Start: 04-06-2022 Encounter for genera l adult medical examination without abnormal findings DR ALLISON SHARP [facility] Start: 04-02-2022 End: 04-03-[address] ALLISON SHARP Facility:[facility] Start: 04-02-2022 End: 04-03-2022 Encounter for general adult medical examination without abnormal findings DR ALLISON SHARP Facility:[facility]1 Procedures Date Procedure Procedure Detail Performing Clinician Start: 07-19-2022 Resection of Bilateral Fallopian Tubes, Open Approach DR ALLISON SHARP Start: 07-19-2022 Resection of Left Ovary, Open Approach DR ALLISON SHARP Start: 07-19-2022 Resection of Uterus, Open Approach DR ALLISON SHARP Start: 07-19-2022 Insertion of Other Device into Genitourinary Tract, Via Natural or Artificial Opening Endoscopic DR ALLISON SHARP H/O: tubal ligation History of tubal liga tion Allison Sharp MD Work Phone: H/O: tubal ligation History of tubal liga tion Ashwini Sweeney DNP History of cholecystectomy S/P cholecystectomy Allison Sharp MD Work Phone: History of cholecystectomy Hx of cholecystectomy Ashwini Sweeney DNP Hysterectomy Arley Hand Other Ligation of fallopia n tube Arley Hand Other End: 05-10-2022 Screening for malignant neoplasm of breast Arley Hand Other Plan of Treatment Date Care Activity Detail Author Start: 2025 Patient referral [facility] Work Phone: Start: 06-20-2024 End: 06-20-2024 Patient encounter procedure 06/20/2024 2:00 PM EDT [facility] [address] [place] [address] Johny Osuna DO [address] [id number] [facility] Comment on above: Arrived Comprehensive metabo lic 2000 panel - Serum or Plasma [facility] MG Breast - bilatera l Screening [facility] Patient referral [facility] Work Phone: XR Knee - left 2 Views [facility] Payers Date Payer Category Payer Private Health Insurance [id number] 2009 Managed Care HMO (unspecified) [employer]ET[employer] AETNA [id number] 2009-Present [address] [place] [address] HMO [id number] 1977 Unknown [id number] 2..840.1.379399.3.579.2 .727 1977 Unknown [id number] ..840.1.962531.3.579.2 .593 1977 Unknown [id number] 2.16.840.1.428248.3.579.2 .593 1977 Unknown [id number] 2.16.840.1.336170.3.579.2 .593 1977 Unknown [id number] 2.16.840.1.148258.3.579.2 .593 1977 Unknown [id number] 2.16.840.1.968752.3.579.2 .593 1977 Unknown [id number] 2.16.840.1.673180.3.579.2 .593 1977 Unknown [id number] 2.16.840.1.375408.3.579.2 .593 1977 Unknown [id number] 2.16.840.1.586218.3.579.2 .593 1977 Unknown [id number] 2.16.840.1.696661.3.579.2 .593 1977 Unknown [id number] 2.16.840.1.558944.3.579.2 .593 1977 Unknown [id number] 2.16.840.1.926877.3.579.2 .593 1977 Unknown [id number] 2.16.840.1.397747.3.579.2 .593 1977 Unknown [id number] 2.16.840.1.775099.3.579.2 .593 1977 Unknown [id number] 2.16.840.1.035044.3.579.2 .593 1977 Unknown [id number] 2.16.840.1.433727.3.579.2 .593 1977 Unknown [id number] 2.16.840.1.027068.3.579.2 .1259 1959 Private Health Insurance [id number] 1959 Private Health Insurance [id number] Self-pay Unknown [id number] 2.16.840.1.859020.3.579.2 .593 Social History Date Type Detail Facility Unknown if ever smoked [facility] [employer] Other Start: 06-20-2024 Sex Assigned At Etable [facility] [employer] Other Start: 1975 Sex Assigned At Female [facility] Tobacco smoking status [facility] Tobacco smoking consumption unknown [facility] Start: 1975 Sex assigned at Not on file [facility] Start: 06-20-2024 End: 04-16-2025 Tobacco smoking status SDIS Never smoked tobacco [facility] Start: 06-20-2024 Tobacco use and exposure Smokeless tobacco non-user [facility] Start: 06-20-2024 History of Social function [facility] Start: 10-19-2024 End: 2025 Sex Female (finding) [facility] NEGATED: Highlighted row N [facility] Clinical Notes 04-27-2023 to 2025 Note Date & Type Note Facility 2025 Evaluation note Diagnosis Onset Date Resolution Class 3 severe obesity with body mass index (BMI) of 45.0 to 49.9 in adult acute 2025 8:52am Left medial knee pain acute 2025 8:52am Abnormal weight gain acute April 16, 2025 12:42pm Arthritis acute April 16, 2025 12:42pm BMI 45.0-49.9, adult acute April 16, 2025 12:42pm Class 3 severe obesity with body mass index (BMI) of 45.0 to 49.9 in adult acute April 16, 2025 12:42pm Dietary surveillance and counseling acute April 16, 2025 12:42pm Essential (primary) hypertension acute April 16, 2025 12:42pm Exercise counseling acute April 16, 2025 12:42pm GERD (gastroesophageal reflux disease) acute April 16, 2025 12:42pm History of tubal ligation acute April 16, 2025 12:42pm Hx of cholecystectomy acute Apr 12:42pm Migraine headache acute April 12:42pm NILTON (obstructive sleep apnea) acute April 16, 2025 12:42pm [facility] Work Phone: 1(421) 716-949805-12-2025 Evaluation note* Diagnosis Onset Date Resolution Status Admit Date Class 3 severe obesity with body mass index (BMI) of 45.0 to 49.9 in adult acute 2025 8 :52am Left medial knee pain acute 2025 8:52am Abnormal weight gain acute April 16, 2025 12:42pm Arthritis acute April 16, 2025 12:42pm BMI 45.0-49.9, adult acute April 16, 2025 12:42pm Class 3 severe obesity with body mass index (BMI) of 45.0 to 49.9 in adult acute April 16, 2025 1 2:42pm Dietary surveillance and counseling acute April 16, 2025 1 2:42pm Essential (primary) hypertension acu te April 16, 2025 12:42pm Exercise counseling acute April 16, 2025 12:42pm GERD (gastroesophageal reflu x disease) acute April 16, 2025 1 2:42pm History of tubal ligation acute April 16, 2025 12:42pm Hx of cholecystectomy acute Apr 12:42pm Migraine headache acute April 12:42pm NILTON (obstructive sleep apnea) acute April 16, 2025 12:42pm Wellness examination acute May 08, 2025 8:25am [facility] Work Phone: 1(273) 315-627609-04-2024 History of Present illness Narrative* Johny Osuna, - 06/20/2024 2:00 PM EDT Images from the original note were not [...] to bed at 930p and wakes up at4a. She is waking up once or twice [...] her to auto PAP at 8-14 cm ofwater and see if that will help. However overall she is getting a benefit and doing better. Her Lyons Sleepiness scale is 6 Plan Patient's polysomnogram [...] was counseled on the risks of stroke, [place], and sudden with NILTON, along with the [...] to clinic: 1 [id number] Evaluation note* Encounter Date Diagnosis Assessment Notes Treatment Notes Treatment Clinical Notes Jun, COVID-19 (ICD-10 - U07.1) Begin [...] for congestion, Tylenol for pain and fever. [facility] Other 07-12-2023 Evaluation note* Encounter Date Diagnosis Assessment Notes Treatment Notes Treatment Clinical Notes Apr, Acute cystitis without hematuria (ICD-10 - N30.00) [facility] Other Evaluation note* Diagnosis Onset Date Resolution Status Screening mammogram for breast cancer acute Wellness examination [facility] Work Phone: Evaluation note* Diagnosis NILTON (obstructive sleep apnea) Obstructive sleep apnea (adult) (pediatric) Hypersomnia Hypersomnia, unspecified Sleep deprivation Problems related to lack of adequate sleep Hypoxia Hypoxemia Inadequate sleep hygiene 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 documented in this encounter [facility] Work [facility]: Evaluation note* Diagnosis Onset Date Resolution Status Admit Date Left medial knee pain acute 2025 8:52am [facility] Work Phone: History general Narrative - Reported* Type Description Date Surgical History TUBAL Surgical History colonoscopy Surgical History laparoscopy Surgical History cholecystectomy Hospitalization History See Above [facility] Other History general Narrative - Reported* Type Description Date Medical History Problem Title : Acut e [...] Surgical History cholecystectomy Hospitalization History See Above [facility] Other Hospital Discharge instructionsAmbulatory Orders* Referral to Orthopedics Time Frame: 02/25/25, Location: None [facility] Work Phone: Reason for referral (narrative)No reason for referral [facility]: Summary Purpose Family History Relationship Condition Age at Onset Recorded Date/T tomi father Family history of lung cancer Unknown Malignant neoplasm Unknown Unknown Not Specified Hypertension Unknown Relationship Condition Age at Onset Recorded Date/T tomi father Family history of lung cancer Unknown Malignant neoplasm Unknown Unknown mother Hypertension Unknown Relationship Condition Age at Onset Recorded Date/T tomi father Family history of lung cancer Unknown Malignant neoplasm Unknown Unknown mother Hypertension Unknown Diabetes mellitus Unknown High blood cholesterol Unknown brother Unknown family medical history Unknown daughter Anxiety with depression Unknown Disorder of thyroid Unknown son Epilepsy Unknown Advance Directives Advance Directive Response Recorded [...] Left medial knee pain 2025 8:5 2am Chief Complaint Admit Date Left knee pain 2025 8:52a m Self- [place] (QDone) April 16, 2025 12 :42pm Reason for Visit Admit Date Class 3 severe obesity with body mass index (BMI) of 45.0 to 49.9 in adult 2025 8:52am Left medial knee pain 2025 8:5 2am Abnormal weight gain April 16, 2025 12:4 2pm Arthritis April 16, 2025 12:42 pm BMI 45.0-49.9, adult April 16, 2025 12:4 2pm Class 3 severe obesity with body mass index (BMI) of 45.0 to 49.9 in adult April 16, 2025 12:42pm Dietary surveillance and counseling April 16, 2025 12:42pm Essential (primary) hypertension April 12:42pm Exercise counseling April 16, 2025 12:42 pm GERD (gastroesophageal reflux disease) J diego 2024 12:42pm History of tubal ligation April 16, 2025 12:42pm Hx of cholecystectomy April 16, 2025 12: 42pm Migraine headache April 16, 2025 12:42 pm NILTON (obstructive sleep apnea) April 16, 2025 12:42pm Chief Complaint Admit Date Left knee pain 2025 8:52a m Self- [place] (QDone) April 16, 2025 12 :42pm Wellness May 08, 2025 8:25 am Reason for Visit Admit Date Class 3 severe obesity with body mass index (BMI) of 45.0 to 49.9 in adult 2025 8:52am Left medial knee pain 2025 8:5 2am Abnormal weight gain April 16, 2025 12:4 2pm Arthritis April 16, 2025 12:42 pm BMI 45.0-49.9, adult April 16, 2025 12:4 2pm Class 3 severe obesity with body mass index (BMI) of 45.0 to 49.9 in adult April 16, 2025 12:42pm Dietary surveillance and counseling April 16, 2025 12:42pm Essential (primary) hypertension April 12:42pm Exercise counseling April 16, 2025 12:42 pm GERD (gastroesophageal reflux disease) J diego 2024 12:42pm History of tubal ligation April 16, 2025 12:42pm Hx of cholecystectomy April 16, 2025 12: 42pm Migraine headache April 16, 2025 12:42 pm NILTON (obstructive sleep apnea) April 16, 2025 12:42pm Wellness examination May 08, 2025 8:2 5am Additional Source Comments INFORMATION SOURCE (unrecogn ized section and content) DATE CREATED AUTHOR 07/28/2022 [facility] DATE CREATED AUTHOR AUTHOR'S ORGANIZ ATION 02/17/2023 [facility] DATE CREATED AUTHOR AUTHOR'S ORGANIZ ATION 11/22/2024 [place] DATE CREATED AUTHOR AUTHOR'S ORGANIZ ATION 03/22/2025 [facility] Specialists EPIC REASON FOR VISIT (unrecogniz ed section and content) Fever, Frequency, Tingling, CloudyCOVID Positive- [phone] Care Teams (unrecognized sec tion and content) [...] February 17, 2024 End: February 17, 2024 [employer] Relationship Specialty Start Date End Date Allison Sharp MD [address] [place] [address] PCP - General Family Medicine 06/20/24 [employer] Relationship Specialty Start Date End Date Allison Sharp MD [address] [place] [address] PCP - General Family Medicine 06/20/24 Team Status: Inactive Member Role Status Dates Allison Sharp MD Primary Care Provider Active Start: 2025 End: 2025 Allison Sharp MD Attending Provider Active St art: 2025 End: 2025 Team Status: Inactive Member Role Status Dates Allison Sharp MD Primary Care Provider Active Start: April 16, 2025 End: April 16, 2025 Ashwini Bailon DNP Attending Provider Active S tart: April 16, 2025 End: April 16, 2025 Team Status: Inactive Member Role Status Dates Allison Sharp MD Primary Care Provider Active Start: May 07, 2025 End: May 07, 2025 NEGIN Caceres Attending Provider Active Start: May 07, 2025 End: May 07, 2025 Team Status: Inactive Member Role Status Dates Allison Sharp MD Primary Care Provider Active Start: May 08, 2025 End: May 08, 2025 Allison Sharp MD Attending Provider Active St art: May 08, 2025 End: May 08, 2025 Goals (unrecognized section and content) Goals [...] BE BASED ON THE PRIMARY CLINICAL RECORDS. [facility] [employer] [facility]. provides no warranty or guarantee of the accuracy or completeness of information in this document.
[2025-05-09 07:45] LABS: Hematocrit 36.0 % (36.0-48.0); Hemoglobin 12.2 g/dL (12.0-16.0); Immature Granulocytes Abs Auto 0.01 10^3/uL (0.00-0.03); Immature Granulocytes Pct Auto 0.2 % (0.0-0.5); Lymphocytes Absolute Auto 1.8 10^3/uL (1.2-3.8); Mean Corpuscular HGB Conc 33.9 g/dL (29.9-35.2); Mean Corpuscular Hemoglobin 30.5 pg (26.7-34.0); Mean Corpuscular Volume 90.0 fL (81.0-99.0); Platelet Count 197 10^3/uL (150-450); Red Blood Count 4.00 10^6/uL (4.20-5.40); White Blood Count 4.2 10^3/uL (4.0-11.0)
[2025-05-09 08:56] LABS: Alanine Aminotransferase 35 U/L (14-59); Albumin Globulin Ratio 0.9; Albumin Level 3.1 g/dL (3.4-5.0); Alkaline Phosphatase 84 U/L (46-116); Anion Gap 12.0; Aspartate Amino Transferase 26 U/L (15-37); Blood Urea Nitrogen 13.0 mg/dL (7.0-18.0); Calcium 8.9 mg/dL (8.5-10.1); Carbon Dioxide 27.1 mmol/L (21.0-32.0); Chloride 107 mmol/L (98-107); Cholesterol 194 mg/dL (<=200); Estimated GFR (African America >60 (>=60 mL/min/1.73m^2); Estimated GFR (Non-African Ame >60 (>=60 mL/min/1.73m^2); Globulin 3.6 g/dL; Glucose 113 mg/dL (74-106); HDL Cholesterol 54 mg/dL (40-60); Potassium 4.1 mmol/L (3.5-5.1); Sodium 142 mmol/L (136-145); TSH W/ REFLEX FT4 1.905 uIU/mL (0.358-3.740); Total Protein 6.7 g/dL (6.4-8.2); Triglycerides 187 mg/dL (<=150); VLDL CHOLESTEROL 37.4 mg/dL
== END 2025-05-09 07:17 | disposition home or self-care (01) ==
LOC: LAB 07:17
PROVIDERS: PCP Family Medicine; Visit Provider Family Medicine
DX: Z00.00 Encounter for general adult medical examination without abnormal findings (principal)
CPT/HCPCS: 36415; 80053; 80061; 83036; 84443; 85025

== ENCOUNTER 2025-10-03 13:23 | Outpatient (OUT) | payer OTHER, SELFPAY ==
--- OUTSIDE RECORDS SUMMARY | 2025-05-03 03:30 | XMS_ITS ---
Author Organization [facility] Address [address] [place] [address] Care Team Providers Care First Responder Name Role Phone Allison Schuler M.D. Primary Care Provider Unavail able Phylicia Madison Unavailable [phone] REASON FOR VISIT cervical recheck Encounters Encounter Location Date Provider Diagnosis [facility] Office [address] [place] [address] [address] [place] [address] 05/03/2025 Phylicia Madison Plan Of Treatment No Information Progress Notes * YOLANDA ALCARAZ MDOB: 7 (50 yo F)Acc No.[id number]:05/03/2025 Patient:?LISSA YOLANDA Patel :?Phylicia Pat MD, PhDDOB:1975 ???Age:50 Y???Sex:FemaleDate:05/03/2025Phone:[phone]:[address] [place], [place] [id number]:Allison Schuler M.D. Subjective: * Chief Complaints: * 1 . Cervical recheck. * Medical History: Objective: * Vitals: Assessment: Plan: * Treatment: Forms: * Images: * Electronic signature of Phylicia Madison MD, PHD on 10/03/2025 at 01:25 PM EST Sign off status: Pending * Provider: Ken Pat MD, PhD Date: 0 05/03/2025 Generated for Printing/Faxing/eTransmitting on:?10/03/2025 01:25 PM EST
--- OUTSIDE RECORDS SUMMARY | 2025-10-03 13:26 | XMS_ITS | Patient Health Record ---
Author Organization [facility] Address [address] [place] [address] Care Team Providers Care Dialysis Biomed Technician Name Role Phone Allison Schuler M.D. Primary Care Provider Unavail able Phylicia Madison Unavailable [phone] Subhash Suggs Unavailable [phone] Elysia Guidry Unavailable [phone] Allergies No Known Allergies Reason For Referral No Information Medications Medication SIG (Take, Route, Frequency, Duration) Notes Start Date End Date Status hydrochlorothiazide-losartan 12.5 mg-50 mg ; Dur ation: 90 Days Active Social History Tobacco Use: Social History Observation Description Date Details (start date - stop date) Never Smoker NA - NA AUDIT-C (Standard) Question Answer Notes Did you have a drink containing alcohol in the p ast year? Yes How often did you have six or more drinks on one occasion in the past year?Never (0 point)How many drinks did you have on a typical day when you were drinking in the past year?1 or 2 drinks (0 point)How often did you have a drink containing alcohol in the past year?Monthly or less (1 point)Wuvdap1RbipzkgxfczyzgQhumtyfr Tobacco Control (Standard) Question Answer Notes Tobacco use: Nonsmoker Problems Problem Type SNOMED Code ICD Code Onset Dates Problem Status W/U Status Risk Notes Problem Cervical radiculopathy (19577617) Cervica l radiculopathy (M54.12) ActiveconfirmedProblemCervical spinal stenosis (93657329)Cervical spinal stenosis (M48.02)ActiveconfirmedProblemHistory of arthrodesis (707373523) Arthrodesis status (Z98.1)ActiveconfirmedProblemShoulder joint pain (274116686) Pain, joint, shoulder, right (M25.511)ActiveconfirmedProblemLumbosacral spondylosis without myelopathy (84649812)Other spondylosis with radiculopathy, lumbosacral region (M47.27)ActiveconfirmedProblemDisplacement of cervical intervertebral disc without myelopathy (85951916)Other cervical disc displacement at C5-C6 level (M50.222)ActiveconfirmedProblemDisplacement of cervical intervertebral disc without myelopathy (89981830)Other cervical disc displacement at C6-C7 level (M50.223)ActiveconfirmedProblemDegeneration of cervical intervertebral disc (51043403)Other cervical disc degeneration at C5-C6 level (M50.322)ActiveconfirmedProblemDegeneration of cervical intervertebral disc (59962004)Other cervical disc degeneration at C6-C7 level (M50.323)Active confirmedProblemEncounter for other orthopedic aftercare (Z47.89)Activeconfirmed ProblemDegeneration of intervertebral disc of lumbosacral region with discogenic back pain and lower extremity pain (M51.372)Activeconfirmed Vital Signs Height 5'7 in 05/10/2025 Frskcr546 lbs5BMI42.28005/10/2025 Encounters Encounter Location Date Provider Diagnosis [facility] [address] [place] [address] [address] [place] [address] 10/19/2024 Subhash Diglichristine Cervical radiculopathy M54.12 ; Cervical spinal stenosis M48.02 ; Other cervical disc displacement at C5-C6 level M50.222 and Other cervical disc displacement at C6-C7 level M50.223 [facility] [address] [place] [address] 11/02/2024 Selvon Los Cervical spinal stenosis M48.02 ; Other cervical disc degeneration at C5-C6 level M50.322 and Other cervical disc degeneration at C6-C7 level M50.323 [facility] [address] [place] [address] 11/05/2024 [facility] Other cervical disc degeneration at C5-C6 level M50.322 ; Other cervical disc displacement at C5-C6 level M50.222 and Other cervical disc displacement at C6-C7 level M50.223 [facility] [address] [facility] [place] [address] 11/23/2024 [facility]ia [facility] Encounter for other orthopedic aftercare Z47.89 and Arthrodesis status Z98.1 [facility] [address] [facility] [place] [address] 12/07/2024 Elysia [facility] Encounter for other orthopedic aftercare Z47.89 and Arthrodesis status Z98.1 [facility] [address] [facility] [place] [address] 01/18[facility]20[facility] other [facility] aftercare Z47.89 and Arthrodesis status Z98.1 [facility] [address] [place] [address] 05/10/2025 Selvon Los Encounter for other orthopedic aftercare Z47.89 [facility] [address] [place] [address] 10/16/2024 Selvon Los Cervical radiculopathy M54.12 [facility] [address] [place] [address] 10/18/2024 Selvon Los [facility] [place] [address]/12/[address] [facility] [place] [address]/Selvon [facility] ClairAftercare following surgery of the musculoskeletal system Z47.89 Assessments Encounter Date Diagnosis (ICD Code) Assessment Notes Treatment Notes Treatment Clinical Notes Section Notes 10/16/2024 Cervical radiculopathy (ICD-10 - M54.12) 5Cervical radiculopathy (ICD-10 - M54.12)5Cervical spinal stenosis (ICD-10 - M48.02)11/02/2024ervical spinal stenosis (ICD-10 - M48.02) 11/02/2024Other cervical disc degeneration at C5-C6 level (ICD-10 - M50.322) 11/05/2024Other cervical disc degeneration at C5-C6 level (ICD-10 - M50.322) 1. Cervical drain removal 2. POD #3 C5-7 ACDF 5Arthrodesis status (ICD-10 - Z98.1)1. 3 weeks s/p C5-7 ACDF11/23/2024 Encounter for other orthopedic aftercare (ICD-10 - Z47.89)1. 3 weeks s/p C5-7 ACDF/Encounter for other orthopedic aftercare (ICD-10 - Z47.89)1. 6 weeks s/p C5-7 ACDF01/18/2025rthrodesis status (ICD-10 - Z98.1)1. 3 months s/p C5-7 ACDF01/18/2025Encounter for other orthopedic aftercare (ICD-10 - Z47.89)1. 3 months s/p C5-7 ACDF03/04/2025ftercare following surgery of the musculoskeletal system (ICD-10 - Z47.89)05/10/2025Encounter for other orthopedic aftercare (ICD-10 - Z47.89)11/05/2024Other cervical disc displacement at C5-C6 level (ICD-10 - M50.222) 1. Cervical drain removal 2. POD #3 C5-7 ACDF 11/05/2024Other cervical disc displacement at C6-C7 level (ICD-10 - M50.223) 1. Cervical drain removal 2. POD #3 C5-7 ACDF 5Arthrodesis status (ICD-10 - Z98.1)1. 6 weeks s/p C5-7 ACDF11/02/2024 Other cervical disc degeneration at C6-C7 level (ICD-10 - M50.323)10/19/2024 Other cervical disc displacement at C5-C6 level (ICD-10 - M50.222)10/19/2024 Other cervical disc displacement at C6-C7 level (ICD-10 - M50.223)11/05/2024 Other Patient cervical HERBERT drain was removed in office today without complications. I did prescribe patient a Medrol Dosepak for her increased right upper extremity pain postoperatively. We will see her back in the office for her regularly scheduled postop appointment. She will call sooner if her symptomspersist or worsen. The patient is very much in agreement with the treatment and/or diagnostic plan set forth and all questions were answered to the patient's satisfaction. Thanks once again. If we can be of further service to your patients with disorders of the spine, cervical, thoracic, or lumbar, please do not hesitate to contact Dr. Pat. 1. Cervical drain removal 2. POD #3 C5-7 ACDF 11/23/2024Other Plan established by Dr. Pat. Patient evaluated by myself and Dr. Pat today. Patient is still having some right upper extremity pain and muscle spasm and I did prescribe her a course of physical therapy today. We did discuss that it is reassuring that the shooting pains are improving andmay take some time. We will see her back at her regularly scheduled postop visit. The patient is very much in agreement with the treatment and/or diagnostic plan set forth and all questions were answered to the patient's satisfaction. Thanks once again. If we can be of further service to your patients with disorders of the spine, cervical, thoracic, or lumbar, please do not hesitate to contact Dr. Pat. Best regards, 1. 3 weeks s/p C5-7 ACDF12/07/2024Other Patient continues to improve postoperatively with her right upper extremity paresthesias. I will give her a note to return to work next week with no restrictions. She will gradually start to return to activity as tolerated. We will see her in 6 weeks for her next postop recheck. The patient is verymuch in agreement with the treatment and/or diagnostic plan set forth and all questions were answered to the patient's satisfaction. Thanks once again. If we can be of further service to your patients with disorders of the spine, cervical, thoracic, or lumbar, please do not hesitate to contact Dr. Pat. Best regards, 1. 6 weeks s/p C5-7 ACDF01/18/2025Other Patient is doing really well postoperatively and denies any issues today. We will see her back in 3months for her next postop recheck. The patient is very much in agreement with the treatment and/ordiagnostic plan set forth and all questions were answered to the patient's satisfaction. Thanks once again. If we can be of further service to your patients with disorders of the spine, cervical, thoracic, or lumbar, please do not hesitate to contact Dr. Pat. Best regards, 1. 3 months s/p C5-7 ACDF05/10/2025Other Patient 6 months post C5-7 cervical fusion procedure, presenting for follow-up evaluation. Status post C5-7 cervical fusion Assessment: Patient is 6 months post C5-7 cervical fusion procedure. X-rays show solid fusion appearing at C5-6 and C6-7 with good alignment and no hardware complications. Clinical examination reveals bilateral upper extremity strength of 5/5. Patient denies any issues with swallowing, spasms, dysphagia, or dystonia. Incision site appears well-healed on visual inspection. Plan - No further follow-up required unless patient experiences new symptoms - No restrictions on activities - Patient cleared for all activities, including high-impact activities like roller coaster rides Thanks once again. If we can be of further service to your patients with disorders of the spine, cervical, thoracic, or lumbar, please do not hesitate to contact me. Best regards, Plan Of Treatment Pending Test Test Name Order Date Lumbar spine, 4v flex ext - 71048 2023 Cervical spine,ap,lat,flex,ext - 31855 0 05/10/2025 Cervical spine 2 v - 35148 11/23/2024 Cervical spine 2 v - 68934 01/18/2025 MRI : Cervical Spine W/O Contrast - 7214 1 07/02/2024 Morrison J Cervical Collar OTS 10/16/2024 Surgery Scheduling 10/02/2024 [facility] - Cervical Spine PT Orde r, Isometrics & Strenghening w/Modalities as needed. 2-3 x Week for 4-6 Weeks 03/04/2025 [facility]FS - Cervical Spine PT Orde r, Isometrics & Strenghening w/Modalities as needed. 2-3 x Week for 4-6 Weeks 11/23/2024 PT-eval and treat 07/11/2024 SCC- CERVICAL 4 VIEW 07/02/2024 Future Test Test Name Order Date Chest 2 views - 18669 10/02/2024 CBC 10/02/2024 PT/PTT 10/02/2024 BMP 10/02/2024 MRSA (Bilateral Nares) PCR 10/02/2024 EKG 10/02/2024 Insurance Providers Payer Name Payer Address Payer Phone Subscriber Number Group Number Insured Name Patient Relationship to Insured Coverage Start Date Coverage End Date [employer] [address] [place] [address] [id number] Kam [id number] - patient is the spouse of the insured Medical (General) History Medical History History ICD Code High Blood Pressure Sleep apneaCPAP Machine: YesDo you use the CPAP machine? YesHealthcare worker Gastric RefluxIrritable bowel syndromeOvarian CystsSurgical History Surgery Date(Month/Year) C5-7 ACDF 10/2024 Hysterectomy Cholecystectomy (gallbladder removal)
--- OUTSIDE RECORDS SUMMARY | 2025-10-03 13:26 | XMS_ITS | Clinical Summary ---
Author Organization [facility] Address [address] [place] [address] Care Team Providers Care Truck Leasing Manager Name Role Phone Allison Schuler MD Primary Care Provider [phone] Allergies No known active allergies Medications MedicationSigDispense QuantityRefillsLast FilledStart DateEnd DateStatus losartan (Cozaar) 25 MG tablet Daily4Active Family History Medical HistoryRelationNameCommentsLung cancerFatherDiabetesMotherHeart disease MotherHyperlipidemiaMotherHypertensionMotherSeizuresOthersonRelationNameStatus CommentsFatherDeceasedMotherAliveOtherson Social History Tobacco UseTypesPacks/DayYears UsedDateSmoking Tobacco: NeverSmokeless Tobacco: NeverCommentsUnknownSex and Gender InformationValueDate RecordedSex Assigned at BirthNot on fileLegal TxnLwhwsd54/15/2023 6:58 PM EDTGender Identity Not on fileSexual OrientationNot on file Last Filed Vital Signs Vital SignReadingTime TakenCommentsBlood Lylknuta050/9209 2:02 PM EDT Ntkln6019 2:02 PM EDTTemperature--Respiratory Rate--Oxygen Fvwbwnjtdb11% 06/20/2024 2:02 PM EDTInhaled Oxygen Concentration--Oufzpn391 kg (270 lb) 06/20/2024 2:02 PM TGRZuivgx267.2 cm (5' 7 )06/20/2024 2:02 PM EDTBody Mass Index42.2909 2:02 PM EDT Plan of Treatment Not on file Insurance Care Teams Team MemberRelationshipSpecialtyStart DateEnd Date Allison Schuler MD [address] [place] [address] PCP - GeneralFamily Medicine03/04/25
== END 2025-10-03 13:24 | disposition home or self-care (01) ==
LOC: FHNEUROLOG 13:23
PROVIDERS: PCP Family Medicine; Visit Provider Psychiatry & Neurology Neurology
DX: G47.33 Obstructive sleep apnea (adult) (pediatric) (principal)
CPT/HCPCS: G0463